=== PATIENT | female | born 1970 | race Caucasian/White ===

== ENCOUNTER → 2019-05-24 11:48 | Outpatient (CLI) | payer OTHER, SELFPAY ==
[2019-05-24 12:30] LABS: Basophils % 0.7 % (0.1-2.0); Eosinophils # 0.1 K/mm3 (0.0-0.4); Eosinophils % 1.6 % (0.1-12.0); Hematocrit 45.6 % (37.0-47.0); Hemoglobin 14.5 g/dL (12.2-16.2); Lymphocytes # 1.6 K/mm3 (0.7-4.5); Lymphocytes % 26.2 % (10-50); Mean Corpuscular HGB Conc 31.8 g/dL (31.8-35.4); Mean Corpuscular Hemoglobin 31.1 pg (27.0-31.2); Mean Corpuscular Volume 97.6 fl (81-99); Mean Platelet Volume 8.3 fl (7.4-10.4); Monocytes # 0.3 K/mm3 (0.1-1.0); Monocytes % 5.5 % (1.7-9.3); Neutrophils # 4.1 K/mm3 (1.8-7.8); Platelet Count 172 K/mm3 (142-424); Red Blood Count 4.67 M/mm3 (4.20-5.40); Red Cell Distribution Width 13.2 % (11.5-17.5); White Blood Count 6.3 K/mm3 (4.8-10.8)
[2019-05-24 14:33] LABS: Alanine Aminotransferase 24 U/L (12-78); Albumin Level 3.7 gm/dL (3.4-5.0); Albumin/Globulin Ratio 1.2 (1.1-1.8); Alkaline Phosphatase 68 U/L (46-116); Aspartate Amino Transferase 19 U/L (15-37); Bilirubin,Total 0.3 mg/dL (0.2-1.0); Blood Urea Nitrogen 8 mg/dL (7-18); CKMB Relative Index 1.1 U/L (0-4.0); Calcium 8.5 mg/dL (8.5-10.1); Carbon Dioxide 28 mmol/L (21.0-32.0); Chloride 103 mmol/L (98-107); Chol/HDL Ratio 3.5 (1-3.5); Cholesterol 229 mg/dL (140-200); Creatine Kinase 132 U/L (26-192); Creatine Kinase MB 1.5 ng/ml (0.0-3.6); Estimated Glomerular Filt Rate 89 ml/min (>60); GFR (African American) 108 ML/MIN (>60); Globulin 3.1 gm/dl (1.3-3.2); Glucose 94 mg/dL (74-106); HDL Cholesterol 66 mg/dL (29-89); LDL Cholesterol 147 mg/dL (0-130); Sodium 143 mmol/L (136-145); T4 (Thyroxine) 10.6 ug/dl (4.7-13.3); Thyroid Stimulating Hormone 1.33 uIU/ml (0.358-3.740); Total Protein,Serum 6.8 gm/dL (6.4-8.2); Triglycerides 79 mg/dL (30-200); Troponin I < 0.02 ng/ml (0.00-0.06); VLDL Cholesterol 16 mg/dL (0-40)
[2019-05-25 23:11] LABS: Vitamin D 25 Hydroxy 37.6 ng/mL (30.0-100.0)
== END ==
PROVIDERS: Visit Provider Nurse Practitioner Family
DX: I10 Essential (primary) hypertension (principal); R00.2 Palpitations
CPT/HCPCS: 36415; 80053; 80061; 82550; 82553; 82652; 84436; 84443; 84484; 85025

== ENCOUNTER → 2019-05-31 08:48 | Outpatient (CLI) | payer OTHER, SELFPAY ==
--- NOTE | 2019-05-31 | CA_ITS ---
APPROVED REPORT Exam: Exercise Treadmill Technologist: Genna Lord Ht: 5 ft 5 in Wt: 116 lbs BSA: 1.57 m2 HR: 80 bpm BP: 123/83 mmHg Indications: Shortness of Air, chest pain Medical History Medications: Premarin,,,,, Stress Test Details Test: Uriel HR Resting HR: 104 bpm Max Heart Rate (APMHR): 171 bpm Max HR Achieved: 182 bpm Target HR (85% APMHR): 145 bpm % of APMHR: 106 Recovery HR: 100 bpm BP Resting BP: 123.0/83.0 mmHg Max BP: 182.0/86.0 mmHg Recovery BP: 129.0/90.0 mmHg ECG Clinical Exercise duration: 12:00 min Highest Stage Achieved: Exercise capacity: 12.8 METs Stress ECG Conclusion Resting ECG: Normal sinus rhythm, PVC, incomplete right bundle branch block Patient exercised 12:00 on Uriel Protocol. Test stopped due to shortness of air, fatigue, 100% of PM heart rate. Symptoms: Mild chest pressure with exercise. Arrhythmias/Ectopy: Occasional isolated PVC. Occasional PAC and one 4 beat run of SVT. ST-T Changes: Normal ST response to exercise. Conclusion: Mild chest pain with normal EKGs during exercise. GXT only (no images). Test Summary RECOVERY 02:00 0.0 0.0 141 . 145/ 85 . . REST 03:01 0.0 0.0 104 . 123/ 83 . . Stage 1 01:00 10.0 1.7 110 . . . . Stage 1 02:00 10.0 1.7 117 . . . . Stage 1 03:00 10.0 1.7 125 . 144/ 80 . . Stage 2 01:00 12.0 2.5 144 . . . . Stage 2 02:00 12.0 2.5 149 . . . . Stage 2 03:00 12.0 2.5 148 . 170/ 80 . . Stage 3 01:00 14.0 3.4 159 . . . . Stage 3 02:00 14.0 3.4 164 . . . . Stage 3 03:00 14.0 3.4 169 . 182/ 86 . . Stage 4 01:00 16.0 4.2 176 . . . . Stage 4 02:00 16.0 4.2 179 . . . . Stage 4 03:00 16.0 4.2 181 . . . Stop exercise at 12:00 RECOVERY 01:00 0.0 0.0 164 . 145/ 85 . . RECOVERY 02:00 0.0 0.0 141 . 145/ 85 . . RECOVERY 03:00 0.0 0.0 118 . 138/ 90 . . RECOVERY 04:00 0.0 0.0 112 . 138/ 88 . . RECOVERY 05:00 0.0 0.0 109 . 138/ 88 . . RECOVERY 06:00 0.0 0.0 101 . 129/ 90 . . RECOVERY 06:33 0.0 0.0 97 . 129/ 90 . . Electronically signed by : Wyatt Rojas, 05/31/2019 21:02:13
--- NOTE | 2019-05-31 08:55 | CA_ITS ---
APPROVED REPORT EXAM: Comprehensive 2D, Doppler, and color-flow Echocardiogram Stitching Machine Operator: Rae Guan RDCS Ht: 5 ft 5 in Wt: 115lbs BSA: 1.56 BP: 117/89 mmHg Indications: SOA CP SMOKER 2D Dimensions LVOT 1.90 cm (M/F) 1.5-2.5 M-Mode Dimensions RVDd 0.70 cm (0.9-2.6) LA Diam 1.70 cm (1.9-4.0) LVDd 4.00 cm (3.5-5.7) Ao Diam 2.60 cm (2.0-3.7) LVDs 3.00 cm (3.5-5.7) AV Cusp 1.90 cm (1.5-2.6) IVSd 0.60 cm (0.6-1.1) PWd 0.70 cm (0.6-1.1) EF (Teich) 50.00% FS 25.00% EDV (Teich) 70.00 mL ESV (Teich) 35.00 mL LV Diastology E/A Ratio 0.9 MED E' 7.41 (< 7 cm/sec) E'/MED E' Ratio 7.70 (>14) LAT E' 12.50 (<10 cm/sec) E/LAT E' Ratio 4.50 (>14) Mitral Valve MV E Max Pradeep. 56.80 (40-130 cm/s) MV A Velocity 66.10 (40-130 cm/s) E/A Ratio 0.90 Left Ventricle Left atrium is normal size, left ventricle is normal size, there is no concentric left ventricular hypertrophy, visually estimated ejection fraction 55% with no regional wall motion abnormality, diastolic parameters are inconclusive. Right Ventricle Right atrium and right ventricular normal size and contractility. Aortic Valve Aortic valve is minimally thickened and fibrosed. There is no aortic stenosis aortic insufficiency. Mitral Valve Mitral valve is grossly normal, there is no mitral stenosis, there is mild mitral regurgitation. Tricuspid Valve Tricuspid valve is grossly normal, there is mild tricuspid regurgitation. Tricuspid regurgitation jet velocity is inadequate for calculation of the right ventricular systolic pressure. Pulmonic Valve Pulmonic valve is poorly visualized. Great Vessels Aortic root is normal size. Pericardium No significant pericardial effusion noted. Conclusion 1. Normal left ventricular size, preserved left ventricular systolic function, visually estimated ejection fraction 55% with no regional wall motion abnormality, diastolic parameters are inconclusive. 2. Mild mitral and tricuspid regurgitation 3. No significant pericardial effusion noted. Electronically signed by : Wyatt Rojas, 06/01/2019 12:23:59
== END ==
PROVIDERS: PCP Emergency Medicine; Visit Provider Urology
DX: R00.2 Palpitations (principal); R06.02 Shortness of breath; R94.31 Abnormal electrocardiogram [ECG] [EKG]
CPT/HCPCS: 93017; 93306

== ENCOUNTER → 2019-06-06 14:06 | Outpatient (CLI) | payer OTHER, SELFPAY | PROVIDERS: PCP Emergency Medicine; Visit Provider Urology | DX: R53.83 Other fatigue (principal); R40.0 Somnolence; G47.30 Sleep apnea, unspecified | CPT/HCPCS: 95806 ==

== ENCOUNTER → 2019-06-20 07:38 | Outpatient (CLI) | payer OTHER, SELFPAY ==
--- NOTE | 2019-06-20 07:47 | MR_ITS ---
PROCEDURE: MR LUMBAR SPINE WO CON CLINICAL INDICATION: Back pain Low back pain worse on the left COMPARISON: None TECHNIQUE: Standard multiplanar multiecho sequences are performed without contrast. 3-D MIP and myelographic images are also rendered and reviewed FINDINGS: There is normal alignment. The spinal cord ends at the T12-L1 level. L1-L2: Unremarkable. L2-L3: A small posterior extradural area of isointense T1 and T2 signal noted in the right posterior paracentral region of the disc space consistent with a small right paracentral disc protrusion causing right lateral recess and foraminal narrowing impinging upon the right L3 nerve root L3-L4: Mild facet and ligamentum hypertrophy with mild bilateral foraminal narrowing slightly greater on the left compared to the right. L4-5: Mild facet and ligamentum hypertrophy L5-S1: Mild facet and ligamentum hypertrophy Gallstones are suspected may be confirmed with ultrasound if clinically warranted. IMPRESSION: 1. L2-L3: A small posterior extradural area of isointense T1 and T2 signal noted in the right posterior paracentral region of the disc space consistent with a small right paracentral disc protrusion causing right lateral recess and foraminal narrowing impinging upon the right L3 nerve root 2. L3-L4: Mild facet and ligamentum hypertrophy with mild bilateral foraminal narrowing slightly greater on the left compared to the right. 3. Gallstone suspected and may be confirmed with ultrasound Dictated by: Stanislaw Adan MD 06/21/2019 06:19 Electronically signed by Stanislaw Adan MD in [place] 06/21/2019 06:19
== END ==
PROVIDERS: PCP Emergency Medicine; Visit Provider Nurse Practitioner Family
DX: M54.5 Low back pain (principal)
CPT/HCPCS: 72148; 76376

== ENCOUNTER 2019-06-21 08:30 | Outpatient (RCR) | payer OTHER, SELFPAY ==
--- NOTE | 2019-06-14 09:13 | HMH.PTOPEV ---
PT Outpatient Evaluation Rehab PT Outpatient Evaluation Start: 06/14/19 08:45 Freq: Status: Active Protocol: Document 06/14/19 08:45 CHELSEY (Rec: 06/14/19 09:05 CHELSEY [id number]) Electronically Signed By Samm Galvan, PT 06/14/19 08:45 Outpatient Therapy Subjective History Subjective History Patient is a 48 year old female presenting to outpatient PT with reports of acute low back pain. No radicular symptoms to report. No mechanism of injury to report. Special tests indicate R ant/L post innomminant. Corrected with manual rx. Medications include flexoril, prednisone and naproxen. Pt reports hx of R shoulder pain. No other comorbidities to report. Chief Complaint Pain Symptom Type Ache,Sharp Symptoms Relieved By Rest/Positioning Symptoms Aggravated By Sitting,Bending/Stooping Prior Functional Limitations None Current Functional Limitations Housework,Sitting,Squatting, Recreation Activity,Bending/ Stooping Symptom Description Intermittent Level of pain today (0-10) 2 Pain scale - at its best (0-10) 0 Pain scale - at its worst (0-10) 8 Lumbopelvic Eval Posture Thoracic Spine Posture Standing Position Neutral Lumbar Spine Posture Standing Position Neutral Assistive device Assistive Devices None / NA Palapation tenderness left Lumbar/Sacral Palpation Findings Tenderness Lumbar/Sacral Palpation Overall Comment 3/4 L PSIS Accessory Movement S1 left Range of Motion Lumbar Spine Active Flexion Range of WNL Motion (degrees) Lumbar Spine Active Extension Range of WNL Motion (degrees) Left Lumbar Spine Lateral Flexion Active 20 Range of Motion (degrees) Right Lumbar Spine Lateral Flexion 12 Active Range of Motion (degrees) Lumbar Spine ROM Limitations Soft Tissue Tightness,Bony Restriction Manual Muscle Test Left Knee Extension Strength Grade 4 Good Knee Flexion Strength Grade 4 Good Hip Flexion Strength Grade 4- Good- Hip Abduction Strength Grade 4 Good Hip Adduction Strength Grade 4 Good Extensor Hallucis Longus Strength Grade 5 Normal Ankle Dorsiflexion Strength Grade 5 Normal Gastronemius/Soleus Strength Grade 5 Normal DTR Rt Patellar 2+ Lt Patellar 2+ Rt Gas
== END 2019-06-21 08:35 | disposition home or self-care (01) ==
LOC: PT 08:30
PROVIDERS: PCP Emergency Medicine; Visit Provider Nurse Practitioner Family
DX: M54.5 Low back pain (principal)
CPT/HCPCS: 97010; 97014; 97035; 97110; 97140; 97163; G0283

== ENCOUNTER → 2019-07-03 07:58 | Outpatient (CLI) | payer OTHER, SELFPAY ==
--- NOTE | 2019-07-03 07:59 | US_ITS ---
PROCEDURE: US GALLBLADDER CLINICAL INDICATION: Abnormal Abd CT COMPARISON: MR LUMBAR SPINE WO CON from 06/20/2019 FINDINGS: Pancreas: Unremarkable/Not well seen Liver: Unremarkable. There is appropriate direction of blood flow within a non dilated portal vein. Right kidney: Unremarkable appearing. No hydronephrosis. Gallbladder: The gallbladder is filled with stones. No gallbladder wall thickening, pericholecystic fluid, or biliary dilatation. Common bile duct is 4 mm. IMPRESSION: Cholelithiasis Dictated by: Stanislaw Adan MD 07/03/2019 13:47 Electronically signed by Stanislaw Adan MD in [place] 07/03/2019 13:47
== END ==
PROVIDERS: PCP Emergency Medicine; Visit Provider Nurse Practitioner Family
DX: R93.5 Abnormal findings on diagnostic imaging of other abdominal regions, including retroperitoneum (principal)
CPT/HCPCS: 76705

== ENCOUNTER → 2019-07-12 10:46 | Outpatient (CLI) | payer OTHER, SELFPAY ==
[2019-07-12 11:37] LABS: Basophils % 0.6 % (0.1-2.0); Eosinophils # 0.1 K/mm3 (0.0-0.4); Eosinophils % 1.4 % (0.1-12.0); Hematocrit 43.2 % (37.0-47.0); Hemoglobin 14.5 g/dL (12.2-16.2); Lymphocytes # 2.2 K/mm3 (0.7-4.5); Lymphocytes % 30.9 % (10-50); Mean Corpuscular HGB Conc 33.6 g/dL (31.8-35.4); Mean Corpuscular Hemoglobin 32.8 pg (27.0-31.2); Mean Corpuscular Volume 97.5 fl (81-99); Mean Platelet Volume 7.9 fl (7.4-10.4); Monocytes # 0.5 K/mm3 (0.1-1.0); Monocytes % 6.2 % (1.7-9.3); Neutrophils # 4.4 K/mm3 (1.8-7.8); Platelet Count 186 K/mm3 (142-424); Red Blood Count 4.43 M/mm3 (4.20-5.40); Red Cell Distribution Width 13.2 % (11.5-17.5); White Blood Count 7.2 K/mm3 (4.8-10.8)
[2019-07-12 12:48] LABS: Alanine Aminotransferase 22 U/L (12-78); Albumin Level 3.6 gm/dL (3.4-5.0); Albumin/Globulin Ratio 1.2 (1.1-1.8); Alkaline Phosphatase 74 U/L (46-116); Anion Gap 10.1 mEq/L (5-15); Aspartate Amino Transferase 19 U/L (15-37); Bilirubin,Total 0.2 mg/dL (0.2-1.0); Blood Urea Nitrogen 9 mg/dL (7-18); Calcium 9.1 mg/dL (8.5-10.1); Carbon Dioxide 29 mmol/L (21.0-32.0); Chloride 105 mmol/L (98-107); Creatinine,Serum 0.58 mg/dL (0.55-1.02); Estimated Glomerular Filt Rate 110 ml/min (>60); GFR (African American) 133 ML/MIN (>60); Glucose 72 mg/dL (74-106); Potassium 4.1 mmoL/L (3.5-5.1); Sodium 140 mmol/L (136-145); Total Protein,Serum 6.6 gm/dL (6.4-8.2)
== END ==
PROVIDERS: Visit Provider Surgery
DX: K80.20 Calculus of gallbladder without cholecystitis without obstruction (principal)
CPT/HCPCS: 36415; 80053; 85025

== ENCOUNTER → 2019-08-10 12:54 | Outpatient (POV) | payer OTHER, SELFPAY | PROVIDERS: Visit Provider Neurological Surgery | DX: Z00.00 Encounter for general adult medical examination without abnormal findings (principal) ==

== ENCOUNTER → 2019-09-05 11:21 | Outpatient (POV) | payer BC, SELFPAY ==
[2019-09-05 11:34] VITALS: BP 125/87; PULSE 85; RESP 18; O2SAT 99; BMI 19.3
--- NOTE | 2019-09-05 11:53 | HMH.PMCON ---
Assessment and Plan (1) Facet arthropathy Current visit: Yes Status: Chronic Category: Medical Code(s): M47.819 - Spondylosis without myelopathy or radiculopathy, site unspecified (2) Degenerative disc disease, lumbar Current visit: Yes Status: Chronic Category: Medical Code(s): M51.36 - Other intervertebral disc degeneration, lumbar region - Assessment and plan all Dx Assessment and Plan for all problems:: We will schedule a lumbar medial branch block at L4-L5 L5-S1 bilaterally. Patient is getting continue her home stretching program we will start her on diclofenac 75 mg 1 p.o. twice daily. We will follow-up with her after her injection reassess her symptoms at that time she may be a neurotomy candidate. She has no active infections. She is not on any anticoagulation therapy. Dr. Mendoza has reviewed this note and agrees with this plan of care. This note was dictated using voice recognition software and may contain errors or omissions HPI - Data of Consult Consult date: 09/05/19 Requesting Physician: Madhuri Herrera APRN Primary Care Provider: Ghulam Bains MD - Consult Narrative Reason for consult: Facet arthropathy History of present illness: Ms. Guzmán is a 49 year old female who presents today for consultation in regards to her low back pain. Patient has low back pain that is nonradiating and very focal in nature. Any kind of twisting motion makes it worse. She was seen by a neurosurgeon and was determined that she would potentially benefit from facet joint injections. He states she had this 20 years ago and has extreme success with that. Patient does have an MRI showing facet arthropathy she is not a surgical candidate. She is failed 6 months of conservative therapy including medications, anti-inflammatories, stretching programs, physical therapy she is continuing a home stretching program. She is not on any anticoagulation therapy. CC: Madhuri Herrera APRN [facility] History I have reviewed the patient's past medical history: Yes Medical History: Reports:: Hypertension Denies:: Cancer, Diabetes Mellitus Type 1, Diabetes Mellitus Type 2, Internal Pacemaker, MRSA, Seizures *Have you ever received a pneumonia vaccine?: Yes *Have you received a flu vaccine this season?: Yes Other Medical History: Reports: Hoarseness, Hormone Therapy, Sinus Problems. Denies: Blood Transfusion Reaction Laterality Cases: Right: Arthroscopy Knee, Arthroscopy Shoulder Other Surgeries: Yes: Cholecystectomy, Colonoscopy, Hysterectomy-Total, Other. No: Pacemaker Amputation: No Fractures: No - *Social History Smoking Status: Current every day smoker Tobacco Type: cigarettes # Packs/Day (cigarettes): 1 #Yrs smoked (if former smoker): 20 Alcohol Intake: never Substance Use Type: denies use *Occupational Status:: other Housing: house Household Members: spouse *Travel in the last 8 weeks: None Family Hx:: Cancer Review of Systems - Review of Systems ROS General: no recent weight change, no fever, no sleep disturbances Respiratory: no cough, no shortness of air, no recurring pulmonary infections Cardiovascular/Peripheral Vascular: No chest pain, No palpitations, no edema, no shortness of breath. Gastrointestinal: no new onset incontinence, normal bowel movements reported Genitourinary: no new onset incontinence Musculoskeletal: Back pain Psychiatric: normal mood/ affect Neurological: [denies new onset weakness in extremities], [denies new onset balance issues] Meds Home Medications Medication Instructions Recorded Confirmed Type conjugated estrogens 0.625 mg 0.625 mg PO DAILY 05/24/19 08/17/19 History tablet Diclofenac Sodium [Diclofenac 75mg 75 mg PO BID #60 tab 09/05/19 Rx Tab] Allergies Allergy/AdvReac Type Severity Reaction Status Date / Time meperidine [From DEMEROL] Allergy Intermediate I-HIVES Verified 08/17/19 09:06 sumatriptan Allergy Unknown Hives, SOB Verified 1
== END ==
PROVIDERS: PCP Emergency Medicine; Visit Provider Clinical Nurse Specialist Family Health
DX: M47.816 Spondylosis without myelopathy or radiculopathy, lumbar region (principal)
CPT/HCPCS: 99202

== ENCOUNTER → 2019-10-02 11:35 | Outpatient (POV) | payer BC, SELFPAY ==
[2019-10-02 12:19] VITALS: BP 143/98; PULSE 94; RESP 18; O2SAT 99; BMI 19.5
--- NOTE | 2019-10-02 12:33 | XR_ITS ---
PROCEDURE: XR SACROILIAC JOINT BI MIN 3V CLINICAL INDICATION: SACROILITIS Back pain COMPARISON: No exams were available for comparison FINDINGS: No bony or joint abnormality. No evidence SI joint effusion or lytic change or significant degenerative change. IMPRESSION: Negative SI joints Dictated by: Stanislaw Adan MD 10/02/2019 14:09 Electronically signed by Stanislaw Adan MD in [place] 10/02/2019 14:09
--- NOTE | 2019-10-02 12:36 | HMH.PAINSOAP ---
[facility] Pain Management SOAP Note Subjective:: Patient is a very pleasant 49-year-old white female who presents today for follow-up after medial branch blocks. Patient did not get any relief from her medial branch blocks. Patient states that the pain is lower. Patient is pointing to her SI joints. Patient has a positive Arlene test SI joint compression test and bilateral Ike's test. Patient has had low back pain for over 6 months. She rates her pain a 2 out of 10 however is worse with activity. She has difficulty from 6 sitting to standing position. Patient does not have any diagnostic imaging of her SI joints we will send her for an x-ray today. We will set her up for SI joint injections. ROS General: no recent weight change, no fever, no sleep disturbances Respiratory: no cough, no shortness of air, no recurring pulmonary infections Cardiovascular/Peripheral Vascular: No chest pain, No palpitations, no edema, no shortness of breath. Gastrointestinal: no new onset incontinence, normal bowel movements reported Genitourinary: no new onset incontinence Musculoskeletal: Bilateral SI joint pain Psychiatric: normal mood/ affect, Neurological: [denies new onset weakness in extremities], [denies new onset balance issues] Objective:: Physical Exam General: Alert and oriented x3, no acute distress, pleasant and cooperative, [on room air] Lungs: Resps E/U, Symmetrical chest expansion, Eyes: PERRL Musculoskeletal: Flexion and extension of lumbar spine somewhat guarded secondary to pain, deep tendon reflexes normal, strength in upper and lower extremities [5/5], [abnormal gait noted] SI joint compression test positive bilaterally Ike's test positive bilaterally Arlene test positive bilaterally Neurological: speech clear, 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 I will follow-up with her after this reassess her symptoms at that time she is been instructed to call the office if she has any issues prior to her next appointment. Dr. Mendoza has reviewed this note and agrees with this plan of care. This note was dictated using voice recognition software and may contain errors or omissions [facility] History I have reviewed the patient's past medical history: Yes Medical History: Reports:: Hypertension Denies:: Cancer, Diabetes Mellitus Type 1, Diabetes Mellitus Type 2, Internal Pacemaker, MRSA, Seizures *Have you ever received a pneumonia vaccine?: Yes *Have you received a flu vaccine this season?: Yes Other Medical History: Reports: Hoarseness, Hormone Therapy, Sinus Problems. Denies: Blood Transfusion Reaction Laterality Cases: Right: Arthroscopy Knee, Arthroscopy Shoulder Other Surgeries: Yes: Cholecystectomy, Colonoscopy, Hysterectomy-Total, Other. No: Pacemaker Amputation: No Fractures: No - *Social History Smoking Status: Current every day smoker Tobacco Type: cigarettes # Packs/Day (cigarettes): 1 #Yrs smoked (if former smoker): 20 Alcohol Intake: never Substance Use Type: denies use *Occupational Status:: other Housing: house Household Members: spouse *Travel in the last 8 weeks: None Family Hx:: Cancer
== END ==
PROVIDERS: PCP Emergency Medicine; Visit Provider Clinical Nurse Specialist Family Health
DX: M46.1 Sacroiliitis, not elsewhere classified (principal); M51.36 Other intervertebral disc degeneration, lumbar region; Z72.0 Tobacco use
CPT/HCPCS: 72202; 99212

== ENCOUNTER → 2019-11-13 14:44 | Outpatient (POV) | payer BC, SELFPAY ==
[2019-11-13 14:56] VITALS: BP 149/91; PULSE 79; RESP 18; O2SAT 98; BMI 19.3
--- NOTE | 2019-11-14 10:52 | P.CONS_ITS ---
[facility] Pain Management SOAP Note Subjective:: Is a pleasant 49-year-old white female who presents today for follow-up after SI joint injections. Patient has had not much relief with this. She rates her pain a 6 out of 10 however now it is lower in her buttock region. Patient does have tenderness over her piriformis. We discussed stretching along with gabapentin. Patient is taking gabapentin in the past and did well with it. We will start her on a gabapentin regimen and some piriformis stretches at home. [facility] #[id number] reviewed. ROS General: no recent weight change, no fever, no sleep disturbances Respiratory: no cough, no shortness of air, no recurring pulmonary infections Cardiovascular/Peripheral Vascular: No chest pain, No palpitations, no edema, no shortness of breath. Gastrointestinal: no new onset incontinence, normal bowel movements reported Genitourinary: no new onset incontinence Musculoskeletal: Piriformis pain Psychiatric: normal mood/ affect Neurological: [denies new onset weakness in extremities], [denies new onset balance issues] Objective:: Physical Exam General: Alert and oriented x3, no acute distress, pleasant and cooperative, [on room air] Lungs: Resps E/U, Symmetrical chest expansion, Eyes: PERRL Musculoskeletal: Flexion and extension of lumbar spine somewhat guarded secondary to pain, deep tendon reflexes normal, strength in upper and lower extremities [5/5], slightly antalgic gait noted Neurological: speech clear, in store representative equal, no gross sensory deficits Assessment:: Myofascial pain syndrome, sacroiliitis, piriformis syndrome Plan:: We will start the patient on gabapentin 100 mg we will prescribe 5 a day however she will titrate up slowly. She will begin with 1 tab at nighttime and increase as tolerated. I will see her in 1 month reassess her symptoms at that time. She is also going to move forward with piriformis stretching. Dr. Mendoza has reviewed this note and agrees with this plan of care. This note was dictated using voice recognition software and may contain errors or omissions [facility] History Medical History: Reports:: Hypertension Denies:: Cancer, Diabetes Mellitus Type 1, Diabetes Mellitus Type 2, Internal Pacemaker, MRSA, Seizures *Have you ever received a pneumonia vaccine?: Yes *Have you received a flu vaccine this season?: Yes Other Medical History: Reports: Hoarseness, Hormone Therapy, Sinus Problems. Denies: Blood Transfusion Reaction Laterality Cases: Right: Arthroscopy Knee, Arthroscopy Shoulder Other Surgeries: Yes: Cholecystectomy, Colonoscopy, Hysterectomy-Total, Other. No: Pacemaker Amputation: No Fractures: No - *Social History Smoking Status: Current every day smoker Tobacco Type: cigarettes # Packs/Day (cigarettes): 1 #Yrs smoked (if former smoker): 20 Alcohol Intake: never Substance Use Type: denies use *Occupational Status:: other Housing: house Household Members: spouse *Travel in the last 8 weeks: None Family Hx:: Cancer
== END ==
PROVIDERS: PCP Emergency Medicine; Visit Provider Clinical Nurse Specialist Family Health
DX: M79.18 Myalgia, other site (principal); M46.1 Sacroiliitis, not elsewhere classified; G57.00 Lesion of sciatic nerve, unspecified lower limb
CPT/HCPCS: 99212

== ENCOUNTER → 2019-12-11 10:01 | Outpatient (POV) | payer BC, SELFPAY ==
[2019-12-11 10:13] VITALS: BP 125/95; PULSE 94; RESP 18; TEMP 36.8; O2SAT 98; BMI 19.3
--- NOTE | 2019-12-11 11:30 | HMH.PAINSOAP ---
[facility] Pain Management SOAP Note Subjective:: Patient is a pleasant 49-year-old white female who presents today for follow-up. Patient is on gabapentin states the radiation of pain has helped however she is having extreme pain over her left SI joint and is extremely sensitive to palpation in this area. She rates her pain a 7 out of 10 and is having a lot of difficulty doing her activities of daily life. We did get an x-ray of her SI joint which was negative however she is not having pain in any other location at this time. Patient's tried medial branch blocks and also SI joint injections with no significant relief. She is tried bracing both back and SI joints. She is tried anti-inflammatories with no relief. We will order an MRI of her left SI joint to help determine pathology. ROS General: no recent weight change, no fever, no sleep disturbances Respiratory: no cough, no shortness of air, no recurring pulmonary infections Cardiovascular/Peripheral Vascular: No chest pain, No palpitations, no edema, no shortness of breath. Gastrointestinal: no new onset incontinence, normal bowel movements reported Genitourinary: no new onset incontinence Musculoskeletal: SI joint pain Psychiatric: normal mood/ affect Neurological: [denies new onset weakness in extremities], [denies new onset balance issues] Objective:: Physical Exam General: Alert and oriented x3, no acute distress, pleasant and cooperative, [on room air] Lungs: Resps E/U, Symmetrical chest expansion, Eyes: PERRL Musculoskeletal: Flexion and extension of lumbar spine somewhat guarded secondary to pain, deep tendon reflexes normal, strength in upper and lower extremities [5/5], antalgic gait noted, positive Arlene test positive SI joint compression test and positive Jackie's test on the left side Neurological: speech clear, boat 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 twice daily as needed. We will also get an MRI of her left SI joint. Patient's been instructed to call the office if she has any issues prior to her next appointment. We specifically discussed risk factors for Covid-19 including age, heart or lung disease, diabetes, immunosuppression and travel. We also discussed that NSAIDs may worsen Covid-19 infection symptoms and that they should not be used to treat Covid-19 symptoms. Patient was also informed that corticosteroids in any form oral or injectable will decrease immune response and may increase risk of Covid-[address] Mendoza has reviewed this patient's chart and this note and agrees with plan of care. Patient has been instructed to call the office if they have any issues prior to the next appointment. Dr. Mendoza has reviewed this note and agrees with this plan of care. This note was dictated using voice recognition software and may contain errors or omissions [facility] History I have reviewed the patient's past medical history: Yes Medical History: Reports:: Hypertension Denies:: Cancer, Diabetes Mellitus Type 1, Diabetes Mellitus Type 2, Internal Pacemaker, MRSA, Seizures *Have you ever received a pneumonia vaccine?: Yes *Have you received a flu vaccine this season?: Yes Other Medical History: Reports: Hoarseness, Hormone Therapy, Sinus Problems. Denies: Blood Transfusion Reaction Laterality Cases: Right: Arthroscopy Knee, Arthroscopy Shoulder Other Surgeries: Yes: Cholecystectomy, Colonoscopy, Hysterectomy-Total, Other. No: Pacemaker Amputation: No Fractures: No - *Social History Smoking Status: Current every day smoker Tobacco Type: cigarettes # Packs/Day (cigarettes): 1 #Yrs smoked (if former smoker): 20 Alcohol Intake: never Substance Use Type: denies use *Occupational Status:: other Housing: house Household Members: spouse *Travel in the last 8 weeks: None Family Hx:: Cancer
== END ==
PROVIDERS: PCP Emergency Medicine; Visit Provider Clinical Nurse Specialist Family Health
DX: M46.1 Sacroiliitis, not elsewhere classified (principal)
CPT/HCPCS: 99212

== ENCOUNTER → 2019-12-19 07:55 | Outpatient (CLI) | payer BC, SELFPAY ==
--- NOTE | 2019-12-19 08:00 | MR_ITS ---
PROCEDURE: MR SACRUM WO CON CLINICAL INDICATION: SI JOINT PAIN Left-sided sacral pain COMPARISON: XR SACROILIAC JOINT BI MIN 3V from 10/02/2019 TECHNIQUE: Routine multiplanar multi echo sequences are performed without gadolinium enhancement. FINDINGS: SI joints have an unremarkable appearance. There is no evidence of effusion, significant osteosclerosis, or lytic process. No bone marrow edema is apparent. There is a small subarticular cystic area in the right ileum laterally and posteriorly seen on series 3, image 8 measuring approximately 4 mm nonspecific IMPRESSION: Negative MRI of the sacrum Dictated by: Stanislaw Adan MD 12/20/2019 14:49 Electronically signed by Stanislaw Adan MD in [place] 12/20/2019 14:49
== END ==
PROVIDERS: PCP Emergency Medicine; Visit Provider Clinical Nurse Specialist Family Health
DX: M53.3 Sacrococcygeal disorders, not elsewhere classified (principal)
CPT/HCPCS: 72195

== ENCOUNTER → 2020-01-01 14:36 | Outpatient (POV) | payer BC, SELFPAY ==
[2020-01-01 15:32] VITALS: BP 126/96; PULSE 106; RESP 18; TEMP 36.6; O2SAT 98; BMI 19.4
--- NOTE | 2020-01-01 15:41 | HMH.PAINSOAP ---
[facility] Pain Management SOAP Note Subjective:: Is a pleasant 49-year-old white female who presents today for follow-up after MRI. MRI of her sacrum is essentially negative. Patient is had epidural injections along with SI joint injections with no real relief. On exam today she is extremely tender over her facet joints in her lumbar spine. She does have lumbar facet arthropathy she has difficulty with twisting motions. Her pain is extremely focal in her low back. She rates it a 9 out of 10. She is having difficulty doing her activities of daily living. Patient is on some Robaxin which does give her some relief. She is not on any anticoagulation therapy. I do believe she potentially could be an RFA/neurotomy candidate. She and I discussed a medial branch block/a facet joint injection for diagnostic. ROS General: no recent weight change, no fever, no sleep disturbances Respiratory: no cough, no shortness of air, no recurring pulmonary infections Cardiovascular/Peripheral Vascular: No chest pain, No palpitations, no edema, no shortness of breath. Gastrointestinal: no new onset incontinence, normal bowel movements reported Genitourinary: no new onset incontinence Musculoskeletal: Back pain Psychiatric: normal mood/ affect Neurological: [denies new onset weakness in extremities], [denies new onset balance issues] Objective:: Physical Exam General: Alert and oriented x3, no acute distress, pleasant and cooperative, [on room air] Lungs: Resps E/U, Symmetrical chest expansion, Eyes: PERRL Musculoskeletal: Flexion and extension of lumbar spine somewhat guarded secondary to pain, deep tendon reflexes normal, strength in upper and lower extremities [5/5], slightly antalgic gait noted, positive facet loading lumbar spine Neurological: speech clear, 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 She may be a neurotomy candidate. Of note she is extremely tender and has had difficulty with her lumbar injections in the past. I do believe that potentially she would benefit from the use of lidocaine prior to her medial branch block. I will follow-up with her after this reassess her symptoms at that time she has been instructed to call the office if she has any issues prior to her next appointment. Dr. Mendoza has reviewed this note and agrees with this plan of care. This note was dictated using voice recognition software and may contain errors or omissions [facility] History I have reviewed the patient's past medical history: Yes Medical History: Reports:: Hypertension Denies:: Cancer, Diabetes Mellitus Type 1, Diabetes Mellitus Type 2, Internal Pacemaker, MRSA, Seizures *Have you ever received a pneumonia vaccine?: Yes *Have you received a flu vaccine this season?: Yes Other Medical History: Reports: Hoarseness, Hormone Therapy, Sinus Problems. Denies: Blood Transfusion Reaction Laterality Cases: Right: Arthroscopy Knee, Arthroscopy Shoulder Other Surgeries: Yes: Cholecystectomy, Colonoscopy, Hysterectomy-Total, Other. No: Pacemaker Amputation: No Fractures: No - *Social History Smoking Status: Current every day smoker Tobacco Type: cigarettes # Packs/Day (cigarettes): 1 #Yrs smoked (if former smoker): 20 Alcohol Intake: never Substance Use Type: denies use *Occupational Status:: other Housing: house Household Members: spouse *Travel in the last 8 weeks: None Family Hx:: Cancer
== END ==
PROVIDERS: PCP Emergency Medicine; Visit Provider Clinical Nurse Specialist Family Health
DX: M51.36 Other intervertebral disc degeneration, lumbar region (principal); M47.816 Spondylosis without myelopathy or radiculopathy, lumbar region; M54.06 Panniculitis affecting regions of neck and back, lumbar region
CPT/HCPCS: 99212

== ENCOUNTER 2020-01-12 12:47 | Day surgery (SDC) | payer BC, SELFPAY ==
[2020-01-12 13:08] VITALS: BP 121/92; PULSE 102; RESP 18; O2SAT 98; BMI 19.3
[2020-01-12 13:22] VITALS: BP 132/85; PULSE 85
[2020-01-12 13:23] VITALS: BP 142/78; PULSE 88; RESP 18; O2SAT 99
--- NOTE | 2020-01-12 13:28 | HMH.PMPROC ---
- Procedure Date: 01/12/20 Time: 13:28 Anesthesiologist:: Kieran Mendoza MD Complications:: None Pre-procedure Diagnosis:: Degenerative disc disease of the lumbar spine with lumbar spondylosis and facet arthropathy of lumbar spine Post-procedure Diagnosis:: Same Indications for Procedure:: This patient is a pleasant 49-year-old white female who we have been treating for low back pain with lumbar spondylosis and facet arthropathy. She does have some increasing pain over the facet joints of L4-5 and L5-S1. The pain is increased with extension and twisting. She has a lot of pain while she is working. We will do bilateral lumbar facet joint injection/medial branch blocks of L4-5 and L5-S1 today to see if this helps with her pain symptoms. Procedure Details:: Lumbar medial branch block Informed consent was obtained and the risks and benefits of the procedure was explained to the patient. The back was prepped using ChloraPrep. The skin and subcutaneous tissues were anesthetized using lidocaine. I placed 22-gauge spinal needles into the facet joint/medial branches of L4-L5 and L5-S1 bilaterally. Needle placement was confirmed with dye. After this we injected 3 mL bupivacaine 0.25% and Depo-Medrol 20 mg into each facet joint/medial branch of L4-L5 and L5-S1 bilaterally. We used a total of 80 mg Depo-Medrol for both levels bilaterally. The patient tolerated the procedure well with no complications. Plan and Disposition:: We will follow-up with her in 2 weeks. Will reevaluate her symptoms at that time. If this is successful we will proceed to radiofrequency ablation of these facet joints of L4-5 and L5-S1 bilaterally.
[2020-01-12 13:34] VITALS: BP 144/95; PULSE 92; RESP 18; O2SAT 98
== END 2020-01-12 13:36 | disposition home or self-care (01) ==
LOC: SC.PAINP 12:47
PROVIDERS: PCP Emergency Medicine; Visit Provider Anesthesiology
DX: M51.36 Other intervertebral disc degeneration, lumbar region (principal); M47.816 Spondylosis without myelopathy or radiculopathy, lumbar region; M54.06 Panniculitis affecting regions of neck and back, lumbar region; I10 Essential (primary) hypertension; Z72.0 Tobacco use; Z87.39 Personal history of other diseases of the musculoskeletal system and connective tissue
CPT/HCPCS: 64493; 64494; J1030; Q9966

== ENCOUNTER → 2020-01-29 11:27 | Outpatient (POV) | payer BC, SELFPAY ==
[2020-01-29 11:35] VITALS: BP 129/89; PULSE 87; RESP 18; TEMP 36.6; O2SAT 98; BMI 26.6
--- NOTE | 2020-01-29 12:18 | HMH.PAINSOAP ---
[facility] Pain Management SOAP Note Subjective:: Patient is a pleasant 49-year-old white female who presents today for follow-up after a facet joint injection at L4-L5 L5-S1 bilaterally. Patient states that she did extremely well getting 90% relief of her symptomology. She still having relief. She is interested in moving forward with a neurotomy/RFA. She rates her pain a 3 out of 10. Activity is much easier for her. Patient at this time is unsure she wants to do bilateral RFA. She would like to start with the left side since all of her pain is on the left side. ROS General: no recent weight change, no fever, no sleep disturbances Respiratory: no cough, no shortness of air, no recurring pulmonary infections Cardiovascular/Peripheral Vascular: No chest pain, No palpitations, no edema, no shortness of breath. Gastrointestinal: no new onset incontinence, normal bowel movements reported Genitourinary: no new onset incontinence Musculoskeletal: Back pain Psychiatric: normal mood/ affect Neurological: [denies new onset weakness in extremities], [denies new onset balance issues] Objective:: Physical Exam General: Alert and oriented x3, no acute distress, pleasant and cooperative, [on room air] Lungs: Resps E/U, Symmetrical chest expansion, Eyes: PERRL Musculoskeletal: Flexion and extension of lumbar spine somewhat guarded secondary to pain, deep tendon reflexes normal, strength in upper and lower extremities [5/5], slightly antalgic gait noted Neurological: speech clear, product grader 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 Given the efficacy of her medial branch blocks I do believe that this would benefit her. She is tried and failed other injections including epidurals, SI joint injections, she is failed medications and anti-inflammatories. Patient is continuing a home stretching program. I will follow-up with her after this at that time we will determine if she wants to move forward with the right side ablation. She is not on any anticoagulation therapy. Dr. Mendoza has reviewed this note and agrees with this plan of care. This note was dictated using voice recognition software and may contain errors or omissions [facility] History I have reviewed the patient's past medical history: Yes Medical History: Reports:: Hypertension Denies:: Cancer, Diabetes Mellitus Type 1, Diabetes Mellitus Type 2, Internal Pacemaker, MRSA, Seizures *Have you ever received a pneumonia vaccine?: Yes *Have you received a flu vaccine this season?: Yes Other Medical History: Reports: Hoarseness, Hormone Therapy, Sinus Problems. Denies: Blood Transfusion Reaction Laterality Cases: Right: Arthroscopy Knee, Arthroscopy Shoulder Other Surgeries: Yes: Cholecystectomy, Colonoscopy, Hysterectomy-Total, Other. No: Pacemaker Amputation: No Fractures: No - *Social History Smoking Status: Current every day smoker Tobacco Type: cigarettes # Packs/Day (cigarettes): 1 #Yrs smoked (if former smoker): 20 Alcohol Intake: never Substance Use Type: denies use *Occupational Status:: other Housing: house Household Members: spouse *Travel in the last 8 weeks: None Family Hx:: Cancer
== END ==
PROVIDERS: PCP Emergency Medicine; Visit Provider Clinical Nurse Specialist Family Health
DX: Z09 Encounter for follow-up examination after completed treatment for conditions other than malignant neoplasm (principal); M51.36 Other intervertebral disc degeneration, lumbar region; M47.816 Spondylosis without myelopathy or radiculopathy, lumbar region; M12.88 Other specific arthropathies, not elsewhere classified, other specified site
CPT/HCPCS: 99212

== ENCOUNTER 2020-03-01 13:26 | Day surgery (SDC) | payer BC, SELFPAY ==
[2020-03-01 13:39] VITALS: BP 126/86; PULSE 63; RESP 18; TEMP 36.7; O2SAT 98; BMI 19.3
--- NOTE | 2020-03-01 14:47 | P.PCN_ITS ---
- Procedure Date: 03/01/20 Time: 14:47 Anesthesiologist:: Kieran Mendoza MD Complications:: None Pre-procedure Diagnosis:: Degenerative disc disease of the lumbar spine with lumbar spondylosis and facet arthropathy of lumbar spine Post-procedure Diagnosis:: Same Indications for Procedure:: This patient is a pleasant 49-year-old white female who we are treating for low back pain with lumbar radicular symptoms. She did very well with her medial branch blocks with 90% relief in her pain symptoms for 2 to 3 weeks. She presents for radiofrequency of the facet joints on the left side of L4-5 and L5- S1 today. Procedure Details:: Lumbar RFA informed consent was obtained and the risk and benefits of the procedure was explained to the patient. Patient was placed prone on the procedure table. The patient was prepped and draped in sterile fashion. C-arm fluoroscopy was used to view the lumbar spine. The skin and subcutaneous tissues were anesthetized using lidocaine. I placed 20-gauge RF needles into the facet joints of L4-5 and L5-S1 levels on the left side. We underwent sensory stimulation. There is good sensory stimulation at 0.8 V. We underwent motor stimulation. There is no motor stimulation at 2 V. We then anesthetized these levels with lidocaine and Depo-Medrol. I used a total of 40 mg Depo-Medrol for both levels. I then burned both levels of L4-5 and L5-S1 facet joint/medial branches on the left side for 4 minutes at 80 ?C Patient tolerated the procedure well with no complication. Plan and Disposition:: We will follow-up with her in 2 weeks. Will reevaluate symptoms at that time.
[2020-03-01 14:48] VITALS: BP 133/78; PULSE 85; RESP 18; O2SAT 98
[2020-03-01 14:49] VITALS: BP 140/78; PULSE 85; RESP 18; O2SAT 98
[2020-03-01 15:03] VITALS: BP 149/84; PULSE 78; RESP 20; O2SAT 100
== END 2020-03-01 15:04 | disposition home or self-care (01) ==
LOC: SC.PAINP 13:27
PROVIDERS: PCP Emergency Medicine; Visit Provider Anesthesiology
DX: M51.36 Other intervertebral disc degeneration, lumbar region (principal); M47.816 Spondylosis without myelopathy or radiculopathy, lumbar region; M12.88 Other specific arthropathies, not elsewhere classified, other specified site; I10 Essential (primary) hypertension; Z72.0 Tobacco use; Z87.39 Personal history of other diseases of the musculoskeletal system and connective tissue; Z90.49 Acquired absence of other specified parts of digestive tract; Z79.899 Other long term (current) drug therapy
CPT/HCPCS: 64635; 64636; J1040

== ENCOUNTER → 2020-04-04 09:05 | Outpatient (POV) | payer BC, SELFPAY ==
[2020-04-04 09:35] VITALS: BP 125/88; PULSE 85; RESP 18; BMI 18.8
--- NOTE | 2020-04-04 09:42 | HMH.PAINSOAP ---
[facility] Pain Management SOAP Note Subjective:: Patient is a pleasant 49-year-old who presents today for follow-up. She has been treated for low back pain with lumbar spondylosis and facet arthropathy lumbar spine. She did have an RFA on the left side at L4-L5 and L5-S1. She was scheduled to undergo an RFA on the right side, however, she is not having any pain at this time. She says that she contributes much of her pain relief to the pain as well. She takes gabapentin 100 mg 1 tablet p.o. 5 times daily. She denies any side effects to the medications. She rates her pain a 0 out of 10 today. Review of Systems General: No recent weight changes, no fever, no sleep disturbances Respiratory: No cough, no shortness of air, no recurring pulmonary infections Cardiovascular/peripheral vascular: No chest pain, no palpitations, no edema, no shortness of breath Gastrointestinal: No new onset incontinence, normal bowel movements reported Genitourinary: No new onset incontinence Musculoskeletal: Low back pain worse with bending Psychiatric: Normal mood/affect Neurological: [Denies weakness in extremities], [denies balance issues] Objective:: Physical exam General: Alert and oriented x3, no acute distress, pleasant and cooperative, [on room air] Lungs: Respirations even and unlabored, symmetrical chest expansion Eyes: PERRL Musculoskeletal: Flexion and extension of lumbar spine somewhat guarded secondary to pain, deep tendon reflexes normal, strength in upper and lower extremities [5/5], [abnormal gait noted] Neurological: 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 We will continue her on her gabapentin 100 mg 1 tablet p.o. 5 times daily. We will give her 3 months worth of medication and she will follow-up with us in 3 months. Patient has been instructed to contact clinic if she has any concerns before her next appointment. The patient and I specifically discussed risk factors for COVID19. These risks include, but are not limited to age greater than 60, heart or lung disease, diabetes, immunosuppression, and travel. We also discussed NSAIDs may worsen COVID19 infection or symptoms. Patient should not use NSAIDs to treat COVID19 signs or symptoms. Patient was also informed that any type of corticosteroid of any form (oral or injection) will decrease the patient's immune system response and may increase the likelihood of COVID19 infection [address] symptoms[address] Mendoza has reviewed this note and agrees with this plan of care. This note was dictated using voice recognition software and make contain errors or missions. [facility] History I have reviewed the patient's past medical history: Yes Medical History: Reports:: Hypertension Denies:: Cancer, Diabetes Mellitus Type 1, Diabetes Mellitus Type 2, Internal Pacemaker, MRSA, Seizures *Have you ever received a pneumonia vaccine?: Yes *Have you received a flu vaccine this season?: Yes Other Medical History: Reports: Fibromyalgia, Hoarseness, Hormone Therapy, Sinus Problems. Denies: Blood Transfusion Reaction Laterality Cases: Right: Arthroscopy Knee, Arthroscopy Shoulder Other Surgeries: Yes: Cholecystectomy, Colonoscopy, Hysterectomy-Total, Other. No: Pacemaker Amputation: No Fractures: No - *Social History Smoking Status: Current every day smoker Tobacco Type: cigarettes # Packs/Day (cigarettes): 1 #Yrs smoked (if former smoker): 20 Alcohol Intake: never Substance Use Type: denies use *Occupational Status:: other Housing: house Household Members: spouse *Travel in the last 8 weeks: None Family Hx:: Cancer
== END ==
PROVIDERS: PCP Emergency Medicine; Visit Provider Clinical Nurse Specialist Family Health
DX: M51.36 Other intervertebral disc degeneration, lumbar region (principal); M47.816 Spondylosis without myelopathy or radiculopathy, lumbar region; M12.88 Other specific arthropathies, not elsewhere classified, other specified site
CPT/HCPCS: 99212

== ENCOUNTER → 2020-06-27 15:05 | Outpatient (POV) | payer BC, SELFPAY ==
[2020-06-27 15:41] VITALS: BP 115/74; PULSE 74; RESP 18; O2SAT 98; BMI 19.1
--- NOTE | 2020-06-27 16:31 | HMH.PAINSOAP ---
[facility] Pain Management SOAP Note Subjective:: Patient is a 50-year-old white female who presents today for follow-up. She has been treated for chronic low back pain with lumbar spondylosis and facet arthropathy of her lumbar spine. Patient had a left RFA at L4-L5 and L5-S1. Patient did get great relief and was scheduled to undergo an RFA on the right side, however, at her last appointment she was not having any pain. She is here today with complaints of pain at an 8 out of 10. She says the pain is worse with leaning forward. 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 She says her pain is excruciating with any type of movement. She does take gabapentin 100 mg 1 tablet p.o. 5 times daily and diclofenac which is not giving her any relief. Patient says that the RFA on the left side was so painful, however, she does not want to do any further injective therapy to that side. Patient also says that she is not interested in any type of implanted device. She is unsure why or she would like to go at this point. She is also not interested in surgical intervention. She has tried physical therapy and a continued home stretching program. She is also tried ice and heat therapies. Review of Systems General: No recent weight changes, no fever, no sleep disturbances Respiratory: No cough, no shortness of air, no recurring pulmonary infections Cardiovascular/peripheral vascular: No chest pain, no palpitations, no edema, no shortness of breath Gastrointestinal: No new onset incontinence, normal bowel movements reported Genitourinary: No new onset incontinence Musculoskeletal: Low back pain worse with bending forward and with turning or twisting at waist Psychiatric: Normal mood/affect Neurological: [Denies weakness in extremities], [denies balance issues] Objective:: Physical exam General: Alert and oriented x3, no acute distress, pleasant and cooperative, Lungs: Respirations even and unlabored, symmetrical chest expansion Eyes: PERRL Musculoskeletal: Flexion and extension of [lumbar] spine somewhat guarded secondary to pain, deep tendon reflexes normal, strength in upper and lower extremities [5/5], [abnormal gait noted], positive Kemps test Neurological: Speech clear, area mechanic equal, no gross sensory deficit Assessment:: Degenerative disc disease lumbar spine with lumbar radiculopathy, facet arthropathy lumbar spine, lumbar spondylosis Plan:: Patient is not interested in any further injective therapy. She says that the RFA to the left side was too painful and she does not want to proceed with a rhizotomy to the right side. She would like to try prednisone. We will order the patient prednisone 20 mg 1 tablet p.o. 2 times daily for 5 days. We will see if this helps with her pain. We will plan to see her back in the clinic in a week to reassess her symptoms. The patient will continue with stretching and ice and heat therapies. We will plan to see her back at that time to discuss a further plan of care. Again, she does express concern with any further injective therapy and does not want to proceed with any type of implanted devices or surgical intervention. Patient has been instructed to contact clinic if she has any concerns before her next appointment. The patient and I specifically discussed risk factors for COVID19. These risks include, but are not limited to age greater than 60, heart or lung disease, diabetes, immunosuppression, and travel. We also discussed NSAIDs may worsen COVID19 infection or symptoms. Patient should not use NSAIDs to treat COVID19 signs or symptoms. Patient was also informed that any type of corticosteroid of any form (oral or injection) will decrease the patient's immune system response and may increase the likelihood of COVID19 [address] symptoms[address] Mendoza has reviewed this note and agrees with this plan of care. This note was dictated using voice recognition
== END ==
PROVIDERS: PCP Emergency Medicine; Visit Provider Clinical Nurse Specialist Family Health
DX: M51.16 Intervertebral disc disorders with radiculopathy, lumbar region (principal); M47.896 Other spondylosis, lumbar region; M12.88 Other specific arthropathies, not elsewhere classified, other specified site
CPT/HCPCS: 99212

== ENCOUNTER → 2020-07-04 15:09 | Outpatient (POV) | payer BC, SELFPAY ==
[2020-07-04 15:34] VITALS: BP 119/88; PULSE 78; RESP 18; TEMP 36.6; O2SAT 98; BMI 19.3
--- NOTE | 2020-07-07 14:16 | HMH.PAINSOAP ---
[facility] Pain Management SOAP Note Subjective:: Patient is a pleasant 50-year-old white female who presents today for follow-up. Patient was started on prednisone due to increased pain. She rates her pain 8 out of 10 over her facet joints. Patient has had constant pain. Her MRI shows mild facet arthropathy she does have a small right paracentral disc protrusion with foraminal narrowing on the right side. Patient does not have any radicular symptoms down her legs. She does have shocklike symptoms at times. Patient is tried stretching and being active. Patient is on gabapentin however it makes her sleepy. Patient and I discussed starting her on ibuprofen regimen and beginning Elavil 25 mg at nighttime. Patient is agreeable. We will start this. She is not interested in injective therapy or surgical intervention at this time. ROS General: no recent weight change, no fever, no sleep disturbances Respiratory: no cough, no shortness of air, no recurring pulmonary infections Cardiovascular/Peripheral Vascular: No chest pain, No palpitations, no edema, no shortness of breath. Gastrointestinal: no new onset incontinence, normal bowel movements reported Genitourinary: no new onset incontinence Musculoskeletal: Back pain Psychiatric: normal mood/ affect Neurological: [denies new onset weakness in extremities], [denies new onset balance issues] Objective:: Physical Exam General: Alert and oriented x3, no acute distress, pleasant and cooperative, [on room air] Lungs: Resps E/U, Symmetrical chest expansion, Eyes: PERRL Musculoskeletal: Flexion and extension of lumbar spine somewhat guarded secondary to pain, deep tendon reflexes normal, strength in upper and lower extremities [5/5], antalgic gait noted Neurological: 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 3 times daily. We will see her back in 1 month reassess her symptoms at that time she has been instructed to call the office if she has any issues prior to next appointment. Dr. Mendoza has reviewed this note and agrees with this plan of care. This note was dictated using voice recognition software and may contain errors or omissions [facility] History I have reviewed the patient's past medical history: Yes Medical History: Reports:: Hypertension Denies:: Cancer, Diabetes Mellitus Type 1, Diabetes Mellitus Type 2, Internal Pacemaker, MRSA, Seizures *Have you ever received a pneumonia vaccine?: Yes *Have you received a flu vaccine this season?: Yes Other Medical History: Reports: Fibromyalgia, Hoarseness, Hormone Therapy, Sinus Problems. Denies: Blood Transfusion Reaction Laterality Cases: Right: Arthroscopy Knee, Arthroscopy Shoulder Other Surgeries: Yes: Cholecystectomy, Colonoscopy, Hysterectomy-Total, Other. No: Pacemaker Amputation: No Fractures: No - *Social History Smoking Status: Current every day smoker Tobacco Type: cigarettes # Packs/Day (cigarettes): 1 #Yrs smoked (if former smoker): 20 Alcohol Intake: never Substance Use Type: denies use *Occupational Status:: other Housing: house Household Members: spouse *Travel in the last 8 weeks: None Family Hx:: Cancer
== END ==
PROVIDERS: PCP Emergency Medicine; Visit Provider Clinical Nurse Specialist Family Health
DX: M51.16 Intervertebral disc disorders with radiculopathy, lumbar region (principal); M47.896 Other spondylosis, lumbar region
CPT/HCPCS: 99212

== ENCOUNTER → 2020-07-25 15:17 | Outpatient (POV) | payer BC, SELFPAY ==
--- NOTE | 2020-07-25 15:51 | HMH.PAINSOAP ---
[facility] Pain Management SOAP Note Subjective:: Patient is a 50-year-old white female who presents today for follow-up. She has been treated for chronic low back pain with lumbar radiculopathy symptoms as well as facet arthropathy lumbar spine with lumbar spondylosis. Patient was started on Elavil at her last visit. She is also taking ibuprofen 800 mg at bedtime. Patient says while the medication has given her some relief to help her sleep, she is still having significant pain She rates her pain a 4 out of 10 with standing and a 10 out of 10 with sitting. Patient says she is not getting any relief from injective therapy or conservative therapies of oral medications. She has undergone physical therapy for greater than 6 weeks with no relief. She has also tried a home stretching program as well as ice and heat therapies. At this point the patient has exhausted all conservative measures. She has had greater than 6 months of pain that has not been treated successfully with conservative measures. Patient would like to proceed with a possible psychological evaluation for possible spinal cord stimulation. She says that her brother does have a spinal cord stimulator and it has worked well for his pain. Review of Systems General: No recent weight changes, no fever, no sleep disturbances Respiratory: No cough, no shortness of air, no recurring pulmonary infections Cardiovascular/peripheral vascular: No chest pain, no palpitations, no edema, no shortness of breath Gastrointestinal: No new onset incontinence, normal bowel movements reported Genitourinary: No new onset incontinence Musculoskeletal: Low back pain worse with standing improves with standing Psychiatric: Normal mood/affect Neurological: [Denies weakness in extremities], [denies balance issues] Objective:: Physical exam General: Alert and oriented x3, no acute distress, pleasant and cooperative, [on room air] Lungs: Respirations even and unlabored, symmetrical chest expansion Eyes: PERRL Musculoskeletal: Flexion and extension of lumbar spine somewhat guarded secondary to pain, deep tendon reflexes normal, strength in upper and lower extremities [5/5], [abnormal gait noted] Neurological: Speech clear, aquatic facility manager equal, no gross sensory deficit Assessment:: Degenerative disc disease lumbar spine with lumbar radiculopathy symptoms, facet arthropathy lumbar spine, lumbar spondylosis Plan:: We will schedule the patient for psychological evaluation. She has tried and failed all other conservative therapies. She has tried physical therapy, injections, ice and heat and anti-inflammatories. At this point she is not getting any relief from continuing to have worsening pain. We will see her back in the clinic after her psychological evaluation to discuss a further plan of care. She and I did discuss a possible [employer] spinal cord stimulator. If she does not get relief during the trial and intrathecal pain pump may be her next option. Patient has been instructed to contact clinic if she has any concerns before her next appointment. The patient and I specifically discussed risk factors for COVID19. These risks include, but are not limited to age greater than 60, heart or lung disease, diabetes, immunosuppression, and travel. We also discussed NSAIDs may worsen COVID19 infection or symptoms. Patient should not use NSAIDs to treat COVID19 signs or symptoms. Patient was also informed that any type of corticosteroid of any form (oral or injection) will decrease the patient's immune system response and may increase the likelihood of COVID19 infection [address] symptoms[address]. Mendoza has reviewed this note and agrees with this plan of care. This note was dictated using voice recognition software and make contain errors or omissions. [facility] History I have reviewed the patient's past medical history: Yes Medical History: Reports:: Hypertension Denies:: Cancer, Diabetes Mellitus Type 1, Diabetes M
[2020-07-25 15:53] VITALS: BP 112/77; PULSE 75; RESP 18; TEMP 36.3; O2SAT 98; BMI 19.1
== END ==
PROVIDERS: Visit Provider Clinical Nurse Specialist Family Health
DX: M51.16 Intervertebral disc disorders with radiculopathy, lumbar region (principal); M54.06 Panniculitis affecting regions of neck and back, lumbar region; M47.896 Other spondylosis, lumbar region
CPT/HCPCS: 99212

== ENCOUNTER 2020-08-13 22:40 | Emergency (ER) | payer BC, SELFPAY ==
[2020-08-13 22:41] VITALS: BP 168/101; PULSE 96; RESP 16; O2SAT 94; BMI 19.1
--- NOTE | 2020-08-13 22:57 | CT_ITS ---
PROCEDURE: CT ABDOMEN PELVIS W CON CLINICAL INDICATION: RLQ pain Right lower quadrant pain COMPARISON: CT CT LUMBAR SPINE W CON from 08/14/2020 TECHNIQUE: IV Contrast: 75ML Isovue 370 Oral Contrast None Axial images obtained with sagittal and coronal reformats. All CT scans at the facility use one or more dose reduction, viz: automated exposure control, ma/kV adjustment per patient size (including targeted exams where dose is matched to indication, i.e. head), or iterative reconstruction technique. FINDINGS: LOWER THORAX: No acute finding ABDOMEN & PELVIS: There is a 10 mm hypodensity in the medial segment of left hepatic lobe nonspecific. There has been a prior cholecystectomy with mild intra and extrahepatic biliary dilatation. The spleen, adrenal glands, pancreas, and kidneys have an unremarkable appearance other than a small right renal cyst at approximately 9 mm. No intestinal obstruction or free air. There is a mild amount of retained colonic feces. No evidence of appendicitis. Bowel gas pattern is nonspecific. There are few fluid-filled loops of small bowel noted which is nonspecific. There is mild distention of the urinary bladder. There has been a prior hysterectomy. There is thickening of the vaginal cuff. This is nonspecific. Correlation with physical exam suggested. Pelvic ultrasound may be of further value. No acute bony findings. Mild degenerative changes of the hips. IMPRESSION: 1. Mild amount of retained colonic feces. There are few fluid-filled loops of small bowel in the pelvic region which could be seen with enteritis. 2. Status post hysterectomy. There is thickening of the vaginal cuff. Please correlate with clinical findings. 3. No evidence of appendicitis or obstructing ureteral calculus. 4. Nonspecific 10 mm hepatic hypodensity. Ultrasound may provide further evaluation to determine cystic or solid nature. Dictated by: Stanislaw Adan MD 08/14/2020 07:06 Stanislaw Adan MD in [place] 08/14/2020 07:06
[2020-08-13 23:10] LABS: Microscopic, Urine URINE MICROSCOPIC (MICROSCOPIC)
[2020-08-13 23:11] VITALS: BP 137/89; PULSE 88; RESP 16; O2SAT 97
[2020-08-13 23:13] LABS: Basophils # 0.1 K/mm3 (0-0.2); Basophils % 0.7 % (0.1-2.0); Eosinophils # 0.1 K/mm3 (0.0-0.4); Eosinophils % 1.8 % (0.1-12.0); Hematocrit 47.7 % (37.0-47.0); Hemoglobin 15.9 g/dL (12.2-16.2); Lymphocytes # 2.9 K/mm3 (0.7-4.5); Lymphocytes % 37.8 % (10-50); Mean Corpuscular HGB Conc 33.2 g/dL (31.8-35.4); Mean Corpuscular Hemoglobin 32.5 pg (27.0-31.2); Mean Corpuscular Volume 97.6 fl (81-99); Mean Platelet Volume 8.2 fl (7.4-10.4); Monocytes # 0.3 K/mm3 (0.1-1.0); Monocytes % 4.3 % (1.7-9.3); Neutrophils # 4.2 K/mm3 (1.8-7.8); Neutrophils % 55.3 % (37.0-80.0); Platelet Count 184 K/mm3 (142-424); Red Blood Count 4.89 M/mm3 (4.20-5.40); White Blood Count 7.6 K/mm3 (4.8-10.8)
[2020-08-13 23:17] LABS: Appearance,Urine CLEAR (Clear); Bilirubin,Urine Negative (Negative); Blood, Urine TRACE-I (Negative); Chloride 101 mmol/L (98-107); Color,Urine YELLOW (Yellow); Glucose,Urine (UA) Negative (Negative); Ketones,Urine Negative (Negative); Leukocyte Esterase,Urine Negative (Negative); Nitrate,Urine Negative (Negative); Potassium 3.7 mmoL/L (3.5-5.1); Protein,Urine Negative (Negative); Sodium 137 mmol/L (136-145); Specific Gravity, Urine 1.015 (1.005-1.030); Urobilinogen,Urine 0.2 EU/dl (0.2)
[2020-08-13 23:20] LABS: Amylase 83 U/L (30-110); Anion Gap 8.7 mEq/L (5-15); Blood Urea Nitrogen 13 mg/dl (7-17); Calcium 9.9 mg/dl (8.4-10.2); Carbon Dioxide 31 mmol/L (22.0-30.0); Creatinine Clearance Estimated 78 mL/min (50-200); Estimated Glomerular Filt Rate 88 ml/min (>60); GFR (African American) 107 ML/MIN (>60); Glucose 100 mg/dl (74-100); Lipase 74 U/L (23-300)
[2020-08-13 23:24] LABS: Bacteria,Urine 1+ /lpf; WBC,Urine Occasional #/hpf (0-3)
[2020-08-13 23:26] LABS: C-Reactive Protein 0.6 mg/L (0-4)
--- NOTE | 2020-08-13 23:36 | PC.NURSE ---
pt to RAD
[2020-08-13 23:45] LABS: Erythrocyte Sedimentation Rate 16 mm/hr (0-30)
--- NOTE | 2020-08-13 23:47 | HMH.EDNVD ---
ED Disposition Clinical Impression: Abdominal pain Qualifiers: Abdominal location: right lower quadrant Qualified Code(s): R10.31 - Right lower quadrant pain Disposition: Home, Self-Care Condition on Discharge: Good Instructions: DI for Acute Abdominal Pain Additional Instructions: recheck if needed Referrals: Ghulam Bains MD [Primary Care Provider] - - Critical Care Critical Care Time: No Attestation: On 08/13/20, the high probability of a clinically significant, sudden or life threatening deterioration of the following system(s) required my full and direct attention, intervention and personal management. The time I documented below is in addition to time spent performing reported procedures but includes the following listed in this critical care notation. Medical Decision Making - Medical Records Medical records reviewed: Yes: I reviewed the patient's medical records. - David Inquiry Pt receiving controlled substance: No Vital Signs: 08/13/20 22:41 08/13/20 23:11 08/14/20 00:00 Pulse Rate [Left Radial] 96 H 88 81 Respiratory Rate 16 16 17 Blood Pressure [Right Arm] 168/101 H 137/89 163/95 H Blood Pressure Mean [Right Arm] 123 105 117 Blood Pressure Source [Right Arm] Automatic Cuff Automatic Cuff Automatic Cuff Blood Pressure Position [Right Arm] Sitting Sitting Sitting 02 Sat by Pulse Oximetry 94 L 97 99 Oxygen Delivery Method Room Air Room Air Room Air 08/14/20 00:30 08/14/20 01:00 08/14/20 01:30 Pulse Rate [Left Radial] 84 71 63 Respiratory Rate 16 15 16 Blood Pressure [Right Arm] 134/88 150/93 H 143/91 H Blood Pressure Mean [Right Arm] 103 112 108 Blood Pressure Source [Right Arm] Automatic Cuff Automatic Cuff Blood Pressure Position [Right Arm] Sitting Sitting Sitting 02 Sat by Pulse Oximetry 93 L 96 98 Oxygen Delivery Method Room Air Room Air Room Air 08/14/20 02:00 08/14/20 03:00 08/14/20 03:26 Pulse Rate [Left Radial] 76 61 64 Respiratory Rate 16 15 15 Blood Pressure [Right Arm] 135/88 140/87 146/101 H Blood Pressure Mean [Right Arm] 103 104 116 Blood Pressure Source [Right Arm] Automatic Cuff Automatic Cuff Blood Pressure Position [Right Arm] Sitting Sitting Sitting 02 Sat by Pulse Oximetry 96 98 97 Oxygen Delivery Method Room Air Room Air Room Air - Lab Data Lab results reviewed: Yes: I reviewed the patient's lab results. Lab Results 08/13/20 00:00: Procalcitonin 0.038 08/13/20 23:05: Sodium 137, Potassium 3.7, Chloride 101, Carbon Dioxide 31 H, Anion Gap 8.7, BUN 13, Creatinine 0.70, Estimated Creat Clear 78, Estimated GFR 88, Est GFR ( Amer) 107, Glucose 100, Calcium 9.9, C-Reactive Protein 0.6, Amylase 83 08/13/20 23:05: Urine Color Yellow, Urine Appearance Clear, Urine pH 7.0, Ur Specific [place] 1.015, Urine Protein Negative, Urine Glucose (UA) Negative, Urine Ketones Negative, Urine Blood Trace-i, Urine Nitrate Negative, Urine Bilirubin Negative, Urine Urobilinogen 0.2, Ur Leukocyte Esterase Negative, Urine RBC 3-5, Urine WBC Occasional, Ur Squamous Epith Cells 5-10, Urine Bacteria 1+ 08/13/20 23:05: WBC 7.6, RBC 4.89, Hgb 15.9, Hct 47.7 H, MCV 97.6, MCH 32.5 H, MCHC 33.2, RDW 13.0, Plt Count 184, MPV 8.2, Neut % (Auto) 55.3, Lymph % (Auto) 37.8, [place] % (Auto) 4.3, Eos % (Auto) 1.8, Baso % (Auto) 0.7, Neut # (Auto) 4.2, Lymph # (Auto) 2.9, [place] # (Auto) 0.3, Eos # (Auto) 0.1, Baso # (Auto) 0.1, ESR 16 08/13/20 23:05: Lipase 74 08/14/20 00:25: Lactate < 0.5 L Result diagrams: 08/13/20 23:05 08/13/20 23:05 Orders (Tests/Meds): ED MEDICATIONS Generic Name Dose Route Start Last Admin Trade Name Freq PRN Reason Stop Dose Admin Sodium Chloride 1,000 mls @ 999 mls/hr 08/13/20 23:15 08/13/20 23:23 Sod Chlor 0.9% 1000ml Bag IV 08/14/20 00:15 999 mls/hr .Q1H1M ZAKIA Administration Sodium Chloride 1,000 mls @ 999 mls/hr 08/14/20 00:30 08/14/20 00:31 Sod Chlor 0.9% 1000ml Bag IV 08/14/20 01:30 999 mls/hr .Q1H1M ZAKIA Administration Sodium Ch
[2020-08-14] VITALS (8 sets, daily range): BP systolic 134–163; BP diastolic 87–101; PULSE 61–84; RESP 15–17; TEMP 36.7; O2SAT 93–99
[2020-08-14 00:45] LABS: Lactic Acid < 0.5 mmol/L (0.7-2.1)
[2020-08-14 00:49] LABS: Procalcitonin 0.038 ng/mL (0.0-2.0)
--- NOTE | 2020-08-14 01:25 | PC.NURSE ---
pt up ambulating to the bathroom independently. pt stated her pain is a 4 at this time and is tolerable.
--- NOTE | 2020-08-14 02:02 | CT_ITS ---
PROCEDURE: CT LUMBAR SPINE W CON CLINICAL HISTORY: lower back pain radiating to RLQ Low back pain COMPARISON: No exams were available for comparison TECHNIQUE: Axial images obtained with sagittal and coronal reformats. All CT scans at the facility use one or more dose reduction, viz: automated exposure control, ma/kV adjustment per patient size (including targeted exams where dose is matched to indication, i.e. head), or iterative reconstruction technique. FINDINGS: There is normal alignment. No fracture or dislocation. No lytic or blastic change. There is mild degenerative disc disease at L2-L3 with minimal bulging disc. Mild bulging disc L3-L4 with mild degenerative disc disease. Mild bulging disc L4-5. There is a small right lateral foraminal disc protrusion. Mild bulging disc L5-S1. Contrast is present in the renal collecting system. There are mild atelectatic changes in the posterior costophrenic sulci. IMPRESSION: 1. No acute fracture. 2. Mild degenerative changes Dictated by: Stanislaw Adan MD 08/14/2020 06:24 Stanislaw Adan MD in [facility] 08/14/2020 06:24
--- NOTE | 2020-08-14 02:02 | CT_ITS ---
PROCEDURE: CT THORACIC SPINE W CON CLINICAL HISTORY: lower back pain radiating to RLQ COMPARISON: No exams were available for comparison TECHNIQUE: Axial images obtained with sagittal and coronal reformats. All CT scans at the facility use one or more dose reduction, viz: automated exposure control, ma/kV adjustment per patient size (including targeted exams where dose is matched to indication, i.e. head), or iterative reconstruction technique. FINDINGS: Status post anterior cervical disc fusion in the lower cervical spine. Normal alignment. No acute fracture or dislocation. No lytic or blastic change. There is multilevel degenerative disc disease with anterior osteophytes. There is mild facet and ligamentum hypertrophy at T11-T12 causing mild bilateral lateral recess narrowing. IMPRESSION: Thoracic spondylosis, no acute finding Dictated by: Stanislaw Adan MD 08/14/2020 06:30 Stanislaw dAan MD in [facility] 08/14/2020 06:30
--- NOTE | 2020-08-14 02:10 | PC.NURSE ---
pt to ct via w[facility]
--- NOTE | 2020-08-14 02:44 | PC.NURSE ---
return from ct
== END 2020-08-14 03:48 | disposition home or self-care (01) ==
PROVIDERS: Emergency Provider Emergency Medicine; PCP Emergency Medicine
DX: R10.31 Right lower quadrant pain (principal); I10 Essential (primary) hypertension; M79.7 Fibromyalgia; Z88.5 Allergy status to narcotic agent; F17.210 Nicotine dependence, cigarettes, uncomplicated; Z79.899 Other long term (current) drug therapy; Z90.49 Acquired absence of other specified parts of digestive tract; Z90.710 Acquired absence of both cervix and uterus
CPT/HCPCS: 72129; 72132; 74177; 80048; 81001; 82150; 83605; 83690; 84145; 85025; 85651; 86140; 96365; 96366; 99284; J2405; Q9967

== ENCOUNTER → 2020-08-29 07:46 | Outpatient (CLI) | payer BC, SELFPAY ==
--- NOTE | 2020-08-29 07:52 | US_ITS ---
PROCEDURE: US LIVER CLINICAL INDICATION: lesion Evaluate liver lesion COMPARISON: CT CT ABDOMEN PELVIS W CON from 08/13/2020 FINDINGS: PANCREAS: Unremarkable. No obvious mass or abnormal fluid collection. No ductal dilatation LIVER: There is a 10 mm cyst in the left hepatic lobe, segment 5 RIGHT KIDNEY: Unremarkable. Normal size and echogenicity. No hydronephrosis GALLBLADDER: Prior cholecystectomy. Common bile duct is normal at 3 mm. IMPRESSION: Hypodense lesion noted on recent CT scan represents a hepatic cyst Dictated by: Stanislaw Adan MD 08/30/2020 09:17 Stanislaw Adan MD in [facility] 08/30/2020 09:17
== END ==
PROVIDERS: PCP Emergency Medicine; Visit Provider Nurse Practitioner Family
DX: K76.9 Liver disease, unspecified (principal); R93.2 Abnormal findings on diagnostic imaging of liver and biliary tract
CPT/HCPCS: 76705

== ENCOUNTER → 2020-09-30 12:46 | Outpatient (CLI) | payer BC, SELFPAY ==
--- NOTE | 2020-09-30 | CA_ITS ---
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: Kim Metcalf RT(R) Laterality: Bilateral Indications: Dizziness, vertigo Risk Factors Smoking Doppler Spectral Velocity Analysis ECA (R) 91.20/34.00 cm/s ECA (L) 71.10/29.40 cm/s dICA (R) 107.90/53.90 cm/s dICA (L) 75.40/36.80 cm/s Fabrizio (R) 74.50/40.50 cm/s Fabrizio (L) 65.50/34.90 cm/s pICA (R) 68.10/28.90 cm/s pICA (L) 64.20/30.50 cm/s dCCA (R) 84.00/33.40 cm/s dCCA (L) 101.10/34.70 cm/s pCCA (R) 107.10/42.80 cm/s pCCA (L) 125.20/46.20 cm/s Vert (R) 52.00/17.30 cm/s Vert (L) 44.30/20.60 cm/s ICA/CCA 1.28 ICA/CCA 0.75 Findings Duplex evaluation demonstrates stenosis of the right proximal internal carotid artery <20% with PSV <140 cm/sec, EDV <100 cm/sec, and IC/CC Ratio <4.0. Duplex evaluation demonstrates stenosis of the left proximal internal carotid artery <20% with PSV <140 cm/sec, EDV <100 cm/sec, and IC/CC Ratio <4.0. Conclusion Duplex evaluation demonstrates stenosis of the right proximal internal carotid artery <20% with PSV <140 cm/sec, EDV <100 cm/sec, and IC/CC Ratio <4.0. Duplex evaluation demonstrates stenosis of the left proximal internal carotid artery <20% with PSV <140 cm/sec, EDV <100 cm/sec, and IC/CC Ratio <4.0. Electronically signed by : Stanislaw Adan MD 09/30/2020 16:09:29
[2020-09-30 14:25] LABS: Basophils % 0.5 % (0.1-2.0); Eosinophils # 0.1 K/mm3 (0.0-0.4); Eosinophils % 1.6 % (0.1-12.0); Hematocrit 43.9 % (37.0-47.0); Hemoglobin 14.7 g/dL (12.2-16.2); Lymphocytes # 2.4 K/mm3 (0.7-4.5); Lymphocytes % 35.7 % (10-50); Mean Corpuscular HGB Conc 33.4 g/dL (31.8-35.4); Mean Corpuscular Volume 95.7 fl (81-99); Mean Platelet Volume 7.5 fl (7.4-10.4); Monocytes # 0.3 K/mm3 (0.1-1.0); Monocytes % 4.7 % (1.7-9.3); Neutrophils # 3.9 K/mm3 (1.8-7.8); Neutrophils % 57.4 % (37.0-80.0); Platelet Count 197 K/mm3 (142-424); Red Blood Count 4.58 M/mm3 (4.20-5.40); Red Cell Distribution Width 12.7 % (11.5-17.5); White Blood Count 6.8 K/mm3 (4.8-10.8)
[2020-09-30 14:43] LABS: Chloride 104 mmol/L (98-107); Sodium 138 mmol/L (136-145)
[2020-09-30 14:44] LABS: Potassium 4.9 mmoL/L (3.5-5.1)
[2020-09-30 14:46] LABS: Blood Urea Nitrogen 8 mg/dl (7-17); Estimated Glomerular Filt Rate 88 ml/min (>60); GFR (African American) 107 ML/MIN (>60)
[2020-09-30 14:47] LABS: Anion Gap 7.9 mEq/L (5-15); Calcium 9.9 mg/dl (8.4-10.2); Carbon Dioxide 31 mmol/L (22.0-30.0); Glucose 79 mg/dl (74-100)
[2020-09-30 15:11] LABS: Coronavirus 19 IgG Antibody Negative (Negative); Coronavirus 19 IgM Antibody Negative (Negative)
== END ==
PROVIDERS: Anesthesiology; PCP Nurse Practitioner Family; Visit Provider Nurse Practitioner Family
DX: Z01.818 Encounter for other preprocedural examination (principal); Z20.828 Contact with and (suspected) exposure to other viral communicable diseases; R42 Dizziness and giddiness
CPT/HCPCS: 36415; 80048; 85025; 86328; 93880

== ENCOUNTER 2020-10-02 06:56 | Day surgery (SDC) | payer BC, SELFPAY ==
[2020-09-30 11:20] VITALS: BMI 20.7
[2020-10-02] VITALS (8 sets, daily range): BP systolic 94–130; BP diastolic 58–98; PULSE 64–110; RESP 18; TEMP 36.4–36.6; O2SAT 92–97
--- NOTE | 2020-10-02 08:04 | HMH.ANESCL ---
[facility] Anesthesia Checklist - Patient Identification Patient Identification: Arm Band - Structural Data Admitted From: Home Planned Operative Procedure/s: Spinal Cord Trial Stimulator Placement under Fluoroscopy Consent for Planned Operative Procedure(s) Verified: Yes Verified Documents: Surgical Consent, History and Physical - NPO Status Verified Time NPO: 00:00 - Additional verifications Anesthesia Reactions: No Hx Blood Transfusions: No Blood Transfusion Reaction: No - Airway Assessment C-Spine Mobility Assessed: Yes (mp2) TMJ Mobility Assessed: Yes Dentition: Dentures-good fit - Neurological Assessment Level of Consciousness: Awake, Alert - Anesthesia Plan Anesthesia Risk discussed: Yes Anesthesia Plan: Verified ASA Class: II Anesthesia Type: MAC [facility] History I have reviewed the patient's past medical history: Yes Medical History: Reports:: Hypertension Denies:: Cancer, Diabetes Mellitus Type 1, Diabetes Mellitus Type 2, Internal Pacemaker, MRSA, Seizures *Have you ever received a pneumonia vaccine?: No *Have you received a flu vaccine this season?: No Other Medical History: Reports: Fibromyalgia, Hoarseness, Hormone Therapy, Sinus Problems. Denies: Blood Transfusion Reaction Anesthesia experience/problems:: nac Laterality Cases: Right: Arthroscopy Knee, Arthroscopy Shoulder Other Surgeries: Yes: Appendectomy, Cholecystectomy, Colonoscopy, Hysterectomy-Total, Other. No: Pacemaker Amputation: No Fractures: No - *Social History Last grade of school completed: Some college Smoking Status: Current every day smoker Tobacco Type: cigarettes # Packs/Day (cigarettes): 1 #Yrs smoked (if former smoker): 20 Alcohol Intake: never Substance Use Type: denies use *Occupational Status:: employed Housing: house Household Members: spouse *Travel in the last 8 weeks: None Family Hx:: Cancer
--- NOTE | 2020-10-02 09:47 | HMH.OPNOTE ---
Date of procedure: 10/02/20 Pre-op Diagnosis:: Degenerative disc disease of lumbar spine with lumbar radiculopathy symptoms Post-op Diagnosis:: Same Procedure performed:: Spinal cord stimulator trial with epidural lead placement x2 Surgeon:: Kieran Mendoza MD SWITCHBOARD WIRE WORKER HELPER:: Xavi Villanueva Anesthesia: MAC Estimated blood loss (mL): 1 Clinical Note:: This patient is a pleasant 50-year-old white female who we are treating for low back pain with lumbar radiculopathy symptoms she has failed all previous conservative therapy including injections, oral medications and physical therapy. She has increasing pain in her low back and down her right leg. She has had a successful psychological evaluation. She presents for spinal cord stimulator trial today. Operative findings:: None Operative note:: Informed consent was obtained and the risk and benefits of the procedure were explained to the patient. The patient was taken to the procedure room. The back was prepped using ChloraPrep. She was prepped and draped in sterile fashion. C-arm fluoroscopy was used to view the lumbar spine. The skin and subcutaneous tissues were anesthetized using lidocaine. A 17-gauge epidural needle was inserted and advanced into the L2-L3 interspace. After confirmation of needle placement in the epidural space stimulating lead was inserted and advanced very easily to the T7-T8-T9 vertebral body. Lead placement was checked in AP and lateral views. A second needle was then inserted and advanced again into the L2-L3 interspace. Again after confirmation needle placement in the epidural space a stimulating lead was inserted and advanced very easily to the T7-T8-T9 vertebral body. Again lead placement was checked in AP and lateral views. 1-lead was midline 1-lead was right of midline. Patient tolerated the procedure well with no complications. Patient was taken recovery in stable condition. Patient was programmed by the [employer] equal opportunity representative patient had stimulation in all areas of pain. Patient was placed on a paresthesia free FAST program. Patient was discharged home neurologically intact with good relief of pain symptoms. Plan and disposition: we will follow-up with this patient in 3 days for reprogramming. We will follow-up in 1 week for lead pull. If she has any problems or questions she is to call us back in the pain clinic. Condition: stable Disposition: PACU Complications:: None
== END 2020-10-02 11:05 | disposition home or self-care (01) ==
LOC: OR 06:57
PROVIDERS: PCP Nurse Practitioner Family; Visit Provider Anesthesiology
PROC: (CPT 63650; principal; 2020-10-02 08:30)
DX: M51.16 Intervertebral disc disorders with radiculopathy, lumbar region (principal); I10 Essential (primary) hypertension; M79.7 Fibromyalgia; Z87.39 Personal history of other diseases of the musculoskeletal system and connective tissue; Z90.49 Acquired absence of other specified parts of digestive tract; Z79.890 Hormone replacement therapy; Z72.0 Tobacco use; Z88.8 Allergy status to other drugs, medicaments and biological substances; Z79.899 Other long term (current) drug therapy
CPT/HCPCS: 63650 ×2; 96374; C1778; J3370

== ENCOUNTER → 2020-10-10 14:59 | Outpatient (POV) | payer BC, SELFPAY ==
[2020-10-10 15:09] VITALS: BP 112/77; PULSE 74; RESP 18; O2SAT 99; BMI 20.7
--- NOTE | 2020-10-10 15:23 | HMH.PMPROC ---
- Procedure Date: 10/10/20 Time: 15:23 Anesthesiologist:: Madhuri Herrera APRN Complications:: None Pre-procedure Diagnosis:: Generative disc disease lumbar spine lumbar radiculopathy symptoms, lumbar spondylosis, facet arthropathy Post-procedure Diagnosis:: Same Indications for Procedure:: Patient is a very pleasant 50-year-old white female who we are treating for low back pain with lumbar radiculopathy symptoms. She is failed all previous conservative therapy including injections, oral medications and physical therapy. She has increasing pain in her low back and down her right leg she has had a psych successful psychological evaluation. She follows up today for an stimulator trial lead removal. Patient states that she got 100% relief of her symptomology rating her pain a 0 out of 10 today. Patient states she is much more active and would like to move forward with the permanent placement. Procedure Details:: After informed consent was obtained the risk and benefits of the procedure were explained to the patient. Patient's vital signs were monitored with noninvasive blood pressure cuff and pulse oximeter. Patient's tape was removed on her back. The area in which her epidural leads entered was examined to ensure no redness or draining. Patient leads were then removed in sterile fashion. Patient then had Band-Aids placed over the puncture sites. Patient tolerated the procedure well. Plan and Disposition:: Move forward with the permanent placement of the neurostimulator we will utilize a [employer] system. I will follow-up with her after her implant reassess her symptoms at that time she has been instructed to call the office if she has any issues prior to her next appointment. Dr. Mendoza has reviewed this note and agrees with this plan of care. This note was dictated using voice recognition software and may contain errors or omissions
== END ==
PROVIDERS: PCP Emergency Medicine; Visit Provider Clinical Nurse Specialist Family Health
DX: M51.16 Intervertebral disc disorders with radiculopathy, lumbar region (principal); M54.06 Panniculitis affecting regions of neck and back, lumbar region; M47.816 Spondylosis without myelopathy or radiculopathy, lumbar region
CPT/HCPCS: 99212; G0463

== ENCOUNTER → 2020-11-05 12:03 | Outpatient (CLI) | payer BC, SELFPAY ==
[2020-11-05 12:42] LABS: Basophils % 0.6 % (0.1-2.0); Eosinophils # 0.1 K/mm3 (0.0-0.4); Eosinophils % 1.3 % (0.1-12.0); Hematocrit 42.9 % (37.0-47.0); Hemoglobin 14.4 g/dL (12.2-16.2); Lymphocytes # 2.3 K/mm3 (0.7-4.5); Lymphocytes % 34.1 % (10-50); Mean Corpuscular HGB Conc 33.7 g/dL (31.8-35.4); Mean Corpuscular Hemoglobin 32.1 pg (27.0-31.2); Mean Corpuscular Volume 95.4 fl (81-99); Mean Platelet Volume 8.2 fl (7.4-10.4); Monocytes # 0.4 K/mm3 (0.1-1.0); Monocytes % 5.5 % (1.7-9.3); Neutrophils # 3.9 K/mm3 (1.8-7.8); Neutrophils % 58.6 % (37.0-80.0); Platelet Count 178 K/mm3 (142-424); Red Cell Distribution Width 12.7 % (11.5-17.5); White Blood Count 6.6 K/mm3 (4.8-10.8)
[2020-11-05 13:03] LABS: Chloride 104 mmol/L (98-107); Sodium 139 mmol/L (136-145)
[2020-11-05 13:04] LABS: Potassium 4.6 mmoL/L (3.5-5.1)
[2020-11-05 13:06] LABS: Blood Urea Nitrogen 9 mg/dl (7-17); Estimated Glomerular Filt Rate 88 ml/min (>60); GFR (African American) 107 ML/MIN (>60)
[2020-11-05 13:07] LABS: Anion Gap 10.6 mEq/L (5-15); Calcium 9.8 mg/dl (8.4-10.2); Carbon Dioxide 29 mmol/L (22.0-30.0); Glucose 107 mg/dl (74-100)
[2020-11-05 13:26] LABS: Coronavirus 19 IgG Antibody Negative (Negative); Coronavirus 19 IgM Antibody Negative (Negative)
== END ==
PROVIDERS: Visit Provider Anesthesiology
DX: Z01.818 Encounter for other preprocedural examination (principal); Z20.822 Contact with and (suspected) exposure to COVID-19
CPT/HCPCS: 36415; 80048; 85025; 86328

== ENCOUNTER 2020-11-06 10:18 | Day surgery (SDC) | payer BC, SELFPAY ==
[2020-11-04 15:45] VITALS: BMI 20.7
[2020-11-06 10:26] VITALS: BP 130/84; PULSE 91; RESP 18; TEMP 36.3; O2SAT 96
--- NOTE | 2020-11-06 13:23 | HMH.PMCON ---
Assessment and Plan - Assessment and plan all Dx Assessment and Plan for all problems:: Impression-degenerative disc disease of the lumbar spine with radiculopathy Plan-placement of pain stimulator system today HPI - Data of Consult Patient: new to practice Consult date: 11/06/20 Requesting Physician: Kieran Mendoza MD Primary Care Provider: Ghulam Bains MD - Consult Narrative History of present illness: Ms. Guzmán is a 50 year old female with chronic back pain CC: Kieran Mendoza MD Degenerative disc disease of the lumbar spine with radiculopathy [facility] History I have reviewed the patient's past medical history: Yes Medical History: Reports:: Hypertension Denies:: Cancer, Diabetes Mellitus Type 1, Diabetes Mellitus Type 2, Internal Pacemaker, MRSA, Seizures *Have you ever received a pneumonia vaccine?: No *Have you received a flu vaccine this season?: No Other Medical History: Reports: Fibromyalgia, Hoarseness, Hormone Therapy, Sinus Problems. Denies: Blood Transfusion Reaction Comment:: Illnesses-arthritis, cigarette usage, chronic back pain Laterality Cases: Right: Arthroscopy Knee, Arthroscopy Shoulder, Bilateral: Tonsillectomy Other Surgeries: Yes: Appendectomy, Cholecystectomy, Colonoscopy, Hysterectomy-Total, Other. No: Pacemaker Amputation: No Fractures: No Comment: Operations-right knee arthroscopy, right shoulder arthroscopy, cholecystectomy, hysterectomy, ankle surgery, neck surgery x2 - *Social History Last grade of school completed: Advanced degree Smoking Status: Current every day smoker Tobacco Type: cigarettes # Packs/Day (cigarettes): 20 #Yrs smoked (if former smoker): 20 Alcohol Intake: never Substance Use Type: denies use *Occupational Status:: employed Housing: house Household Members: spouse *Travel in the last 8 weeks: None Family Hx:: Cancer Review of Systems - Review of Systems Review of systems:: pertinent systems reviewed and negative unless documented below Meds Home Medications Medication Instructions Recorded Confirmed Type conjugated estrogens 0.625 mg 0.625 mg PO DAILY 05/24/19 11/06/20 History tablet Gabapentin [Neurontin 100mg 100 mg PO TID 01/12/20 11/06/20 History cap] Ibuprofen [Ibuprofen 800mg 800 mg PO TIDP PRN #90 tab 07/04/20 11/06/20 Rx Tablet] meclizine 25 mg tablet 25 mg PO BID PRN #30 tab 09/19/20 11/06/20 Rx Amitriptyline HCl [Elavil 25mg 25 mg PO HS 09/30/20 11/06/20 History tablet] Sulfamethoxazole/Trimethoprim 1 each PO BID #14 tab 11/06/20 Rx [Bactrim DS tablet] Allergies Allergy/AdvReac Type Severity Reaction Status Date / Time meperidine [From DEMEROL] Allergy Intermediate I-HIVES Verified 11/06/20 10:25 sumatriptan Allergy Unknown Hives, SOB Verified 11/06/20 10:25 Objective Vital signs: Temp Pulse Resp BP Pulse Ox 97.4 F L 91 H 18 130/84 96 11/06/20 10:26 11/06/20 10:26 11/06/20 10:26 11/06/20 10:26 11/06/20 10:26 no acute distress - *Routine Respiratory Exam Present: CTA bilaterally - *Routine Cardiovascular Exam Present: RRR - *Routine Abdominal Exam Present: soft
--- NOTE | 2020-11-06 13:38 | P.PN_ITS ---
[facility] Anesthesia Checklist - Patient Identification Patient Identification: Arm Band - Structural Data Admitted From: Home Planned Operative Procedure/s: Pain pump implant Consent for Planned Operative Procedure(s) Verified: Yes - Additional verifications Anesthesia Reactions: No Hx Blood Transfusions: No Blood Transfusion Reaction: No - Airway Assessment C-Spine Mobility Assessed: Yes TMJ Mobility Assessed: Yes Dentition: Partials - Neurological Assessment Level of Consciousness: Awake Hx Seizures: No Numbness or tingling in extremities: Yes - Anesthesia Plan Anesthesia Risk discussed: Yes Anesthesia Plan: Verified ASA Class: II Anesthesia Type: Local & MAC [facility] History I have reviewed the patient's past medical history: Yes Medical History: Reports:: Hypertension Denies:: Cancer, Diabetes Mellitus Type 1, Diabetes Mellitus Type 2, Internal Pacemaker, MRSA, Seizures *Have you ever received a pneumonia vaccine?: No *Have you received a flu vaccine this season?: No Other Medical History: Reports: Fibromyalgia, Hoarseness, Hormone Therapy, Sinus Problems. Denies: Blood Transfusion Reaction Anesthesia experience/problems:: None Laterality Cases: Right: Arthroscopy Knee, Arthroscopy Shoulder, Bilateral: Tonsillectomy Other Surgeries: Yes: Appendectomy, Cholecystectomy, Colonoscopy, Hysterectomy- Total, Other. No: Pacemaker Amputation: No Fractures: No - *Social History Last grade of school completed: Advanced degree Smoking Status: Current every day smoker Tobacco Type: cigarettes # Packs/Day (cigarettes): 20 #Yrs smoked (if former smoker): 20 Alcohol Intake: never Substance Use Type: denies use *Occupational Status:: employed Housing: house Household Members: spouse *Travel in the last 8 weeks: None Family Hx:: Cancer
--- NOTE | 2020-11-06 13:40 | P.OP_ITS ---
Date of procedure: 11/06/20 Pre-op Diagnosis:: Degenerative disc disease of lumbar spine with lumbar radiculopathy symptoms Post-op Diagnosis:: Same Procedure performed:: Spinal cord stimulator lead placement epidural x2 for permanent spinal cord stimulator Surgeon:: Kieran Mendoza MD NET SOFTWARE ARCHITECT:: Other Anesthesia: MAC Estimated blood loss (mL): 5 Clinical Note:: Patient is a pleasant 50-year-old white female who we are treating for low back pain with lumbar radiculopathy symptoms. She has failed all previous conservative therapy including injections, oral medications and physical therapy. She has increasing pain in her low back and down her right leg. She has had a successful psychological evaluation and a successful spinal cord stimulator trial. She presents for permanent placement of her spinal cord stimulator today. Operative findings:: None Operative note:: Informed consent was obtained and the risk and benefits of the procedure were explained to the patient. The patient was taken to the operating room placed prone on the procedure table. Is prepped and draped in sterile fashion. C-arm fluoroscopy was used to view the L2-L3 and L3-L4 interspace. I anesthetized the skin and subcutaneous tissues adjacent to these levels and made an incision and dissected down to the lumbar paraspinous fascia. A 17-gauge epidural needle was inserted and advanced into the L2-L3 interspace. After confirmation of needle placement in the epidural space a stimulating lead was inserted and advanced very easily to the T7-T8 vertebral body. Lead placement was checked in AP and lateral views. A second needle was then inserted and advanced again into the L2-L3 interspace. Again after confirmation of needle placement in the epidural space a second stimulating lead was inserted and advanced again very easily to the T7-T8 vertebral body. Again lead placement checked in AP and lateral views. The stylets and needles were removed. The leads were secured to the fascia with anchoring devices and 2-[address] Aburto created the generator pocket. I tunneled the leads from the back to the generator pocket and attached the leads to the generator. Both incisions were irrigated with bacitracin solution. We then closed both incisions with 2-0 Vicryl followed by 4-0 nylon. A wound VAC was placed over both incisions. An abdominal binder was placed and the patient was taken recovery in stable condition. Patient was programmed by the [employer] merchandising representative with good stimulation in all areas of pain. The patient was placed on a paresthesia free fast program. Patient was discharged home neurologically intact with good relief of pain symptoms. Plan and disposition: Follow-up with this patient in 1 week for reprogramming. We will remove the wound VAC at that time. We will follow-up in 2 weeks for suture removal and reprogram again if needed. If the patient has any problems or questions she is to call us back in the pain clinic. Condition: stable Disposition: PACU Complications:: None
--- NOTE | 2020-11-06 14:37 | HMH.OPNOTE ---
Date of procedure: 11/06/20 Pre-op Diagnosis:: Degenerative disc disease of the lumbar spine with radiculopathy Post-op Diagnosis:: Same Procedure performed:: Placement of pain stimulator generator Surgeon:: Rony Aburto MD SHREDDED FILLER CIGAR MAKER MACHINE:: Rigo Rivera, Jermaine Mata, Xavi Villanueva, Siva Benedict, Other Anesthesia: MAC Estimated blood loss (mL): 5 Operative findings:: Not applicable Operative note:: Once adequate IV sedation was obtained by anesthesia and local anesthesia was 1% Xylocaine with epinephrine, the patient was placed prone on the operating table and her back and flank regions were prepped and draped in sterile fashion. Paraspinal incision was made by Dr. Mattson there which 2 epidural leads were placed in the epidural space to the area desired by Dr. Mattson. These were then fixed to the paraspinal fascia with fixation devices and 2-0 Prolene sutures. A right flank incision was then made in which made for pocket for placement of the generator. Both pockets irrigated with antibiotic solution. The leads were passed from the paraspinal incision to the pocket incision utilizing a tunneling device. Leads connected to the generator which was placed in the pocket noted to be functioning properly. Subcutaneous tissues then closed with interrupted stitches of 2-0 Vicryl. Skin was then closed with 4-0 nylon sutures. Wound VAC dressings and a binder applied to the wound. The patient tolerated procedure well and was taken to the recovery room in stable condition. Upon recovery the patient will be discharged home will follow-up in 2 weeks for suture removal in 1 week for removal of the wound VAC system. Antibiotics x1 week p.o. per protocol Condition: stable Disposition: PACU Complications:: None
[2020-11-06 15:00] VITALS: BP 140/90; PULSE 85; RESP 17; O2SAT 96
[2020-11-06 15:03] VITALS: BP 109/73; PULSE 77; RESP 18; TEMP 36.9; O2SAT 98
[2020-11-06 15:10] VITALS: BP 125/79; PULSE 69; RESP 16; O2SAT 95
[2020-11-06 15:20] VITALS: BP 120/82; PULSE 73; RESP 16; O2SAT 96
== END 2020-11-06 15:30 | disposition home or self-care (01) ==
LOC: OR 10:18
PROVIDERS: PCP Emergency Medicine; Visit Provider Anesthesiology
PROC: (CPT 63685; principal; 2020-11-06 12:00)
DX: M51.16 Intervertebral disc disorders with radiculopathy, lumbar region (principal); I10 Essential (primary) hypertension; M79.7 Fibromyalgia; Z79.890 Hormone replacement therapy; Z79.899 Other long term (current) drug therapy; Z88.8 Allergy status to other drugs, medicaments and biological substances
CPT/HCPCS: 63685; 63650 ×2; 96374; C1778; C1820; J3370

== ENCOUNTER → 2020-11-11 12:52 | Outpatient (POV) | payer BC, SELFPAY ==
[2020-11-11 13:01] VITALS: BP 139/92; PULSE 74; RESP 20; O2SAT 94; BMI 20.7
--- NOTE | 2020-11-11 13:08 | P.CONS_ITS ---
[facility] Pain Management SOAP Note Subjective:: Patient is a pleasant 50-year-old white female who presents today for follow-up. Patient had a neurostimulator placed on the 17th of this month. Patient states she is having some increased pain especially going from sitting to standing. Patient does have a Prevena wound VAC in place she feels that this is the culprit. It was removed there is no sign symptoms of infection. Skin glue was applied patient states that the pain was relieved once the apparatus was removed. ROS General: no recent weight change, no fever, no sleep disturbances Respiratory: no cough, no shortness of air, no recurring pulmonary infections Cardiovascular/Peripheral Vascular: No chest pain, No palpitations, no edema, no shortness of breath. Gastrointestinal: no new onset incontinence, normal bowel movements reported Genitourinary: no new onset incontinence Musculoskeletal: Back pain, leg pain at times Psychiatric: normal mood/ affect Neurological: [denies new onset weakness in extremities], [denies new onset balance issues] Objective:: Physical Exam General: Alert and oriented x3, no acute distress, pleasant and cooperative, [on room air] Lungs: Resps E/U, Symmetrical chest expansion, Eyes: PERRL Musculoskeletal: Flexion and extension of lumbar spine somewhat guarded secondary to pain, deep tendon reflexes normal, strength in upper and lower extremities [5/5], antalgic gait noted Neurological: speech clear, senior 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 I will eventually take stitches out depending on how they look at that time she has been instructed to call the office if she has any issues prior to her next appointment. Dr. Mendoza has reviewed this note and agrees with this plan of care. This note was dictated using voice recognition software and may contain errors or omissions [facility] History I have reviewed the patient's past medical history: Yes Medical History: Reports:: Hypertension Denies:: Cancer, Diabetes Mellitus Type 1, Diabetes Mellitus Type 2, Internal Pacemaker, MRSA, Seizures *Have you ever received a pneumonia vaccine?: No *Have you received a flu vaccine this season?: No Other Medical History: Reports: Fibromyalgia, Hoarseness, Hormone Therapy, Sinus Problems. Denies: Blood Transfusion Reaction Laterality Cases: Right: Arthroscopy Knee, Arthroscopy Shoulder, Bilateral: Tonsillectomy Other Surgeries: Yes: Appendectomy, Cholecystectomy, Colonoscopy, Hysterectomy- Total, Other. No: Pacemaker Amputation: No Fractures: No - *Social History Smoking Status: Current every day smoker Tobacco Type: cigarettes # Packs/Day (cigarettes): 20 #Yrs smoked (if former smoker): 20 Alcohol Intake: never Substance Use Type: denies use *Occupational Status:: employed Housing: house Household Members: spouse *Travel in the last 8 weeks: None Family Hx:: Cancer
== END ==
PROVIDERS: PCP Emergency Medicine; Visit Provider Clinical Nurse Specialist Family Health
DX: M51.16 Intervertebral disc disorders with radiculopathy, lumbar region (principal); Z96.82 Presence of neurostimulator
CPT/HCPCS: 99212; G0463

== ENCOUNTER → 2020-11-18 11:39 | Outpatient (POV) | payer BC, SELFPAY ==
[2020-11-18 11:48] VITALS: BP 135/87; PULSE 117; RESP 18; O2SAT 98; BMI 20.7
--- NOTE | 2020-11-18 12:06 | P.CONS_ITS ---
[facility] Pain Management SOAP Note Subjective:: Is a pleasant 50-year-old white female who presents today for follow-up. Patient had a neurostimulator placed. Patient's wound VAC was taken off last week. Patient's incisions are clean dry and intact we will take the stitches out today. We will apply skin glue and Steri-Strips. Patient states that her chronic pain is no longer. She is having some soreness around the incision sites overall doing well. ROS General: no recent weight change, no fever, no sleep disturbances Respiratory: no cough, no shortness of air, no recurring pulmonary infections Cardiovascular/Peripheral Vascular: No chest pain, No palpitations, no edema, no shortness of breath. Gastrointestinal: no new onset incontinence, normal bowel movements reported Genitourinary: no new onset incontinence Musculoskeletal: Back pain, leg pain Psychiatric: normal mood/ affect Neurological: [denies new onset weakness in extremities], [denies new onset balance issues] Objective:: Physical Exam General: Alert and oriented x3, no acute distress, pleasant and cooperative, [on room air] Lungs: Resps E/U, Symmetrical chest expansion, Eyes: PERRL Musculoskeletal: Flexion and extension of lumbar spine somewhat guarded secondary to pain, deep tendon reflexes normal, strength in upper and lower extremities [5/5], normal gait noted Neurological: speech clear, steward/stewardess second class equal, no gross sensory deficits Assessment:: Degenerative disc disease lumbar spine some lumbar radiculopathy, back pain Plan:: We will see the patient back in 2 weeks reassess her symptoms at that time she has been instructed to call the office if she has any issues prior to her next appointment. Dr. Mendoza has reviewed this note and agrees with this plan of care. This note was dictated using voice recognition software and may contain errors or omissions [facility] History I have reviewed the patient's past medical history: Yes Medical History: Reports:: Hypertension Denies:: Cancer, Diabetes Mellitus Type 1, Diabetes Mellitus Type 2, Internal Pacemaker, MRSA, Seizures *Have you ever received a pneumonia vaccine?: Yes *Have you received a flu vaccine this season?: Yes Other Medical History: Reports: Fibromyalgia, Hoarseness, Hormone Therapy, Sinus Problems. Denies: Blood Transfusion Reaction Laterality Cases: Right: Arthroscopy Knee, Arthroscopy Shoulder, Bilateral: Tonsillectomy Other Surgeries: Yes: Appendectomy, Cholecystectomy, Colonoscopy, Hysterectomy-Total, Other. No: Pacemaker Amputation: No Fractures: No - *Social History Smoking Status: Current every day smoker Tobacco Type: cigarettes # Packs/Day (cigarettes): 20 #Yrs smoked (if former smoker): 20 Alcohol Intake: never Substance Use Type: denies use *Occupational Status:: employed Housing: house Household Members: spouse *Travel in the last 8 weeks: None Family Hx:: Cancer
== END ==
PROVIDERS: Visit Provider Clinical Nurse Specialist Family Health
DX: M51.16 Intervertebral disc disorders with radiculopathy, lumbar region (principal)
CPT/HCPCS: 99212; G0463

== ENCOUNTER → 2020-12-05 15:10 | Outpatient (POV) | payer BC, SELFPAY ==
--- NOTE | 2020-12-05 16:00 | P.CONS_ITS ---
[facility] Pain Management SOAP Note Subjective:: Patient is a pleasant 50-year-old white female who presents today for follow-up. Patient is healed completely from her neurostimulator implant. She is doing extremely well rating her pain a 0 out of 10. She does not need any adjustments at this time. She does need a refill on her amitriptyline. That is amitriptyline 25 mg 1 p.o. nightly. Patient has no sign symptoms of infection overall doing well. [facility] #[id number] reviewed and appropriate. She is on gabapentin 100 mg up to 5 times a day. ROS General: no recent weight change, no fever, no sleep disturbances Respiratory: no cough, no shortness of air, no recurring pulmonary infections Cardiovascular/Peripheral Vascular: No chest pain, No palpitations, no edema, no shortness of breath. Gastrointestinal: no new onset incontinence, normal bowel movements reported Genitourinary: no new onset incontinence Musculoskeletal: Back pain at times Psychiatric: normal mood/ affect Neurological: [denies new onset weakness in extremities], [denies new onset balance issues] Objective:: Physical Exam General: Alert and oriented x3, no acute distress, pleasant and cooperative, [on room air] Lungs: Resps E/U, Symmetrical chest expansion, Eyes: PERRL Musculoskeletal: Flexion and extension of lumbar spine somewhat guarded secondary to pain, deep tendon reflexes normal, strength in upper and lower extremities [5/5], normal gait noted Neurological: speech clear, coal 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 We will continue her amitriptyline and gabapentin. Dr. Mendoza has reviewed this note and agrees with this plan of care. This note was dictated using voice recognition software and may contain errors or omissions [facility] History I have reviewed the patient's past medical history: Yes Medical History: Reports:: Hypertension Denies:: Cancer, Diabetes Mellitus Type 1, Diabetes Mellitus Type 2, Internal Pacemaker, MRSA, Seizures *Have you ever received a pneumonia vaccine?: Yes *Have you received a flu vaccine this season?: Yes Other Medical History: Reports: Fibromyalgia, Hoarseness, Hormone Therapy, Sinus Problems. Denies: Blood Transfusion Reaction Laterality Cases: Right: Arthroscopy Knee, Arthroscopy Shoulder, Bilateral: Tonsillectomy Other Surgeries: Yes: Appendectomy, Cholecystectomy, Colonoscopy, Hysterectomy- Total, Other. No: Pacemaker Amputation: No Fractures: No - *Social History Smoking Status: Current every day smoker Tobacco Type: cigarettes # Packs/Day (cigarettes): 20 #Yrs smoked (if former smoker): 20 Alcohol Intake: never Substance Use Type: denies use *Occupational Status:: employed Housing: house Household Members: spouse *Travel in the last 8 weeks: None Family Hx:: Cancer
[2020-12-05 16:23] VITALS: BP 128/78; PULSE 68; RESP 18; O2SAT 98; BMI 20.7
== END ==
PROVIDERS: Visit Provider Clinical Nurse Specialist Family Health
DX: M51.16 Intervertebral disc disorders with radiculopathy, lumbar region (principal)
CPT/HCPCS: 99212; G0463

== ENCOUNTER → 2021-04-16 15:54 | Outpatient (CLI) | payer BC, SELFPAY | PROVIDERS: PCP Nurse Practitioner Family; Visit Provider Nurse Practitioner Family | DX: Z20.822 Contact with and (suspected) exposure to COVID-19 (principal) | CPT/HCPCS: U0003 ==

== ENCOUNTER → 2021-04-29 14:44 | Outpatient (CLI) | payer BC, SELFPAY ==
[2021-04-29 15:30] VITALS: PULSE 88; PULSE 90
== END ==
PROVIDERS: PCP Nurse Practitioner Family; Visit Provider Internal Medicine Pulmonary Disease
DX: R06.02 Shortness of breath (principal)
CPT/HCPCS: 94060; 94640; 94727; 94729

== ENCOUNTER → 2021-05-14 15:43 | Outpatient (CLI) | payer BC, SELFPAY ==
--- NOTE | 2021-05-14 15:47 | XR_ITS ---
PROCEDURE: XR CHEST 2V CLINICAL HISTORY: soa COMPARISON: CR CXR CHEST(2 VIEWS-NOT PORTABLE) from 09/17/2012 CR CXR CHEST(2 VIEWS-NOT PORTABLE) from 07/29/2016 FINDINGS: The cardiomediastinal silhouette and pulmonary vascularity are within normal limits. COPD changes. Old granulomatous disease. No lobar consolidation or collapse. There are 2 epidural stimulator device is present one terminating superiorly at T8 and 1 at T6. There are mild degenerative changes in the thoracic spine. A bone plate is present along lower cervical spine. IMPRESSION: No acute findings. Dictated by: Stanislaw Adan MD 05/14/2021 16:22 Stanislaw Adan MD in [place] 05/14/2021 16:22
== END ==
PROVIDERS: PCP Nurse Practitioner Family; Visit Provider Internal Medicine Pulmonary Disease
DX: R06.02 Shortness of breath (principal)
CPT/HCPCS: 71046

== ENCOUNTER → 2021-05-26 08:41 | Outpatient (POV) | payer BC, SELFPAY ==
[2021-05-26 08:52] VITALS: BP 130/98; PULSE 100; RESP 18; O2SAT 99
--- NOTE | 2021-05-26 08:56 | HMH.PAINSOAP ---
[facility] Pain Management SOAP Note Subjective:: Patient is a 50-year-old white female who presents today for follow-up. She is following up with [employer] spinal cord stimulator small business representative today as well. Patient is having severe tenderness to her device site. She says that she is unable to wear pants near the area or close. She says that she is unable to touch the area. Patient says she has had respiratory issues for more than 4 months that they are unable to determine the cause. She denies redness or swelling to the area. She has had low-grade fevers. She rates her pain a 4 out of 10 today. Review of Systems General: No recent weight changes, no fever, no sleep disturbances Respiratory: No cough, no shortness of air, no recurring pulmonary infections Cardiovascular/peripheral vascular: No chest pain, no palpitations, no edema, no shortness of breath Gastrointestinal: No new onset incontinence, normal bowel movements reported Genitourinary: No new onset incontinence Musculoskeletal: Low back pain at SCS site Psychiatric: [Normal mood/affect] Neurological: [Denies weakness in extremities], [denies balance issues] Objective:: Physical exam General: Alert and oriented x3, no acute distress, pleasant and cooperative, [on room air] Lungs: Respirations even and unlabored, symmetrical chest expansion Eyes: PERRL Musculoskeletal: Flexion and extension of lumbar [spine] somewhat guarded secondary to pain, strength in upper and lower extremities [5/5], [antalgic gait noted] Neurological: Speech clear, [corporate tax preparer equal], no gross sensory deficit Integumentary: SCS site without redness, drainage, or edema Assessment:: Degenerative disc disease lumbar spine with lumbar radiculopathy symptoms Plan:: Patient is having significant tenderness to her SCS site. She is requesting repositioning of the device. She and I did discuss that she does have a history of having a respiratory infection that has not subsided and no cause has been determined. She is not on antibiotic therapy or steroids at this time. She denies any recent fevers, however, over the last 4 months reports that she has had low-grade fevers intermittently. She is managed with gabapentin 100 mg 1 tablet p.o. 5 times daily in our clinic as well as amitriptyline 25 mg 1 tablet p.o. daily. She does not need refills on these medications at this time. We will discuss with Dr. Mendoza possible repositioning of the device. I will contact the patient following discussion with Dr. Mendoza. Patient will be contacted at [phone]. Patient has been instructed to contact the clinic with any concerns before the next appointment. Dr. Mendoza has reviewed this note and agrees with this plan of care. This note was dictated using voice recognition software and make contain errors or omissions. [facility] History I have reviewed the patient's past medical history: Yes Medical History: Reports:: Hypertension Denies:: Cancer, Diabetes Mellitus Type 1, Diabetes Mellitus Type 2, Internal Pacemaker, MRSA, Seizures *Have you ever received a pneumonia vaccine?: No *Have you received a flu vaccine this season?: Yes Other Medical History: Reports: Fibromyalgia, Hoarseness, Hormone Therapy, Sinus Problems. Denies: Blood Transfusion Reaction Laterality Cases: Right: Arthroscopy Knee, Arthroscopy Shoulder, Bilateral: Tonsillectomy Other Surgeries: Yes: Appendectomy, Cholecystectomy, Colonoscopy, Hysterectomy-Total, Other. No: Pacemaker Amputation: No Fractures: No - *Social History Smoking Status: Current every day smoker Tobacco Type: cigarettes # Packs/Day (cigarettes): 1 #Yrs smoked (if former smoker): 20 Alcohol Intake: never Substance Use Type: denies use *Occupational Status:: employed Housing: house Household Members: spouse *Travel in the last 8 weeks: None Family Hx:: Cancer
== END ==
PROVIDERS: Visit Provider Clinical Nurse Specialist Family Health
DX: M51.16 Intervertebral disc disorders with radiculopathy, lumbar region (principal)
CPT/HCPCS: 99212; G0463

== ENCOUNTER → 2021-07-28 08:04 | Outpatient (CLI) | payer BC, SELFPAY ==
[2021-07-28 08:30] LABS: Basophils # 0.1 K/mm3 (0-0.2); Basophils % 0.8 % (0.1-2.0); Eosinophils # 0.1 K/mm3 (0.0-0.4); Eosinophils % 2.3 % (0.1-12.0); Hematocrit 43.2 % (37.0-47.0); Hemoglobin 14.7 g/dL (12.2-16.2); Lymphocytes # 1.8 K/mm3 (0.7-4.5); Lymphocytes % 28.8 % (10-50); Mean Corpuscular HGB Conc 34.2 g/dL (31.8-35.4); Mean Corpuscular Hemoglobin 32.5 pg (27.0-31.2); Mean Corpuscular Volume 95.2 fl (81-99); Mean Platelet Volume 8.1 fl (7.4-10.4); Monocytes # 0.4 K/mm3 (0.1-1.0); Monocytes % 5.6 % (1.7-9.3); Neutrophils # 3.9 K/mm3 (1.8-7.8); Neutrophils % 62.5 % (37.0-80.0); Platelet Count 195 K/mm3 (142-424); Red Blood Count 4.53 M/mm3 (4.20-5.40); Red Cell Distribution Width 12.7 % (11.5-17.5); White Blood Count 6.2 K/mm3 (4.8-10.8)
[2021-07-29 05:58] LABS: Alpha-1-Antitrypsin 143 mg/dL (101-187)
[2021-07-31 03:44] LABS: D001-IgE D pteronyssinus <0.10 kU/L (Class 0); D002-IgE D farinae <0.10 kU/L (Class 0); E001-IgE Cat Dander <0.10 kU/L (Class 0); E005-IgE Dog Dander <0.10 kU/L (Class 0); E072-IgE Mouse Urine <0.10 kU/L (Class 0); G002-IgE Bermuda Grass <0.10 kU/L (Class 0); G006-IgE Timothy Grass <0.10 kU/L (Class 0); I006-IgE Cockroach, German <0.10 kU/L (Class 0); Immunoglobulin E, Total 21 IU/mL (6-495); M001-IgE Penicillium chrysogen <0.10 kU/L (Class 0); M002-IgE Cladosporium herbarum <0.10 kU/L (Class 0); M003-IgE Aspergillus fumigatus <0.10 kU/L (Class 0); M006-IgE Alternaria alternata <0.10 kU/L (Class 0); T001-IgE Maple/Box Elder <0.10 kU/L (Class 0); T003-IgE Common Silver Birch <0.10 kU/L (Class 0); T006-IgE Cedar, Mountain <0.10 kU/L (Class 0); T007-IgE Oak, White <0.10 kU/L (Class 0); T008-IgE Elm, American <0.10 kU/L (Class 0); T010-IgE Walnut <0.10 kU/L (Class 0); T011-IgE Maple Leaf Sycamore <0.10 kU/L (Class 0); T014-IgE Cottonwood <0.10 kU/L (Class 0); T015-IgE Ash, White <0.10 kU/L (Class 0); T022-IgE Pecan, Hickory <0.10 kU/L (Class 0); T070-IgE White Mulberry <0.10 kU/L (Class 0); W001-IgE Ragweed, Short <0.10 kU/L (Class 0); W011-IgE Thistle, Russian <0.10 kU/L (Class 0); W014-IgE Pigweed, Common <0.10 kU/L (Class 0); W018-IgE Sheep Sorrel <0.10 kU/L (Class 0)
== END ==
PROVIDERS: Visit Provider Internal Medicine Pulmonary Disease
DX: J44.9 Chronic obstructive pulmonary disease, unspecified (principal); R06.09 Other forms of dyspnea; Z72.0 Tobacco use
CPT/HCPCS: 82103; 82785; 85025; 86003

== ENCOUNTER → 2021-10-09 15:26 | Outpatient (POV) | payer BC, SELFPAY ==
[2021-10-09 15:35] VITALS: BP 136/78; PULSE 73; RESP 16; O2SAT 98; BMI 20.7
--- NOTE | 2021-10-09 15:45 | HMH.PAINSOAP ---
[facility] Pain Management SOAP Note Subjective:: She is a very pleasant 51-year-old white female who presents today for follow-up and refills. She is currently being treated for degenerative disease of lumbar spine with lumbar radiculopathy. She has a spinal cord stimulator in place with the [employer] system and she states that it is covering her left low back and leg pain very well but she has started experiencing right-sided pain. She is wondering whether she can obtain coverage to treat this right-sided pain as well. States that she has not contacted the [employer] representatives this new pain. She also issues with the battery location as she states that she is unable to wear pants near her close to the site due to sensitivity to touch. She states she spoke with Dr Aburto whoo recommended against repositioning. She rates her pain today as a 6 out of 10. She is requesting refills on her gabapentin today. She is currently prescribed gabapentin 100 mg 5 times a day. ROS General: No recent weight changes, no fever, no sleep disturbances Respiratory: No cough, no shortness of air, no recurring pulmonary infections Cardiovascular/peripheral vascular: No chest pain, no palpitations, no edema, no shortness of breath Gastrointestinal: No new onset incontinence, normal bowel movements reported Genitourinary: No new onset incontinence Musculoskeletal: Chronic low back and right-sided leg pain Psychiatric: [Normal mood/affect] Neurological:Denies weakness in extremities Objective:: General: Alert and oriented x3, no acute distress, pleasant and cooperative Lungs: Resps E/U, symmetric chest expansion Eyes: PERRL Musculoskeletal: limited flexion and extension of the lumbar spine secondary to pain. Deep tendon reflexes were normal in bilateral lower extremities. Motor exam was grossly intact in the bilateral lower extremities, antalgic gait noted. There is to palpation over the spinal cord stimulator battery site Neurological: Speech is clear, banquet set up person equal, no gross sensory deficits Assessment:: Degenerative disc disease of the lumbar spine with lumbar radiculopathy Plan:: I discussed with the patient that we will continue gabapentin 100 mg 5 times daily provide refills today and to continue amitriptyline 25 mg 1 tablet p.o. daily. She is continuing to request repositioning of the battery. Of note she also has history of a respiratory infection that has not subsided and no etiology has been determined. She is not on any antibiotic or steroids at this time. I will also reach out to the [employer] rep to facilitate a follow-up appointment for reprogramming for better right-sided coverage. We will follow-up with this patient in 1 month for reassessment of her chronic pain symptoms and medication refills. [facility] History Medical History: Reports:: Hypertension Denies:: Cancer, Diabetes Mellitus Type 1, Diabetes Mellitus Type 2, Internal Pacemaker, MRSA, Seizures *Have you ever received a pneumonia vaccine?: No *Have you received a flu vaccine this season?: No Other Medical History: Reports: Fibromyalgia, Hoarseness, Hormone Therapy, Sinus Problems. Denies: Blood Transfusion Reaction Laterality Cases: Right: Arthroscopy Knee, Arthroscopy Shoulder, Bilateral: Tonsillectomy Other Surgeries: Yes: Appendectomy, Cholecystectomy, Colonoscopy, Hysterectomy-Total, Other. No: Pacemaker Amputation: No Fractures: No - *Social History Smoking Status: Current every day smoker Tobacco Type: cigarettes # Packs/Day (cigarettes): 1 #Yrs smoked (if former smoker): 20 Alcohol Intake: never Substance Use Type: denies use *Occupational Status:: employed Housing: house Household Members: spouse *Travel in the last 8 weeks: None Family Hx:: Cancer
== END ==
PROVIDERS: Visit Provider Anesthesiology Pain Medicine
DX: M51.16 Intervertebral disc disorders with radiculopathy, lumbar region (principal)
CPT/HCPCS: 99212; G0463

== ENCOUNTER → 2021-10-31 11:24 | Outpatient (POV) | payer BC, SELFPAY ==
[2021-10-31 11:34] VITALS: BP 146/95; PULSE 79; RESP 20; TEMP 35.5; O2SAT 97; BMI 20.7
--- NOTE | 2021-10-31 12:25 | P.CONS_ITS ---
[facility] Pain Management SOAP Note Subjective:: Patient is a pleasant 51-year-old white female who we have been treating for low back pain with lumbar radicular symptoms she does have a [employer] system which is helping her. She is getting good left-sided coverage however she is not getting right-sided coverage also the generator is painful in the current place where it was implanted. The patient has been reprogrammed several times without adequate coverage on the right side. We will need to revise her leads and reposition them to get better right-sided coverage and we will move her generator over to the left side in the flank area to get it out of her beltline. Objective:: Alert and oriented x3 no acute distress. Patient does have an antalgic gait. Motor strength of the lower extremities is 5/5. There is no gross sensory deficit. Assessment:: Degenerative disc disease of lumbar spine with lumbar radiculopathy symptoms without adequate stimulator coverage Plan:: We will plan on revision of her stimulator try to get more right-sided coverage we will also move her generator from the right side over to the left side of the flank area above her beltline. [facility] History Medical History: Reports:: Hypertension Denies:: Cancer, Diabetes Mellitus Type 1, Diabetes Mellitus Type 2, Internal Pacemaker, MRSA, Seizures *Have you ever received a pneumonia vaccine?: No *Have you received a flu vaccine this season?: No Other Medical History: Reports: Fibromyalgia, Hoarseness, Hormone Therapy, Sinus Problems. Denies: Blood Transfusion Reaction Laterality Cases: Right: Arthroscopy Knee, Arthroscopy Shoulder, Bilateral: Tonsillectomy Other Surgeries: Yes: Appendectomy, Cholecystectomy, Colonoscopy, Hysterectomy- Total, Other. No: Pacemaker Amputation: No Fractures: No - *Social History Smoking Status: Current every day smoker Tobacco Type: cigarettes # Packs/Day (cigarettes): 1 #Yrs smoked (if former smoker): 20 Alcohol Intake: never Substance Use Type: denies use *Occupational Status:: other Housing: house Household Members: spouse *Travel in the last 8 weeks: None Family Hx:: Cancer
== END ==
PROVIDERS: PCP Emergency Medicine; Visit Provider Anesthesiology
DX: M51.16 Intervertebral disc disorders with radiculopathy, lumbar region (principal)
CPT/HCPCS: 99212; G0463

== ENCOUNTER → 2021-11-16 11:45 | Outpatient (CLI) | payer BC, SELFPAY ==
[2021-11-16 12:35] LABS: Basophils # 0.1 K/mm3 (0-0.2); Basophils % 1.2 % (0.1-2.0); Eosinophils # 0.1 K/mm3 (0.0-0.4); Eosinophils % 1.3 % (0.1-12.0); Hemoglobin 15.4 g/dL (12.2-16.2); Lymphocytes % 22.7 % (10-50); Mean Corpuscular HGB Conc 33.4 g/dL (31.8-35.4); Mean Corpuscular Hemoglobin 32.5 pg (27.0-31.2); Mean Corpuscular Volume 97.2 fl (81-99); Mean Platelet Volume 8.7 fl (7.4-10.4); Monocytes # 0.4 K/mm3 (0.1-1.0); Monocytes % 8.3 % (1.7-9.3); Neutrophils # 3.1 K/mm3 (1.8-7.8); Neutrophils % 66.5 % (37.0-80.0); Platelet Count 193 K/mm3 (142-424); Red Blood Count 4.73 M/mm3 (4.20-5.40); White Blood Count 4.6 K/mm3 (4.8-10.8)
[2021-11-16 13:04] LABS: Blood Urea Nitrogen 9 mg/dl (7-17); Calcium 9.1 mg/dl (8.4-10.2); Carbon Dioxide 25 mmol/L (22.0-30.0); Chloride 105 mmol/L (98-107); Estimated Glomerular Filt Rate 105 ml/min (>60); GFR (African American) 127 ML/MIN (>60); Glucose 101 mg/dl (74-100); Sodium 137 mmol/L (136-145)
== END ==
PROVIDERS: PCP Emergency Medicine; Visit Provider Anesthesiology
DX: Z01.812 Encounter for preprocedural laboratory examination (principal); Z11.52 Encounter for screening for COVID-19
CPT/HCPCS: 36415; 80048; 85025; C9803; U0003; U0005

== ENCOUNTER 2021-11-18 09:05 | Day surgery (SDC) | payer BC, SELFPAY ==
[2021-11-17 08:22] VITALS: BMI 20.7
[2021-11-18 10:23] VITALS: BP 129/88; PULSE 72; RESP 18; TEMP 36.6; O2SAT 98
--- NOTE | 2021-11-18 12:24 | P.PN_ITS ---
[facility] Anesthesia Checklist - Patient Identification Patient Identification: Arm Band - Structural Data Admitted From: Home Planned Operative Procedure/s: Neurostimulator Lead Revision, Generator Explant and Implant Consent for Planned Operative Procedure(s) Verified: Yes Verified Documents: Surgical Consent, History and Physical - NPO Status Verified Time NPO: 00:00 - Additional verifications Anesthesia Reactions: No Hx Blood Transfusions: No Blood Transfusion Reaction: No - Airway Assessment C-Spine Mobility Assessed: Yes (mp2) TMJ Mobility Assessed: Yes Dentition: Good Dentition - Neurological Assessment Level of Consciousness: Awake, Alert - Anesthesia Plan Anesthesia Risk discussed: Yes Anesthesia Plan: Verified ASA Class: II Anesthesia Type: MAC [facility] History I have reviewed the patient's past medical history: Yes Medical History: Reports:: Hypertension Denies:: Cancer, Diabetes Mellitus Type 1, Diabetes Mellitus Type 2, Internal Pacemaker, MRSA, Seizures *Have you ever received a pneumonia vaccine?: No *Have you received a flu vaccine this season?: No Other Medical History: Reports: Fibromyalgia, Hoarseness, Hormone Therapy, Sinus Problems. Denies: Blood Transfusion Reaction Anesthesia experience/problems:: nac Laterality Cases: Right: Arthroscopy Knee, Arthroscopy Shoulder, Bilateral: Tonsillectomy Other Surgeries: Yes: Appendectomy, Cholecystectomy, Colonoscopy, Hysterectomy- Total, Other. No: Pacemaker Amputation: No Fractures: No - *Social History Last grade of school completed: Advanced degree Smoking Status: Current every day smoker Tobacco Type: cigarettes # Packs/Day (cigarettes): 1 #Yrs smoked (if former smoker): 20 Alcohol Intake: never Substance Use Type: denies use *Occupational Status:: employed Housing: house Household Members: spouse *Travel in the last 8 weeks: None Family Hx:: Cancer
[2021-11-18 14:03] VITALS: BP 109/78; PULSE 74; RESP 18; TEMP 36.1; O2SAT 94
[2021-11-18 14:18] VITALS: BP 104/71; PULSE 73; RESP 18; O2SAT 95
[2021-11-18 14:32] VITALS: BP 105/83; PULSE 77; RESP 18; O2SAT 95
[2021-11-18 14:55] VITALS: BP 111/76; PULSE 76; RESP 18; O2SAT 98
[2021-11-18 15:03] VITALS: BP 118/76; PULSE 66; RESP 18; O2SAT 95
--- NOTE | 2021-11-18 15:36 | P.OP_ITS ---
Date of procedure: 11/18/21 Pre-op Diagnosis:: Nonfunctioning spinal cord stimulator for degenerative disc disease of lumbar spine with lumbar radiculopathy symptoms and pain underneath the generator. Post-op Diagnosis:: Same Procedure performed:: Revision spinal cord stimulator leads and relocation of spinal cord stimulator generator Surgeon:: Kieran Mendoza MD COIL MACHINE OPERATOR:: Xavi Villanueva Anesthesia: MAC Estimated blood loss (mL): 5 Clinical Note:: This patient is a pleasant 51-year-old white female who we have been treating for low back pain with lumbar radiculopathy symptoms. She is having some increasing pain over her generator site. Also she is not getting any stimulation down her right side. We will revise her stimulator leads and waited for generator over to the left. Operative findings:: None Operative note:: Informed consent was obtained the risk and benefits of the procedure were expl ained to the patient. Patient was taken the operating room placed prone on the procedure table. She was prepped and draped in sterile fashion. The skin and subcutaneous tissues overlying the spinal cord stimulator generator were anesthetized using lidocaine. I made an incision and dissected down to the spinal cord stimulator generator and explanted the generator. I removed the leads from the generator. I then made an incision over the anchors for the leads. I dissected out the leads and remove the anchors. We put stylette's in the leads and we were able to manipulate the leads however the lead on the left did have trouble with impedances through a percutaneous lead introducer we reinserted a new lead. The leads were removed to the T7-T8 and top of T9 vertebral bodies. The lead on the right was at T8-T9 and the lead on the left was at T7-T8. We tested on the table and the patient got good stimulation in all areas of pain. The leads were anchored to the fascia with 2 anchoring devices and 2-0 Prolene. I tunneled the leads to the new generator pocket created on the left flank underneath the ribs. We did attached the leads to the generator. Impedances were checked and found to be okay. All 3 incisions were irrigated with antibiotic solution. All 3 incisions were then closed with 2-0 Vicryl followed by 4-0 nylon and destinee. Wound VAC was placed over all 3 incisions. The patient was placed in an abdominal binder taken recovery stable condition. Patient tolerated the procedure well with no complications. Patient was programmed by the [employer] patient registration representative with good stimulation in all areas of pain. Patient was discharged home neurologically intact with good relief of pain symptoms. Plan and disposition: Follow-up with this patient in 1 week for reprogramming. We will follow-up in 2 weeks for suture and staple removal and reprogramming again if needed. If she has any problems or questions she is to call us back in the pain clinic. Condition: stable Disposition: PACU Complications:: None
== END 2021-11-18 15:15 | disposition home or self-care (01) ==
LOC: OR 09:06
PROVIDERS: PCP Emergency Medicine; Visit Provider Anesthesiology
PROC: (CPT 63663; principal; 2021-11-18 11:30)
DX: T85.113A Breakdown (mechanical) of implanted electronic neurostimulator, generator, initial encounter (principal); M51.36 Other intervertebral disc degeneration, lumbar region; M79.7 Fibromyalgia; I10 Essential (primary) hypertension; Z79.890 Hormone replacement therapy; Z72.0 Tobacco use; Z80.9 Family history of malignant neoplasm, unspecified
CPT/HCPCS: 63663; 63688; 96374; C1778; J3370

== ENCOUNTER → 2021-11-24 14:04 | Outpatient (POV) | payer BC, SELFPAY ==
[2021-11-24 14:27] VITALS: BP 146/92; PULSE 101; RESP 20; TEMP 36.1; O2SAT 96; BMI 20.7
--- NOTE | 2021-11-24 14:28 | PC.NURSE ---
removed wound vac at this time; minimal serosanguineous drainage to area; bandaid applied. Rep present.
--- NOTE | 2021-11-24 14:52 | P.CONS_ITS ---
[facility] Pain Management SOAP Note Subjective:: Patient is a pleasant 51-year-old female presents today for a 1 week follow-up after a revision of spinal cord stimulator leads and relocation of spinal cord stimulator generator on November 18, 2021. Patient is currently being treated for degenerative disc disease of lumbar spine with lumbar radiculopathy symptoms. Patient states that she has been having significant relief since her revisions. [employer] textiles sales representative is here today to help with some reprogramming. She denies any issues with her new stimulator. Denies any recent falls or traumas. Rates her pain at 0 out of 10. [facility] #[id number] with an active morphine equivalent of 0. Review of Systems: General: No recent weight changes, no fever, no sleep disturbances Respiratory: No cough, no shortness of air, no recurring pulmonary infections Cardiovascular/peripheral vascular: No chest pain, no palpitations, no edema, no shortness of breath Gastrointestinal: No new onset incontinence, normal bowel movements reported Genitourinary: No new onset incontinence Musculoskeletal: Improving low back pain Psychiatric: [Normal mood/affect] Neurological: [Denies weakness in extremities], [denies balance issues] Objective:: Physical Exam: General: Alert and oriented x3, no acute distress, pleasant and cooperative, [on room air] Lungs: Respirations even and unlabored, symmetrical chest expansion Eyes: PERRL Musculoskeletal: Flexion and extension of lumbar [spine] somewhat guarded secondary to pain, [antalgic gait noted] Skin: Her surgical incisions are healing well and well approximated. There is no drainage, erythema, and swelling. Neurological: Speech clear, no gross sensory deficit Assessment:: Degenerative disc disease lumbar spine with lumbar radiculopathy symptoms. Plan:: Patient continues to have significant relief after her revision of her [employer] spinal cord stimulator. She denies any issues with her stimulator. Her surgical incisions are healing well approximated. There is no drainage, erythema, and swelling. Patient is to continue wearing her abdominal binder. Patient is now allowed to do any squatting, lifting, twisting. Follow-up in 2 weeks for suture removal. Patient has been instructed to contact the clinic with any concerns before the next appointment. Dr. Mendoza has reviewed this note and agrees with this plan of care. This note was dictated using voice recognition software and make contain errors or omissions. [facility] History Medical History: Reports:: Hypertension Denies:: Cancer, Diabetes Mellitus Type 1, Diabetes Mellitus Type 2, Internal Pacemaker, MRSA, Seizures *Have you ever received a pneumonia vaccine?: No *Have you received a flu vaccine this season?: No Other Medical History: Reports: Fibromyalgia, Hoarseness, Hormone Therapy, Sinus Problems. Denies: Blood Transfusion Reaction Laterality Cases: Right: Arthroscopy Knee, Arthroscopy Shoulder, Bilateral: Tonsillectomy Other Surgeries: Yes: Appendectomy, Cholecystectomy, Colonoscopy, Hysterectomy- Total, Other. No: Pacemaker Amputation: No Fractures: No - *Social History Smoking Status: Current every day smoker Tobacco Type: cigarettes # Packs/Day (cigarettes): 1 #Yrs smoked (if former smoker): 20 Alcohol Intake: never Substance Use Type: denies use *Occupational Status:: other Housing: house Household Members: spouse *Travel in the last 8 weeks: None Family Hx:: Cancer
== END ==
PROVIDERS: Visit Provider Student in an Organized Health Care Education/Training Program
DX: M51.16 Intervertebral disc disorders with radiculopathy, lumbar region (principal)
CPT/HCPCS: 99212; G0463

== ENCOUNTER → 2021-12-11 15:02 | Outpatient (POV) | payer BC, SELFPAY ==
[2021-12-11 15:39] VITALS: BP 128/86; PULSE 90; RESP 18; TEMP 36.4; O2SAT 95; BMI 21.2
--- NOTE | 2021-12-11 16:44 | HMH.PAINSOAP ---
[facility] Pain Management SOAP Note Subjective:: Patient is a pleasant 51-year-old female who presents today for a 3-week follow-up after revision of a spinal cord stimulator leads and relocation of spinal cord stimulator generator on November 18, 2021. Patient is currently being treated for degenerative disc disease of lumbar spine with low radiculopathy symptoms. Patient states that she has been having significant relief since her revisions. Today, patient states that she has been having tenderness around the midline incision in the right lateral incisions. At times, the incisions are very tender to touch and they feel like they are burning. Other than that, she continues to have relief in her chronic low back pain. Rates her pain today as 1 out of 10. [facility] #[id number] with an active morphine equivalent of 0. Review of Systems: General: No recent weight changes, no fever, no sleep disturbances Respiratory: No cough, no shortness of air, no recurring pulmonary infections Cardiovascular/peripheral vascular: No chest pain, no palpitations, no edema, no shortness of breath Gastrointestinal: No new onset incontinence, normal bowel movements reported Genitourinary: No new onset incontinence Musculoskeletal: Low back pain Psychiatric: [Normal mood/affect] Neurological: [Denies weakness in extremities], [denies balance issues] Objective:: Physical Exam: General: Alert and oriented x3, no acute distress, pleasant and cooperative, [on room air] Lungs: Respirations even and unlabored, symmetrical chest expansion Eyes: PERRL Musculoskeletal: Flexion and extension of lumbar [spine] somewhat guarded secondary to pain, [antalgic gait noted] Skin: Surgical incisions are healing well and well approximated. There is no drainage, erythema, and swelling. Neurological: Speech clear, no gross sensory deficit Assessment:: Degenerative disc disease of lumbar spine with lumbosacral apathy symptoms Plan:: Patient is doing well with the revision of her spinal cord stimulator. We remove her sutures and destinee today. Surgical incisions are healing well and well approximated. There is no drainage, erythema, and swelling. We applied a skin glue and Steri-Strips on all 3 of her incisions. Patient is complaining of tenderness around her midline and right lateral incisions. I discussed with the patient that these could be surgical pain. We will continue to monitor these. Patient has compounding cream and I do recommend that she use this cream around her incisions to help with some of her pain. We will follow-up with the patient in 4 weeks. If the tenderness around her incision sites does not improve, patient is welcome to call the clinic for us to see her. Patient has been instructed to contact the clinic with any concerns before the next appointment. Dr. Mendoza has reviewed this note and agrees with this plan of care. This note was dictated using voice recognition software and make contain errors or omissions. [facility] History Medical History: Reports:: Hypertension Denies:: Cancer, Diabetes Mellitus Type 1, Diabetes Mellitus Type 2, Internal Pacemaker, MRSA, Seizures *Have you ever received a pneumonia vaccine?: No *Have you received a flu vaccine this season?: No Other Medical History: Reports: Fibromyalgia, Hoarseness, Hormone Therapy, Sinus Problems. Denies: Blood Transfusion Reaction Laterality Cases: Right: Arthroscopy Knee, Arthroscopy Shoulder, Bilateral: Tonsillectomy Other Surgeries: Yes: Appendectomy, Cholecystectomy, Colonoscopy, Hysterectomy-Total, Other. No: Pacemaker Amputation: No Fractures: No - *Social History Smoking Status: Current every day smoker Tobacco Type: cigarettes # Packs/Day (cigarettes): 1 #Yrs smoked (if former smoker): 20 Alcohol Intake: never Substance Use Type: denies use *Occupational Status:: employed Housing: house Household Members: spouse *Travel in the last 8 weeks: None Family Hx:: Cancer
== END ==
PROVIDERS: Visit Provider Student in an Organized Health Care Education/Training Program
DX: M51.16 Intervertebral disc disorders with radiculopathy, lumbar region (principal)
CPT/HCPCS: 99213; G0463

== ENCOUNTER → 2022-01-15 13:24 | Outpatient (POV) | payer BC, SELFPAY ==
[2022-01-15 14:14] VITALS: BP 137/77; PULSE 88; RESP 18; TEMP 36.9; O2SAT 95; BMI 21.2
--- NOTE | 2022-01-15 15:18 | P.CONS_ITS ---
[facility] Pain Management SOAP Note Subjective:: Patient is a pleasant 52-year-old female who presents today for a 7-week follow- up after revision of a spinal cord stimulator leads and relocation of the spinal cord stimulator generator on November 18, 2021. Patient is currently being treated for degenerative disc disease of the lumbar spine with lumbar radiculopathy symptoms. Since the revision, patient has had significant relief. She does not have any complaints today. Rates her pain a 0 out of 10. [facility] [id number] with an active morphine equivalent of 0. Review of Systems: General: No recent weight changes, no fever, no sleep disturbances Respiratory: No cough, no shortness of air, no recurring pulmonary infections Cardiovascular/peripheral vascular: No chest pain, no palpitations, no edema, no shortness of breath Gastrointestinal: No new onset incontinence, normal bowel movements reported Genitourinary: No new onset incontinence Musculoskeletal: Improving low back pain Psychiatric: [Normal mood/affect] Neurological: [Denies weakness in extremities], [denies balance issues] Objective:: Physical Exam: General: Alert and oriented x3, no acute distress, pleasant and cooperative Lungs: Respirations even and unlabored, symmetrical chest expansion Eyes: PERRL Musculoskeletal: Flexion and extension of lumbar [spine] somewhat guarded secondary to pain, [antalgic gait noted] Skin: Surgical incisions are healing well and well approximated. There is no drainage, erythema, and swelling. Neurological: Speech clear, no gross sensory deficit Assessment:: Degenerative disc disease of lumbar spine with lumbar radiculopathy symptoms Plan:: Patient continues to have significant relief after the revision of her spinal cord stimulator. We will follow-up with this patient in 6 months. Patient has been instructed to contact the clinic with any concerns before the next appointment. Dr. Mendoza has reviewed this note and agrees with this plan of care. This note was dictated using voice recognition software and make contain errors or omissions. [facility] History Medical History: Reports:: Hypertension Denies:: Cancer, Diabetes Mellitus Type 1, Diabetes Mellitus Type 2, Internal Pacemaker, MRSA, Seizures *Have you ever received a pneumonia vaccine?: No *Have you received a flu vaccine this season?: No Other Medical History: Reports: Fibromyalgia, Hoarseness, Hormone Therapy, Sinus Problems. Denies: Blood Transfusion Reaction Laterality Cases: Right: Arthroscopy Knee, Arthroscopy Shoulder, Bilateral: Tonsillectomy Other Surgeries: Yes: Appendectomy, Cholecystectomy, Colonoscopy, Hysterectomy- Total, Other. No: Pacemaker Amputation: No Fractures: No - *Social History Smoking Status: Current every day smoker Tobacco Type: cigarettes # Packs/Day (cigarettes): 1 #Yrs smoked (if former smoker): 20 Alcohol Intake: never Substance Use Type: denies use *Occupational Status:: employed Housing: house Household Members: spouse *Travel in the last 8 weeks: None Family Hx:: Cancer
== END ==
PROVIDERS: Visit Provider Student in an Organized Health Care Education/Training Program
DX: M51.16 Intervertebral disc disorders with radiculopathy, lumbar region (principal)
CPT/HCPCS: 99212; G0463

== ENCOUNTER 2022-02-12 22:38 | Emergency (ER) | payer OTHER, BC, SELFPAY ==
[2022-02-12 22:54] VITALS: BP 147/99; PULSE 89; RESP 16; TEMP 36.6; O2SAT 98; BMI 21.2
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
[2022-02-12 23:42] VITALS: BP 134/90; PULSE 89; O2SAT 97
[2022-02-13 00:11] VITALS: BP 134/98; PULSE 74; O2SAT 98
[2022-02-13 00:27] VITALS: BP 134/98; PULSE 71; RESP 16; TEMP 36.7; O2SAT 98
== END 2022-02-13 00:33 | disposition home or self-care (01) ==
PROVIDERS: Emergency Provider Emergency Medicine; PCP Emergency Medicine
DX: M54.12 Radiculopathy, cervical region (principal); V48.6XXA Car passenger injured in noncollision transport accident in traffic accident, initial encounter
CPT/HCPCS: 70450; 71046; 72125; 72128; 73030; 99284

== ENCOUNTER → 2022-03-03 14:06 | Outpatient (POV) | payer OTHER, BC, SELFPAY ==
[2022-03-03 14:18] VITALS: BP 139/92; PULSE 100; RESP 20; O2SAT 98; BMI 20.7
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
== END ==
PROVIDERS: PCP Nurse Practitioner Family; Visit Provider Nurse Anesthetist, Certified Registered
DX: M51.16 Intervertebral disc disorders with radiculopathy, lumbar region (principal); T85.625A Displacement of other nervous system device, implant or graft, initial encounter; V89.2XXA Person injured in unspecified motor-vehicle accident, traffic, initial encounter
CPT/HCPCS: 76000; 99212; G0463

== ENCOUNTER → 2022-04-07 12:53 | Outpatient (POV) | payer BC, SELFPAY ==
[2022-04-07 12:57] VITALS: BP 157/97; PULSE 110; RESP 20
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
== END ==
PROVIDERS: PCP Emergency Medicine; Visit Provider Nurse Practitioner Family
DX: M51.16 Intervertebral disc disorders with radiculopathy, lumbar region (principal)
CPT/HCPCS: 99212; G0463

== ENCOUNTER → 2022-04-13 10:23 | Outpatient (CLI) | payer BC, SELFPAY ==
[2022-04-13 11:04] LABS: Basophils # 0.1 K/mm3 (0-0.2); Basophils % 1.3 % (0.1-2.0); Eosinophils # 0.2 K/mm3 (0.0-0.4); Eosinophils % 3.3 % (0.1-12.0); Hematocrit 47.2 % (37.0-47.0); Hemoglobin 14.8 g/dL (12.2-16.2); Lymphocytes # 2.1 K/mm3 (0.7-4.5); Lymphocytes % 31.6 % (10-50); Mean Corpuscular HGB Conc 31.4 g/dL (31.8-35.4); Mean Corpuscular Hemoglobin 32.5 pg (27.0-31.2); Mean Corpuscular Volume 103.3 fl (81-99); Mean Platelet Volume 8.5 fl (7.4-10.4); Monocytes # 0.3 K/mm3 (0.1-1.0); Monocytes % 4.5 % (1.7-9.3); Neutrophils # 3.8 K/mm3 (1.8-7.8); Neutrophils % 59.2 % (37.0-80.0); Platelet Count 183 K/mm3 (142-424); Red Blood Count 4.57 M/mm3 (4.20-5.40); Red Cell Distribution Width 12.9 % (11.5-17.5); White Blood Count 6.5 K/mm3 (4.8-10.8)
[2022-04-13 11:29] LABS: Anion Gap 7.8 mEq/L (5-15); Blood Urea Nitrogen 8 mg/dl (7-17); Calcium 8.6 mg/dl (8.4-10.2); Carbon Dioxide 26 mmol/L (22.0-30.0); Chloride 109 mmol/L (98-107); Estimated Glomerular Filt Rate 105 ml/min (>60); GFR (African American) 127 ML/MIN (>60); Glucose 72 mg/dl (74-100); Potassium 3.8 mmoL/L (3.5-5.1); Sodium 139 mmol/L (136-145)
== END ==
PROVIDERS: PCP Nurse Practitioner Family; Visit Provider Anesthesiology
DX: Z01.812 Encounter for preprocedural laboratory examination (principal); Z20.822 Contact with and (suspected) exposure to COVID-19
CPT/HCPCS: 36415; 80048; 85025; C9803; U0003; U0005

== ENCOUNTER 2022-04-14 12:29 | Day surgery (SDC) | payer BC, SELFPAY ==
--- NOTE | 2022-04-14 12:28 | HMH.ANESCL ---
[facility] Anesthesia Checklist - Patient Identification Patient Identification: Arm Band - Structural Data Admitted From: Home Planned Operative Procedure/s: Lead revision Consent for Planned Operative Procedure(s) Verified: Yes - NPO Status Verified Time NPO: 00:00 - Additional verifications Anesthesia Reactions: No Hx Blood Transfusions: No Blood Transfusion Reaction: No - Airway Assessment C-Spine Mobility Assessed: Yes TMJ Mobility Assessed: Yes Dentition: Dentures-good fit - Neurological Assessment Level of Consciousness: Awake Hx Seizures: No Numbness or tingling in extremities: No - Anesthesia Plan Anesthesia Risk discussed: Yes Anesthesia Plan: Verified ASA Class: II Anesthesia Type: MAC [facility] History I have reviewed the patient's past medical history: Yes Medical History: Reports:: Hypertension Denies:: Cancer, Diabetes Mellitus Type 1, Diabetes Mellitus Type 2, Internal Pacemaker, MRSA, Seizures *Have you ever received a pneumonia vaccine?: No *Have you received a flu vaccine this season?: No Other Medical History: Reports: Fibromyalgia, Hoarseness, Hormone Therapy, Sinus Problems. Denies: Blood Transfusion Reaction Anesthesia experience/problems:: None Laterality Cases: Right: Arthroscopy Knee, Arthroscopy Shoulder, Bilateral: Tonsillectomy Other Surgeries: Yes: Appendectomy, Cholecystectomy, Colonoscopy, Hysterectomy-Total, Other. No: Pacemaker Amputation: No Fractures: No - *Social History Smoking Status: Current every day smoker Tobacco Type: cigarettes # Packs/Day (cigarettes): 1 #Yrs smoked (if former smoker): 20 Alcohol Intake: never Substance Use Type: denies use *Occupational Status:: employed Housing: house Household Members: spouse *Travel in the last 8 weeks: None Family Hx:: Cancer
[2022-04-14 12:43] VITALS: BP 156/92; PULSE 93; RESP 17; TEMP 36.5; O2SAT 99; BMI 20.7
[2022-04-14 14:40] VITALS: BP 130/76; PULSE 71; RESP 18; TEMP 36.4; O2SAT 99
[2022-04-14 14:50] VITALS: BP 123/93; PULSE 83; RESP 18; O2SAT 97
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
[2022-04-14 15:00] VITALS: BP 133/86; PULSE 78; RESP 18; O2SAT 95
[2022-04-14 15:11] VITALS: BP 138/87; PULSE 76; RESP 18; O2SAT 97
[2022-04-14 16:17] VITALS: BP 152/72; PULSE 89; RESP 17; TEMP 36.1; O2SAT 94
--- NOTE | 2022-04-14 16:17 | P.PN_ITS ---
[facility] Anesthesia Record Part I Intake, IV Amount: 200 Estimated blood loss (mL): 5 Urine output (mL): 0 Blood Pressure: 152/72 SaO2: 94 Pulse Rate: 89 Respiratory Rate: 17 Temperature: 97 F Patient is:: Awake Stable to PACU at:: 16:14
== END 2022-04-14 15:25 | disposition home or self-care (01) ==
LOC: OR 12:29
PROVIDERS: PCP Emergency Medicine; Visit Provider Anesthesiology
PROC: (CPT 62350; principal; 2022-04-14 14:00)
DX: T85.625A Displacement of other nervous system device, implant or graft, initial encounter (principal); M51.36 Other intervertebral disc degeneration, lumbar region; I10 Essential (primary) hypertension; Z72.0 Tobacco use
CPT/HCPCS: 62350; 96374; J3370

== ENCOUNTER 2022-04-21 07:44 | Outpatient (POV) | payer BC, SELFPAY ==
[2022-04-21 08:01] VITALS: BP 118/88; PULSE 94; TEMP 36.4; O2SAT 95; BMI 20.7
--- NOTE | 2022-04-21 09:10 | A.OFFVIS_ITS ---
[facility] Pain Management SOAP Note Subjective:: This patient is a pleasant 51-year-old female that comes our clinic today for follow-up visit and wound inspection after having spinal cord stimulator lead revision 1 week ago. She is doing very well. She complains of no pain. Her incision sites are clean and dry. Intact. Sutures without redness or swelling. Patient requesting to return to work for light duty. I think this is appropriate. She rates her pain today 0/10. Objective:: Patient is awake alert [place] x3. In no acute distress. Flexion-extension lumbar spine somewhat guarded secondary to incisional pain. Deep tendon reflexes upper and lower extremities normal. Motor strength upper and lower extremities normal. There is no gross sensory deficit. Gait is normal. Assessment:: Degenerative disc disease lumbar spine multilevels. Lumbar radiculopathy. Plan:: Patient will return to see us in 2 weeks for suture removal. 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
== END 2022-04-21 08:42 | disposition home or self-care (01) ==
LOC: SC.PAIN 07:44
PROVIDERS: PCP Nurse Practitioner Family; Visit Provider Nurse Anesthetist, Certified Registered
DX: M51.16 Intervertebral disc disorders with radiculopathy, lumbar region (principal)
CPT/HCPCS: 99212; G0463

== ENCOUNTER → 2022-05-07 08:51 | Outpatient (POV) | payer BC, SELFPAY ==
--- NOTE | 2022-05-07 09:20 | EXP.PAIN.SOA ---
[facility] Pain Management SOAP Note Subjective:: Patient is a pleasant 51-year-old female who presents today for follow-up and suture removal. We are currently treating the patient for degenerative disc disease of lumbar spine multilevels with lumbar radiculopathy symptoms. Today the patient rates her pain a 0 out of 10. Recently we did a spinal cord stimulator lead revision and we are removing her sutures at today's visit. Patient states that she has done well following this procedure. She states she has been able to increase her activity and be able to do more activities of daily living including playing with her 3 grandchildren. Patient states the only pain she has is it is tender around her incision sites. Patient states she is feeling like she is back at 100% and has no complaints at today's visit. Patient is currently managed with gabapentin 100 mg 3 times a day. Patient denies any side effects from this medication. Patient states this medication does adequately manage her pain. She is requesting a refill at today's visit. Her David is [phone]. It has been reviewed and appropriate. Review of Systems: General: No recent weight changes, no fever, no sleep disturbances Respiratory: No cough, no shortness of air, no recurring pulmonary infections Cardiovascular/peripheral vascular: No chest pain, no palpitations, no edema, no shortness of breath Gastrointestinal: No new onset incontinence, normal bowel movements reported Genitourinary: No new onset incontinence Musculoskeletal: Low back pain Psychiatric: [Normal mood/affect] Neurological: [Denies weakness in extremities], [denies balance issues]. Objective:: Physical Exam: General: Alert and oriented x3, no acute distress, pleasant and cooperative Lungs: Respirations even and unlabored, symmetrical chest expansion Eyes: PERRL Musculoskeletal: Flexion and extension of lumbar [spine] somewhat guarded secondary to pain, [antalgic gait noted] Neurological: Speech clear, no gross sensory deficit Skin: Incision sites clean, dry, well approximated, minimal erythema Assessment:: Degenerative disc disease of lumbar spine multilevel with lumbar radiculopathy Plan:: Patient has had significant improvement following the spinal cord stimulator lead revision. We did remove the patient's sutures at today's visit. The incision site is clean, dry, well approximated with minimal erythema noted. I have counseled the patient to continue restrictions such as minimal bending, twisting, lifting and no submerging in tub, swimming pool, hot tub over the next few weeks until her incision is completely healed. Patient did have Dermabond and Steri-Strips applied to her 2 incision sites during today's exam. We will follow-up with the patient in 1 month. I will send in a refill on the patient's gabapentin 100 mg 3 times a day and provide a 1 month supply of this medication. Patient will return to clinic for follow-up and reevaluation of symptoms. Patient has been instructed to contact the clinic with any concerns before the next appointment. Dr. Mendoza has reviewed this note and agrees with this plan of care. This note was dictated using voice recognition software and make contain errors or omissions. 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
[2022-05-07 09:45] VITALS: BP 132/86; PULSE 78; RESP 18; TEMP 36.6; O2SAT 97; BMI 21.1
== END | disposition home or self-care (01) ==
PROVIDERS: PCP Emergency Medicine; Visit Provider Nurse Practitioner Family
DX: M51.16 Intervertebral disc disorders with radiculopathy, lumbar region (principal); Z72.0 Tobacco use
CPT/HCPCS: 99212; 99213; G0463

== ENCOUNTER → 2022-09-09 10:53 | Outpatient (POV) | payer BC, SELFPAY ==
[2022-09-09 12:25] VITALS: BP 124/81; PULSE 70; RESP 18; O2SAT 98; BMI 21.6
--- NOTE | 2022-09-09 12:27 | EXP.PAIN.SOA ---
[facility] Pain Management SOAP Note Subjective:: Patient is a pleasant 52-year-old female who presents today for follow-up. We are currently treating the patient for degenerative disc disease of lumbar spine multilevels with lumbar radiculopathy symptoms. Today the patient rates her pain a 10 out of 10. Patient states that she has had a couple of falls since her last visit. Patient states that she was out of state and slipped in water for 1 occurrence. Patient states she did have a hard hit onto her right hip and did code to the ER to be evaluated. Patient states she had to wait a significant period of weight time and was still having other patients go in front of her that showed up later and she had her mom who has cancer with her so she ended up leaving without being seen. Patient states she has not had any imaging for her right hip. Patient does describe this as a sharp throbbing sensation that is worse with increased activity. Patient does have a spinal cord stimulator in place that she is doing well with. Patient states she did contact them once she started having her right hip pain and they did try to alter the settings to give her additional improvement however they were unable to decrease her pain. Patient is currently prescribed gabapentin 100 mg 3 times a day. Patient denies any side effects from this medication. She states she has 1 additional refill of this medication and does not need any additional refills at this time. Her David is [phone]. Its been reviewed and appropriate Review of Systems: General: No recent weight changes, no fever, no sleep disturbances Respiratory: No cough, no shortness of air, no recurring pulmonary infections Cardiovascular/peripheral vascular: No chest pain, no palpitations, no edema, no shortness of breath Gastrointestinal: No new onset incontinence, normal bowel movements reported Genitourinary: No new onset incontinence Musculoskeletal: Right hip pain Psychiatric: [Normal mood/affect] Neurological: [Denies weakness in extremities], [denies balance issues] Objective:: Physical Exam: General: Alert and oriented x3, no acute distress, pleasant and cooperative Lungs: Respirations even and unlabored, symmetrical chest expansion Eyes: PERRL Musculoskeletal: Flexion and extension of right hip somewhat guarded secondary to pain, [antalgic gait noted] Neurological: Speech clear, no gross sensory deficit ORT score updated low risk Assessment:: Degenerative disc disease of lumbar spine multilevels with lumbar radiculopathy symptoms, right hip pain Plan:: Patient is experiencing significant pain in her right hip due to a recent fall. Patient did have limited range of motion of this joint during today's exam. I will order the patient a CT of her right hip/pelvis without contrast. I will also send in a prescription of prednisone 20 mg twice daily for 5 days. I will also send in a prescription of tramadol 50 mg twice daily with a 1 week supply of this medication. Patient will return to clinic following imaging for reevaluation of symptoms and follow-up. Patient has been instructed to contact the clinic with any concerns before the next appointment. Dr. Mendoza has reviewed this note and agrees with this plan of care. This note was dictated using voice recognition software and make contain errors or omissions. [facility] Disclaimer: The information contained in this section may have been updated after the patient was seen, as this information can be updated by other users. 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
== END | disposition home or self-care (01) ==
PROVIDERS: PCP Nurse Practitioner Family; Visit Provider Nurse Practitioner Family
DX: M51.16 Intervertebral disc disorders with radiculopathy, lumbar region (principal); M25.551 Pain in right hip; F17.210 Nicotine dependence, cigarettes, uncomplicated
CPT/HCPCS: 99212; G0463

== ENCOUNTER 2022-09-22 10:16 | Day surgery (SDC) | payer BC, SELFPAY ==
[2022-09-22 10:40] VITALS: BP 136/103; PULSE 98; RESP 18; TEMP 36.4; O2SAT 99; BMI 19.6
[2022-09-22 11:22] VITALS: BP 148/93; PULSE 75; RESP 18; O2SAT 99
--- NOTE | 2022-09-22 11:30 | XR_ITS ---
FINAL REPORT CLINICAL HISTORY: FALL, RIGHT HIP PAIN FINDINGS: RIGHT HIP Two views of the right hip including an AP pelvis demonstrate no acute fracture or dislocation. There are mild degenerative changes. The visualized bony structures are well aligned. No soft tissue abnormality is seen. IMPRESSION: Mild degenerative changes without acute bony abnormality. Reviewed, Interpreted and Dictated by Oracio Davila III, MD Transcribed by Amy Moser Authenticated and [facility]
--- NOTE | 2022-09-22 11:37 | P.PCN_ITS ---
Procedure Date: 09/22/22 Time: 11:00 Anesthesiologist:: Ike Mcconnell CRNA Complications:: None Pre-procedure Diagnosis:: Right trochanteric bursitis Post-procedure Diagnosis:: Same. Indications for Procedure:: This patient is a pleasant 52-year-old female comes our clinic today for follow- up visit and procedure. Her current complaint is a result of a fall 4 months ago. She complains of pain in the right hip continuous to the right knee on the lateral border of her right leg she describes the pain as constant, dull, sharp, stabbing. She rates the pain 10/10. Patient has difficulty sitting and/or standing. Patient states it is impossible to lie down on her right side. She is having difficulty sleeping. She is having difficulty doing anything in the house regarding chores. This is all due to the pain. Patient suffered a fall 4 months ago on the right side. Upon examination she has extreme point tenderness of the right trochanteric bursa. I discussed in detail with the patient and her regarding right trochanteric bursa injection for diagnostic and therapeutic purposes. I answered her questions. They wish to proceed. Procedure Details:: Procedure: Right trochanteric bursa injection under fluoroscopy We then moved to the right trochanteric bursa.~ C-arm fluoroscopy was used to view the left greater trochanter.~ The skin and subcutaneous tissues overlying the right greater trochanter were anesthetized using lidocaine, 1.5% and a 25- gauge needle.~ After this, a 22-gauge spinal needle was inserted and advanced until it contacted the right greater trochanter.~ Dye was injected and good spread was seen throughout the right trochanteric bursa. After this, approximately 5 mL of bupivacaine, 0.25% and Depo-Medrol, 40 mg was incrementally injected into the right right trochanteric bursa.~ The patient to lerated the procedure well with no complications. Plan and Disposition:: Patient was discharged essentially with no pain. She reports 90% improvement terms of her right hip and right leg pain. I ambulated through the clinic with the patient. She reports minimal pain if any.
== END 2022-09-22 11:22 | disposition home or self-care (01) ==
PROVIDERS: PCP Nurse Practitioner Family; Visit Provider Nurse Anesthetist, Certified Registered
DX: M70.61 Trochanteric bursitis, right hip (principal); W19.XXXD Unspecified fall, subsequent encounter
CPT/HCPCS: 20610; 73502; 77002; J1040

== ENCOUNTER → 2022-10-01 10:05 | Outpatient (POV) | payer BC, SELFPAY ==
--- NOTE | 2022-10-01 10:39 | EXP.PAIN.SOA ---
[facility] Pain Management SOAP Note Subjective:: Patient is a pleasant 52-year-old female who presents today for right bursa injection on 09/22/2022. We are currently treating the patient for degenerative disc disease of lumbar spine multilevels with lumbar radiculopathy symptoms, right hip pain. Today she states that she had only moderate improvement following this injection and it only lasted approximately 3 to 4 hours. Patient does rate her pain a 7 out of 10 today. Patient states her pain is a sharp throbbing sensation that is worse with increased activity. Patient does state her pain is all at her right hip with shooting sensations down to her right calf. Patient in the past had 2 different falls in April that both resulted in her hitting onto her right hip. Patient does state the pain does affect her ability to perform activities of daily living. Patient states that she cannot tolerate prolonged sitting, standing, walking due to the pain. Patient states that she will have the random shooting pains that just stops her in her tracks and she is unable to do anything. Patient denies any new trauma or injury. Patient denies any change to location or type of pain she experiences. Patient does have a spinal cord stimulator in place and then is doing fine with this. At her last visit we did prescribe her prednisone 20 mg twice a day for 5 days and tramadol 50 mg twice a day however she states she did not get significant relief with the tramadol. She is currently managed with gabapentin 100 mg 3 times a day. Patient denies any side effects from this medication. Her David is [phone]. Its been reviewed and appropriate. Review of Systems: General: No recent weight changes, no fever, no sleep disturbances Respiratory: No cough, no shortness of air, no recurring pulmonary infections Cardiovascular/peripheral vascular: No chest pain, no palpitations, no edema, no shortness of breath Gastrointestinal: No new onset incontinence, normal bowel movements reported Genitourinary: No new onset incontinence Musculoskeletal: Right hip pain, right leg pain Psychiatric: [Normal mood/affect] Neurological: [Denies weakness in extremities], [denies balance issues] Objective:: Physical Exam: General: Alert and oriented x3, no acute distress, pleasant and cooperative Lungs: Respirations even and unlabored, symmetrical chest expansion Eyes: PERRL Musculoskeletal: Flexion and extension of lumbar [spine] somewhat guarded secondary to pain, [antalgic gait noted] Neurological: Speech clear, no gross sensory deficit [facility] 09/22/2022 X-ray right hip 2?3 views with pelvis Findings: Right hip 2 views of the right hip including an AP pelvis demonstrate no acute fracture or dislocation. There is mild degenerative changes. The visual bony structures are well aligned. No soft tissue abnormality seen Assessment:: Degenerative disc disease of lumbar spine multilevels with lumbar radiculopathy symptoms, right hip pain Plan:: Patient is experiencing significant pain in her right hip with limited range of motion. Patient did have limited range of motion of her lumbar spine during today's visit. Patient's x-ray did show no acute fractures or dislocations however mild degenerative changes. I have discussed with the patient that with her continued pain and recent falls that I will order additional imaging to rule out any additional injury or tears. We will submit to insurance for a CT without contrast of her right hip. I will order the patient methocarbamol 500 mg 3 times daily and provide a 14-day supply of this medication. I have counseled the patient to take no other muscle relaxers such as the tizanidine or cyclobenzaprine while taking this medication. Patient will return to clinic following her CT imaging for reevaluation of symptoms and plan of care. Patient has been instructed to contact the clinic with any concerns before the next appointment. Dr. Bashir
[2022-10-01 10:51] VITALS: BP 128/87; PULSE 99; RESP 18; O2SAT 99; BMI 19.6
== END | disposition home or self-care (01) ==
PROVIDERS: PCP Nurse Practitioner Family; Visit Provider Nurse Practitioner Family
DX: M51.16 Intervertebral disc disorders with radiculopathy, lumbar region (principal); M25.551 Pain in right hip
CPT/HCPCS: 99212; G0463

== ENCOUNTER → 2022-10-14 12:06 | Outpatient (CLI) | payer BC, SELFPAY ==
--- NOTE | 2022-10-14 12:17 | XR_ITS ---
FINAL REPORT CLINICAL HISTORY: r knee, hx of fall FINDINGS: RIGHT KNEE Three views of the right knee reveal no evidence of fracture or dislocation. The bony alignment is normal. The joint spaces are preserved. There is no evidence of joint effusion. No localized soft tissue abnormality is identified. IMPRESSION: No acute abnormality identified. Reviewed, Interpreted and Dictated by Oracio Davila III, MD Transcribed by Amy Moser Authenticated and [facility]
== END ==
PROVIDERS: PCP Emergency Medicine; Visit Provider Nurse Practitioner Family
DX: M25.561 Pain in right knee (principal)
CPT/HCPCS: 73562

== ENCOUNTER 2022-11-04 15:00 | Outpatient (RCR) | payer BC, SELFPAY ==
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
== END 2022-11-04 15:05 | disposition home or self-care (01) ==
LOC: PT 15:00
PROVIDERS: PCP Emergency Medicine; Visit Provider Nurse Practitioner Family
DX: M25.551 Pain in right hip (principal)
CPT/HCPCS: 97012; 97033; 97035; 97110; 97140; 97163

== ENCOUNTER → 2022-11-06 10:54 | Outpatient (POV) | payer BC, SELFPAY ==
[2022-11-06 11:57] VITALS: BP 115/81; PULSE 110; RESP 20; BMI 19.6
--- NOTE | 2022-11-06 12:28 | EXP.PAIN.SOA ---
[facility] Pain Management SOAP Note Subjective:: Patient is a pleasant 52-year-old female who presents today for follow-up. We are currently treating the patient for degenerative disc disease of lumbar spine multilevels with lumbar radiculopathy symptoms, right hip pain. Today she rates her pain a 10 out of 10. Patient denies any new trauma or injury. Patient denies any change location or type of pain she experiences. She states she continues to have sharp shooting stabbing pains in her right hip that is worse with increased activity. She did have 2 different falls in April that both resulted in her hitting her right hip and worsening this pain. She does state that this is a constant sensation and that she cannot tolerate prolonged standing or walking or even laying on that extremity due to the worsening pain symptoms. Patient states she cannot do any activities of daily living such as cooking or cleaning or even taking a drive due to her worsening pain symptoms. Patient was previously denied a CT of her right hip due to not having physical therapy. Patient is currently seen physical therapy however she has not gotten any additional relief. She states the only thing she notices better immediately is with traction however all the other exercises made her pain worse. We did have x-rays of this joint that did show no acute fractures or dislocations however mild degenerative changes. Patient has not been seen by an orthopedic doctor due to not having any updated advanced imaging. She does have a spinal cord stimulator in place. patient was prescribed methocarbamol 500 mg 3 times a day however she states she did not notice significant relief with this. She is currently managed Gabapentin 100 mg 3 times a day. Patient denies any side effects from this medication. Patient was prescribed tramadol in the past however she did not get significant relief with this medication. Her David is [phone]. Its been reviewed and appropriate. Review of Systems: General: No recent weight changes, no fever, no sleep disturbances Respiratory: No cough, no shortness of air, no recurring pulmonary infections Cardiovascular/peripheral vascular: No chest pain, no palpitations, no edema, no shortness of breath Gastrointestinal: No new onset incontinence, normal bowel movements reported Genitourinary: No new onset incontinence Musculoskeletal: Right hip pain Psychiatric: [Normal mood/affect] Neurological: [Denies weakness in extremities], [denies balance issues] Objective:: LumbarPhysical Exam: General: Alert and oriented x3, no acute distress, pleasant and cooperative Lungs: Respirations even and unlabored, symmetrical chest expansion Eyes: PERRL Musculoskeletal: Flexion and extension of lumbar [spine] somewhat guarded secondary to pain, [antalgic gait noted] extreme point tenderness along right hip Neurological: Speech clear, no gross sensory deficit Assessment:: Degenerative disc disease of lumbar spine multilevels with lumbar radiculopathy symptoms, right hip pain Plan:: Patient is experiencing significant pain from her right hip with limited range of motion. She has tried and failed conservative therapy such as oral medications, heat and ice, topicals, physical therapy, at home stretching and exercise longer than 6 weeks. Patient has been dealing with this pain since April and it is only progressively worsened over time. Patients pain was related to falls, I have counseled the patient that I will order x-ray imaging of her thoracic spine to verify her spinal cord stimulator leads have not moved. I will also resubmit to insurance for a CT without contrast of her right hip. I will change the patient's methocarbamol 500 mg 3 times daily to methocarbamol 750 mg 3 times daily and provide a 1 month supply of this medication. Patient will follow up following her CT and x-ray imaging for reevaluation of symptoms and plan of care. Patient has been instructed to contact the clinic w
== END ==
PROVIDERS: PCP Nurse Practitioner Family; Visit Provider Nurse Practitioner Family
DX: M51.16 Intervertebral disc disorders with radiculopathy, lumbar region (principal); M25.551 Pain in right hip
CPT/HCPCS: 99212; G0463

== ENCOUNTER → 2022-11-06 11:39 | Outpatient (CLI) | payer BC, SELFPAY ==
--- NOTE | 2022-11-06 11:49 | XR_ITS ---
FINAL REPORT CLINICAL HISTORY: BACK PAIN, verify lead placement FINDINGS: THORACIC SPINE Two views demonstrate no acute fracture. There are mild and moderate degenerative changes with osteophytes. There is no malalignment. Spinal stimulator is noted with the superior end at the inferior aspect of T7. IMPRESSION: Spinal stimulator placement as above. Reviewed, Interpreted and Dictated by Oracio Davila III, MD Transcribed by Vi Leslie Authenticated and [facility]
== END ==
LOC: RAD 11:40
PROVIDERS: PCP Nurse Practitioner Family; Visit Provider Nurse Practitioner Family
DX: M54.6 Pain in thoracic spine (principal); M25.551 Pain in right hip
CPT/HCPCS: 72072

== ENCOUNTER → 2022-11-11 23:00 | Outpatient (CLI) | payer BC, SELFPAY ==
[2022-11-11 18:27] LABS: Adenovirus,PCR Not Detected (NotDetected); Bordetella Pertussis Not Detected (NotDetected); Chlamydophila Pneumoniae, PCR Not Detected (NotDetected); Coronavirus 19, PCR Not Detected (NotDetected); Coronavirus 229E Not Detected (NotDetected); Coronavirus NL63 Not Detected (NotDetected); Coronavirus OC43 Not Detected (NotDetected); Coronovirus HKU1,PCR Not Detected (NotDetected); Human Metapneumovirus Not Detected (NotDetected); Influenza A, PCR Not Detected (NotDetected); Influenza AH1, 2009 Not Detected (NotDetected); Influenza AH1, PCR Not Detected (NotDetected); Influenza AH3,PCR Not Detected (NotDetected); Influenza B, PCR Not Detected (NotDetected); Mycoplasma Pneumoniae, PCR Not Detected (NotDetected); Parainfluenza 1, PCR Not Detected (NotDetected); Parainfluenza 2, PCR Not Detected (NotDetected); Parainfluenza 3, PCR Not Detected (NotDetected); Parainfluenza 4, PCR Not Detected (NotDetected); Respiratory Syncytial Virus Not Detected (NotDetected); Rhinovirus/Enterovirus Not Detected (NotDetected)
== END ==
PROVIDERS: PCP Nurse Practitioner Family; Visit Provider Nurse Practitioner Family
DX: J01.10 Acute frontal sinusitis, unspecified (principal); R11.2 Nausea with vomiting, unspecified; R19.7 Diarrhea, unspecified; R68.89 Other general symptoms and signs
CPT/HCPCS: 87581; 87632; 87798; C9803; U0003; U0005

== ENCOUNTER → 2022-12-10 13:52 | Outpatient (CLI) | payer BC, SELFPAY ==
--- NOTE | 2022-12-10 14:01 | CT_ITS ---
FINAL REPORT TECHNIQUE: Thin section axial CT images with coronal and sagittal reformats were performed the right hip. This study was performed with techniques to keep radiation doses as low as reasonably achievable (ALARA). Individualized dose reduction techniques using automated exposure control or adjustment of mA and/or kV according to the patient''s size were employed. CLINICAL HISTORY: rt hip pain COMPARISON: None FINDINGS: CT RIGHT HIP WITHOUT CONTRAST There is no fracture dislocation. There is mild degenerative change. There are subchondral cysts in the superior lateral acetabulum. Musculature is intact. There is no soft tissue mass. IMPRESSION: Mild degenerative change with no acute process. Reviewed, Interpreted and Dictated by Oracio Davila III, MD Transcribed by Navya William Authenticated and [facility]
--- NOTE | 2022-12-10 14:05 | XR_ITS ---
FINAL REPORT CLINICAL HISTORY: VERIFY LEAD PLACEMENT COMPARISON: 11/06/2022 FINDINGS: Three views of the thoracic spine were obtained. Spinal stimulator is noted with the tip at the T7 level. There is mild and moderate degenerative change in the thoracic spine. There are postoperative changes in lower cervical spine. There is no fracture present. There is no malalignment. IMPRESSION: No acute process. Reviewed, Interpreted and Dictated by Oracio Davila III, MD Transcribed by Navya William Authenticated and [facility]
== END ==
PROVIDERS: PCP Nurse Practitioner Family; Visit Provider Nurse Practitioner Family
DX: M25.551 Pain in right hip (principal); M54.6 Pain in thoracic spine
CPT/HCPCS: 72072; 73700

== ENCOUNTER → 2022-12-17 15:02 | Outpatient (POV) | payer BC, SELFPAY ==
[2022-12-17 15:09] VITALS: BP 129/96; PULSE 96; RESP 18; O2SAT 100; BMI 19.6
--- NOTE | 2022-12-17 15:09 | EXP.PAIN.SOA ---
[facility] Pain Management SOAP Note Subjective:: Patient is a pleasant 52-year-old female who presents today for follow-up of right hip CT. We are currently treating the patient for degenerative disc disease of lumbar spine with lumbar radiculopathy symptoms multilevel, right hip pain. Today she rates her pain a 7 out of 10. Patient denies any new trauma or injury. Patient denies any change location or type of pain that she experiences. Patient does have continuous aching, sharp shooting pains in her right hip that is worse with increased activity. She does state that she can be randomly walking when all of a sudden she will have the sharp shooting pain and she goes down to her knees. This is related to 2 different occasions of falls landing both times on that hip. Patient does have a spinal cord stimulator in place and it was found that the leads had moved some. She does state that this did occur once before and she did have very similar pains. Patient has tried physical therapy however not gotten any additional relief. Patient is currently prescribed methocarbamol 750 mg 3 times a day and gabapentin 100 mg 3 times a day. Patient states that she has not noticed any additional improvement with the increase of the muscle relaxer. Her David is [phone]. Its been reviewed and appropriate. Review of Systems: General: No recent weight changes, no fever, no sleep disturbances Respiratory: No cough, no shortness of air, no recurring pulmonary infections Cardiovascular/peripheral vascular: No chest pain, no palpitations, no edema, no shortness of breath Gastrointestinal: No new onset incontinence, normal bowel movements reported Genitourinary: No new onset incontinence Musculoskeletal: Right hip pain Psychiatric: [Normal mood/affect] Neurological: [Denies weakness in extremities], [denies balance issues] Objective:: Physical Exam: General: Alert and oriented x3, no acute distress, pleasant and cooperative Lungs: Respirations even and unlabored, symmetrical chest expansion Eyes: PERRL Musculoskeletal: Flexion and extension of right hip somewhat guarded secondary to pain, [antalgic gait noted] Neurological: Speech clear, no gross sensory deficit FINAL REPORT TECHNIQUE: Thin section axial CT images with coronal and sagittal reformats were performed the right hip. This study was performed with techniques to keep radiation doses as low as reasonably achievable (ALARA). Individualized dose reduction techniques using automated exposure control or adjustment of mA and/or kV according to the patient''s size were employed. CLINICAL HISTORY: rt hip pain COMPARISON: None FINDINGS: CT RIGHT HIP WITHOUT CONTRAST ? There is no fracture dislocation.? There is mild degenerative change.? There are subchondral cysts in the superior lateral acetabulum. Musculature is intact.? There is no soft tissue mass. IMPRESSION: Mild degenerative change with no acute process. Reviewed, Interpreted and Dictated by Oracio Davila III, MD Transcribed by Navya William Authenticated and . [facility] Assessment:: Degenerative disc disease of lumbar spine with lumbar radiculopathy symptoms, right hip pain Plan:: Patient continues to experience significant pain in her right hip with limited range of motion her CT imaging did show mild degenerative change along with subchondral cyst. I will send a referral to Dr. Kolby John for her right hip pain. I have counseled the patient that she may benefit from a right hip intra-articular injection or we may need to do a intrathecal lead revision due to it shifting. 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 Patient will follow-up back in clinic in 2 weeks for reevaluation of symptoms and plan of care following her orthopedic appointment. Patient has been instructed to contact the clinic with any concerns befor
== END ==
PROVIDERS: PCP Emergency Medicine; Visit Provider Nurse Practitioner Family
DX: M51.16 Intervertebral disc disorders with radiculopathy, lumbar region (principal); M25.551 Pain in right hip
CPT/HCPCS: 99212; G0463

== ENCOUNTER → 2023-01-04 15:13 | Outpatient (POV) | payer BC, SELFPAY ==
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
[2023-01-04 16:03] VITALS: BP 139/90; PULSE 90; RESP 20; O2SAT 99; BMI 20.6
== END | disposition home or self-care (01) ==
PROVIDERS: PCP Nurse Practitioner Family; Visit Provider Nurse Practitioner Family
DX: M51.16 Intervertebral disc disorders with radiculopathy, lumbar region (principal); M25.551 Pain in right hip
CPT/HCPCS: 99212; G0463

== ENCOUNTER → 2023-01-26 15:41 | Outpatient (CLI) | payer BC, SELFPAY ==
[2023-01-26 16:22] LABS: Basophils % 0.6 % (0.1-2.0); Eosinophils # 0.2 K/mm3 (0.0-0.4); Eosinophils % 3.4 % (0.1-12.0); Hematocrit 40.4 % (37.0-47.0); Hemoglobin 13.3 g/dL (12.2-16.2); Lymphocytes # 2.4 K/mm3 (0.7-4.5); Lymphocytes % 38.3 % (10-50); Mean Corpuscular Hemoglobin 31.8 pg (27.0-31.2); Mean Corpuscular Volume 96.2 fl (81-99); Mean Platelet Volume 7.4 fl (7.4-10.4); Monocytes # 0.3 K/mm3 (0.1-1.0); Monocytes % 5.1 % (1.7-9.3); Neutrophils # 3.3 K/mm3 (1.8-7.8); Neutrophils % 52.7 % (37.0-80.0); Platelet Count 163 K/mm3 (142-424); Red Cell Distribution Width 12.5 % (11.5-17.5); White Blood Count 6.3 K/mm3 (4.8-10.8)
[2023-01-26 16:47] LABS: Anion Gap 10.4 mEq/L (5-15); Blood Urea Nitrogen 8 mg/dl (7-17); Calcium 9.3 mg/dl (8.4-10.2); Carbon Dioxide 31 mmol/L (22.0-30.0); Chloride 103 mmol/L (98-107); Estimated Glomerular Filt Rate 105 ml/min (>60); GFR (African American) 127 ML/MIN (>60); Glucose 82 mg/dl (74-100); Potassium 4.4 mmoL/L (3.5-5.1); Sodium 140 mmol/L (136-145)
== END ==
PROVIDERS: PCP Nurse Practitioner Family; Visit Provider Anesthesiology
DX: Z01.812 Encounter for preprocedural laboratory examination (principal); M51.36 Other intervertebral disc degeneration, lumbar region
CPT/HCPCS: 36415; 80048; 85025

== ENCOUNTER 2023-01-29 07:57 | Day surgery (SDC) | payer BC, SELFPAY ==
[2023-01-27 09:20] VITALS: BMI 19.6
[2023-01-29 08:18] VITALS: BP 123/84; PULSE 74; RESP 18; TEMP 36.1; O2SAT 98
--- NOTE | 2023-01-29 09:44 | P.PN_ITS ---
[facility] Disclaimer: The information contained in this section may have been updated after the patient was seen, as this information can be updated by other users. Medical History Abdominal pain Eczema Endometriosis Fibromyalgia Surgical History (Updated 01/29/23 @ 08:15 by Margy Roberto RN) History of cholecystectomy History of hysterectomy History of knee replacement History of tonsillectomy Hx of neck surgery Hx of shoulder surgery Family History Other Family history of cancer Social History (Updated 01/29/23 @ 08:17 by Margy Roberto RN) Smoking Status: Current every day smoker tobacco type: cigarettes packs per day: 1 pack-years: 25 second hand exposure: Yes alcohol intake: never substance use type: denies use current occupational status: employed Travel in the last 8 weeks: None household members: spouse housing: house marital status: education level: college service: Yes 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 [facility] Anesthesia Checklist Patient Identification Patient Identification: Arm Band and Verbal (Name & ) Structural Data Planned Operative Procedure/s: revision nerve stimulator Consent for Planned Operative Procedure(s) Verified: Yes Verified Documents: Surgical Consent NPO Status Verified Time NPO: 00:00 Additional verifications Anesthesia Reactions: No Hx Blood Transfusions: No Blood Transfusion Reaction: No Airway Assessment C-Spine Mobility Assessed: Yes TMJ Mobility Assessed: Yes Dentition: Dentures-good fit Neurological Assessment Level of Consciousness: Awake and Alert Hx Seizures: No Anesthesia Plan Anesthesia Risk discussed: Yes ASA Class: II Anesthesia Type: MAC
[2023-01-29 11:01] VITALS: TEMP 43
[2023-01-29 11:52] VITALS: BP 121/71; PULSE 81; RESP 16; TEMP 36.6; O2SAT 98
[2023-01-29 12:02] VITALS: BP 114/42; PULSE 71; RESP 17; O2SAT 96
[2023-01-29 12:12] VITALS: BP 107/70; PULSE 73; RESP 16; O2SAT 94
[2023-01-29 12:22] VITALS: BP 110/74; PULSE 73; RESP 17; O2SAT 93
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
== END 2023-01-29 11:35 | disposition home or self-care (01) ==
PROVIDERS: PCP Nurse Practitioner Family; Visit Provider Anesthesiology
PROC: (CPT 63663; principal; 2023-01-29 09:30)
DX: T85.122A Displacement of implanted electronic neurostimulator of spinal cord electrode (lead), initial encounter (principal); M25.551 Pain in right hip; M54.16 Radiculopathy, lumbar region
CPT/HCPCS: 63663; 20610; 96374; C1778; J1040; J3370

== ENCOUNTER → 2023-02-04 08:19 | Outpatient (POV) | payer BC, SELFPAY ==
[2023-02-04 08:35] VITALS: BP 120/86; PULSE 93; RESP 18; TEMP 36.6; O2SAT 97; BMI 20.7
--- NOTE | 2023-02-04 08:40 | EXP.PAIN.SOA ---
[facility] Pain Management SOAP Note Subjective:: Patient is a pleasant 52-year-old female who presents today for 1 week postop of lead revision on 01/29/2023. We are currently treating the patient for degenerative disc disease of lumbar spine with lumbar radiculopathy symptoms, right hip pain. Today she rates her pain a 4 out of 10. She denies any new trauma or injury or any issues following this procedure. She does state that she has had significant improvement of her right leg symptoms and she no longer has the constant sharp shooting pain. She states that she does feel better overall and able to do more things around the house. She does state that she continues to have some pain at her right hip however it is much more tolerable. Patient did also have a right hip intra-articular injection at the time of her revision however she states she did not notice significant improvement. Patient states her [employer] spinal cord stimulator is doing well with his current programming that they did. She is currently managed with methocarbamol 750 mg 3 times a day and gabapentin 100 mg 3 times a day. Patient denies any side effects from these medications. She states she does not need refills at this time. Her David is [phone] with a morphine equivalent of 0. It has been reviewed and appropriate. Review of Systems: General: No recent weight changes, no fever, no sleep disturbances Respiratory: No cough, no shortness of air, no recurring pulmonary infections Cardiovascular/peripheral vascular: No chest pain, no palpitations, no edema, no shortness of breath Gastrointestinal: No new onset incontinence, normal bowel movements reported Genitourinary: No new onset incontinence Musculoskeletal: Right hip pain Psychiatric: [Normal mood/affect] Neurological: [Denies weakness in extremities], [denies balance issues] Objective:: Physical Exam: General: Alert and oriented x3, no acute distress, pleasant and cooperative Lungs: Respirations even and unlabored, symmetrical chest expansion Eyes: PERRL Musculoskeletal: Flexion and extension of right hip somewhat guarded secondary to pain, [antalgic gait noted] Neurological: Speech clear, no gross sensory deficit Skin: Incision sites clean, dry, well approximated with minimal erythema, destinee and sutures intact Assessment:: Degenerative disc disease of lumbar spine multilevels with lumbar radiculopathy symptoms, right hip pain Plan:: Patient has had significant improvement following her lead revision. I have discussed with her that it may be beneficial to repeat her right hip intra-articular injection in the future. I have also counseled her to continue her postop restrictions of minimal bending lifting twisting, no submerging in water until her incision sites are fully healed and to use her abdominal binder to prevent seroma formation. Patient will return to clinic in 2 weeks for reevaluation of symptoms and suture and staple removal. We will review if she needs medication refills at this visit as well as if she would like to proceed forward with the intra-articular injection. Patient has been instructed to contact the clinic with any concerns before the next appointment. Dr. Mendoza has reviewed this note and agrees with this plan of care. This note was dictated using voice recognition software and make contain errors or omissions. [facility] Disclaimer: The information contained in this section may have been updated after the patient was seen, as this information can be updated by other users. Medical History Abdominal pain Eczema Endometriosis Fibromyalgia Surgical History (Updated 01/29/23 @ 08:15 by Margy Roberto RN) History of cholecystectomy History of hysterectomy History of knee replacement History of tonsillectomy Hx of neck surgery Hx of shoulder surgery Family History Other Family history
== END ==
PROVIDERS: PCP Nurse Practitioner Family; Visit Provider Nurse Practitioner Family
DX: Z48.89 Encounter for other specified surgical aftercare (principal); M51.16 Intervertebral disc disorders with radiculopathy, lumbar region; M25.551 Pain in right hip; Z96.82 Presence of neurostimulator
CPT/HCPCS: 99212; G0463

== ENCOUNTER → 2023-02-17 14:58 | Outpatient (POV) | payer BC, SELFPAY ==
--- NOTE | 2023-02-17 15:39 | EXP.PAIN.SOA ---
[facility] Pain Management SOAP Note Subjective:: Patient is a pleasant 52-year-old female who presents today for 3-week follow-up of lead revision on 01/29/2023. We are currently treating the patient for degenerative disc disease of lumbar spine with lumbar radiculopathy symptoms, right hip pain. She rates her pain today as 7 out of 10. Patient denies any new trauma or injury. Patient states she has been having some extreme tenderness along the lateral aspect of her spinal cord stimulator generator. Patient states that she has not even been able to lay on that side due to the increased pain. She does state that her [employer] spinal cord stimulator is doing well with the current programming and is really helping her radiating symptoms. Patient does state that she also has continued pain at her right hip and that she is scheduled to see the orthopedic doctor tomorrow. Patient is currently managed with gabapentin 100 mg 3 times a day. Patient denies any side effects from this medication. She is requesting a refill at today's visit. Her David is [phone]. Its been reviewed and appropriate. Review of Systems: General: No recent weight changes, no fever, no sleep disturbances Respiratory: No cough, no shortness of air, no recurring pulmonary infections Cardiovascular/peripheral vascular: No chest pain, no palpitations, no edema, no shortness of breath Gastrointestinal: No new onset incontinence, normal bowel movements reported Genitourinary: No new onset incontinence Musculoskeletal: Left incision pain, right hip pain Psychiatric: [Normal mood/affect] Neurological: [Denies weakness in extremities], [denies balance issues] Objective:: Physical Exam: General: Alert and oriented x3, no acute distress, pleasant and cooperative Lungs: Respirations even and unlabored, symmetrical chest expansion Eyes: PERRL Musculoskeletal: Flexion and extension of lumbar [spine] somewhat guarded secondary to pain, [antalgic gait noted] extreme point tenderness noted on the left lateral incision sites Neurological: Speech clear, no gross sensory deficit Skin: Incision sites are clean, dry, well approximated with mild erythema noted to the lateral left incision Assessment:: Degenerative disc disease of lumbar spine with lumbar radiculopathy symptoms, right hip pain, myofascial pain of left lateral incision site Plan:: I have discussed with the patient that due to her extreme point tenderness along the left lateral aspect of her spinal cord stimulator generator that she may benefit from trigger point injections at this site. Patient is also prescribed compounding cream and I have recommended that she apply it to this area and see if it does provide additional relief. Patient would like to wait at this time for the trigger point injections. I have counseled the patient that she can call and schedule this over the phone if she needs to at a later date. I will refill the patient's gabapentin 100 mg 3 times a day and provide a 1 month supply of this medication. Patient did have all of her sutures and destinee removed during today's visit. I have also counseled the patient to continue her postop restrictions and that she will return to clinic in 1 month for reevaluation of symptoms, medication refill and follow-up. Patient has been instructed to contact the clinic with any concerns before the next appointment. Dr. Mendoza has reviewed this note and agrees with this plan of care. This note was dictated using voice recognition software and make contain errors or omissions. [facility] Disclaimer: The information contained in this section may have been updated after the patient was seen, as this information can be updated by other users. Medical History Abdominal pain Eczema Endometriosis Fibromyalgia Surgical History (Updated 01/29/23 @ 08:15 by Margy Roberto RN) History of cholecystectomy History of hysterectomy History of
[2023-02-17 16:11] VITALS: BP 121/82; PULSE 56; RESP 18; O2SAT 97; BMI 20.5
== END | disposition home or self-care (01) ==
PROVIDERS: Visit Provider Nurse Practitioner Family
DX: M51.16 Intervertebral disc disorders with radiculopathy, lumbar region (principal); M25.551 Pain in right hip; M79.10 Myalgia, unspecified site
CPT/HCPCS: 99212; G0463

== ENCOUNTER → 2023-03-25 09:41 | Outpatient (POV) | payer BC, SELFPAY ==
--- NOTE | 2023-03-25 10:13 | EXP.PAIN.SOA ---
[facility] Pain Management SOAP Note Subjective:: Patient is a pleasant 52-year-old female who presents today for follow-up and medication refill. We are currently treating the patient for degenerative disc disease of lumbar spine with lumbar radiculopathy symptoms, right hip pain. Today she rates her pain a 10 out of 10. Patient states she has had excellent improvement of her back pain however she continues to have right hip pain. Patient has been to see Dr. Lovell here at [facility] who did order an MRI however the MRI machine is not compatible with her [employer] spinal cord stimulator. She states it has been a couple weeks and she has not heard if they are sending her to [place] for the MRI. She states she is planning on calling Dr. Lovell's office to follow-up. She also states that she feels like she may be able to get better relief of her stimulator could be reprogrammed. She states that she had contacted one of the [employer] leasing sales representative's however she was on vacation and has not heard back from them at this point. Patient is currently on gabapentin 100 mg 3 times a day. Patient denies any side effects from this medication. Her David is [phone]. Its been reviewed and appropriate. Review of Systems: General: No recent weight changes, no fever, no sleep disturbances Respiratory: No cough, no shortness of air, no recurring pulmonary infections Cardiovascular/peripheral vascular: No chest pain, no palpitations, no edema, no shortness of breath Gastrointestinal: No new onset incontinence, normal bowel movements reported Genitourinary: No new onset incontinence Musculoskeletal: Right hip pain Psychiatric: [Normal mood/affect] Neurological: [Denies weakness in extremities], [denies balance issues] Objective:: Physical Exam: General: Alert and oriented x3, no acute distress, pleasant and cooperative Lungs: Respirations even and unlabored, symmetrical chest expansion Eyes: PERRL Musculoskeletal: Flexion and extension of right hip somewhat guarded secondary to pain, [antalgic gait noted] Neurological: Speech clear, no gross sensory deficit Assessment:: Degenerative disc disease of lumbar spine with lumbar radiculopathy symptoms, right hip pain Plan:: I will refill the patient's gabapentin 100 mg 3 times a day and provide a 1 month supply of this medication. I will also contact [employer] le[employer] sales representative to get in touch with the patient for reprogramming. Patient will return to clinic in 1 month for reevaluation of symptoms and plan of care. Patient has been instructed to contact the clinic with any concerns before the next appointment. Dr. Mendoza has reviewed this note and agrees with this plan of care. This note was dictated using voice recognition software and make contain errors or omissions. [facility] Disclaimer: The information contained in this section may have been updated after the patient was seen, as this information can be updated by other users. Medical History Abdominal pain Eczema Endometriosis Fibromyalgia Surgical History History of cholecystectomy History of hysterectomy History of knee replacement History of tonsillectomy Hx of neck surgery Hx of shoulder surgery right Family History Other Family history of cancer Social History Smoking Status: Current every day smoker tobacco type: cigarettes packs per day: 1 pack-years: 25 second hand exposure: Yes alcohol intake: never substance use type: denies use current occupational status: employed Travel in the last 8 weeks: None household members: spouse housing: house marital status: education level: college service: Yes 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
[2023-03-25 13:34] VITALS: RESP 18; O2SAT 97; BMI 20.5
== END | disposition home or self-care (01) ==
PROVIDERS: Visit Provider Nurse Practitioner Family
DX: M51.16 Intervertebral disc disorders with radiculopathy, lumbar region (principal); M25.551 Pain in right hip
CPT/HCPCS: 99212; G0463

== ENCOUNTER 2023-04-18 15:42 | Emergency (ER) | payer BC, SELFPAY ==
[2023-04-18 15:42] VITALS: BP 123/93; PULSE 110; RESP 18; TEMP 36.9; O2SAT 98; BMI 19.1
--- NOTE | 2023-04-18 15:54 | EXP.UTC ---
Discharge Plan Disposition Patient Disposition: Home, Self-Care Condition: Good Prescriptions Prescriptions: New amoxicillin [amoxicillin] 875 mg tablet 875 mg PO Q12H Qty: 20 0RF benzonatate [benzonatate] 100 mg capsule 100 mg PO TIDP PRN (Reason: Cough) Qty: 30 0RF methylprednisolone 4 mg Tablets,Dose Pack 4 mg PO DIRECTED Qty: 21 0RF guaifenesin [Mucinex] 600 mg tablet extended release 12hr 600 - 1,200 mg PO BIDP PRN (Reason: Congestion) Qty: 30 0RF ondansetron 4 mg Tablet,Disintegrating 4 mg PO Q8H PRN (Reason: Nausea) Qty: 12 0RF No Action gabapentin 100 MG capsule 100 mg PO TID Qty: 90 0RF Referrals Follow up/Referrals: Carlos Kelley APRN [Primary Care Provider] - See instructions Activity Restrictions/Add. Instructions Additional Instructions/Restrictions: Drink plenty of fluids. Take tylenol or ibuprofen for pain or fever. Take the medications as directed. Follow up with your regular doctor. GO TO THE ER FOR ANY WORSENING SYMPTOMS Clinical Impressions Clinical Impression: Acute bronchitis, Sinusitis Instructions Patient Instructions: Sinusitis, DI for Sinusitis Discharge ED Provider: Rodrick Rockwell [facility] HPI General Stated complaint: fever,vomiting Time Seen by Provider: 04/18/23 15:54 History of Present Illness Provider Complaint: She states that for the past 5 days she has had sinus congestion and chest congestion. She has a productive cough with yellowish sputum. Related Data Previous Rx's Medication Instructions Recorded gabapentin 100 mg capsule 100 mg PO TID Pain #90 caps 03/25/23 amoxicillin 875 mg tablet 875 mg PO Q12H #20 tabs 04/18/23 benzonatate 100 mg capsule 100 mg PO TIDP PRN Cough #30 caps 04/18/23 guaifenesin 600 mg tablet, 600 - 1,200 mg PO BIDP PRN 04/18/23 extended release 12 hr (Mucinex) Congestion #30 tabs methylprednisolone 4 mg tablets in 4 mg PO DIRECTED #21 tabs 04/18/23 a dose pack ondansetron 4 mg disintegrating 4 mg PO Q8H PRN Nausea #12 tabs 04/18/23 tablet Allergies Allergy/AdvReac Type Severity Reaction Status Date / Time meperidine [From CELENAEROL] Allergy Intermediate I-HIVES Verified 02/18/23 16:03 sumatriptan Allergy Unknown Hives, SOB Verified 02/18/23 16:03 [facility] Disclaimer: The information contained in this section may have been updated after the patient was seen, as this information can be updated by other users. Medical History Abdominal pain Eczema Endometriosis Fibromyalgia Surgical History History of cholecystectomy History of hysterectomy History of knee replacement History of tonsillectomy Hx of neck surgery Hx of shoulder surgery right Family History Other Family history of cancer Social History Smoking Status: Current every day smoker tobacco type: cigarettes packs per day: 1 pack-years: 25 second hand exposure: Yes alcohol intake: never substance use type: denies use current occupational status: employed Travel in the last 8 weeks: None household members: spouse housing: house marital status: education level: college service: Yes 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
--- NOTE | 2023-04-18 16:04 | XR_ITS ---
PROCEDURE INFORMATION: Exam: XR Chest Exam date and time: 04/18/2023 4:00 PM Age: 52 years old Clinical indication: Cough; Additional info: Cough, congestion TECHNIQUE: Imaging protocol: Radiologic exam of the chest. Views: 2 views. COMPARISON: CR XR CHEST 2V 02/12/2022 11:11 PM FINDINGS: Tubes, catheters and devices: Neurotransmitter catheter overlies the thoracic canal Lungs: Hyperexpanded lung guallpa consistent with COPD. No consolidation. Pleural spaces: Unremarkable. No pleural effusion. No pneumothorax. Heart/Mediastinum: Unremarkable. No cardiomegaly. Bones/joints: Anterior cervical fusion IMPRESSION: No focal consolidation
[2023-04-18 16:43] VITALS: BP 123/93; PULSE 110; RESP 18; TEMP 36.9; O2SAT 98
== END 2023-04-18 16:43 | disposition home or self-care (01) ==
PROVIDERS: Emergency Provider Nurse Practitioner Family; PCP Nurse Practitioner Family
DX: U07.1 COVID-19 (principal); J20.9 Acute bronchitis, unspecified; J01.90 Acute sinusitis, unspecified; F17.210 Nicotine dependence, cigarettes, uncomplicated
CPT/HCPCS: 71046; 99204; 99212; G0463

== ENCOUNTER → 2023-05-10 15:05 | Outpatient (POV) | payer BC, SELFPAY ==
[2023-05-10 15:25] VITALS: BP 137/93; PULSE 82; RESP 18; O2SAT 97; BMI 20.5
--- NOTE | 2023-05-10 15:44 | EXP.PAIN.SOA ---
[facility] Pain Management SOAP Note Subjective:: Patient is a pleasant 52-year-old female who presents today for follow-up. We are currently treating the patient for degenerative disc disease of lumbar spine with lumbar radiculopathy symptoms, right hip pain. Today she rates her pain an 8 out of 10. Patient denies any new trauma or injury. She states she has started having a burning sensation that goes down her right leg all the way to her calf. Patient does state this is a constant pain and that she is unsure if it is related to her chronic right hip pain or her low back. Patient does have tenderness at her low back and describes it as an aching, throbbing sensation that is worse with increased activity. Patient does state the pain interferes with her ability perform activities of daily living. Patient is scheduled to see Dr. Lovell here at [facility] for follow-up for her right hip pain on the of this month. Patient does have a spinal cord stimulator in place of [employer] that does help with some of her pain. Patient denies any recent reprogramming. Patient did previously have to have a revision due to the leads moving. Patient does also state that the last visit with the orthopedic doctor he did think that her pain was radiating from her low back. Patient is currently managed on gabapentin 100 mg 3 times a day. Patient does not need any refills at this time. Patient did try and get an updated MRI however our local hospital does not have a MRI machine compatible with her stimulator. Her David is [id number]. Its been reviewed and appropriate. Review of Systems: General: No recent weight changes, no fever, no sleep disturbances Respiratory: No cough, no shortness of air, no recurring pulmonary infections Cardiovascular/peripheral vascular: No chest pain, no palpitations, no edema, no shortness of breath Gastrointestinal: No new onset incontinence, normal bowel movements reported Genitourinary: No new onset incontinence Musculoskeletal: Low back pain, right leg pain, right hip pain Psychiatric: [Normal mood/affect] Neurological: [Denies weakness in extremities], [denies balance issues] Objective:: Physical Exam: General: Alert and oriented x3, no acute distress, pleasant and cooperative Lungs: Respirations even and unlabored, symmetrical chest expansion Eyes: PERRL Musculoskeletal: Flexion and extension of lumbar [spine] somewhat guarded secondary to pain, [antalgic gait noted] positive right leg raise with decreased sensation to light touch and decreased reflexes along the right leg Neurological: Speech clear, no gross sensory deficit PROCEDURE: MR LUMBAR SPINE WO CON CLINICAL INDICATION: Back pain Low back pain worse on the left COMPARISON: None TECHNIQUE: Standard multiplanar multiecho sequences are performed without contrast. 3-D MIP and myelographic images are also rendered and reviewed FINDINGS: There is normal alignment. The spinal cord ends at the T12-L1 level. L1-L2: Unremarkable. L2-L3: A small posterior extradural area of isointense T1 and T2 signal noted in the right posterior paracentral region of the disc space consistent with a small right paracentral disc protrusion causing right lateral recess and foraminal narrowing impinging upon the right L3 nerve root L3-L4: Mild facet and ligamentum hypertrophy with mild bilateral foraminal narrowing slightly greater on the left compared to the right. L4-5: Mild facet and ligamentum hypertrophy L5-S1: Mild facet and ligamentum hypertrophy Gallstones are suspected may be confirmed with ultrasound if clinically warranted. IMPRESSION: 1. L2-L3: A small posterior extradural area of isointense T1 and T2 signal noted in the right posterior paracentral region of the disc space consistent with a small right paracentral disc protrusion causing right lateral recess and foraminal narrowing impinging upon the right L3 nerve root 2. L3-L4: Mild
== END ==
PROVIDERS: PCP Nurse Practitioner Family; Visit Provider Nurse Practitioner Family
DX: M51.16 Intervertebral disc disorders with radiculopathy, lumbar region (principal); M25.551 Pain in right hip; M79.604 Pain in right leg
CPT/HCPCS: 99212; G0463

== ENCOUNTER 2023-05-25 08:35 | Day surgery (SDC) | payer BC, SELFPAY ==
[2023-05-25 09:01] VITALS: BP 115/90; PULSE 89; RESP 16; TEMP 36.2; O2SAT 90; BMI 19.6
[2023-05-25 09:21] VITALS: BP 139/90; PULSE 76; RESP 18; O2SAT 97
[2023-05-25 09:22] VITALS: BP 139/90; PULSE 76; RESP 18; O2SAT 97
[2023-05-25 09:29] VITALS: BP 142/88; PULSE 72; RESP 18; O2SAT 90
--- NOTE | 2023-05-25 10:01 | EXP.PAIN.PRO ---
Procedure Date: 05/25/23 Time: 09:30 Anesthesiologist:: Ike Mcconnell CRNA Complications:: None Pre-procedure Diagnosis:: Degenerative disc lumbar spine multilevels. Lumbar radiculopathy. Post-procedure Diagnosis:: Same. Indications for Procedure:: Patient is a very pleasant 58-year-old female who comes our clinic today for right L2-3 and L3-4 transforaminal epidural steroid injection. Patient currently having low back pain she describes as constant, dull, aching. Also, patient complains of right hip and leg radicular symptoms to the foot. Patient has [employer] spinal cord stimulator. Patient is concerned there has been a movement in 1 or both leads since repositioned 3 months ago. Examining the leads under live fluoroscopy left spinal cord stimulator lead has indeed slipped caudad to vertebral levels. I had a conversation with Dr. Mendoza regarding this development. He will see her on June 11 to discuss options of treatment. Procedure Details:: Details of the procedure were explained to the patient. The patient was taken the procedure room placed in the prone position. The area of the lumbar spine was cleansed using chlorhexidine as a cleansing solution. At this time using fluoroscopy guidance markers were placed on the right lateral border of the L2 and L3 vertebral body. The skin and subcutaneous tissue was anesthetized using 1% lidocaine and 25-gauge needle. At this time using a 22-gauge 3-1/2 inch spinal needle the right upper one third of the L2-3 foramen was accessed. The same was done at the right L3-4 foramen. Needle positions were confirmed and a lateral view using fluoroscopy and contrast dye. At this time 1 cc of 1% lidocaine +20 mg of Depo-Medrol was injected at each level after negative aspiration. [place] were removed. Band-Aid applied. Patient tolerated the procedure without difficulty. There are no complications. Plan and Disposition:: Patient was discharged without incident.
== END 2023-05-25 09:29 | disposition home or self-care (01) ==
PROVIDERS: PCP Nurse Practitioner Family; Visit Provider Nurse Anesthetist, Certified Registered
DX: M51.16 Intervertebral disc disorders with radiculopathy, lumbar region (principal)
CPT/HCPCS: 64483; 64484; J1030

== ENCOUNTER → 2023-06-11 13:09 | Outpatient (CLI) | payer BC, SELFPAY ==
[2023-06-11 13:26] VITALS: BP 124/66; PULSE 86; RESP 20; O2SAT 97
== END ==
LOC: SC.PAINP 13:10 → SC.PAIN 13:17
PROVIDERS: PCP Nurse Practitioner Family; Visit Provider Anesthesiology
DX: M51.16 Intervertebral disc disorders with radiculopathy, lumbar region (principal); Z96.82 Presence of neurostimulator; T85.122A Displacement of implanted electronic neurostimulator of spinal cord electrode (lead), initial encounter
CPT/HCPCS: 99212; G0463

== ENCOUNTER → 2023-08-12 11:04 | Outpatient (CLI) | payer BC, SELFPAY ==
--- NOTE | 2023-08-12 11:09 | XR_ITS ---
FINAL REPORT CLINICAL HISTORY: THORACIC BACK PAIN, stimulator keeps moving per patient COMPARISON: 11/06/2022 FINDINGS: Two views of the thoracic spine were obtained. There is no fracture present. There is no malalignment. Vertebrae are normal in height. There is mild anterior osteophyte formation in the mid and lower thoracic spine. Stimulator leads are noted in the mid thoracic spine. IMPRESSION: No acute process. Reviewed, Interpreted and Dictated by Shar Castillo MD Transcribed by Navya William Authenticated and [facility]
== END ==
PROVIDERS: PCP Nurse Practitioner Family; Visit Provider Nurse Practitioner
DX: M54.6 Pain in thoracic spine (principal)
CPT/HCPCS: 72070

== ENCOUNTER 2023-08-13 13:28 | Emergency (ER) | payer BC, SELFPAY ==
[2023-08-13 14:20] VITALS: BP 122/81; PULSE 119; RESP 21; TEMP 39.6; O2SAT 91; BMI 19.1
--- NOTE | 2023-08-13 14:43 | XR_ITS ---
FINAL REPORT CLINICAL HISTORY: SOB COMPARISON: 04/18/2023 FINDINGS: TWO-VIEW CHEST The heart size is normal. The mediastinum is normal. The lungs are hyperinflated. There is no pneumothorax. Stimulator leads are seen in the midthoracic spine. Cervical fusion hardware is seen in the lower cervical spine. IMPRESSION: No acute cardiopulmonary process. Reviewed, Interpreted and Dictated by Shar Castillo MD Transcribed by Vi Leslie Authenticated and [facility]
--- NOTE | 2023-08-13 14:53 | EXP.UTC ---
Discharge Plan Disposition Patient Disposition: Home, Self-Care Condition: Good Prescriptions Prescriptions: New benzonatate 100 mg capsule 100 mg PO TID PRN (Reason: cough) Qty: 30 0RF guaifenesin [Mucinex] 600 mg tablet extended release 12hr 1,200 mg PO BID PRN (Reason: cough) Qty: 20 0RF azithromycin [Zithromax Z-Scottie] 250 mg tablet See Rx Instructions .ROUTE .COMPLEX 5 Days Qty: 6 0RF Rx Instructions: For 250 mg dose pack: take 500 mg today (day 1), then 250 mg for 4 days (days 2-5) prednisone [prednisone] 20 mg tablet 20 mg PO BID 5 Days Qty: 10 0RF No Action gabapentin 100 MG capsule 100 mg PO TID Qty: 90 0RF Referrals Follow up/Referrals: Carlos Kelley APRN [Primary Care Provider] - See instructions Activity Restrictions/Add. Instructions Additional Instructions/Restrictions: Start antibiotic today. Be sure to complete entire prescription even if feeling better Monitor temp. Tylenol every 4 hours as needed and / or ibuprofen every 6 hours as needed ( As long as your primary care physician has told you that it ok to take both. For fever/aches/pains ER if no less than 101 despite Tylenol or Motrin Humidifier/vaporizer or hot steamy shower Inhaler /nebulizer every 4-6 hours as needed like we discussed. If unsure how to use it, ask pharmacist to demonstrate how. Should help open airways and improve cough, wheezing, and shortness of breath Mucinex during the day for your cough and cough suppressant only at night. Be sure to drink lots of water. I *Tessalon Perles will not cause drowsiness but use at bedtime to help stop cough so that you may get some rest. *Start steroid tomorrow. Helps with inflammation therefore, cough and wheezing. Follow directions on the package. Reviewed side effects. Patient reports taking them before. Follow up IMMEDIATELY for new or worsening of symptoms OR no noticeable improvement over the next 48-72 hours. 911 immediately for any life threatening symptoms such as chest pain or difficulty breathing Clinical Impressions Clinical Impression: Bronchitis Instructions Patient Instructions: Acute Bronchitis, DI for Fever (Symptom) -- Adult Discharge ED Provider: Adriana Kemp [facility] [place] HPI General Stated complaint: right leg pain, no accident Mode of Arrival: Ambulatory Source of Information: Patient and Spouse Limitations: No Limitations Time Seen by Provider: 08/13/23 14:53 Description of Symptoms (Recalled from Triage Doc. 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 and has been around several other sick people unsure of what they may have had States that for the last 3 days she has been having body aches, chills, fever, cough and sinus congestion States that today she was feeling worse so she came in States feels like she did when she had bronchitis bad Related Data Previous Rx's Medication Instructions Recorded gabapentin 100 mg capsule 100 mg PO TID Pain #90 caps 03/25/23 azithromycin 250 mg tablet See Rx Instructions PO .COMPLEX 5 08/13/23 (Zithromax Z-Scottie) days #6 tabs benzonatate 100 mg capsule 100 mg PO TID PRN cough #30 caps 08/13/23 guaifenesin 600 mg tablet, 1,200 mg PO BID PRN cough #20 tabs 08/13/23 extended release 12 hr (Mucinex) prednisone 20 mg tablet 20 mg PO BID 5 days #10 tabs 08/13/23 Allergies Allergy/AdvReac Type Severity Reaction Status Date / Time meperidine [From DEMEROL] Allergy Intermediate I-HIVES Verified 05/25/23 09:01 sumatriptan A
[2023-08-13 15:26] LABS: UTC Influenza A Antigen Negative (Negative); UTC Influenza B Antigen Negative (Negative)
[2023-08-13 16:19] VITALS: BP 122/81; PULSE 119; RESP 24; TEMP 38.8; O2SAT 92
[2023-08-13 18:15] LABS: Adenovirus,PCR Not Detected (NotDetected); Coronavirus 19, PCR Not Detected (NotDetected); Coronavirus 229E Not Detected (NotDetected); Coronavirus NL63 Not Detected (NotDetected); Coronavirus OC43 Not Detected (NotDetected); Coronovirus HKU1,PCR Not Detected (NotDetected); Human Metapneumovirus Not Detected (NotDetected); Influenza A, PCR Not Detected (NotDetected); Influenza AH1, 2009 Not Detected (NotDetected); Influenza AH1, PCR Not Detected (NotDetected); Influenza AH3,PCR Not Detected (NotDetected); Influenza B, PCR Not Detected (NotDetected); Parainfluenza 1, PCR Not Detected (NotDetected); Parainfluenza 2, PCR Not Detected (NotDetected); Parainfluenza 3, PCR Not Detected (NotDetected); Parainfluenza 4, PCR Not Detected (NotDetected); Respiratory Syncytial Virus Not Detected (NotDetected); Rhinovirus/Enterovirus Not Detected (NotDetected)
== END 2023-08-13 16:45 | disposition home or self-care (01) ==
PROVIDERS: Emergency Provider Nurse Practitioner; PCP Nurse Practitioner Family
DX: J20.9 Acute bronchitis, unspecified (principal); R50.9 Fever, unspecified; R05.9 Cough, unspecified; R09.81 Nasal congestion; M79.18 Myalgia, other site; J45.909 Unspecified asthma, uncomplicated; F17.210 Nicotine dependence, cigarettes, uncomplicated; Z20.822 Contact with and (suspected) exposure to COVID-19
CPT/HCPCS: 71046; 87632; 87635; 87804; 96372; 99212; 99214; G0463

== ENCOUNTER → 2023-09-16 13:16 | Outpatient (POV) | payer BC, SELFPAY ==
--- NOTE | 2023-09-16 13:42 | A.OFFVIS_ITS ---
[facility] Pain Management SOAP Note Subjective:: Patient is a pleasant 53-year-old female who presents today for postop follow- up. We are currently treating the patient for degenerative disc disease of lumbar spine with lumbar radiculopathy symptoms, right hip pain. Today she rates her pain an 0 out of 10. Patient denies any new trauma or injury. She states that she has got 0 back pain following this procedure other than some incisional pain. Patient did go to Dr. John in [place] for paddle lead placement due to her spinal cord stimulator continuing to have lead displacement. Patient does state her programming is doing excellent. She does state that she continues to have hip pain and that she is scheduled to see Dr. Lovell for follow-up coming up next month. Patient states that at that last visit he thought it was coming from her back and that wanted updated MRI imaging however due to the MRI capabilities here at [facility] had to do the imaging in [place]. Patient is currently managed on gabapentin 100 mg 3 times a day. Patient denies any side effects from this medication. Her David has been reviewed and appropriate. Review of Systems: General: No recent weight changes, no fever, no sleep disturbances Respiratory: No cough, no shortness of air, no recurring pulmonary infections Cardiovascular/peripheral vascular: No chest pain, no palpitations, no edema, no shortness of breath Gastrointestinal: No new onset incontinence, normal bowel movements reported Genitourinary: No new onset incontinence Musculoskeletal: right hip pain Psychiatric: [Normal mood/affect] Neurological: [Denies weakness in extremities], [denies balance issues] Objective:: Physical Exam: General: Alert and oriented x3, no acute distress, pleasant and cooperative Lungs: Respirations even and unlabored, symmetrical chest expansion Eyes: PERRL Musculoskeletal: Flexion and extension of lumbar [spine] somewhat guarded secondary to pain, [antalgic gait noted] Neurological: Speech clear, no gross sensory deficit Assessment:: Degenerative disc disease of lumbar spine with lumbar radiculopathy symptoms, right hip pain Plan:: Patient has had significant improvement following her paddle lead placement for her spinal cord stimulator. Her incisions are clean, dry, well-approximated and did have sutures and destinee intact. We did proceed forward with removing all the destinee and sutures and applying some skin glue and Steri-Strips. Patient has been counseled to continue her postop restrictions of minimal bending, twisting or lifting no submerging in water until her incisions are fully healed and to use her abdominal binder to prevent seroma formation. I have counseled the patient that we will see her back in 1 month following her appointment with Dr. Lovell's office for her hip pain. Patient has been instructed to contact the clinic with any concerns before the next appointment. Dr. Mendoza has reviewed this note and agrees with this plan of care. This note was dictated using voice recognition software and make contain errors or omissions. [facility] Disclaimer: The information contained in this section may have been updated after the patient was seen, as this information can be updated by other users. Medical History (Updated 08/13/23 @ 16:34 by Adriana Kemp APRN) Abdominal pain Asthma Eczema Endometriosis Fibromyalgia Surgical History History of cholecystectomy History of hysterectomy History of knee replacement History of tonsillectomy Hx of neck surgery Hx of shoulder surgery Family History Other Family history of cancer Social History Smoking Status: Current every day smoker tobacco type: cigarettes packs per day: 1 second hand exposure: Yes alcohol intake: never substance use type: denies use current occupational status: employed Travel in the last 8 weeks: None household members: spouse housing: house marital status: education level: college service: Yes 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
[2023-09-16 14:16] VITALS: BP 130/97; PULSE 95; RESP 18; O2SAT 97; BMI 18.6
== END ==
LOC: SC.PAIN 13:16
PROVIDERS: PCP Nurse Practitioner Family; Visit Provider Nurse Practitioner Family
DX: M51.16 Intervertebral disc disorders with radiculopathy, lumbar region (principal); M25.551 Pain in right hip; Z48.02 Encounter for removal of sutures; Z96.82 Presence of neurostimulator
CPT/HCPCS: 99212; 99213; G0463

== ENCOUNTER 2023-10-27 07:07 | Day surgery (SDC) | payer BC, SELFPAY ==
[2023-10-25 12:53] VITALS: BMI 18.6
[2023-10-27] MEDS: LACTATED RINGERS 1000ML 1,000 ML 25 ML IV (06:25)
[2023-10-27 06:51] VITALS: BP 132/82; PULSE 69; RESP 18; TEMP 36.2; O2SAT 97
[2023-10-27] MEDS: LIDOCAINE 1% 10ML MDV 10 ML (07:54)
[2023-10-27] MEDS: TRIAMCINOLONE ACET 40MG/ML VIAL 80 MG (07:54)
--- NOTE | 2023-10-27 07:58 | XR_ITS ---
FINAL REPORT CLINICAL HISTORY: RIGHT HIP INJECTION 5CC CONTRAST fluoro time: 0.03 .42 mGy FINDINGS: FLUOROSCOPY LESS THAN 1 HOUR HISTORY: Fluoroscopy guidance. Fluoroscopic guidance was provided for right hip injection. A single spot film was obtained. A total of 0.03 minutes of fluoroscopy time were used. Total DAP: 0.42 mGy IMPRESSION: As above. Reviewed, Interpreted and Dictated by Oracio Davila III, MD Transcribed by Navya William Authenticated and [facility]
[2023-10-27] MEDS: IOPAMIDOL-200 (41%);10ML VIAL 5 ML IV (07:59)
[2023-10-27 08:00] VITALS: BP 81/49; PULSE 69; RESP 16; TEMP 36.1; O2SAT 95
--- NOTE | 2023-10-27 08:00 | SUR.PREOP ---
0630-UNABLE TO SCAN LR D/T SYSTEM BEING UPDATED AND UNABLE TO ACCESS COMPUTER. LR INITIATED ORDERED.
--- NOTE | 2023-10-27 08:00 | EXP.OP.NOTE ---
Date of procedure: 10/27/23 Pre-op Diagnosis:: Right hip pain Post-op Diagnosis:: Same Procedure performed:: Right hip injection with arthrogram x-ray guidance for needle placement Surgeon:: Marcus Lovell DO POWER CHISEL OPERATOR:: Rigo Rivera Anesthesia: local Estimated blood loss (mL): 0 Operative findings:: See dictation Operative note:: Patient is identified preoperatively. Right hip marked with yes my initials taken to the operating suite placed upon the radiolucent bed. Sedation given. Right hip prepped and draped. Once prepped and draped final operative timeout performed to identify proper patient procedure and extremity. Everyone involved the case agreed. No counter indications to beginning. X-ray was brought into identify the hip capsule 18-gauge spinal needle was directed into the hip capsule under direct visualization. Once within the hip capsule arthrogram was performed to confirm needle placement within the hip joint. Once this was confirmed hip was injected with 2 cc of Kenalog 80 mg as well as 3 cc 1% lidocaine. Needle removed Band-Aid placed patient tolerated procedure well taken to recovery stable condition Condition: stable Disposition: PACU Complications:: None apparent
[2023-10-27 08:10] VITALS: BP 100/65; PULSE 80; RESP 16; O2SAT 94
[2023-10-27 08:20] VITALS: BP 113/65; PULSE 67; RESP 18; O2SAT 96
--- NOTE | 2023-10-27 08:46 | EXP.ANES.CKL ---
[facility] Disclaimer: The information contained in this section may have been updated after the patient was seen, as this information can be updated by other users. Medical History Asthma Endometriosis Fibromyalgia Eczema Abdominal pain Surgical History Hx of knee surgery Hx of neck surgery Hx of shoulder surgery History of tonsillectomy History of cholecystectomy History of hysterectomy Family History Other Family history of cancer Social History Smoking Status: Current every day smoker tobacco type: cigarettes packs per day: 1 second hand exposure: Yes alcohol intake: never substance use type: denies use current occupational status: employed Travel in the last 8 weeks: None household members: spouse housing: house marital status: education level: college service: Yes 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 [facility] Anesthesia Checklist Patient Identification Patient Identification: Verbal (Name & ) Structural Data Admitted From: Home Planned Operative Procedure/s: r hip injection Consent for Planned Operative Procedure(s) Verified: Yes NPO Status Verified Time NPO: 00:00 Additional verifications Anesthesia Reactions: No Hx Blood Transfusions: No Blood Transfusion Reaction: No Airway Assessment Mallampati Score:: Class II C-Spine Mobility Assessed: Yes TMJ Mobility Assessed: Yes Dentition: Dentures-good fit Neurological Assessment Level of Consciousness: Awake, Alert and Appropriate Anesthesia Plan Anesthesia Risk discussed: Yes Anesthesia Plan: Verified ASA Class: II Anesthesia Type: MAC
== END 2023-10-27 08:28 | disposition home or self-care (01) ==
PROVIDERS: Visit Provider Orthopaedic Surgery
PROC: (CPT 27095; principal; 2023-10-27 07:30)
DX: M25.551 Pain in right hip (principal); F17.210 Nicotine dependence, cigarettes, uncomplicated
CPT/HCPCS: 27095; 73502; 76000; J2704; Q9966

== ENCOUNTER 2023-11-03 14:50 | Outpatient (POV) | payer BC, SELFPAY ==
--- NOTE | 2023-11-03 15:08 | EXP.PAIN.SOA ---
[facility] Pain Management SOAP Note Subjective:: Patient is a pleasant 53-year-old female who presents to the 1 month follow-up. Currently treating the patient for degenerative disc disease of lumbar spine with lumbar radiculopathy symptoms, right hip pain. Today she rates her pain a 0 out of 10. Patient states that her back is doing wonderful with no pain but she does still continue to have issues with her right hip. She does state that she has recently been to Dr. Gabriele Lovell who did do a procedure for her hip where they did not injection however it required her to go under anesthesia for. Patient states that she is not sure exactly what this was but he did state that it may take up to 2 weeks to notice improvements. Patient states that Dr. Lovell was her second opinion regarding her hip. Patient states that 1 provider did recommend a total hip replacement however that Dr. Lovell said this would be the determination whether or not it is her hip causing the pain or her low back. Patient is prescribed gabapentin from our office 100 mg 3 times a day. She denies any side effects. She states that she does still have a refill and does not need anything at this point. Her Davdi has been reviewed and is appropriate. Review of Systems: General: No recent weight changes, no fever, no sleep disturbances Respiratory: No cough, no shortness of air, no recurring pulmonary infections Cardiovascular/peripheral vascular: No chest pain, no palpitations, no edema, no shortness of breath Gastrointestinal: No new onset incontinence, normal bowel movements reported Genitourinary: No new onset incontinence Musculoskeletal: Right hip pain Psychiatric: [Normal mood/affect] Neurological: [Denies weakness in extremities], [denies balance issues] Objective:: Physical Exam: General: Alert and oriented x3, no acute distress, pleasant and cooperative Lungs: Respirations even and unlabored, symmetrical chest expansion Eyes: PERRL Musculoskeletal: Flexion and extension of right hip somewhat guarded secondary to pain, [antalgic gait noted] Neurological: Speech clear, no gross sensory deficit Assessment:: Degenerative disc disease of lumbar spine with lumbar radiculopathy symptoms, right hip pain Plan:: Patient is doing well currently with her overall back pain and her stimulator is working well without needing any additional reprogramming. We will follow-up with the patient in 2 months for reevaluation of symptoms and plan of care. Patient has been instructed to contact the clinic with any concerns before the next appointment. Dr. Mendoza has reviewed this note and agrees with this plan of care. This note was dictated using voice recognition software and make contain errors or omissions. [facility] Disclaimer: The information contained in this section may have been updated after the patient was seen, as this information can be updated by other users. Medical History Asthma Endometriosis Fibromyalgia Eczema Abdominal pain Surgical History Hx of knee surgery Hx of neck surgery Hx of shoulder surgery History of tonsillectomy History of cholecystectomy History of hysterectomy Family History Other Family history of cancer Social History Smoking Status: Current every day smoker tobacco type: cigarettes packs per day: 1 second hand exposure: Yes alcohol intake: never substance use type: denies use current occupational status: employed Travel in the last 8 weeks: None household members: spouse housing: house marital status: education level: college service: Yes 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
[2023-11-03 15:21] VITALS: BP 144/97; PULSE 91; RESP 18; O2SAT 99; BMI 18.6
== END 2023-11-03 23:59 ==
LOC: SC.PAIN 14:51
PROVIDERS: PCP Nurse Practitioner Family; Visit Provider Nurse Practitioner Family
DX: M51.16 Intervertebral disc disorders with radiculopathy, lumbar region (principal); M25.551 Pain in right hip
CPT/HCPCS: 99212; G0463

== ENCOUNTER 2024-04-05 09:26 | Outpatient (POV) | payer BC, SELFPAY ==
[2024-04-05 10:10] VITALS: BP 148/118; PULSE 78; RESP 18; O2SAT 98; BMI 18.6
--- NOTE | 2024-04-05 12:21 | EXP.PAIN.SOA ---
[facility] Disclaimer: The information contained in this section may have been updated after the patient was seen, as this information can be updated by other users. Medical History Asthma Endometriosis Fibromyalgia Eczema Abdominal pain Surgical History Hx of knee surgery Hx of neck surgery Hx of shoulder surgery right History of tonsillectomy History of cholecystectomy History of hysterectomy Family History Other Family history of cancer Social History Smoking Status: Current every day smoker tobacco type: cigarettes packs per day: 1 second hand exposure: Yes alcohol intake: never substance use type: denies use current occupational status: employed Travel in the last 8 weeks: None household members: spouse housing: house marital status: education level: college service: Yes 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 Today she rates her pain a 7 out of 10. Patient denies any new trauma or injury. She does state that she continues to have the chronic pain throughout her right outer hip. Patient has been help had hip replacement with the anterior approach from her orthopedic doctor. She does state that overall everything went great with this procedure however she continues to have the same pain and has been told by multiple people that they believe it is nerve related. Patient does state that it radiates down her right leg. She states it is constant and it is affecting her eating and sleeping. She states that physical therapy is making it worse and that she feels like it is starting to get to her more emotionally. Patient did spend an hour working with one of the [employer] representatives recently to see if they could get better coverage along this area however if still not been able to target the 1 spot. Patient states that even they believed it was more related to nerve damage. Patient is prescribed gabapentin from our office to 100 mg 3 times a day. She denies any side effects from this medication. She does state that at 1 point she even increased her dosage just to see if it would make any difference and nothing seemed to help. Patient states that she has been tried on multiple pain medications including tramadol, Tylenol 3, [place] and Percocet with no additional change to this pain. Patient is interested in any options we may be able to provide. She has recently had updated imaging of her low back. Her David has been reviewed and is appropriate. Review of Systems: General: No recent weight changes, no fever, no sleep disturbances Respiratory: No cough, no shortness of air, no recurring pulmonary infections Cardiovascular/peripheral vascular: No chest pain, no palpitations, no edema, no shortness of breath Gastrointestinal: No new onset incontinence, normal bowel movements reported Genitourinary: No new onset incontinence Musculoskeletal: Right hip pain Psychiatric: [Normal mood/affect] Neurological: [Denies weakness in extremities], [denies balance issues] Pain at rest (0-10 scale): 7 Objective Objective:: Physical Exam: General: Alert and oriented x3, no acute distress, pleasant and cooperative Lungs: Respirations even and unlabored, symmetrical chest expansion Eyes: PERRL Musculoskeletal: Flexion and extension of right hip somewhat guarded secondary to pain, [antalgic gait noted] extreme point tenderness along outer aspect of right greater trochanteric bursa Neurological: Speech clear, no gross sensory deficit Thoracic MRI 08/04/2023 Findings: Alignment is normal. No focal subluxation. No evidence of fracture. Mild to moderate anterior marginal osteophytic spurring. No pathological lesion is identified in the thoracic spine. Visualized spinal cord appears normal. There are minimal to mild disc bulges in the thoracic spine. No canal stenosis or neuroforaminal narrowing.. No parapinous Soft tissue abnormality. Muscular is symmetric Lumbar MRI 08/04/2023 Findings: Lumbar spine is normal in alignment. No subluxation. No evidence of fracture. Mild anterior marginal osteophytic spurring. No pathological lesion is identified. Conus medullaris is normal in appearance at the L1-L2 level. T12-L1: Negative L1-L2: Minimal disc bulge. No canal stenosis or neuroforaminal narrowing L2-L3: Mild broad-based disc protrusion. Producing mild stenosis of the right neuroforamen. No canal stenosis L3-L4: Diffuse annular disc bulge. Mild bilateral neuroforaminal stenosis no spinal stenosis L4-L5: Broad-based protrusion paracentral to the right. This extends to the base of the neuroforaminal produces mild right neuroforaminal stenosis no spinal canal stenosis L5-S1: Mild disc bulge and mild endplate spurring no central canal stenosis and minimal neuroforaminal stenosis Has patient had previous pain injection?: No Conservative treatment options previously tried: Prescription medications Length of treatment: Longer than 6 weeks Meds Home Medications and Allergies Home Medications ?Medication ?Instructions ?Recorded ?Confirmed ?Type gabapentin 100 mg capsule 100 mg PO TID Pain #90 caps 12/22/23 04/05/24 Rx New Prescriptions to Start Prescriptions: Allergies Allergy/AdvReac Type Severity Reaction Status Date / Time meperidine [From DEMEROL] Allergy Intermediate I-HIVES Verified 11/09/23 13:27 sumatriptan Allergy Unknown Hives, SOB Verified 11/09/23 13:27 Assessment and Plan *Assessment and plan (1) Right hip pain: Status: Acute Category: Medical Code(s): M25.551 - Pain in right hip Plan Patient has continued to deal with chronic right hip pain and has now had a total right hip replacement with no additional changes. Patient has tried multiple injections and multiple pain medications and nerve medications with no additional relief. I will send in a 2-week supply of baclofen 5 mg 3 times daily and have the patient return to clinic in 2 weeks for reevaluation of symptoms and plan of care. Patient has been instructed to contact the clinic with any concerns before the next appointment. Dr. Mendoza has reviewed this note and agrees with this plan of care. This note was dictated using voice recognition software and make contain errors or omissions. All injections are used with Lidocaine or Bupivacaine and Depo Medrol.
== END 2024-04-05 23:59 | disposition home or self-care (01) ==
PROVIDERS: PCP Nurse Practitioner Family; Visit Provider Nurse Practitioner Family
DX: M25.551 Pain in right hip (principal); F17.210 Nicotine dependence, cigarettes, uncomplicated; Z96.82 Presence of neurostimulator
CPT/HCPCS: 99212; G0463

== ENCOUNTER 2024-04-07 16:00 | Outpatient (RCR) | payer BC, SELFPAY | END 2024-04-07 16:05 | disposition home or self-care (01) | LOC: PT 16:00 | PROVIDERS: Visit Provider Nurse Practitioner Family | DX: M16.11 Unilateral primary osteoarthritis, right hip (principal); Z96.641 Presence of right artificial hip joint | CPT/HCPCS: 97110; 97163; 97164; 97530 ==

== ENCOUNTER 2024-05-17 14:23 | Outpatient (CLI) | payer BC, SELFPAY ==
--- NOTE | 2024-05-17 14:27 | XR_ITS ---
FINAL REPORT CLINICAL HISTORY: SOA, cough COMPARISON: 08/13/2023 FINDINGS: There is a presumed thoracic stimulator in the mid thoracic region. No acute pulmonary density is evident. There is no evidence of effusion or other pleural disease. The mediastinum has a normal appearance. The cardiac silhouette is unremarkable. IMPRESSION: No active disease. Reviewed, Interpreted and Dictated by Boby Juarez MD Transcribed by Florence Hassan Authenticated and [facility]
== END 2024-05-17 23:59 | disposition home or self-care (01) ==
LOC: RAD 14:24
PROVIDERS: PCP Nurse Practitioner Family; Visit Provider Nurse Practitioner Family
DX: R05.9 Cough, unspecified (principal); R06.02 Shortness of breath
CPT/HCPCS: 71046

== ENCOUNTER 2024-05-19 10:27 | Outpatient (POV) | payer BC, SELFPAY ==
[2024-05-19 10:45] VITALS: BP 129/96; PULSE 96; RESP 18; O2SAT 96; BMI 18.6
--- NOTE | 2024-05-19 13:35 | A.OFFVIS_ITS ---
[facility] Disclaimer: The information contained in this section may have been updated after the patient was seen, as this information can be updated by other users. Medical History (Updated 05/19/24 @ 14:11 by Gisell Lovell APRN) Asthma Endometriosis Fibromyalgia Eczema Abdominal pain Surgical History History of right hip replacement Hx of knee surgery Hx of neck surgery Hx of shoulder surgery History of tonsillectomy History of cholecystectomy History of hysterectomy Family History Other Family history of cancer Social History (Updated 05/19/24 @ 11:08 by Tracy Clark RN) Smoking Status: Current every day smoker tobacco type: cigarettes packs per day: 1 second hand exposure: Yes alcohol intake: never substance use type: denies use current occupational status: employed Travel in the last 8 weeks: None household members: spouse housing: house marital status: education level: college service: Yes 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 Patient does state the pain is constant and interferes with all of her activities from sleeping to ambulation. Patient states that she does still have some numbness all along her right hip where her incision was for her hip replacement however past that point she has severe pain. Patient does state that overall she has the most severe pain down around her lower right knee on the lateral side and does radiate down to her foot. Patient states this is a constant aching sensation. Patient states her [employer] stimulator is working well for her other aches and pains and that we have tried reprogramming it multiple times with it still not being able to reach this area. Patient states the last time when we messed with it that it did affect her other programming and that she would rather leave it where it currently is. Patient has also had transforaminal epidurals, intra-articular hip injections and bursa injections with minimal relief. Patient does state that she just does not know what is going on. She has been back to Dr. John who stated that there did not appear to be anything that we needed to do for her lumbar spine. Patient is open to any and all suggestions. Patient has been tried on tramadol, Tylenol 3, [place] and Percocet with no improvement. Patient has also been tried on multiple muscle relaxers with no changes. Patient is prescribed gabapentin 100 mg 3 times a day from our office. She denies any side effects from this medication. Patient has even tried increased to the gabapentin with no additional change. Her David has been reviewed and is appropriate. Review of Systems: General: No recent weight changes, no fever, no sleep disturbances Respiratory: No cough, no shortness of air, no recurring pulmonary infections Cardiovascular/peripheral vascular: No chest pain, no palpitations, no edema, no shortness of breath Gastrointestinal: No new onset incontinence, normal bowel movements reported Genitourinary: No new onset incontinence Musculoskeletal: Right hip pain, right leg pain, right knee/calf pain Psychiatric: [Normal mood/affect] Neurological: [Denies weakness in extremities], [denies balance issues] Pain at rest (0-10 scale): 10 Objective Objective:: Physical Exam: General: Alert and oriented x3, no acute distress, pleasant and cooperative Lungs: Respirations even and unlabored, symmetrical chest expansion Eyes: PERRL Musculoskeletal: Flexion and extension of lumbar [spine] somewhat guarded secondary to pain, [antalgic gait noted] Neurological: Speech clear, no gross sensory deficit Has patient had previous pain injection?: No Conservative treatment options previously tried: Home exercise plan Length of treatment: Longer than 12 weeks Meds Home Medications and Allergies Home Medications ?Medication ?Instructions ?Recorded ?Confirmed ?Type gabapentin 100 mg capsule 100 mg PO TID Pain #90 caps 04/05/24 05/19/24 Rx azelastine 137 mcg-fluticasone 50 1 spray intranasal BID #23 grams 05/17/24 05/19/24 Rx mcg/spray nasal spray azithromycin 250 mg tablet See Rx Instructions PO .COMPLEX #6 05/17/24 05/19/24 Rx tabs znxuwgmbfancfop-roykelheemokwru-XD 2.5 ml PO Q6H PRN cold symptoms 05/17/24 05/19/24 Rx 2 mg-30 mg-10 mg/5 mL oral syrup #118 mL cetirizine 10 mg tablet (Zyrtec) 10 mg PO DAILY #30 tabs 05/17/24 05/19/24 Rx prednisone 20 mg tablet 20 mg PO BID 5 days #10 tabs 05/17/24 05/19/24 Rx budesonide-formoterol HFA 160 1 inh inhalation BID soa #10.2 05/18/24 05/19/24 Rx mcg-4.5 mcg/actuation aerosol grams inhaler (Symbicort) New Prescriptions to Start Prescriptions: Allergies Allergy/AdvReac Type Severity Reaction Status Date / Time meperidine [From DEMEROL] Allergy Intermediate I-HIVES Verified 05/17/24 13:29 sumatriptan Allergy Unknown Hives, SOB Verified 05/17/24 13:29 Assessment and Plan *Assessment and plan (1) Right leg pain: Status: Acute Category: Medical Code(s): M79.604 - Pain in right leg (2) Right hip pain: Status: Acute Category: Medical Code(s): M25.551 - Pain in right hip (3) Right knee pain: Status: Acute Category: Medical Code(s): M25.561 - Pain in right knee Plan Patient continues to have extreme pain throughout her right hip radiating down the lateral aspect down to her foot. Patient was counseled that I would like to see if a possible nerve block would provide any improvement of the pain in and around her right knee to her foot. Patient does state that she is open to this option. Patient was counseled that we will send her to Dr. Frazier for evaluation with EMG testing. Patient will return to clinic for evaluation with Dr. Mendoza in 2 weeks. Patient has been instructed to contact the clinic with any concerns before the next appointment. Dr. Mendoza has reviewed this note and agrees with this plan of care. This note was dictated using voice recognition software and make contain errors or omissions. All injections are used with Lidocaine or Bupivacaine and Depo Medrol.
== END 2024-05-19 23:59 | disposition home or self-care (01) ==
LOC: SC.PAIN 10:27
PROVIDERS: PCP Nurse Practitioner Family; Visit Provider Nurse Practitioner Family
DX: M79.604 Pain in right leg (principal); M25.551 Pain in right hip; M25.561 Pain in right knee; Z96.82 Presence of neurostimulator; F17.210 Nicotine dependence, cigarettes, uncomplicated; Z73.89 Other problems related to life management difficulty; Z96.641 Presence of right artificial hip joint
CPT/HCPCS: 99212; G0463

== ENCOUNTER 2024-05-24 12:52 | Outpatient (CLI) | payer BC, SELFPAY ==
[2024-05-24 14:40] VITALS: PULSE 87; PULSE 90
[2024-05-24] MEDS: ALBUTEROL 0.083% 2.5 MG/3 ML NEB IH (14:40)
== END 2024-05-24 23:59 | disposition home or self-care (01) ==
LOC: RT 12:52
PROVIDERS: PCP Nurse Practitioner Family; Visit Provider Nurse Practitioner Family
DX: R06.02 Shortness of breath (principal); F17.210 Nicotine dependence, cigarettes, uncomplicated
CPT/HCPCS: 94060; 94618; 94640; 94726; 94729; J7613

== ENCOUNTER 2024-06-02 13:51 | Outpatient (POV) | payer BC, SELFPAY ==
[2024-06-02 14:06] VITALS: BP 141/90; PULSE 82; RESP 18; TEMP 36.7; O2SAT 98; BMI 18.6
--- NOTE | 2024-06-02 15:45 | EXP.PAIN.SOA ---
[facility] Disclaimer: The information contained in this section may have been updated after the patient was seen, as this information can be updated by other users. Medical History (Updated 06/02/24 @ 15:47 by Kieran Mendoza MD) Asthma Endometriosis Fibromyalgia Eczema Abdominal pain Surgical History History of right hip replacement Hx of knee surgery Hx of neck surgery Hx of shoulder surgery History of tonsillectomy History of cholecystectomy History of hysterectomy Family History Other Family history of cancer Social History (Updated 06/02/24 @ 14:06 by Lisbeth Gonzalez, FARHEEN) Smoking Status: Current every day smoker tobacco type: cigarettes packs per day: 1 second hand exposure: Yes alcohol intake: never substance use type: denies use current occupational status: employed Travel in the last 8 weeks: None household members: spouse housing: house marital status: education level: college service: Yes 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 We have reviewed her EMG and NCV studies which are negative for any nerve compression in the right lower extremity. They assessed her right superficial fibular and sural sensory responses and fibular and tibial responses. We also did review her MRI she does have significant right neuroforaminal narrowing at L4-L5 and at L3-L4. Pain at rest (0-10 scale): 9 Objective Objective:: Alert and oriented x 3 no acute distress. She does have antalgic gait. Motor strength of lower extremities is 5/5. There is no gross sensory deficit. Has patient had previous pain injection?: Yes Percent improvement in pain since last injection: Minimal Conservative treatment options previously tried: NSAIDS Length of treatment: Unknown, Home exercise plan Length of treatment: Unknown and Physical Therapy Length of treatment: Unknown Meds Home Medications and Allergies Home Medications ?Medication ?Instructions ?Recorded ?Confirmed ?Type gabapentin 100 mg capsule 100 mg PO TID Pain #90 caps 04/05/24 06/02/24 Rx azelastine 137 mcg-fluticasone 50 1 spray intranasal BID #23 grams 05/17/24 06/02/24 Rx mcg/spray nasal spray azithromycin 250 mg tablet See Rx Instructions PO .COMPLEX #6 05/17/24 06/02/24 Rx tabs cetirizine 10 mg tablet (Zyrtec) 10 mg PO DAILY #30 tabs 05/17/24 06/02/24 Rx prednisone 20 mg tablet 20 mg PO BID 5 days #10 tabs 05/17/24 06/02/24 Rx budesonide-formoterol HFA 160 1 inh inhalation BID soa #10.2 05/18/24 06/02/24 Rx mcg-4.5 mcg/actuation aerosol grams inhaler (Symbicort) promethazine-DM 6.25 mg-15 mg/5 mL 5 ml PO Q4-6H PRN cough #473 mL 05/25/24 06/02/24 Rx oral syrup New Prescriptions to Start Prescriptions: Allergies Allergy/AdvReac Type Severity Reaction Status Date / Time meperidine [From DEMEROL] Allergy Intermediate I-HIVES Verified 06/02/24 14:10 sumatriptan Allergy Unknown Hives, SOB Verified 06/02/24 14:10 Assessment and Plan *Assessment and plan (1) Right leg pain: Status: Acute Category: Medical Code(s): M79.604 - Pain in right leg (2) Degenerative disc disease, lumbar: Status: Chronic Category: Medical Code(s): M51.36 - Other intervertebral disc degeneration, lumbar region (3) Facet arthropathy: Status: Chronic Category: Medical Code(s): M47.819 - Spondylosis without myelopathy or radiculopathy, site unspecified (4) Lumbar radiculopathy, acute: Status: Acute Category: Medical Code(s): M54.16 - Radiculopathy, lumbar region Plan We will seek approval for a right transforaminal epidural steroid injection L3-L4 and L4-L5 after reviewing her MRI. She continues to do a home exercise program. She does have significant neuroforaminal narrowing at both of these levels. We will also plan on sending her for evaluation to Dr. John for neurosurgical evaluation. Will also plan on reprogramming of her stimulator.
== END 2024-06-02 15:27 | disposition home or self-care (01) ==
LOC: SC.PAIN 13:52
PROVIDERS: PCP Nurse Practitioner Family; Visit Provider Anesthesiology
DX: M79.604 Pain in right leg (principal); M51.16 Intervertebral disc disorders with radiculopathy, lumbar region; M47.26 Other spondylosis with radiculopathy, lumbar region; Z96.82 Presence of neurostimulator; Z96.641 Presence of right artificial hip joint; F17.210 Nicotine dependence, cigarettes, uncomplicated
CPT/HCPCS: 99212; G0463

== ENCOUNTER 2024-07-24 13:03 | Outpatient (POV) | payer BC, SELFPAY ==
[2024-07-24 13:27] VITALS: BP 130/99; PULSE 111; RESP 16; O2SAT 97; BMI 19.1
--- NOTE | 2024-07-24 14:36 | EXP.PAIN.SOA ---
[facility] Disclaimer: The information contained in this section may have been updated after the patient was seen, as this information can be updated by other users. Medical History (Updated 06/02/24 @ 15:47 by Kieran Mendoza MD) Asthma Endometriosis Fibromyalgia Eczema Abdominal pain Surgical History History of right hip replacement Hx of knee surgery Hx of neck surgery Hx of shoulder surgery History of tonsillectomy History of cholecystectomy History of hysterectomy Family History Other Family history of cancer Social History (Updated 06/02/24 @ 14:06 by Lisbeth Gonzalez, FARHEEN) Smoking Status: Current every day smoker tobacco type: cigarettes packs per day: 1 second hand exposure: Yes alcohol intake: never substance use type: denies use current occupational status: other household members: spouse housing: house marital status: education level: college service: Yes 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 Today she rates her pain a 6 out of 10. Patient states she had no improvement with that injection. She does state that Dr. Mendoza did also discuss with her that he really did think a lot of it was related to her herniated disc that it is pushing in on the nerves causing the worsening pain. Patient has been having this pain going on for longer than a year unrelated to any specific trauma or injury. We have tried multiple injections along with multiple medications with no additional changes. Patient is currently prescribed gabapentin 100 mg 3 times a day from our office. She denies any side effects from this medication and is requesting refills. Patient states that she was sent a referral to Dr. John however she has not heard from this office. Her David has been reviewed and is appropriate. Review of Systems: General: No recent weight changes, no fever, no sleep disturbances Respiratory: No cough, no shortness of air, no recurring pulmonary infections Cardiovascular/peripheral vascular: No chest pain, no palpitations, no edema, no shortness of breath Gastrointestinal: No new onset incontinence, normal bowel movements reported Genitourinary: No new onset incontinence Musculoskeletal: Low back pain, right leg pain Psychiatric: [Normal mood/affect] Neurological: [Denies weakness in extremities], [denies balance issues] Pain at rest (0-10 scale): 6 Objective Objective:: Physical Exam: General: Alert and oriented x3, no acute distress, pleasant and cooperative Lungs: Respirations even and unlabored, symmetrical chest expansion Eyes: PERRL Musculoskeletal: Flexion and extension of lumbar [spine] somewhat guarded secondary to pain, [antalgic gait noted] Neurological: Speech clear, no gross sensory deficit Has patient had previous pain injection?: Yes Percent improvement in pain since last injection: Minimal Conservative treatment options previously tried: Home exercise plan Length of treatment: Longer than 12 weeks Meds Home Medications and Allergies Home Medications ?Medication ?Instructions ?Recorded ?Confirmed ?Type gabapentin 100 mg capsule 100 mg PO TID Pain #90 caps 04/05/24 07/24/24 Rx azelastine 137 mcg-fluticasone 50 1 spray intranasal BID #23 grams 05/17/24 07/24/24 Rx mcg/spray nasal spray azithromycin 250 mg tablet See Rx Instructions PO .COMPLEX #6 05/17/24 07/24/24 Rx tabs cetirizine 10 mg tablet (Zyrtec) 10 mg PO DAILY #30 tabs 05/17/24 07/24/24 Rx prednisone 20 mg tablet 20 mg PO BID 5 days #10 tabs 05/17/24 07/24/24 Rx budesonide-formoterol HFA 160 1 inh inhalation BID soa #10.2 05/18/24 07/24/24 Rx mcg-4.5 mcg/actuation aerosol grams inhaler (Symbicort) promethazine-DM 6.25 mg-15 mg/5 mL 5 ml PO Q4-6H PRN cough #473 mL 05/25/24 07/24/24 Rx oral syrup New Prescriptions to Start Prescriptions: Allergies Allergy/AdvReac Type Severity Reaction Status Date / Time meperidine (From DEMEROL) Allergy Intermediate I-HIVES Verified 06/02/24 14:10 sumatriptan Allergy Unknown Hives, SOB Verified 06/02/24 14:10 Assessment and Plan *Assessment and plan (1) Right leg pain: Status: Acute Category: Medical Code(s): M79.604 - Pain in right leg (2) Low Back Pain: Status: Acute Category: Medical Code(s): M54.50 - Low back pain, unspecified (3) Right hip pain: Status: Acute Category: Medical Code(s): M25.551 - Pain in right hip (4) Right knee pain: Status: Acute Category: Medical Code(s): M25.561 - Pain in right knee Plan I did discuss with the patient that I will send in a 6-month supply of her gabapentin and. Due to the patient's continued issues with her entire right extremity and multiple attempts of medication changes as well as injection therapy and reprogramming of her stimulator with no additional relief that I do believe she is at the point where surgery is her next step. Patient was counseled that we will check in with Dr. Reeves's office and confirm that the referral was sent and if it was sent that we will make sure that a new referral is placed. Patient will return to clinic in 1 month for reevaluation of symptoms and plan of care. She was counseled if she has not yet met with Dr. John office at this appointment that she can call and reschedule it. Patient agrees with this plan of care. Patient has been instructed to contact the clinic with any concerns before the next appointment. Dr. Mendoza has reviewed this note and agrees with this plan of care. This note was dictated using voice recognition software and make contain errors or omissions. All injections are used with Lidocaine or Bupivacaine and Depo Medrol.
== END 2024-07-24 23:59 | disposition home or self-care (01) ==
PROVIDERS: PCP Nurse Practitioner Family; Visit Provider Nurse Practitioner Family
DX: M79.604 Pain in right leg (principal); M54.50 Low back pain, unspecified; M25.551 Pain in right hip; M25.561 Pain in right knee; Z96.641 Presence of right artificial hip joint; F17.210 Nicotine dependence, cigarettes, uncomplicated
CPT/HCPCS: 99212; G0463

== ENCOUNTER 2024-08-03 12:05 | Outpatient (CLI) | payer BC, SELFPAY ==
--- NOTE | 2024-08-03 12:14 | XR_ITS ---
FINAL REPORT CLINICAL HISTORY: RADICULOPATHY COMPARISON: 08/12/2023 FINDINGS: THORACIC SPINE Three views were obtained. There is no acute fracture. There are mild and moderate degenerative changes. Postoperative changes are seen in the lower cervical spine. Spinal stimulator is present. There is no malalignment. IMPRESSION: Degenerative and postsurgical changes as detailed above. Reviewed, Interpreted and Dictated by Oracio Davila III, MD Transcribed by Vi Leslie Authenticated and [facility]
== END 2024-08-03 23:59 | disposition home or self-care (01) ==
LOC: RAD 12:07
PROVIDERS: PCP Nurse Practitioner Family; Visit Provider Nurse Practitioner
DX: M54.15 Radiculopathy, thoracolumbar region (principal)
CPT/HCPCS: 72072

== ENCOUNTER 2024-10-10 13:55 | Emergency (ER) | payer BC, SELFPAY ==
[2024-10-10 14:20] VITALS: BP 123/92; PULSE 134; RESP 18; TEMP 36.8; O2SAT 98; BMI 18.6
--- NOTE | 2024-10-10 14:23 | CT_ITS ---
FINAL REPORT TECHNIQUE: Thin section axial images were obtained through the abdomen after intravenous contrast. Reconstruction images were obtained from the axial data. Exam was performed using dose reduction techniques. CLINICAL HISTORY: severe RLQ pain/N/V FINDINGS: The lung bases are clear. The liver is enlarged but homogeneous. No focal liver lesion is identified. The gallbladder is absent. The spleen, adrenal glands, and pancreas are unremarkable. There is a right renal cyst. There is no hydronephrosis or solid renal mass. Abdominal GI tract is without acute abnormality. There is no abdominal lymphadenopathy or ascites. The pelvic solid organs are unremarkable. The pelvic portions of the GI tract, including the appendix, are without acute abnormality. Uterus is absent. There is no pelvic lymphadenopathy or ascites. No acute osseous abnormalities identified. IMPRESSION: No CT evidence of acute intra-abdominal or intrapelvic abnormality. Hepatomegaly. Reviewed, Interpreted and Dictated by Maxine Funes MD Transcribed by Sugey Foster Authenticated and [facility]
--- NOTE | 2024-10-10 14:24 | PC.NURSE ---
Dr. Rodriguez at bedside
--- NOTE | 2024-10-10 14:28 | ED_ITS ---
Discharge Plan Disposition Patient Disposition: Home, Self-Care Prescriptions Prescriptions: New prednisone 20 mg tablet 60 mg PO DAILY 5 Days Qty: 15 0RF No Action cetirizine [Zyrtec] 10 mg tablet 10 mg PO DAILY Qty: 30 3RF azithromycin 250 mg tablet See Rx Instructions PO .COMPLEX Qty: 6 0RF Rx Instructions: take 500 mg today (day 1), then 250 mg for 4 days (days 2-5) prednisone 20 mg tablet 20 mg PO BID 5 Days Qty: 10 0RF azelastine-fluticasone 137-50 mcg/spray spray,non-aerosol 1 spray intranasal BID Qty: 23 3RF Rx Instructions: administer into each nostril budesonide-formoterol [Symbicort] 160-4.5 mcg/actuation HFA aerosol inhaler 1 inh inhalation BID Qty: 10.2 2RF promethazine-DM 6.25-15 mg/5 mL syrup 5 ml PO Q4-6H PRN (Reason: cough) Qty: 473 0RF gabapentin 100 MG capsule 100 mg PO TID Qty: 90 5RF Referrals Follow up/Referrals: Carlos Kelley APRN [Primary Care Provider] - See instructions Activity Restrictions/Add. Instructions Additional Instructions/Restrictions: Call your family doctor to establish care for this visit to the emergency department and schedule follow-up within 48 hours to ensure improvement. If you have any worsening of your condition or any other concerning signs or symptoms, return to the emergency department or your primary care doctor for further evaluation. Prednisone each morning with plenty of food and water. Call your neurosurgery team to follow-up and see what the recommendations are. Clinical Impressions Clinical Impression: Abdominal pain, RLQ Instructions Patient Instructions: DI for Acute Abdominal Pain Print Language Print Language: Slovak Discharge ED Provider: Gamal Ro General Adult HPI <Gisell Rodriguez DO - Last Filed: 10/10/24 15:16> General Chief complaint: Abdominal Pain Stated complaint: right side pain, swollen Time Seen by Provider: 10/10/24 14:19 Mode of Arrival: Ambulatory Source of Information: Patient Limitations: No Limitations Description of Symptoms (Recalled from ER Triage Doc. by RN): Pt arrives with c/o RLQ abd pain x 3 days. Pt states she still has her appendix. Pain is a 8/10, and sharp in nature. Pt has had vomiting. Pain is worse with movement and sitting History of Present Illness HPI narrative: This patient is a 54-year-old female with a history of tobacco abuse, cholecystectomy, hysterectomy presenting to the emergency department for evaluation with concern for severe right lower quadrant abdominal pain. It has been progressively worsening over the last 3 days. Pain is 8 out of 10 and sharp. Nothing seems to make it better, is just constantly there. She also notes nausea and vomiting, nonbloody nonbilious. She notes the pain is worse with movement and sitting. No fevers, chills, dysuria, hematuria, polyuria, changes bowel movements, or other concerns. Related Data Previous Rx's ?Medication ?Instructions ?Recorded azelastine 137 mcg-fluticasone 50 1 spray intranasal BID #23 grams 05/17/24 mcg/spray nasal spray azithromycin 250 mg tablet See Rx Instructions PO .COMPLEX #6 05/17/24 tabs cetirizine 10 mg tablet (Zyrtec) 10 mg PO DAILY #30 tabs 05/17/24 prednisone 20 mg tablet 20 mg PO BID 5 days #10 tabs 05/17/24 budesonide-formoterol HFA 160 1 inh inhalation BID soa #10.2 05/18/24 mcg-4.5 mcg/actuation aerosol grams inhaler (Symbicort) promethazine-DM 6.25 mg-15 mg/5 mL 5 ml PO Q4-6H PRN cough #473 mL 05/25/24 oral syrup gabapentin 100 mg capsule 100 mg PO TID Pain #90 caps 07/24/24 prednisone 20 mg tablet 60 mg (3 x 20 mg) PO DAILY 5 days 10/10/24 #15 tabs Allergies Allergy/AdvReac Type Severity Reaction Status Date / Time meperidine (From DEMEROL) Allergy Intermediate I-HIVES Verified 06/02/24 14:10 sumatriptan Allergy Unknown Hives, SOB Verified 06/02/24 14:10 [facility] <Gisell Rodriguez DO - Last Filed: 10/10/24 15:16> [facility] Disclaimer: The information contained in this section may have been updated after the patient was seen, as this information can be updated by other users. 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 Have you lived/traveled outside [place] in past 30 days?: No Contact w/someone who lives/traveled outside US past 30 days?: No Exposure to someone with infectious disease in past 14 days?: No Do you have a fever (greater than 100.4 F or 38 C)?: No Have you tested positive for COVID-19: No Exposed to someone with COVID-19 in past 14 days?: No Do you have a sore throat?: No Do you have a cough?: No Do you have any weakness?: No Do you have any diarrhea?: No Are you experiencing any unusual bleeding?: No Do you have any muscle aches/pain?: No Do you have any abdominal pain?: No Are you experiencing loss of taste or smell?: No Other Medical History Have you received the Flu Vaccine for this season: No Have you received the Pneumonia Vaccine: No <Gisell Rodriguez DO - Last Filed: 10/10/24 15:16> ROS Obtained: Yes All systems reviewed & no additional complaints except as documented Physical Exam <Gisell Rodriguez DO - Last Filed: 10/10/24 15:16> General General appearance: alert Comment: Uncomfortable appearing Head Head exam: atraumatic and normocephalic Eye Eye exam: Present normal appearance, PERRL and EOMI ENT ENT exam: Present normal exam, normal oropharynx, mucous membranes moist and normal external ear exam Neck Neck exam: Present normal inspection, full ROM and trachea midline; Absent tenderness Chest Chest inspection: Present normal inspection and symmetric chest wall rise; Absent tenderness Respiratory Respiratory exam: Present normal lung sounds bilaterally; Absent respiratory distress, wheezes, stridor or accessory muscle use Cardiovascular Cardiovascular exam: Present normal rhythm and tachycardia Abdominal Exam Abdominal exam: Present soft, tenderness (Right lower quadrant) and guarding (Right lower quadrant); Absent distention, rebound or rigidity Extremities Exam Extremities exam: Present normal inspection, full ROM and normal capillary refill; Absent tenderness or edema Back Exam Back exam: Present normal inspection and full ROM; Absent tenderness Neurological Exam Neurological exam: Present alert, oriented X3, CN II-XII intact and normal gait; Absent motor sensory deficit Psychiatric Psychiatric exam: Present normal affect and normal mood Skin Skin exam: Present warm and dry Medical Decision Making <Gisell Rodriguez, DO - Last Filed: 10/10/24 15:16> Medical Records Medical records reviewed: Yes I reviewed the patient's medical records. Screening: Per USPSTF and CDC recommendations, given the prevalence of disease in our region, it is our hospital?s policy to screen for HIV and viral Hepatitis for all patients aged 18 and over and those with ongoing risk factors. David Inquiry Pt receiving controlled substance: No Vital Signs: 10/10/24 14:20 10/10/24 16:00 10/10/24 16:38 Temperature 98.2 F Temperature Source Oral Pulse Rate 79 65 Pulse Rate [Right] 134 H Respiratory Rate 18 Blood Pressure 116/93 H 139/93 H Blood Pressure [Right Arm] 123/92 H Blood Pressure Mean [Right Arm] 102 Blood Pressure Source [Right Arm] Automatic Cuff Blood Pressure Position [Right Arm] Sitting 02 Sat by Pulse Oximetry 98 94 L 98 Oxygen Delivery Method Room Air Room Air 10/10/24 17:00 Temperature Temperature Source Pulse Rate 73 Pulse Rate [Right] Respiratory Rate Blood Pressure 125/100 H Blood Pressure [Right Arm] Blood Pressure Mean [Right Arm] Blood Pressure Source [Right Arm] Blood Pressure Position [Right Arm] 02 Sat by Pulse Oximetry 96 Oxygen Delivery Method Room Air Lab Data Lab results reviewed: Yes I reviewed the patient's lab results. Lab Results 10/10/24 14:25: WBC 6.4, RBC 4.99, Hgb 15.9, Hct 45.4, MCV 91.0, MCH 31.9 H, MCHC 35.0, RDW 11.7, Plt Count 210, MPV 9.9, Neut % (Auto) 56.5, Lymph % (Auto) 32.8, Runnels % (Auto) 7.8, Eos % (Auto) 2.0, Baso % (Auto) 0.6, Neut # (Auto) 3.6, Lymph # (Auto) 2.1, Runnels # (Auto) 0.5, Eos # (Auto) 0.1, Baso # (Auto) 0.0, Sodium 139, Potassium 3.4 L, Chloride 101, Carbon Dioxide 31 H, Anion Gap 10.4, BUN 9, Creatinine 0.60, Estimated Creat Clear 87, Estimated GFR 104, Est GFR ( Amer) 126, Glucose 92, Calcium 9.8, Total Bilirubin 0.6, AST 33, ALT 33, Alkaline Phosphatase 79, Total Protein 8.1, Albumin 5.0, Globulin 3.1, Albumin/Globulin Ratio 1.6, Lipase 50 10/10/24 14:36: Lactate 1.4 10/10/24 14:45: Urine Color Yellow, Urine Appearance Clear, Urine pH 6.5, Ur Specific [place] <= 1.005, Urine Protein Negative, Urine Glucose (UA) Negative, Urine Ketones Negative, Urine Blood Negative, Urine Nitrate Negative, Urine Bilirubin Negative, Urine Urobilinogen 0.2, Ur Leukocyte Esterase Negative, Urine RBC None, Urine WBC Occasional, Ur Squamous Epith Cells 3-5, Urine Bacteria Trace 10/10/24 14:25 10/10/24 14:25 Orders (Tests/Meds): ED MEDICATIONS Generic Name Dose Route Start Last Admin Trade Name Freq PRN Reason Stop Dose Admin Dexamethasone 10 mg 10/10/24 18:38 Dexamethasone 4mg Tablet PO 10/10/24 18:39 ONCE ONE Discontinued Medications Generic Name Dose Route Start Last Admin Trade Name Freq PRN Reason Stop Dose Admin Acetaminophen 1,000 mg 10/10/24 14:25 10/10/24 14:35 Acetaminophen 1,000mg/100ml Vial IV 10/10/24 14:26 1,000 mg ONCE ONE Administration Hydromorphone HCl 0.5 mg 10/10/24 17:04 10/10/24 17:28 Hydromorphone 2mg/Ml Syringe IV 10/10/24 17:05 0.5 mg ONCE ONE Administration Lactated Ringer's 1,000 mls @ 999 mls/hr 10/10/24 14:25 10/10/24 14:36 Lactated Ringer's 1000 Ml Bag IV 10/10/24 15:25 999 mls/hr .Q1H1M ONE Administration Iopamidol 75 ml 10/10/24 15:18 10/10/24 15:19 Iopamidol-370 (76%);100ml Bottle IV 10/10/24 15:19 75 ml ONCE ONE Administration Ketorolac Tromethamine 15 mg 10/10/24 14:25 10/10/24 14:35 Ketorolac 30mg/Ml Vial IV 10/10/24 14:26 15 mg ONCE ONE Administration Morphine Sulfate 4 mg 10/10/24 14:25 10/10/24 14:35 Morphine 4mg/Ml Syringe IV 10/10/24 14:26 4 mg ONCE ONE Administration Ondansetron HCl 4 mg 10/10/24 14:25 10/10/24 14:35 Ondansetron 4mg/2ml Vial IV 10/10/24 14:26 4 mg ONCE ONE Administration Ondansetron HCl 4 mg 10/10/24 17:04 10/10/24 17:27 Ondansetron 4mg/2ml Vial IV 10/10/24 17:05 4 mg ONCE ONE Administration Sodium Chloride 10 ml 10/10/24 15:18 10/10/24 15:19 Sodium Chloride 0.9% 10ml Syr (Rad Only) IV 10/10/24 15:19 10 ml ONCE ONE Administration ORDERS Category Date Time Status CT abdomen pelvis w con Stat Cat Scan 10/10/24 14:23 Completed Complete Blood Count Auto Diff Stat Lab 10/10/24 14:25 Completed Comprehensive Metabolic Panel Stat Lab 10/10/24 14:25 Completed Lactic Acid Stat Lab 10/10/24 14:36 Completed Lipase Stat Lab 10/10/24 14:25 Completed UA [Urinalysis and Microscopic] Stat Lab 10/10/24 14:45 Completed Urine Culture Stat Micro 10/10/24 14:45 Received Medical Decision Narrative: In summary, this patient is a 54-year-old female presenting to the Emergency Department for evaluation of right lower quadrant abdominal pain, nausea, and vomiting. Differential diagnoses considered include but are not limited to appendicitis, cystitis, pyelonephritis, ureterolithiasis, colitis, intestinal perforation. Ruling out the most morbid conditions drove assessment. It should be noted patient's history includes tobacco abuse which is not at goal therapy. This complicates all aspects of care by increasing patient's risk for morbidity. I reviewed patient's past medical records and noted prior evaluation with pain management for degenerative disc disease and chronic low back pain. Also noted prior history of cholecystectomy, hysterectomy. On exam, the patient is uncomfortable appearing. She is mildly tachycardic but otherwise vitals are reassuring on cardiac telemetry and she is afebrile. She has right lower quadrant tenderness and localized guarding, but no rebound or rigidity. Workup included CBC, CMP, lipase, lactic acid, urinalysis, CT abdomen pelvis with IV contrast. She is given a bolus of IV fluids as well as IV morphine, Zofran, Toradol, and acetaminophen for symptomatic improvement. Labs demonstrated reassuring CBC without significant leukocytosis. Chemistry, urine, CT scan pending at time of signout to oncoming provider, Dr. Ro. <Gamal Ro MD - Last Filed: 10/10/24 18:42> Vital Signs: 10/10/24 14:20 10/10/24 16:00 10/10/24 16:38 Temperature 98.2 F Temperature Source Oral Pulse Rate 79 65 Pulse Rate [Right] 134 H Respiratory Rate 18 Blood Pressure 116/93 H 139/93 H Blood Pressure [Right Arm] 123/92 H Blood Pressure Mean [Right Arm] 102 Blood Pressure Source [Right Arm] Automatic Cuff Blood Pressure Position [Right Arm] Sitting 02 Sat by Pulse Oximetry 98 94 L 98 Oxygen Delivery Method Room Air Room Air 10/10/24 17:00 Temperature Temperature Source Pulse Rate 73 Pulse Rate [Right] Respiratory Rate Blood Pressure 125/100 H Blood Pressure [Right Arm] Blood Pressure Mean [Right Arm] Blood Pressure Source [Right Arm] Blood Pressure Position [Right Arm] 02 Sat by Pulse Oximetry 96 Oxygen Delivery Method Room Air Lab Data Lab Results 10/10/24 14:25: WBC 6.4, RBC 4.99, Hgb 15.9, Hct 45.4, MCV 91.0, MCH 31.9 H, MCHC 35.0, RDW 11.7, Plt Count 210, MPV 9.9, Neut % (Auto) 56.5, Lymph % (Auto) 32.8, Runnels % (Auto) 7.8, Eos % (Auto) 2.0, Baso % (Auto) 0.6, Neut # (Auto) 3.6, Lymph # (Auto) 2.1, R[place]els # (Auto) 0.5, Eos # (Auto) 0.1, Baso # (Auto) 0.0, Sodium 139, Potassium 3.4 L, Chloride 101, Carbon Dioxide 31 H, Anion Gap 10.4, BUN 9, Creatinine 0.60, Estimated Creat Clear 87, Estimated GFR 104, Est GFR ( Amer) 126, Glucose 92, Calcium 9.8, Total Bilirubin 0.6, AST 33, ALT 33, Alkaline Phosphatase 79, Total Protein 8.1, Albumin 5.0, Globulin 3.1, Albumin/Globulin Ratio 1.6, Lipase 50 10/10/24 14:36: Lactate 1.4 10/10/24 14:45: Urine Color Yellow, Urine Appearance Clear, Urine pH 6.5, Ur Specific [place] <= 1.005, Urine Protein Negative, Urine Glucose (UA) Negative, Urine Ketones Negative, Urine Blood Negative, Urine Nitrate Negative, Urine Bilirubin Negative, Urine Urobilinogen 0.2, Ur Leukocyte Esterase Negative, Urine RBC None, Urine WBC Occasional, Ur Squamous Epith Cells 3-5, Urine Bacteria Trace Orders (Tests/Meds): ED MEDICATIONS Generic Name Dose Route Start Last Admin Trade Name Freq PRN Reason Stop Dose Admin Dexamethasone 10 mg 10/10/24 18:38 Dexamethasone 4mg Tablet PO 10/10/24 18:39 ONCE ONE Discontinued Medications Generic Name Dose Route Start Last Admin Trade Name Freq PRN Reason Stop Dose Admin Acetaminophen 1,000 mg 10/10/24 14:25 10/10/24 14:35 Acetaminophen 1,000mg/100ml Vial IV 10/10/24 14:26 1,000 mg ONCE ONE Administration Hydromorphone HCl 0.5 mg 10/10/24 17:04 10/10/24 17:28 Hydromorphone 2mg/Ml Syringe IV 10/10/24 17:05 0.5 mg ONCE ONE Administration Lactated Ringer's 1,000 mls @ 999 mls/hr 10/10/24 14:25 10/10/24 14:36 Lactated Ringer's 1000 Ml Bag IV 10/10/24 15:25 999 mls/hr .Q1H1M ONE Administration Iopamidol 75 ml 10/10/24 15:18 10/10/24 15:19 Iopamidol-370 (76%);100ml Bottle IV 10/10/24 15:19 75 ml ONCE ONE Administration Ketorolac Tromethamine 15 mg 10/10/24 14:25 10/10/24 14:35 Ketorolac 30mg/Ml Vial IV 10/10/24 14:26 15 mg ONCE ONE Administration Morphine Sulfate 4 mg 10/10/24 14:25 10/10/24 14:35 Morphine 4mg/Ml Syringe IV 10/10/24 14:26 4 mg ONCE ONE Administration Ondansetron HCl 4 mg 10/10/24 14:25 10/10/24 14:35 Ondansetron 4mg/2ml Vial IV 10/10/24 14:26 4 mg ONCE ONE Administration Ondansetron HCl 4 mg 10/10/24 17:04 10/10/24 17:27 Ondansetron 4mg/2ml Vial IV 10/10/24 17:05 4 mg ONCE ONE Administration Sodium Chloride 10 ml 10/10/24 15:18 10/10/24 15:19 Sodium Chloride 0.9% 10ml Syr (Rad Only) IV 10/10/24 15:19 10 ml ONCE ONE Administration ORDERS Category Date Time Status CT abdomen pelvis w con Stat Cat Scan 10/10/24 14:23 Completed Complete Blood Count Auto Diff Stat Lab 10/10/24 14:25 Completed Comprehensive Metabolic Panel Stat Lab 10/10/24 14:25 Completed Lactic Acid Stat Lab 10/10/24 14:36 Completed Lipase Stat Lab 10/10/24 14:25 Completed UA [Urinalysis and Microscopic] Stat Lab 10/10/24 14:45 Completed Urine Culture Stat Micro 10/10/24 14:45 Received Medical Decision Narrative: In summary, this patient is a 54-year-old female presenting to the Emergency Department for evaluation of right lower quadrant abdominal pain, nausea, and vomiting. Differential diagnoses considered include but are not limited to appendicitis, cystitis, pyelonephritis, ureterolithiasis, colitis, intestinal perforation. Ruling out the most morbid conditions drove assessment. It should be noted patient's history includes tobacco abuse which is not at goal therapy. This complicates all aspects of care by increasing patient's risk for morbidity. I reviewed patient's past medical records and noted prior evaluation with pain management for degenerative disc disease and chronic low back pain. Also noted prior history of cholecystectomy, hysterectomy. On exam, the patient is uncomfortable appearing. She is mildly tachycardic but otherwise vitals are reassuring on cardiac telemetry and she is afebrile. She has right lower quadrant tenderness and localized guarding, but no rebound or rigidity. Workup included CBC, CMP, lipase, lactic acid, urinalysis, CT abdomen pelvis with IV contrast. She is given a bolus of IV fluids as well as IV morphine, Zofran, Toradol, and acetaminophen for symptomatic improvement. Labs demonstrated reassuring CBC without significant leukocytosis. Chemistry, urine, CT scan pending at time of signout to oncoming provider, Dr. Ro. Jia: I assumed primary responsibility for this patient after signout from previous physician. Independent interpretation of patient's workup with no leukocytosis with no relative leukocytoses. Chemistry with nonactionable findings, normal kidney function. Lipase negative. Urinalysis without concern for UTI. Independent interpretation of patient's CT with no evidence of appendicitis, no evidence of intra-abdominal pathology acutely. On repeat examination, patient still moderately tender in inguinal canal, I do not appreciate a hernia, what she did when she bears down it does swell a bit. Out of abundance of concern, I consulted and discussed entire case with general surgery, they came to evaluate patient in the emergency department. Dr. Redding states that he does not think this is hernia or intra-abdominal surgical emergency. I agree. Prolonged conversation had with patient and , because she has completely negative workup, I feel comfortable sending her home with close return precautions and she states that she has ability to return. Because she just had a neurosurgery, is also likely this is some kind of visceral neuritis due to lumbosacral spinal surgery recently. 10 mg Decadron administered, patient feels comfortable doing prednisone burst at home for the next couple days to see if it helps. Because patient at baseline without signs or symptoms of clinical decompensation, deemed appropriate for discharge. Results were relayed to patient who voiced understanding and were agreeable to outpatient management and follow up. I discussed my clinical impression with patient and answered all questions. At this time, the evidence for any other entities in the differential is insufficient to warrant any further testing or ED observation. This was explained as well. Advisory was given that persistent or worsening symptoms require further evaluation. I confirmed the understanding of this discussion. Critical Care <Gisell Rodriguez, DO - Last Filed: 10/10/24 15:16> Critical Care Time Critical Care Time: No
[2024-10-10 14:34] LABS: Basophils % 0.6 % (0.1-2.0); Eosinophils # 0.1 K/mm3 (0.0-0.4); Hematocrit 45.4 % (37.0-47.0); Hemoglobin 15.9 g/dL (12.2-16.2); Lymphocytes # 2.1 K/mm3 (0.7-4.5); Lymphocytes % 32.8 % (10-50); Mean Corpuscular Hemoglobin 31.9 pg (27.0-31.2); Mean Platelet Volume 9.9 fl (7.4-10.4); Monocytes # 0.5 K/mm3 (0.1-1.0); Monocytes % 7.8 % (1.7-9.3); Neutrophils # 3.6 K/mm3 (1.8-7.8); Neutrophils % 56.5 % (37.0-80.0); Platelet Count 210 K/mm3 (142-424); Red Blood Count 4.99 M/mm3 (4.20-5.40); Red Cell Distribution Width 11.7 % (11.5-17.5); White Blood Count 6.4 K/mm3 (4.8-10.8)
[2024-10-10] MEDS: ONDANSETRON 4MG/2ML VIAL 4 MG IV ×2 (14:35→17:27)
[2024-10-10] MEDS: ACETAMINOPHEN 1,000MG/100ML VIAL 1000 MG IV (14:35)
[2024-10-10] MEDS: KETOROLAC 30MG/ML VIAL 15 MG IV (14:35)
[2024-10-10] MEDS: MORPHINE 4MG/ML SYRINGE 4 MG IV (14:35)
[2024-10-10] MEDS: LACTATED RINGERS 1000ML 1,000 ML 999 ML IV (14:36)
[2024-10-10 14:43] LABS: Chloride 101 mmol/L (98-107)
[2024-10-10 14:44] LABS: Potassium 3.4 mmoL/L (3.5-5.1); Sodium 139 mmol/L (136-145)
[2024-10-10 14:46] LABS: Alanine Aminotransferase 33 U/L (12-78); Albumin/Globulin Ratio 1.6 (1.1-1.8); Alkaline Phosphatase 79 U/L (38-126); Anion Gap 10.4 mEq/L (5-15); Aspartate Amino Transferase 33 U/L (14-36); Bilirubin,Total 0.6 mg/dl (0.2-1.3); Blood Urea Nitrogen 9 mg/dl (7-17); Carbon Dioxide 31 mmol/L (22.0-30.0); Creatinine Clearance Estimated 87 mL/min (50-200); Estimated Glomerular Filt Rate 104 ml/min (>60); GFR (African American) 126 ML/MIN (>60); Globulin 3.1 g/dL (1.3-3.2); Total Protein,Serum 8.1 g/dl (6.3-8.2)
[2024-10-10 14:47] LABS: Calcium 9.8 mg/dl (8.4-10.2); Glucose 92 mg/dl (74-100); Lipase 50 U/L (23-300)
[2024-10-10 14:50] LABS: Microscopic, Urine URINE MICROSCOPIC (MICROSCOPIC)
[2024-10-10 14:54] LABS: Lactic Acid 1.4 mmol/L (0.7-2.1)
[2024-10-10 15:17] LABS: Appearance,Urine CLEAR (Clear); Bilirubin,Urine Negative (Negative); Blood, Urine Negative (Negative); Color,Urine YELLOW (Yellow); Glucose,Urine (UA) Negative (Negative); Ketones,Urine Negative (Negative); Leukocyte Esterase,Urine Negative (Negative); Nitrate,Urine Negative (Negative); PH,Urine 6.5 (5.0-8.5); Protein,Urine Negative (Negative); Specific Gravity, Urine <= 1.005 (1.005-1.030); Urobilinogen,Urine 0.2 EU/dl (0.2)
[2024-10-10] MEDS: SODIUM CHLORIDE 0.9% 10ML SYR (RAD ONLY) 10 ML IV (15:19)
[2024-10-10] MEDS: IOPAMIDOL-370 (76%);100ML BOTTLE 75 ML IV (15:19)
--- NOTE | 2024-10-10 15:19 | PC.NURSE ---
ROUNDED ON THE PT. THE PT VOICES THAT SHE DOES NOT NEED ANYTHING AT THIS TIME. CALL LIGHT IS WITHIN REACH OF THE PT.
[2024-10-10 16:00] VITALS: BP 116/93; PULSE 79; O2SAT 94
[2024-10-10 16:08] LABS: Bacteria,Urine Trace /lpf; WBC,Urine Occasional #/hpf (0-3)
--- NOTE | 2024-10-10 16:22 | PC.NURSE ---
Patient is in bed, doesnt need anything at this time. Call light is in reach.
[2024-10-10 16:38] VITALS: BP 139/93; PULSE 65; O2SAT 98
--- NOTE | 2024-10-10 16:58 | PC.NURSE ---
DR DIMAS AT BEDSIDE
[2024-10-10 17:00] VITALS: BP 125/100; PULSE 73; O2SAT 96
--- NOTE | 2024-10-10 17:23 | PC.NURSE ---
ROUNDED ON THE PT. THE PT VOICES THAT SHE DOES NOT NEED ANYTHING AT THIS TIME. CALL LIGHT IS WITHIN REACH OF THE PT. FAMILY MEMBERS IS PRESENT AT THE BEDSIDE.
[2024-10-10] MEDS: HYDROMORPHONE 2MG/ML SYRINGE 0.5 MG IV (17:28)
--- NOTE | 2024-10-10 17:43 | PC.NURSE ---
DR VILLEGAS AT BEDSIDE
--- NOTE | 2024-10-10 18:31 | EXP.SURG.CON ---
History of Present Illness *Admission Date: 10/10/24 *Reason for visit:: Abdominal pain *History of present illness: This is a 54-year-old female who presents emergency department for evaluation regarding right lower quadrant abdominal/pelvic pain and nausea/vomiting. Over the past 3-4 days she has had fairly severe focal tenderness in the right lower quadrant/pelvis. Bowel movements are normal. She has experienced nausea and vomiting but states that she has been nauseous because of the pain . No definitive fever. Evaluation in the emergency department included a CT scan which revealed no definitive acute abnormality. Specifically no incarcerated hernia or other anomaly noted. She reports herniated disc surgery last month in [place] . She also reports right hip replacement in [place] last year . Forwarded from emergency department evaluation: History of Present Illness HPI narrative: This patient is a 54-year-old female with a history of tobacco abuse, cholecystectomy, hysterectomy presenting to the emergency department for evaluation with concern for severe right lower quadrant abdominal pain. It has been progressively worsening over the last 3 days. Pain is 8 out of 10 and sharp. Nothing seems to make it better, is just constantly there. She also notes nausea and vomiting, nonbloody nonbilious. She notes the pain is worse with movement and sitting. No fevers, chills, dysuria, hematuria, polyuria, changes bowel movements, or other concerns. Medical Decision Narrative: In summary, this patient is a 54-year-old female presenting to the Emergency Department for evaluation of right lower quadrant abdominal pain, nausea, and vomiting. Differential diagnoses considered include but are not limited to appendicitis, cystitis, pyelonephritis, ureterolithiasis, colitis, intestinal perforation. Ruling out the most morbid conditions drove assessment. It should be noted patient's history includes tobacco abuse which is not at goal therapy. This complicates all aspects of care by increasing patient's risk for morbidity. I reviewed patient's past medical records and noted prior evaluation with pain management for degenerative disc disease and chronic low back pain. Also noted prior history of cholecystectomy, hysterectomy. On exam, the patient is uncomfortable appearing. She is mildly tachycardic but otherwise vitals are reassuring on cardiac telemetry and she is afebrile. She has right lower quadrant tenderness and localized guarding, but no rebound or rigidity. Workup included CBC, CMP, lipase, lactic acid, urinalysis, CT abdomen pelvis with IV contrast. She is given a bolus of IV fluids as well as IV morphine, Zofran, Toradol, and acetaminophen for symptomatic improvement. Labs demonstrated reassuring CBC without significant leukocytosis. Chemistry, urine, CT scan pending at time of signout to oncoming provider, Dr. Ro. CT scan revealed no intra-abdominal or intrapelvic abnormality. White blood cell count normal Lactate normal PFSH PFS Disclaimer: The information contained in this section may have been updated after the patient was seen, as this information can be updated by other users. 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 Have you lived/traveled outside [place] in past 30 days?: No Contact w/someone who lives/traveled outside [place] past 30 days?: No Exposure to someone with infectious disease in past 14 days?: No Do you have a fever (greater than 100.4 F or 38 C)?: No Have you tested positive for COVID-19: No Exposed to someone with COVID-19 in past 14 days?: No Do you have a sore throat?: No Do you have a cough?: No Do you have any weakness?: No Do you have any diarrhea?: No Are you experiencing any unusual bleeding?: No Do you have any muscle aches/pain?: No Do you have any abdominal pain?: No Are you experiencing loss of taste or smell?: No Meds Home Medications and Allergies Home Medications ?Medication ?Instructions ?Recorded ?Confirmed ?Type azelastine 137 mcg-fluticasone 50 1 spray intranasal BID #23 grams 05/17/24 07/24/24 Rx mcg/spray nasal spray azithromycin 250 mg tablet See Rx Instructions PO .COMPLEX #6 05/17/24 07/24/24 Rx tabs cetirizine 10 mg tablet (Zyrtec) 10 mg PO DAILY #30 tabs 05/17/24 07/24/24 Rx prednisone 20 mg tablet 20 mg PO BID 5 days #10 tabs 05/17/24 07/24/24 Rx budesonide-formoterol HFA 160 1 inh inhalation BID soa #10.2 05/18/24 07/24/24 Rx mcg-4.5 mcg/actuation aerosol grams inhaler (Symbicort) promethazine-DM 6.25 mg-15 mg/5 mL 5 ml PO Q4-6H PRN cough #473 mL 05/25/24 07/24/24 Rx oral syrup gabapentin 100 mg capsule 100 mg PO TID Pain #90 caps 07/24/24 Rx prednisone 20 mg tablet 60 mg (3 x 20 mg) PO DAILY 5 days 10/10/24 Rx #15 tabs New Prescriptions to Start Prescriptions: prednisone Gamal Ro Allergies Allergy/AdvReac Type Severity Reaction Status Date / Time meperidine (From DEMEROL) Allergy Intermediate I-HIVES Verified 06/02/24 14:10 sumatriptan Allergy Unknown Hives, SOB Verified 06/02/24 14:10 Exam (Inpt) Vital signs and Labs for Last 24 Hours: Temp Pulse Resp BP Pulse Ox O2 Del Method 98.2 F 73 18 125/100 H 96 Room Air 10/10/24 14:20 10/10/24 17:00 10/10/24 14:20 10/10/24 17:00 10/10/24 17:00 10/10/24 17:00 Laboratory Results - last 24 hr 10/10/24 14:25: WBC 6.4, RBC 4.99, Hgb 15.9, Hct 45.4, MCV 91.0, MCH 31.9 H, MCHC 35.0, RDW 11.7, Plt Count 210, MPV 9.9, Neut % (Auto) 56.5, Lymph % (Auto) 32.8, [place] % (Auto) 7.8, Eos % (Auto) 2.0, Baso % (Auto) 0.6, Neut # (Auto) 3.6, Lymph # (Auto) 2.1, [place] # (Auto) 0.5, Eos # (Auto) 0.1, Baso # (Auto) 0.0, Sodium 139, Potassium 3.4 L, Chloride 101, Carbon Dioxide 31 H, Anion Gap 10.4, BUN 9, Creatinine 0.60, Estimated Creat Clear 87, Estimated GFR 104, Est GFR ( Amer) 126, Glucose 92, Calcium 9.8, Total Bilirubin 0.6, AST 33, ALT 33, Alkaline Phosphatase 79, Total Protein 8.1, Albumin 5.0, Globulin 3.1, Albumin/Globulin Ratio 1.6, Lipase 50 10/10/24 14:36: Lactate 1.4 10/10/24 14:45: Urine Color Yellow, Urine Appearance Clear, Urine pH 6.5, Ur Specific [place] <= 1.005, Urine Protein Negative, Urine Glucose (UA) Negative, Urine Ketones Negative, Urine Blood Negative, Urine Nitrate Negative, Urine Bilirubin Negative, Urine Urobilinogen 0.2, Ur Leukocyte Esterase Negative, Urine RBC None, Urine WBC Occasional, Ur Squamous Epith Cells 3-5, Urine Bacteria Trace I & O for Labs for Last 24 Hours: Intake & Output 10/08/24 10/09/24 10/10/24 10/11/24 11:59 11:59 11:59 11:59 Weight 115 lb Constitutional: mild distress (Fluctuating mild to moderate distress (worse with movement)) Respiratory: Absent respiratory distress Cardiac: Absent Tachycardia Comments:: Focal right groin tenderness with fullness . No evidence of incarcerated bowel and no palpable defect noted. Overall exam limited secondary to pain. Results Labs 10/10/24 14:25 10/10/24 14:25 Labs: Laboratory Results - last 24 hr 10/10/24 14:25: WBC 6.4, RBC 4.99, Hgb 15.9, Hct 45.4, MCV 91.0, MCH 31.9 H, MCHC 35.0, RDW 11.7, Plt Count 210, MPV 9.9, Neut % (Auto) 56.5, Lymph % (Auto) 32.8, [place] % (Auto) 7.8, Eos % (Auto) 2.0, Baso % (Auto) 0.6, Neut # (Auto) 3.6, Lymph # (Auto) 2.1, [place] # (Auto) 0.5, Eos # (Auto) 0.1, Baso # (Auto) 0.0, Sodium 139, Potassium 3.4 L, Chloride 101, Carbon Dioxide 31 H, Anion Gap 10.4, BUN 9, Creatinine 0.60, Estimated Creat Clear 87, Estimated GFR 104, Est GFR ( Amer) 126, Glucose 92, Calcium 9.8, Total Bilirubin 0.6, AST 33, ALT 33, Alkaline Phosphatase 79, Total Protein 8.1, Albumin 5.0, Globulin 3.1, Albumin/Globulin Ratio 1.6, Lipase 50 10/10/24 14:36: Lactate 1.4 10/10/24 14:45: Urine Color Yellow, Urine Appearance Clear, Urine pH 6.5, Ur Specific [place] <= 1.005, Urine Protein Negative, Urine Glucose (UA) Negative, Urine Ketones Negative, Urine Blood Negative, Urine Nitrate Negative, Urine Bilirubin Negative, Urine Urobilinogen 0.2, Ur Leukocyte Esterase Negative, Urine RBC None, Urine WBC Occasional, Ur Squamous Epith Cells 3-5, Urine Bacteria Trace Assessment and Plan *Assessment and plan (1) Abdominal pain, RLQ: Status: Acute Category: Medical Code(s): R10.31 - Right lower quadrant pain (2) Pelvic pain: Status: Acute Category: Medical Code(s): R10.2 - Pelvic and perineal pain Plan Focal right lower quadrant/pelvic pain with groin tenderness . Overall exam limited secondary to pain. No radiographic evidence of herniation. No obvious physical exam findings consistent with hernia. Overall, symptomatology remains equivocal. She has no laboratory anomaly consistent with infectious/inflammatory process or ischemia. She has no obvious physical exam findings or radiographic evidence of incarcerated hernia or other surgical emergency. She is essentially 1 month status post herniated disc surgery in [facility] and she is less than 1 year status post right hip replacement in [facility]. If the patient requires hospital admission I recommend transfer to tertiary facility (specifically where she underwent her recent surgical interventions). Decision on need for admission/transfer deferred to the emergency department attending physician.
[2024-10-10] MEDS: DEXAMETHASONE 4MG TABLET 10 MG PO (18:43)
[2024-10-10 18:48] VITALS: BP 130/99; PULSE 87; RESP 20; TEMP 36.8; O2SAT 98
== END 2024-10-10 18:50 | disposition home or self-care (01) ==
PROVIDERS: Emergency Medicine; Emergency Provider Emergency Medicine; PCP Nurse Practitioner Family
DX: R10.31 Right lower quadrant pain (principal); R11.2 Nausea with vomiting, unspecified
CPT/HCPCS: 74177; 80053; 81001; 83605; 83690; 85025; 87086; 96361; 96374; 96375; 99285; J0131; J1171; J1885; J2270; J2405; J7120; J8540; Q9967

== ENCOUNTER 2024-10-19 15:57 | Observation (INO) | payer BC, SELFPAY ==
[2024-10-19] VITALS (10 sets, daily range): BP systolic 117–149; BP diastolic 73–107; PULSE 68–136; RESP 12–30; TEMP 36.9–37.1; O2SAT 93–100; BMI 19.4
[2024-10-19 16:17] LABS: Microscopic, Urine URINE MICROSCOPIC (MICROSCOPIC)
[2024-10-19 16:33] LABS: Appearance,Urine CLEAR (Clear); Bilirubin,Urine Negative (Negative); Blood, Urine Negative (Negative); Color,Urine YELLOW (Yellow); Glucose,Urine (UA) Negative (Negative); Ketones,Urine Negative (Negative); Leukocyte Esterase,Urine Negative (Negative); Nitrate,Urine Negative (Negative); Protein,Urine Negative (Negative); Specific Gravity, Urine <= 1.005 (1.005-1.030); Urobilinogen,Urine 0.2 EU/dl (0.2)
[2024-10-19 16:35] LABS: Lactate Venous 1.4 mmol/L (0.4-2.0); VBG Base Excess 1.6 mmol/L (-2.4-2.3); VBG HCO3 26.1 mmol/L (23-30); VBG PCO2 41.2 mmol/L (35-51); VBG PH 7.42 mmol/L (7.31-7.41); VBG PO2 45.2 mmol/L (28-40); VBG Total CO2 27.4 mmol/L (23-27)
[2024-10-19 16:37] LABS: Basophils # 0.1 K/mm3 (0-0.2); Basophils % 0.8 % (0.1-2.0); Eosinophils # 0.1 K/mm3 (0.0-0.4); Eosinophils % 1.2 % (0.1-12.0); Hemoglobin 15.8 g/dL (12.2-16.2); Lymphocytes # 3.5 K/mm3 (0.7-4.5); Lymphocytes % 31.4 % (10-50); Mean Corpuscular HGB Conc 35.1 g/dL (31.8-35.4); Mean Corpuscular Hemoglobin 32.2 pg (27.0-31.2); Mean Corpuscular Volume 91.8 fl (81-99); Mean Platelet Volume 9.9 fl (7.4-10.4); Monocytes # 0.9 K/mm3 (0.1-1.0); Monocytes % 8.3 % (1.7-9.3); Neutrophils # 6.3 K/mm3 (1.8-7.8); Platelet Count 210 K/mm3 (142-424)
--- NOTE | 2024-10-19 16:40 | PC.NURSE ---
Dr Ro at bedside
[2024-10-19 16:52] LABS: Lactic Acid 1.3 mmol/L (0.7-2.1)
[2024-10-19] MEDS: HYDROMORPHONE 2MG/ML SYRINGE 1 MG IV ×2 (16:52→19:12)
[2024-10-19 16:53] LABS: Alanine Aminotransferase 48 U/L (12-78); Albumin Level 4.7 g/dl (3.5-5.0); Albumin/Globulin Ratio 1.9 (1.1-1.8); Alkaline Phosphatase 82 U/L (38-126); Aspartate Amino Transferase 36 U/L (14-36); Bilirubin,Total 0.4 mg/dl (0.2-1.3); Blood Urea Nitrogen 12 mg/dl (7-17); Calcium 9.5 mg/dl (8.4-10.2); Carbon Dioxide 28 mmol/L (22.0-30.0); Chloride 102 mmol/L (98-107); Creatinine Clearance Estimated 89 mL/min (50-200); Estimated Glomerular Filt Rate 104 ml/min (>60); GFR (African American) 126 ML/MIN (>60); Globulin 2.5 g/dL (1.3-3.2); Glucose 93 mg/dl (74-100); Lipase 66 U/L (23-300); Magnesium 2.1 mg/dl (1.6-2.3); Sodium 136 mmol/L (136-145); Total Protein,Serum 7.2 g/dl (6.3-8.2)
[2024-10-19 16:54] LABS: Activated Partial Thrombo Time 26.5 seconds (22.8-30.6)
[2024-10-19 16:54] LABS: Bacteria,Urine Trace /lpf; WBC,Urine Occasional #/hpf (0-3)
[2024-10-19] MEDS: ONDANSETRON 4MG/2ML VIAL 4 MG IV (16:54)
[2024-10-19] MEDS: LACTATED RINGERS 1000ML 1,000 ML 999 ML IV (16:55)
[2024-10-19] MEDS: ACETAMINOPHEN 500MG TAB 1000 MG PO (16:55)
[2024-10-19] MEDS: KETOROLAC 30MG/ML VIAL 15 MG IV (16:55)
--- NOTE | 2024-10-19 17:06 | CT_ITS ---
PROCEDURE INFORMATION: Exam: CTA Abdomen and Pelvis With Contrast Exam date and time: 10/19/2024 5:28 PM Age: 54 years old Clinical indication: Abdominal pain; Other: Severe R inguinal pain out of proportion to exam TECHNIQUE: Imaging protocol: Computed tomographic angiography of the abdomen and pelvis with contrast. Exam focused on the arteries. 3D rendering (Not supervised by radiologist): MIP and/or 3D reconstructed images were created by the technologist. Radiation optimization: All CT scans at this facility use at least one of these dose optimization techniques: automated exposure control; mA and/or kV adjustment per patient size (includes targeted exams where dose is matched to clinical indication); or iterative reconstruction. Contrast material: ISOVUE; Contrast volume: 80 ml; Contrast route: INTRAVENOUS (IV); COMPARISON: CT ABDOMEN PELVIS W CON 10/10/2024 3:17 PM FINDINGS: Tubes, catheters and devices: Left lower back nerve stimulator device. Lungs: Basilar scarring/atelectasis. Aorta: No aortic aneurysm. No aortic dissection. Celiac trunk and mesenteric arteries: No occlusion or significant stenosis. Renal arteries: No occlusion or significant stenosis. Right iliac arteries: No occlusion or significant stenosis. Left iliac arteries: No occlusion or significant stenosis. Other arteries: Extensive atherosclerotic disease without aneurysm, stenosis, occlusion. Veins: Contrast is seen refluxing into the hepatic venous structures. Liver: No mass. Gallbladder and biliary ducts: Cholecystectomy. Pancreas: Unremarkable. No mass. No ductal dilation. Spleen: Unremarkable. No splenomegaly. Adrenal glands: Unremarkable. No mass. Kidneys and ureters: Benign right renal cyst. Stomach and bowel: [id number] colonic stool burden. Appendix: Appendix is not well visualized, no secondary evidence of appendicitis. Intraperitoneal space: Unremarkable. No free air. No significant fluid collection. Lymph nodes: Unremarkable. No enlarged lymph nodes. Urinary bladder: Unremarkable. No mass. Reproductive: Unremarkable as visualized. Bones/joints: No acute fracture. Soft tissues: Unremarkable. IMPRESSION: 1. No acute intra-abdominal findings. 2. Contrast refluxing into the hepatic vasculature which could indicate right heart dysfunction. Correlate clinically (pulmonary embolus?)
--- NOTE | 2024-10-19 17:17 | ED_ITS ---
Discharge Plan Disposition Patient Disposition: Admitted Chief Complaint: Abdominal Pain Clinical Impressions Clinical Impression: Abdominal pain, right lower quadrant, Constipation Discharge ED Provider: Gamal Ro General Adult HPI General Chief complaint: Abdominal Pain Stated complaint: abdominal pain Time Seen by Provider: 10/19/24 16:01 Mode of Arrival: Ambulatory Source of Information: Patient Limitations: No Limitations Description of Symptoms (Recalled from ER Triage Doc. by RN): Pt was referred by PCP to come for evaluation and admission for continued RLQ abdominal pain. Pt was seen at [facility] on wednesday, and had a bowel cleansing done. History of Present Illness HPI narrative: Please note that above description of symptoms, in this electronic medical record under categorization of recalled from ER triage doctor by RN are reflective of an initial nursing assessment, however, is not reflective of my full history and physical exam that was personally taken and clarified. Consequentially, this preceding description of symptoms, which may include the patient's categorized chief complaint in the EMR, do not reflect my personal clinical impression, and the ultimate description of history of present illness and patient stated complaints should be deferred to this section of the note. Unless stated otherwise or congruent with this section of the note, additional signs, symptoms, or incongruence should be interpreted as inaccurate with my clinical impression. Related Data Home Medications ?Medication ?Instructions ?Recorded ?Confirmed budesonide-formoterol HFA 160 1 puff inhalation DAILY 10/19/24 10/19/24 mcg-4.5 mcg/actuation aerosol inhaler (Breyna) dicyclomine 20 mg tablet 20 mg PO QIDP PRN abdominal 10/19/24 10/19/24 cramping ondansetron 4 mg disintegrating 4 mg PO TIDP PRN Nausea And 10/19/24 10/19/24 tablet Vomiting Previous Rx's ?Medication ?Instructions ?Recorded gabapentin 100 mg capsule 100 mg PO TID Pain #90 caps 07/24/24 Allergies Allergy/AdvReac Type Severity Reaction Status Date / Time meperidine (From DEMEROL) Allergy Intermediate I-HIVES Verified 10/19/24 15:20 sumatriptan Allergy Unknown Hives, SOB Verified 10/19/24 15:20 [facility] Disclaimer: The information contained in this section may have been updated after the patient was seen, as this information can be updated by other users. Medical History (Updated 10/19/24 @ 18:53 by Gamal Ro MD) Asthma Endometriosis Fibromyalgia Eczema Abdominal pain Surgical History (Updated 10/19/24 @ 15:22 by Key Easley MA) History of back surgery History of right hip replacement Hx of knee surgery Hx of neck surgery Hx of shoulder surgery History of tonsillectomy History of cholecystectomy History of hysterectomy Family History Other Family history of cancer Social History (Updated 10/19/24 @ 15:22 by Key Easley MA) Smoking Status: Current every day smoker tobacco type: cigarettes packs per day: 1 second hand exposure: Yes alcohol intake: never substance use type: denies use current occupational status: other Travel in the last 8 weeks: None household members: spouse housing: house marital status: education level: college service: Yes 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 Have you lived/traveled outside [place] in past 30 days?: No Contact w/someone who lives/traveled outside [place] past 30 days?: No Exposure to someone with infectious disease in past 14 days?: No Do you have a fever (greater than 100.4 F or 38 C)?: No Have you tested positive for COVID-19: No Exposed to someone with COVID-19 in past 14 days?: No Do you have a sore throat?: No Do you have a cough?: No Do you have any weakness?: No Do you have any diarrhea?: No Are you experiencing any unusual bleeding?: No Do you have any muscle aches/pain?: No Do you have any abdominal pain?: Yes Are you experiencing loss of taste or smell?: No Other Medical History Have you received the Flu Vaccine for this season: No Have you received the Pneumonia Vaccine: No ROS Obtained: Yes All systems reviewed & no additional complaints except as documented Physical Exam General General appearance: in distress Head Head exam: atraumatic and normocephalic Eye Eye exam: Present normal appearance, PERRL and EOMI Neck Neck exam: Present normal inspection, full ROM and trachea midline Respiratory Respiratory exam: Absent respiratory distress, wheezes, stridor, accessory muscle use or prolonged expiratory phase Cardiovascular Cardiovascular exam: Present other (Pulses equal symmetric in upper and lower extremities) Abdominal Exam Abdominal exam: Present soft and guarding; Absent distention, tenderness, rebound, rigidity or pulsatile mass Extremities Exam Extremities exam: Absent edema Neurological Exam Neurological exam: Present alert, oriented X3 and CN II-XII intact; Absent motor sensory deficit Skin Skin exam: Present warm and dry; Absent diaphoresis or erythema Medical Decision Making Medical Records Medical records reviewed: Yes I reviewed the patient's medical records. Screening: Per USPSTF and CDC recommendations, given the prevalence of disease in our region, it is our hospital?s policy to screen for HIV and viral Hepatitis for all patients aged 18 and over and those with ongoing risk factors. David Inquiry Pt receiving controlled substance: No David was queried for this patient: No Vital Signs: 10/19/24 16:04 10/19/24 16:30 10/19/24 16:45 Temperature 98.4 F Temperature Source Oral Pulse Rate 107 H 99 H Pulse Rate [Right] 136 H Respiratory Rate 18 30 H 27 H Blood Pressure 128/103 H 124/91 H Blood Pressure [Right Arm] 149/107 H Blood Pressure Mean [Right Arm] 121 Blood Pressure Source [Right Arm] Automatic Cuff Blood Pressure Position [Right Arm] Standing 02 Sat by Pulse Oximetry 100 93 L 95 Oxygen Delivery Method Room Air 10/19/24 17:15 10/19/24 17:45 10/19/24 18:00 Temperature Temperature Source Pulse Rate 79 72 75 Pulse Rate [Right] Respiratory Rate 12 14 18 Blood Pressure 122/78 121/76 117/79 Blood Pressure [Right Arm] Blood Pressure Mean [Right Arm] Blood Pressure Source [Right Arm] Blood Pressure Position [Right Arm] 02 Sat by Pulse Oximetry 95 94 L 95 Oxygen Delivery Method 10/19/24 18:15 10/19/24 18:30 Temperature Temperature Source Pulse Rate 68 74 Pulse Rate [Right] Respiratory Rate 17 15 Blood Pressure 121/73 123/82 Blood Pressure [Right Arm] Blood Pressure Mean [Right Arm] Blood Pressure Source [Right Arm] Blood Pressure Position [Right Arm] 02 Sat by Pulse Oximetry 96 96 Oxygen Delivery Method Lab Data Lab Results 10/19/24 16:15: Urine Color Yellow, Urine Appearance Clear, Urine pH 6.0, Ur Specific Dailey <= 1.005, Urine Protein Negative, Urine Glucose (UA) Negative, Urine Ketones Negative, Urine Blood Negative, Urine Nitrate Negative, Urine Bilirubin Negative, Urine Urobilinogen 0.2, Ur Leukocyte Esterase Negative, Urine RBC None, Urine WBC Occasional, Ur Squamous Epith Cells 3-5, Urine Bacteria Trace 10/19/24 16:22: WBC 11.0 H, RBC 4.90, Hgb 15.8, Hct 45.0, MCV 91.8, MCH 32.2 H, MCHC 35.1, RDW 12.0, Plt Count 210, MPV 9.9, Neut % (Auto) 57.0, Lymph % (Auto) 31.4, [place] % (Auto) 8.3, Eos % (Auto) 1.2, Baso % (Auto) 0.8, Neut # (Auto) 6.3, Lymph # (Auto) 3.5, [place] # (Auto) 0.9, Eos # (Auto) 0.1, Baso # (Auto) 0.1, APTT 26.5, Sodium 136, Potassium 4.0, Chloride 102, Carbon Dioxide 28, Anion Gap 10.0, BUN 12, Creatinine 0.60, Estimated Creat Clear 89, Estimated GFR 104, Est GFR ( Amer) 126, Glucose 93, Lactate 1.3, Calcium 9.5, Magnesium 2.1, Total Bilirubin 0.4, AST 36, ALT 48, Alkaline Phosphatase 82, Troponin I < 0.01, Total Protein 7.2, Albumin 4.7, Globulin 2.5, Albumin/Globulin Ratio 1.9 H, Lipase 66 10/19/24 16:28: VBG pH 7.42 H, VBG pCO2 41.2, VBG pO2 45.2 H, VBG HCO3 26.1, VBG Total CO2 27.4 H, VBG O2 Saturation 84.0 H, VBG Base Excess 1.6, VBG Lactic Acid 1.4 10/19/24 16:22 10/19/24 16:22 Orders (Tests/Meds): ED MEDICATIONS Discontinued Medications Generic Name Dose Route Start Last Admin Trade Name Freq PRN Reason Stop Dose Admin Acetaminophen 1,000 mg 10/19/24 16:37 10/19/24 16:55 Acetaminophen 500mg Tab PO 10/19/24 16:38 1,000 mg ONCE ONE Administration Hydromorphone HCl 1 mg 10/19/24 16:37 10/19/24 16:52 Hydromorphone 2mg/Ml Syringe IV 10/19/24 16:38 1 mg ONCE ONE Administration Hydromorphone HCl 1 mg 10/19/24 18:13 Hydromorphone 2mg/Ml Syringe IV 10/19/24 18:14 ONCE ONE Lactated Ringer's 1,000 mls @ 999 mls/hr 10/19/24 16:37 10/19/24 16:55 Lactated Ringer's 1000 Ml Bag IV 10/19/24 17:37 999 mls/hr .Q1H1M ONE Administration Iopamidol 80 ml 10/19/24 17:34 10/19/24 17:35 Iopamidol-370 (76%);100ml Bottle IV 10/19/24 17:35 80 ml ONCE ONE Administration Ketorolac Tromethamine 15 mg 10/19/24 16:37 10/19/24 16:55 Ketorolac 30mg/Ml Vial IV 10/19/24 16:38 15 mg ONCE ONE Administration Ondansetron HCl 4 mg 10/19/24 16:37 10/19/24 16:54 Ondansetron 4mg/2ml Vial IV 10/19/24 16:38 4 mg ONCE ONE Administration Polyethylene Glycol/Electrolytes 2,000 ml 10/19/24 16:25 Peg-Electrolyte Soln 4000ml Bottle PO 10/19/24 16:26 ONCE ONE Sodium Chloride 10 ml 10/19/24 17:34 10/19/24 17:35 Sodium Chloride 0.9% 10ml Syr (Rad Only) IV 10/19/24 17:35 10 ml ONCE ONE Administration Sodium Chloride 50 ml 10/19/24 17:34 10/19/24 17:35 0.9 % Sodium Chloride 50 Ml Vial IV 10/19/24 17:35 50 ml ONCE ONE Administration ORDERS Category Date Time Status CT angio abdomen pelvis Stat Cat Scan 10/19/24 17:06 Completed Complete Blood Count Auto Diff Stat Lab 10/19/24 16:22 Completed Comprehensive Metabolic Panel Stat Lab 10/19/24 16:22 Completed Lactic Acid Stat Lab 10/19/24 16:22 Completed Lipase Stat Lab 10/19/24 16:22 Completed Magnesium Stat Lab 10/19/24 16:22 Completed PTT [Activated Partial Thrombo Time] Stat Lab 10/19/24 16:22 Completed Troponin I Q3H Lab 10/19/24 19:30 Ordered Troponin I Q3H Lab 10/19/24 22:30 Ordered Troponin I Stat Lab 10/19/24 16:22 Completed Urinalysis and Microscopic Stat Lab 10/19/24 16:15 Completed Venous Blood Gas Stat RT 10/19/24 16:28 Completed Medical Decision Narrative: 54-year-old female presenting with right lower quadrant abdominal pain. This been going on for a couple of weeks. I saw her a couple of weeks ago on the and similar story. Patient states that has not changed, largely just gotten a little worse since that time. Sent home at that time, went to see neurosurgeon as well as family doctor as well as outside ED. Similar workup, similar management. Coming in today after visiting her primary care physician today on 10/19 for significant, intractable abdominal pain. No vomiting, fevers, chills, last bowel movement was today and normal for her. Nothing in particular makes it better. History was obtained via conversation with patient. On arrival, patient hemodynamically stable, alert, oriented x4, appropriate, GCS 15, moving all extremities spontaneously, pupils equal and reactive to light. Full physical exam performed and significant for 54-year-old female in significant distress secondary to pain. Pacing around the room, holding her side, intermittently splinting. Abdomen is soft, nontender, nondistended, but she does have significant tenderness about the inguinal ligament, primarily inferior to this. No evidence of hernia. No flank tenderness. Differential includes neuropathic pain, constipation, obstruction, vascular pathology in the abdomen or pelvis, appendicitis, aortic pathology, mesenteric ischemia, bowel perforation, among others. Patient placed on continuous cardiac monitoring and continuous pulse ox with initial blood pressure 149/107, heart rate 136, saturation 100% on room air. Patient was given 1 mg Dilaudid, Toradol, acetaminophen, fluids, Zofran for symptomatic management and correction of underlying abnormalities. Workup independently interpreted and significant for nonactionable hematologic labs, stable from previous. VBG nonactionable with normal lactate. Patient's urine negative. I spoke to surgery shortly after labs. Spoke with Dr. Bledsoe a couple weeks ago, recommended outpatient follow-up. I called Dr. Uribe today, 10/19. Had prolonged discussion with him. Recommended CTA to rule out acute vascular pathology. This was ordered. On independent interpretation of imaging, patient has no acute intra-abdominal abnormalities, no evidence of hernia, she does have mild to moderate constipation with involvement of the right colon. See radiology read for full review of final results. On reevaluation, patient still having significant pain. She was given another milligram of Dilaudid. GoLytely ordered given constipation. Further conversation with surgery, patient not emergent surgical candidate with nonactionable findings on labs or imaging. Obviously recommending conservative management at this point and trying bowel regimen before consideration of any diagnostic surgical procedures. I feel this is more than reasonable and makes the most sense, puts the patient at the least amount of risk. GoLytely ordered and I contacted the hospitalist to discuss care. Graciously accepted patient for pain control, bowel regimen and further management. Given patient presentation, workup, history, this most likely represents intractable abdominal pain, idiopathic. Because patient high risk for clinical decompensation, deemed appropriate for inpatient admission. Results were relayed to patient who voiced understanding and patient was agreeable to inpatient admission and management. Patient was admitted to the hospital for further definitive management. Air Conditioning Unit Tester disclaimer Much of this encounter note is an electronic tool and production planner spoken language to printed text. Electronic tool and production planner of the spoken language may permit errors. Although I have reviewed the note, some errors may still exist. Critical Care Critical Care Time Critical Care Time: No
[2024-10-19 17:18] LABS: Troponin I < 0.01 ng/ml (0.00-0.034)
[2024-10-19] MEDS: SODIUM CHLORIDE 0.9% 10ML SYR (RAD ONLY) 10 ML IV (17:35)
[2024-10-19] MEDS: IOPAMIDOL-370 (76%);100ML BOTTLE 80 ML IV (17:35)
[2024-10-19] MEDS: 0.9 % SODIUM CHLORIDE 50 ML VIAL IV (17:35)
--- NOTE | 2024-10-19 18:38 | PC.NURSE ---
FARHEEN Medley notified Heart Coordinator of admission.
--- NOTE | 2024-10-19 18:43 | PC.NURSE ---
ROUNDED ON THE PT. THE PT VOICES THAT SHE DOES NOT NEED ANYTHING AT THIS TIME. CALL LIGHT IS WITHIN REACH OF THE PT.
[2024-10-19] MEDS: PEG-ELECTROLYTE SOLN 4000ML BOTTLE 2000 ML PO (19:01)
--- NOTE | 2024-10-19 19:30 | PC.NURSE ---
Rounding complete; waiting on floor to get patient.
--- NOTE | 2024-10-19 19:35 | P.HP_ITS ---
<Statement entered by Alhaji Stephens MD - 10/23/24 22:58> Personally evaluated patient and agree with plan of care as outlined by the [facility]. History of Present Illness *Admission Date: 10/19/24 *Reason for visit:: Right groin pain *History of present illness: This is a 54-year-old female who has a past medical history significant for asthma, endometriosis, fibromyalgia, and eczema who presents with intractable right groin and right lower quadrant abdominal pain. Due to patient's symptoms, she presented to the emergency room for evaluation. While in the emergency room, CT scan of the abdomen pelvis was negative for any acute intra-abdominal intrapelvic finding. Patient's pain was unrelieved by pain medication. General surgery was consulted and recommend admission for possible exploratory laparotomy. Due to these recommendations, patient has been admitted for further management. During my evaluation of the patient, patient states she has been experiencing 9 out of 10 right lower quadrant and right groin abdominal pain. She states that she is experiencing some edema in the right lower quadrant/right groin area. Recently, patient underwent spinal surgery for a herniated disc. Postoperatively, patient did well. However, 2 weeks after the surgery she started to experiencing a forementioned symptomology. She endorses having some numbness to the area but significant pain. She was evaluated by her neurosurgeon concerning the abdominal pain in the groin pain and they did not feel that this was related to her recent surgery. Patient mentions she has had a poor appetite but is having normal bowel movements.She mentions she recently performed a cleanse with magnesium sulfate. Patient states due to her symptoms she is only able to eat, sleep, or get comfortable. Her pain is worsened by flexion at the hips. She is currently denying any chest pain, lightheadedness, dizziness, fever, chills, rigors, loss of bowel or bladder, nausea, vomiting, or diarrhea. Additional pertinent vitals obtained include a white blood cell count of 11. [facility] Disclaimer: The information contained in this section may have been updated after the patient was seen, as this information can be updated by other users. Medical History (Updated 10/19/24 @ 19:50 by Presley Pavon APRN) Asthma Endometriosis Fibromyalgia Eczema Abdominal pain Surgical History (Updated 10/19/24 @ 15:22 by Key Easley MA) History of back surgery History of right hip replacement Hx of knee surgery Hx of neck surgery Hx of shoulder surgery History of tonsillectomy History of cholecystectomy History of hysterectomy Family History Other Family history of cancer Social History (Updated 10/19/24 @ 15:22 by Key Easley MA) Smoking Status: Current every day smoker tobacco type: cigarettes packs per day: 1 second hand exposure: Yes alcohol intake: never substance use type: denies use current occupational status: other Travel in the last 8 weeks: None household members: spouse housing: house marital status: education level: college service: Yes 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 Have you lived/traveled outside [place] in past 30 days?: No Contact w/someone who lives/traveled outside US past 30 days?: No Exposure to someone with infectious disease in past 14 days?: No Do you have a fever (greater than 100.4 F or 38 C)?: No Have you tested positive for COVID-19: No Exposed to someone with COVID-19 in past 14 days?: No Do you have a sore throat?: No Do you have a cough?: No Do you have any weakness?: No Do you have any diarrhea?: No Are you experiencing any unusual bleeding?: No Do you have any muscle aches/pain?: No Do you have any abdominal pain?: Yes Are you experiencing loss of taste or smell?: No Other Medical History Have you received the Flu Vaccine for this season: No Have you received the Pneumonia Vaccine: No Review of Systems Review of Systems Review of systems:: pertinent systems reviewed and negative unless documented below Constitutional Constitutional: Reports anorexia Eyes Eyes: Reports system reviewed and no additional complaints, except as documented ENT Ears, Nose, Mouth, and Throat: Reports system reviewed and no additional complaints, except as documented *Cardiovascular Cardiovascular: Reports system reviewed and no additional complaints, except as documented *Respiratory Respiratory: Reports system reviewed and no additional complaints, except as documented *Gastrointestinal Gastrointestinal: Reports abdominal pain *Genitourinary Genitourinary: Reports system reviewed and no additional complaints, except as documented *Musculoskeletal Musculoskeletal: Reports system reviewed and no additional complaints, except as documented Integumentary/Breasts Skin/Breast: Reports system reviewed and no additional complaints, except as documented *Neurologic Neurologic: Reports system reviewed and no additional complaints, except as documented Psychiatric Psychiatric: Reports system reviewed and no additional complaints, except as documented Endocrine Endocrine: Reports system reviewed and no additional complaints, except as documented Hematologic/Lymphatic Hematologic/Lymphatic: Reports system reviewed and no additional complaints, except as documented Allergic/Immunologic Allergic/Immunologic: Reports system reviewed and no additional complaints, except as documented Meds Home Medications and Allergies Home Medications ?Medication ?Instructions ?Recorded ?Confirmed ?Type gabapentin 100 mg capsule 100 mg PO TID Pain #90 caps 07/24/24 10/19/24 Rx budesonide-formoterol HFA 160 1 puff inhalation DAILY 10/19/24 10/19/24 History mcg-4.5 mcg/actuation aerosol inhaler (Breyna) dicyclomine 20 mg tablet 20 mg PO QIDP PRN abdominal 10/19/24 10/19/24 History cramping ondansetron 4 mg disintegrating 4 mg PO TIDP PRN Nausea And 10/19/24 10/19/24 History tablet Vomiting New Prescriptions to Start Prescriptions: Allergies Allergy/AdvReac Type Severity Reaction Status Date / Time meperidine (From DEMEROL) Allergy Intermediate I-HIVES Verified 10/19/24 15:20 sumatriptan Allergy Unknown Hives, SOB Verified 10/19/24 15:20 Exam Data for Last 24 hours Vital signs and Labs for Last 24 Hours: Temp Pulse Resp BP Pulse Ox O2 Del Method 98.7 F 85 18 143/97 H 97 Room Air 10/19/24 18:56 10/19/24 18:56 10/19/24 18:56 10/19/24 18:56 10/19/24 18:46 10/19/24 18:56 Laboratory Results - last 24 hr 10/19/24 16:15: Urine Color Yellow, Urine Appearance Clear, Urine pH 6.0, Ur Specific [place] <= 1.005, Urine Protein Negative, Urine Glucose (UA) Negative, Urine Ketones Negative, Urine Blood Negative, Urine Nitrate Negative, Urine Bilirubin Negative, Urine Urobilinogen 0.2, Ur Leukocyte Esterase Negative, Urine RBC None, Urine WBC Occasional, Ur Squamous Epith Cells 3-5, Urine Bacteria Trace 10/19/24 16:22: WBC 11.0 H, RBC 4.90, Hgb 15.8, Hct 45.0, MCV 91.8, MCH 32.2 H, MCHC 35.1, RDW 12.0, Plt Count 210, MPV 9.9, Neut % (Auto) 57.0, Lymph % (Auto) 31.4, [place] % (Auto) 8.3, Eos % (Auto) 1.2, Baso % (Auto) 0.8, Neut # (Auto) 6.3, Lymph # (Auto) 3.5, [place] # (Auto) 0.9, Eos # (Auto) 0.1, Baso # (Auto) 0.1, APTT 26.5, Sodium 136, Potassium 4.0, Chloride 102, Carbon Dioxide 28, Anion Gap 10.0, BUN 12, Creatinine 0.60, Estimated Creat Clear 89, Estimated GFR 104, Est GFR ( Amer) 126, Glucose 93, Lactate 1.3, Calcium 9.5, Magnesium 2.1, Total Bilirubin 0.4, AST 36, ALT 48, Alkaline Phosphatase 82, Troponin I < 0.01, Total Protein 7.2, Albumin 4.7, Globulin 2.5, Albumin/Globulin Ratio 1.9 H, Lipase 66 10/19/24 16:28: VBG pH 7.42 H, VBG pCO2 41.2, VBG pO2 45.2 H, VBG HCO3 26.1, VBG Total CO2 27.4 H, VBG O2 Saturation 84.0 H, VBG Base Excess 1.6, VBG Lactic Acid 1.4 I & O for Last 24 hours: Intake & Output 10/16/24 10/17/24 10/18/24 10/19/24 23:59 23:59 23:59 23:59 Intake Total 1000 / 1000 Balance 1000 / 1000 Weight 53.07 kg Constitutional Constitutional: no acute distress and thin *Routine HEENT Exam Head: Present normocephalic and atraumatic Eye: Present EOMI, PERRL and normal accommodation ENT: Present mucous membranes moist *Routine Neck Exam Neck: Present supple and full ROM *Routine Respiratory Exam Respiratory: Present normal respiratory effort, able to speak in complete sentences and symmetric chest movement *Routine Cardiovascular Exam Cardiovascular: Present RRR, Normal S1 and Normal S2 *Routine Abdominal Exam Abdominal: Present soft, normoactive bowel sounds, tenderness and guarding *Routine Rectal Exam Rectal:: deferred *Routine Genitalia Exam Genitalia:: deferred *Routine Extremities Exam Extremities: Present full ROM and normal capillary refill Routine Back/Spine/Pelvis Exam Back/Spine: Present full ROM *Routine Skin Exam Skin: Present intact, dry and warm *Routine Neurological Exam Neurological: Present alert, oriented X3 and CN II-XII intact Routine Psychiatric Exam Psychiatric: Present normal affect, normal thought process, cooperative, good insight and good judgment H&P: Result Impressions 54-year-old female who is status post hernia disrepair who presents with intractable right lower quadrant and right groin abdominal pain coupled with some numbness. Assessment and Plan *Assessment and plan (1) Intractable abdominal pain: Status: Acute Category: Medical Code(s): R10.9 - Unspecified abdominal pain (2) Leukocytosis: Status: Acute Qualifiers: Leukocytosis type: unspecified Qualified Code(s): D72.829 - Elevated white blood cell count, unspecified Category: Medical Code(s): D72.829 - Elevated white blood cell count, unspecified (3) Paresthesia: Status: Acute Category: Medical Code(s): R20.2 - Paresthesia of skin Plan Assessment: Intractable abdominal pain -CT scan of the abdomen pelvis were without any acute findings -Patient symptomology is unexplained -Recent evaluation by neurosurgeon who does not endorse symptomology related to recent surgical intervention -Patient is having normal bowel movements -General Surgery plans to take patient to the OR for possible exploratory laparotomy tomorrow Leukocytosis -There are no clear signs or source of infection -Will obtain procalcitonin -Will consider blood cultures x 2 if patient starts to have fever -Will monitor CBC daily Paresthesia -Not clear what is driving patient's paresthesia Plan: Admit patient to the MedSurg unit Consult general surgery Regular diet now and then n.p.o. after midnight CBC/BMP daily Lactated Ringer's at 75 mL now 40 mg of enoxaparin subcu daily 5 mg [place] p.o. every 4 hours PMR pain 0.5 mg hydromorphone IV push every 4 hours as needed severe pain 21 mg nicotine patch daily 4 mg Zofran IV push. Hours. Nausea vomit Full code I have discussed this case with attending physician Dr. stephens and I look forward to more input
--- NOTE | 2024-10-19 19:53 | PC.NURSE ---
pt arrived to floor from ed via wheelchair at 194.
[2024-10-19] MEDS: LACTATED RINGERS 1000ML 1,000 ML 75 ML IV (20:31)
[2024-10-19] MEDS: HYDROMORPHONE 2MG/ML SYRINGE 0.5 MG IV (21:38)
[2024-10-19] MEDS: HYDROCODONE/APAP 5/325 MG TABLET 1 TAB PO (23:16)
[2024-10-19 23:38] LABS: Troponin I < 0.01 ng/ml (0.00-0.034)
[2024-10-20] VITALS (15 sets, daily range): BP systolic 97–135; BP diastolic 63–85; PULSE 70–98; RESP 15–22; TEMP 36.1–43; O2SAT 89–96
[2024-10-20] MEDS: HYDROCODONE/APAP 5/325 MG TABLET 1 TAB PO (04:34)
[2024-10-20 07:01] LABS: Basophils % 0.5 % (0.1-2.0); Eosinophils # 0.1 K/mm3 (0.0-0.4); Eosinophils % 2.1 % (0.1-12.0); Hematocrit 35.3 % (37.0-47.0); Lymphocytes # 2.4 K/mm3 (0.7-4.5); Lymphocytes % 37.2 % (10-50); Mean Corpuscular HGB Conc 34.3 g/dL (31.8-35.4); Mean Corpuscular Hemoglobin 31.9 pg (27.0-31.2); Mean Corpuscular Volume 93.1 fl (81-99); Mean Platelet Volume 9.9 fl (7.4-10.4); Monocytes # 0.6 K/mm3 (0.1-1.0); Monocytes % 9.8 % (1.7-9.3); Neutrophils # 3.1 K/mm3 (1.8-7.8); Neutrophils % 49.4 % (37.0-80.0); Platelet Count 153 K/mm3 (142-424); Red Blood Count 3.79 M/mm3 (4.20-5.40); Red Cell Distribution Width 12.2 % (11.5-17.5); White Blood Count 6.3 K/mm3 (4.8-10.8)
[2024-10-20 07:18] LABS: Anion Gap 6.3 mEq/L (5-15); Blood Urea Nitrogen 14 mg/dl (7-17); Calcium 8.5 mg/dl (8.4-10.2); Carbon Dioxide 32 mmol/L (22.0-30.0); Chloride 103 mmol/L (98-107); Creatinine Clearance Estimated 76 mL/min (50-200); Estimated Glomerular Filt Rate 87 ml/min (>60); GFR (African American) 105 ML/MIN (>60); Glucose 89 mg/dl (74-100); Potassium 4.3 mmoL/L (3.5-5.1); Sodium 137 mmol/L (136-145)
[2024-10-20 07:30] LABS: Hemoglobin 12.1 g/dL (12.2-16.2)
[2024-10-20 07:49] LABS: Procalcitonin 0.048 ng/mL (0.0-2.0)
--- NOTE | 2024-10-20 08:36 | P.CONS_ITS ---
History of Present Illness *Admission Date: 10/19/24 *Reason for visit:: Right lower quadrant pain *History of present illness: Patient is a 54-year-old female past medical history significant for asthma, endometriosis, fibromyalgia, and eczema. She had undergone back surgery several weeks ago in [place]. She states that for least a couple of weeks she has had abdominal pain mostly in the right lower quadrant and right groin area. This began about 2 weeks after her spinal surgery. She had been seen in the emergency department at this facility on 10/10/2024 at which time her symptoms had began about 3 days prior. At that time she was tender in the right inguinal area. No hernia was detected but she was evaluated by general surgery consumer lending manager who was also unable to detect any hernia but exam was limited due to her discomfort. CT scan at that time revealed no evidence of any acute intra- abdominal pathology. She had been evaluated at [facility] by her neurosurgeon subsequently. She was seen in her primary care provider's office yesterday on 10/19/2024 at which time she continued to complain of severe right lower quadrant and inguinal pain with poor appetite and some associated nausea. Due to the severity of her pain she was sent to the emergency department after notification. She was evaluated in the emergency department at which time patient was found to have significant discomfort. Discussion was held with surgery on-call. Given her pain out of proportion of physical findings she did undergo CT angiogram which revealed no evidence of any acute vascular pathology although there was reflux of contrast into the hepatic vasculature. She was admitted for inpatient management and general surgery consultation for possible hernia. Patient had performed a bowel cleanse as an outpatient prior to presentation. Symptoms are constant and lifestyle interfering. Pain is worsened with extension at the hip. She has no pain in her medial thigh. She actually has some relief of pain when standing. [facility] Disclaimer: The information contained in this section may have been updated after the patient was seen, as this information can be updated by other users. Medical History (Updated 10/19/24 @ 19:50 by Prelsey Pavon APRN) Asthma Endometriosis Fibromyalgia Eczema Abdominal pain Surgical History (Updated 10/19/24 @ 15:22 by Key Easley MA) History of back surgery History of right hip replacement Hx of knee surgery Hx of neck surgery Hx of shoulder surgery History of tonsillectomy History of cholecystectomy History of hysterectomy Family History Other Family history of cancer Social History (Updated 10/19/24 @ 15:22 by Key Easley MA) Smoking Status: Current every day smoker tobacco type: cigarettes packs per day: 1 second hand exposure: Yes alcohol intake: never substance use type: denies use current occupational status: other Travel in the last 8 weeks: None household members: spouse housing: house marital status: education level: college service: Yes 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 Have you lived/traveled outside US in past 30 days?: No Contact w/someone who lives/traveled outside US past 30 days?: No Exposure to someone with infectious disease in past 14 days?: No Do you have a fever (greater than 100.4 F or 38 C)?: No Have you tested positive for COVID-19: No Exposed to someone with COVID-19 in past 14 days?: No Do you have a sore throat?: No Do you have a cough?: No Do you have any weakness?: No Do you have any diarrhea?: No Are you experiencing any unusual bleeding?: No Do you have any muscle aches/pain?: No Do you have any abdominal pain?: Yes Are you experiencing loss of taste or smell?: No Review of Systems *Neurologic Neurologic: Reports system reviewed and no additional complaints, except as documented Meds Home Medications and Allergies Home Medications ?Medication ?Instructions ?Recorded ?Confirmed ?Type budesonide-formoterol HFA 160 1 puff inhalation DAILY 10/19/24 10/19/24 History mcg-4.5 mcg/actuation aerosol inhaler (Breyna) dicyclomine 20 mg tablet 20 mg PO QIDP PRN abdominal 10/19/24 10/19/24 History cramping ondansetron 4 mg disintegrating 4 mg PO TIDP PRN Nausea And 10/19/24 10/19/24 History tablet Vomiting gabapentin 100 mg capsule 100 mg PO TID 10/20/24 10/19/24 History New Prescriptions to Start Prescriptions: Allergies Allergy/AdvReac Type Severity Reaction Status Date / Time meperidine (From DEMEROL) Allergy Intermediate I-HIVES Verified 10/19/24 15:20 sumatriptan Allergy Unknown Hives, SOB Verified 10/19/24 15:20 Exam (Inpt) Vital signs and Labs for Last 24 Hours: Temp Pulse Resp BP Pulse Ox O2 Del Method 98.3 F 83 15 104/67 L 93 L Room Air 10/20/24 07:38 10/20/24 07:38 10/20/24 07:38 10/20/24 07:38 10/20/24 07:38 10/20/24 07:38 Laboratory Results - last 24 hr 10/19/24 16:15: Urine Color Yellow, Urine Appearance Clear, Urine pH 6.0, Ur Specific [place] <= 1.005, Urine Protein Negative, Urine Glucose (UA) Negative, Urine Ketones Negative, Urine Blood Negative, Urine Nitrate Negative, Urine Bilirubin Negative, Urine Urobilinogen 0.2, Ur Leukocyte Esterase Negative, Urine RBC None, Urine WBC Occasional, Ur Squamous Epith Cells 3-5, Urine Bacteria Trace 10/19/24 16:22: WBC 11.0 H, RBC 4.90, Hgb 15.8, Hct 45.0, MCV 91.8, MCH 32.2 H, MCHC 35.1, RDW 12.0, Plt Count 210, MPV 9.9, Neut % (Auto) 57.0, Lymph % (Auto) 31.4, [place] % (Auto) 8.3, Eos % (Auto) 1.2, Baso % (Auto) 0.8, Neut # (Auto) 6.3, Lymph # (Auto) 3.5, [place] # (Auto) 0.9, Eos # (Auto) 0.1, Baso # (Auto) 0.1, APTT 26.5, Sodium 136, Potassium 4.0, Chloride 102, Carbon Dioxide 28, Anion Gap 10.0, BUN 12, Creatinine 0.60, Estimated Creat Clear 89, Estimated GFR 104, Est GFR ( Amer) 126, Glucose 93, Lactate 1.3, Calcium 9.5, Magnesium 2.1, Total Bilirubin 0.4, AST 36, ALT 48, Alkaline Phosphatase 82, Troponin I < 0.01, Total Protein 7.2, Albumin 4.7, Globulin 2.5, Albumin/Globulin Ratio 1.9 H, Lipase 66 10/19/24 16:28: VBG pH 7.42 H, VBG pCO2 41.2, VBG pO2 45.2 H, VBG HCO3 26.1, VBG Total CO2 27.4 H, VBG O2 Saturation 84.0 H, VBG Base Excess 1.6, VBG Lactic Acid 1.4 10/19/24 22:34: Troponin I < 0.01 10/20/24 06:35: WBC 6.3 D, RBC 3.79 L, Hgb 12.1 L D, Hct 35.3 L, MCV 93.1, MCH 31.9 H, MCHC 34.3, RDW 12.2, Plt Count 153 D, MPV 9.9, Neut % (Auto) 49.4, Lymph % (Auto) 37.2, [place] % (Auto) 9.8 H, Eos % (Auto) 2.1, Baso % (Auto) 0.5, Neut # (Auto) 3.1, Lymph # (Auto) 2.4, [place] # (Auto) 0.6, Eos # (Auto) 0.1, Baso # (Auto) 0.0, Sodium 137, Potassium 4.3, Chloride 103, Carbon Dioxide 32 H, Anion Gap 6.3, BUN 14, Creatinine 0.70, Estimated Creat Clear 76, Estimated GFR 87, Est GFR ( Amer) 105, Glucose 89, Calcium 8.5, Procalcitonin 0.048 I & O for Labs for Last 24 Hours: Intake & Output 10/17/24 10/18/24 10/19/24 10/20/24 11:59 11:59 11:59 11:59 Intake Total 1000 / 1000 Balance 1000 / 1000 Weight 116 lb 15.989 oz Constitutional: no acute distress and thin Comment:: Quite uncomfortable. GI: Present soft Comments:: Tender with guarding in the right inguinal area. Rectal (female): Present deferred (female): Present deferred Results Labs 10/20/24 06:35 10/20/24 06:35 Labs: Laboratory Results - last 24 hr 10/19/24 16:15: Urine Color Yellow, Urine Appearance Clear, Urine pH 6.0, Ur Specific [place] <= 1.005, Urine Protein Negative, Urine Glucose (UA) Negative, Urine Ketones Negative, Urine Blood Negative, Urine Nitrate Negative, Urine Bilirubin Negative, Urine Urobilinogen 0.2, Ur Leukocyte Esterase Negative, Urine RBC None, Urine WBC Occasional, Ur Squamous Epith Cells 3-5, Urine Bacteria Trace 10/19/24 16:22: WBC 11.0 H, RBC 4.90, Hgb 15.8, Hct 45.0, MCV 91.8, MCH 32.2 H, MCHC 35.1, RDW 12.0, Plt Count 210, MPV 9.9, Neut % (Auto) 57.0, Lymph % (Auto) 31.4, [place] % (Auto) 8.3, Eos % (Auto) 1.2, Baso % (Auto) 0.8, Neut # (Auto) 6.3, Lymph # (Auto) 3.5, [place] # (Auto) 0.9, Eos # (Auto) 0.1, Baso # (Auto) 0.1, APTT 26.5, Sodium 136, Potassium 4.0, Chloride 102, Carbon Dioxide 28, Anion Gap 10.0, BUN 12, Creatinine 0.60, Estimated Creat Clear 89, Estimated GFR 104, Est GFR ( Amer) 126, Glucose 93, Lactate 1.3, Calcium 9.5, Magnesium 2.1, Total Bilirubin 0.4, AST 36, ALT 48, Alkaline Phosphatase 82, Troponin I < 0.01, Total Protein 7.2, Albumin 4.7, Globulin 2.5, Albumin/Globulin Ratio 1.9 H, Lipase 66 10/19/24 16:28: VBG pH 7.42 H, VBG pCO2 41.2, VBG pO2 45.2 H, VBG HCO3 26.1, VBG Total CO2 27.4 H, VBG O2 Saturation 84.0 H, VBG Base Excess 1.6, VBG Lactic Acid 1.4 10/19/24 22:34: Troponin I < 0.01 10/20/24 06:35: WBC 6.3 D, RBC 3.79 L, Hgb 12.1 L D, Hct 35.3 L, MCV 93.1, MCH 31.9 H, MCHC 34.3, RDW 12.2, Plt Count 153 D, MPV 9.9, Neut % (Auto) 49.4, Lymph % (Auto) 37.2, [place] % (Auto) 9.8 H, Eos % (Auto) 2.1, Baso % (Auto) 0.5, Neut # (Auto) 3.1, Lymph # (Auto) 2.4, [place] # (Auto) 0.6, Eos # (Auto) 0.1, Baso # (Auto) 0.0, Sodium 137, Potassium 4.3, Chloride 103, Carbon Dioxide 32 H, Anion Gap 6.3, BUN 14, Creatinine 0.70, Estimated Creat Clear 76, Estimated GFR 87, Est GFR ( Amer) 105, Glucose 89, Calcium 8.5, Procalcitonin 0.048 Assessment and Plan *Assessment and plan (1) Intractable abdominal pain: Status: Acute Category: Medical Code(s): R10.9 - Unspecified abdominal pain Plan Patient's symptoms and findings are quite confusing. I have reviewed her images in great detail. There is no evidence of any hernia definitively on imaging or evidence of any atypical hernia such as spigelian or obturator hernia. Etiology unclear. This could be musculoskeletal, neuropathic, abdominal pelvic wall, or intra-abdominal/pelvic etiology. Discussed case with hospitalist. Plan is to obtain pelvic ultrasound to rule out pelvic etiology and obtain inflammatory markers to assess possible septic joint . Consideration may be given for possible diagnostic laparoscopy.
--- NOTE | 2024-10-20 08:53 | CA_ITS ---
APPROVED REPORT EXAM: Comprehensive 2D, Doppler, and color-flow Echocardiogram Telephone Mechanic: Saima Stover CRT Ht: 5 ft 5 in Wt: 116lbs BSA: 1.57 BP: 143/97 mmHg Indications: pre-op, Chest Pain, Shortness of Breath, Smoker hepatic reflux on CT scan concern for HF 2D Dimensions LA Volume 23.40 mL LA Volume Index 14.50 mL/m2 (M/F) 16-34 M-Mode Dimensions RVDd 1.62 cm (0.9-2.6) LA Diam 2.98 cm (1.9-4.0) LVDd 4.36 cm (3.5-5.7) LVDs 2.83 cm (3.5-5.7) IVSd 1.06 cm (0.6-1.1) PWd 0.68 cm (0.6-1.1) EF (Teich) 64.70% FS 35.10% EDV (Teich) 85.80 mL TAPSE 1.60 (<1.7) ESV (Teich) 30.30 mL LV Diastology E Decel Time 150 (160-240 msec) E/A Ratio 1.21 MED A' 9.00 cm/s LAT A' 10.80 cm/s Aortic Valve AO Peak GR. 5.20 mmHg Mitral Valve MV E Max Pradeep. 72.0 (40-130 cm/s) MV A Velocity 59.0 (40-130 cm/s) E/A Ratio 1.21 MV PHT 44.0 ms Pulmonary Valve PV Peak Velocity 98.0 (50-150 cm/s) Tricuspid Valve TR P. Velocity 95.00 cm/s RAP Estimate 10.00 mmHg RVSP 13.60 mmHg Left Ventricle The left ventricle is normal size. The left ventricular systolic function is normal. The left ventricular ejection fraction is within the normal range. Proximal septal thickening is noted. There is normal LV segmental wall motion. The left ventricular diastolic function is normal. LVEF is 60%. Right Ventricle The right ventricle is normal size. The right ventricular systolic function is normal. Atria The left atrium size is normal. The right atrium size is normal. There is no Doppler evidence of interatrial shunt. Aortic Valve The aortic valve is normal in structure. There is no aortic valvular stenosis. No aortic regurgitation is present. Mitral Valve The mitral valve is normal in structure. No evidence of mitral valve stenosis. Trace mitral regurgitation. Tricuspid Valve Tricuspid valve is grossly normal in structure and function. Trace tricuspid regurgitation. There is insufficient TR jet to estimate RVSP. Pulmonic Valve The pulmonary valve is normal in structure. Trace pulmonic regurgitation. Great Vessels The aortic root is normal in size. IVC is normal in size and collapses >50% with inspiration. Pericardium There is no pericardial effusion. Other Information Study Quality: Adequate Conclusion Normal biventricular systolic function. No significant valvular stenosis or regurgitation. Electronically signed by : Mary Cardozo MD 10/31/2024 09:37:52
[2024-10-20] MEDS: HYDROMORPHONE 2MG/ML SYRINGE 0.5 MG IV (09:06)
--- NOTE | 2024-10-20 09:23 | HMH.PHAINT1 ---
Pharmacy Intervention Comments: MEDICATION RECONCILIATION COMPLETED ON PATIENT USING EXTERNAL FILL HISTORY FROM PHARMACY. -FREDI DYE, ANITAD
--- NOTE | 2024-10-20 10:12 | US_ITS ---
FINAL REPORT TECHNIQUE: Transabdominal sonographic images of the pelvis were obtained. CLINICAL HISTORY: RLQ pain COMPARISON: None FINDINGS: TRANSABDOMINAL PELVIC ULTRASOUND The uterus is surgically absent. The adnexal regions are not well-visualized and are obscured by bowel gas. The ovaries are presumably surgically absent. The liver extends into the right lower quadrant which could reflect hepatomegaly or Savita's lobe. IMPRESSION: No obvious pelvic mass. Nonvisualized appendix. Prominent right liver. Should symptoms persist, consider CT. Reviewed, Interpreted and Dictated by Boby Juarez MD Transcribed by Evelia Bentley Authenticated and [facility]
--- NOTE | 2024-10-20 10:33 | XR_ITS ---
FINAL REPORT CLINICAL HISTORY: severe right inguingl pain, h/o hip replacement COMPARISON: 09/22/2022 FINDINGS: RIGHT HIP 4 views of the right hip, including an AP view of the pelvis, demonstrate no acute fracture or dislocation. There are surgical changes from total arthroplasty. No hardware abnormality is identified. Minimal degenerative changes are noted of the left hip. No soft tissue abnormality is seen. IMPRESSION: No acute bony or hardware abnormality. Reviewed, Interpreted and Dictated by Boby Juarez MD Transcribed by Navya William Authenticated and . [facility]
[2024-10-20] MEDS: KETOROLAC 30MG/ML VIAL 30 MG IV ×2 (10:35→16:07)
[2024-10-20 10:48] LABS: C-Reactive Protein 2.9 mg/L (0-4)
[2024-10-20 10:58] LABS: Erythrocyte Sedimentation Rate 13 mm/hr (0-30)
[2024-10-20] MEDS: HYDROCODONE 10MG/APAP 325MG TAB 1 TAB PO ×2 (11:39→20:16)
--- NOTE | 2024-10-20 12:07 | CA_ITS ---
FINAL REPORT TECHNIQUE: Compression bay scale and Doppler evaluation CLINICAL HISTORY: right groin pain post op FINDINGS: Femoral and popliteal veins show normal compressibility and flow. Visualized portion of the calf veins are patent by Doppler exam. IMPRESSION: No evidence of right lower extremity deep venous thrombosis Reviewed, Interpreted and Dictated by Boby Juarez MD Transcribed by Vi Leslie Authenticated and [facility]
--- NOTE | 2024-10-20 13:42 | P.PN_ITS ---
Subjective Narrative: Patient has continued to have severe excruciating right inguinal pain. She has had additional evaluation today including pelvic ultrasound which revealed no evidence of any pelvic pathology. She had a lower extremity venous Doppler which reveals no evidence of any DVT. Exam Data for Last 24 hours Vital signs and Labs for Last 24 Hours: Temp Pulse Resp BP Pulse Ox O2 Del Method 98.3 F 83 15 104/67 L 93 L Room Air 10/20/24 07:38 10/20/24 07:38 10/20/24 07:38 10/20/24 07:38 10/20/24 07:38 10/20/24 11:00 Laboratory Results - last 24 hr 10/19/24 16:15: Urine Color Yellow, Urine Appearance Clear, Urine pH 6.0, Ur Specific [place] <= 1.005, Urine Protein Negative, Urine Glucose (UA) Negative, Urine Ketones Negative, Urine Blood Negative, Urine Nitrate Negative, Urine Bilirubin Negative, Urine Urobilinogen 0.2, Ur Leukocyte Esterase Negative, Urine RBC None, Urine WBC Occasional, Ur Squamous Epith Cells 3-5, Urine Bacteria Trace 10/19/24 16:22: WBC 11.0 H, RBC 4.90, Hgb 15.8, Hct 45.0, MCV 91.8, MCH 32.2 H, MCHC 35.1, RDW 12.0, Plt Count 210, MPV 9.9, Neut % (Auto) 57.0, Lymph % (Auto) 31.4, [place] % (Auto) 8.3, Eos % (Auto) 1.2, Baso % (Auto) 0.8, Neut # (Auto) 6.3, Lymph # (Auto) 3.5, [place] # (Auto) 0.9, Eos # (Auto) 0.1, Baso # (Auto) 0.1, APTT 26.5, Sodium 136, Potassium 4.0, Chloride 102, Carbon Dioxide 28, Anion Gap 10.0, BUN 12, Creatinine 0.60, Estimated Creat Clear 89, Estimated GFR 104, Est GFR ( Amer) 126, Glucose 93, Lactate 1.3, Calcium 9.5, Magnesium 2.1, Total Bilirubin 0.4, AST 36, ALT 48, Alkaline Phosphatase 82, Troponin I < 0.01, Total Protein 7.2, Albumin 4.7, Globulin 2.5, Albumin/Globulin Ratio 1.9 H, Lipase 66 10/19/24 16:28: VBG pH 7.42 H, VBG pCO2 41.2, VBG pO2 45.2 H, VBG HCO3 26.1, VBG Total CO2 27.4 H, VBG O2 Saturation 84.0 H, VBG Base Excess 1.6, VBG Lactic Acid 1.4 10/19/24 22:34: Troponin I < 0.01 10/20/24 06:35: WBC 6.3 D, RBC 3.79 L, Hgb 12.1 L D, Hct 35.3 L, MCV 93.1, MCH 31.9 H, MCHC 34.3, RDW 12.2, Plt Count 153 D, MPV 9.9, Neut % (Auto) 49.4, Lymph % (Auto) 37.2, [place] % (Auto) 9.8 H, Eos % (Auto) 2.1, Baso % (Auto) 0.5, Neut # (Auto) 3.1, Lymph # (Auto) 2.4, [place] # (Auto) 0.6, Eos # (Auto) 0.1, Baso # (Auto) 0.0, ESR 13, Sodium 137, Potassium 4.3, Chloride 103, Carbon Dioxide 32 H, Anion Gap 6.3, BUN 14, Creatinine 0.70, Estimated Creat Clear 76, Estimated GFR 87, Est GFR ( Amer) 105, Glucose 89, Calcium 8.5, C-Reactive Protein 2.9, Procalcitonin 0.048 I & O for Last 24 hours: Intake & Output 10/18/24 10/19/24 10/20/24 10/21/24 11:59 11:59 11:59 11:59 Intake Total 1000 / 1000 Balance 1000 / 1000 Weight 116 lb 15.989 oz Constitutional Comments: Patient uncomfortable and writhing in pain at her right inguinal area Progress Note: A&P Assessment and plan (1) Intractable abdominal pain: Status: Acute Assessment and plan: Once again, the diagnosis remains somewhat equivocal. I discussed the options with the patient. She is tender over the inguinal area and had initially presented with tenderness as well as associated swelling. It may be reasonable as neck step to perform laparoscopy to evaluate for abdominal wall hernia defect and repair if present. Patient agrees to proceed with this. Plan will be for diagnostic laparoscopy with possible open hernia repair. I explained to her the nature and details of the procedure along with associated risks and expected outcome. Explained the possibility that no surgically treatable pathology may be identified. Also explained the possibility that pathology may be identified which would be not treatable at this facility. She understands and agrees to proceed.
[2024-10-20] MEDS: CEFAZOLIN 1GM VIAL 2 GM (14:00)
[2024-10-20] MEDS: LIDOCAINE 1% 20ML MDV 20 ML (14:34)
[2024-10-20] MEDS: ROPIVACAINE 0.5% 30ML VIAL 150 MG (14:35)
--- NOTE | 2024-10-20 15:09 | P.OP_ITS ---
Date of procedure: 10/20/24 Pre-op Diagnosis:: Intractable right lower quadrant/right inguinal pain Post-op Diagnosis:: Same Procedure performed:: Diagnostic laparoscopy, biopsy peritoneal lesion, laparoscopic appendectomy Surgeon:: Oracio Uribe MD SEISMOGRAPH CHIEF:: Rigo Rivera Anesthesia: GETA Estimated blood loss (mL): 5 Clinical Note:: Patient is a 54-year-old female past medical history significant for asthma, endometriosis, fibromyalgia, and eczema. She had undergone back surgery several weeks ago in [place]. She states that for least a couple of weeks she has had abdominal pain mostly in the right lower quadrant and right groin area. This began about 2 weeks after her spinal surgery. She had been seen in the emergency department at this facility on 10/10/2024 at which time her symptoms had began about 3 days prior. At that time she was tender in the right inguinal area. No hernia was detected but she was evaluated by general surgery publications editor who was also unable to detect any hernia but exam was limited due to her discomfort. CT scan at that time revealed no evidence of any acute intra- abdominal pathology including the appendix. She had been evaluated at [facility] by her neurosurgeon subsequently. She was seen in her primary care provider's office on 10/19/2024 at which time she continued to complain of severe right lower quadrant and inguinal pain with poor appetite and some associated nausea. Due to the severity of her pain she was sent to the emergency department after notification. She was evaluated in the emergency department at which time patient was found to have significant discomfort. Discussion was held with surgery on-call. Given her pain out of proportion of physical findings she did undergo CT angiogram which revealed no evidence of any acute vascular pathology although there was reflux of contrast into the hepatic vasculature. Appendix was not able to be visualized. She was admitted for inpatient management and general surgery consultation for possible hernia. Patient had performed a bowel cleanse as an outpatient prior to presentation. Symptoms are constant and lifestyle interfering. Pain is worsened with extension at the hip. She has no pain in her medial thigh. She actually has some relief of pain when standing. Patient had continued to have severe excruciating right inguinal pain. She has had additional evaluation today including pelvic ultrasound which revealed no evidence of any pelvic pathology. She had a lower extremity venous Doppler which reveals no evidence of any DVT. I discussed the options with the patient. She is tender over the inguinal area and had initially presented with tenderness as well as associated swelling. It may be reasonable as neck step to perform laparoscopy to evaluate for abdominal wall hernia defect and repair if present. Patient agrees to proceed with this. Plan will be for diagnostic laparoscopy with possible open hernia repair. I explained to her the nature and details of the procedure along with associated risks and expected outcome. Explained the possibility that no surgically treatable pathology may be identified. Also explained the possibility that pathology may be identified which would be not treatable at this facility. She understands and agrees to proceed. . Operative findings:: She had some minimal laxity of the internal ring but no hernia on the right side. There was a tiny purpleish nodule extraperitoneal along the round ligament possibly consistent with endometriosis. Appendix was somewhat edematous, distended, and thickened. . Operative note:: Consent was obtained and patient was taken the operating room. She was given preoperative intravenous antibiotics. In the operating room she was placed in a supine position. General anesthesia was induced. Banegas catheter was placed. Abdomen was prepped and draped in the standard surgical fashion. Subumbilical skin incision was made and while performing abdominal wall lift Veress needle was inserted. CO2 pneumoperitoneum was achieved to 15 mmHg. 5 mm optical trocar was inserted at the umbilicus. Intraperitoneal contents were visualized. There was no obvious anterior abdominal or pelvic wall pathology noted initially. Inspection of the inguinal area revealed some laxity of the internal ring but no hernia. There was a tiny purpleish nodule along the round ligament extraperitoneal. 5 mm trocar was inserted in the suprapubic location. Additional surveillance was carried out in the pelvis and right lower quadrant. The appendix was noted to be somewhat firm and indurated with mild distention. Consideration was being given for possible appendectomy. CLINICAL MOLECULAR GENETICIST was contacted to assess the possible endometrial nodule. Consensus was this was possibly an endometrial nodule. The 5 mm umbilical trocar was then removed and exchanged for a 12 mm umbilical trocar. 5 mm trocar was inserted in the right upper abdomen. Laparoscope was exchanged for an angled 5 mm laparoscope. Under the advice of gynecology the small nodule was grasped and excised with the surrounding peritoneum using KRISTIN ultrasonic harmonic ronn. It was removed from the round ligament and sent off as specimen labeled peritoneal biopsy. Attention was then turned to the appendix. Appendix was grasped with an endoscopic Kopperl. The mesoappendix was carefully divided with KRISTIN ultrasonic harmonic ronn we dissection carried down to the base of the appendix. The appendix was divided at its base with an endoscopic CECILIA linear cutting stapling device. Appendix was placed within an Endo Catch retrieval device and removed from the peritoneal cavity via the umbilical trocar site. Limited irrigation and suctioning was performed. There was good hemostasis. Additional surveillance was carried out of the cecum and terminal ileum which, under limited laparoscopic evaluation, appeared unremarkable. No other noted right lower quadrant or right pelvic intra-abdominal or abdominal pelvic wall pathology noted. Under laparoscopic visualization local anesthetic was infiltrated for inguinal nerve block and in the region of the internal inguinal ring. Trocars removed the CO2 pneumoperitoneum was evacuated. Fascia at the umbilicus was closed with a couple of interrupted 0 Vicryl sutures. Local anesthetic was infiltrated into the trocar sites. Skin incision was closed with 4-0 Monocryl in a subcuticular fashion. Dermabond and dressings were applied. . Condition: stable Disposition: PACU Complications:: None immediately apparent
[2024-10-20 15:14] LABS: Microscopic,Cath URINE MICROSCOPIC (MICROSCOPIC)
--- NOTE | 2024-10-20 15:20 | P.PNANES_ITS ---
[facility] Disclaimer: The information contained in this section may have been updated after the patient was seen, as this information can be updated by other users. Medical History (Updated 10/19/24 @ 19:50 by Presley Pavon APRN) Asthma Endometriosis Fibromyalgia Eczema Abdominal pain Surgical History (Updated 10/19/24 @ 15:22 by Key Easley MA) History of back surgery History of right hip replacement Hx of knee surgery Hx of neck surgery Hx of shoulder surgery History of tonsillectomy History of cholecystectomy History of hysterectomy Family History Other Family history of cancer Social History (Updated 10/19/24 @ 15:22 by Key Easley MA) Smoking Status: Current every day smoker tobacco type: cigarettes packs per day: 1 second hand exposure: Yes alcohol intake: never substance use type: denies use current occupational status: other Travel in the last 8 weeks: None household members: spouse housing: house marital status: education level: college service: Yes 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 Have you lived/traveled outside [place] in past 30 days?: No Contact w/someone who lives/traveled outside US past 30 days?: No Exposure to someone with infectious disease in past 14 days?: No Do you have a fever (greater than 100.4 F or 38 C)?: No Have you tested positive for COVID-19: No Exposed to someone with COVID-19 in past 14 days?: No Do you have a sore throat?: No Do you have a cough?: No Do you have any weakness?: No Do you have any diarrhea?: No Are you experiencing any unusual bleeding?: No Do you have any muscle aches/pain?: No Do you have any abdominal pain?: Yes Are you experiencing loss of taste or smell?: No [facility] Anesthesia Checklist Patient Identification Patient Identification: Arm Band Structural Data Admitted From: Home Planned Operative Procedure/s: Diagnostic Laparoscopy Consent for Planned Operative Procedure(s) Verified: Yes Verified Documents: Surgical Consent and History and Physical NPO Status Verified Time NPO: 00:00 Additional verifications Anesthesia Reactions: No Hx Blood Transfusions: No Blood Transfusion Reaction: No Airway Assessment Mallampati Score:: Class II C-Spine Mobility Assessed: Yes TMJ Mobility Assessed: Yes Neurological Assessment Level of Consciousness: Awake, Alert and Appropriate Anesthesia Plan Anesthesia Risk discussed: Yes Anesthesia Plan: Verified ASA Class: III Anesthesia Type: General
--- NOTE | 2024-10-20 15:21 | EXP.ANES.I ---
[facility] Anesthesia Record Part I Anesthesia Record I Intake, IV Amount: 900 Hydration: Adequate Estimated blood loss (mL): 10 Urine output (mL): 200 Blood Products used (#): none Blood Pressure: 126/74 SaO2: 96 Pulse Rate: 71 Airway Patency: Patent Respiratory Rate: 16 Temperature: 97 F Patient is:: Drowsy and Stable Stable to PACU at:: 15:20
[2024-10-20 17:10] LABS: Appearance,Urine/Cath CLEAR (Clear); Bilirubin,Cath Negative (Negative); Blood, Urine/Cath Negative (Negative); Glucose,Urine/Cath (UA) Negative (Negative); Ketones,Urine/Cath Negative (Negative); Leukocyte Esterase,Cath Negative (Negative); Nitrate,Cath Negative (Negative); Protein,Urine/Cath Negative (Negative); Specific Gravity, Urine/Cath <= 1.005 (1.005-1.030); Urobilinogen,Cath 0.2 EU/dl (0.2)
[2024-10-20 17:35] LABS: Color,Urine/Cath Straw (Yellow)
--- NOTE | 2024-10-20 17:56 | PC.NURSE ---
Pt alert and oriented x4. Pt had multiple tests done today to try and find source of pts RLQ pain. Pt was medicated per MAR multiple times throughout shift with little to no relief of pain. MD was made aware and made adjustments to medications. MD garcia decided to take pt for a diagnostic lap and ended up removing appendix. Pt came back with 3 lap sites, as she got up and moved around more pts umbilical site dressing was saturated with blood. this nurse contacted MD garcia and was told to fold a 4x4 and put tegaderm on site and monitor. Pt has still been complaining of pain but states that it is not as bad as before. VSS. Pt tolerating full liquid diet. Pt is now sitting up in bed with no complaints at this time. call light in reach.
[2024-10-20 18:12] LABS: Bacteria,Urine/Cath TRACE /lpf
[2024-10-20] MEDS: GABAPENTIN 100MG CAPSULE 100 MG PO (20:17)
--- NOTE | 2024-10-20 22:50 | EXP.PN ---
Subjective *Date: 10/20/24 *Time: 20:38 Interval history: Fortunately, patient continues to have significant right lower quadrant abdominal pain. She is unable to sit still due to pain. General surgery following, will pursue diagnostic laparoscopy. Exam Data for Last 24 hours Vital signs and Labs for Last 24 Hours: Temp Pulse Resp BP Pulse Ox O2 Del Method O2 Flow Rate 98.3 F 91 H 22 117/79 92 L Room Air 2 10/20/24 16:35 10/20/24 18:35 10/20/24 18:35 10/20/24 18:35 10/20/24 18:35 10/20/24 21:00 10/20/24 16:05 Laboratory Results - last 24 hr 10/19/24 22:34: Troponin I < 0.01 10/20/24 06:35: WBC 6.3 D, RBC 3.79 L, Hgb 12.1 L D, Hct 35.3 L, MCV 93.1, MCH 31.9 H, MCHC 34.3, RDW 12.2, Plt Count 153 D, MPV 9.9, Neut % (Auto) 49.4, Lymph % (Auto) 37.2, [place] % (Auto) 9.8 H, Eos % (Auto) 2.1, Baso % (Auto) 0.5, Neut # (Auto) 3.1, Lymph # (Auto) 2.4, [place] # (Auto) 0.6, Eos # (Auto) 0.1, Baso # (Auto) 0.0, ESR 13, Sodium 137, Potassium 4.3, Chloride 103, Carbon Dioxide 32 H, Anion Gap 6.3, BUN 14, Creatinine 0.70, Estimated Creat Clear 76, Estimated GFR 87, Est GFR ( Amer) 105, Glucose 89, Calcium 8.5, C-Reactive Protein 2.9, Procalcitonin 0.048 10/20/24 14:10: Urine Color Straw, Urine Appearance Clear, Urine pH 7.0, Ur Specific [place] <= 1.005, Urine Protein Negative, Urine Glucose (UA) Negative, Urine Ketones Negative, Urine Blood Negative, Urine Nitrate Negative, Urine Bilirubin Negative, Urine Urobilinogen 0.2, Ur Leukocyte Esterase Negative, Urine RBC None, Urine WBC None, Ur Squamous Epith Cells None, Urine Bacteria Trace I & O for Last 24 hours: Intake & Output 02/25/25 02/26/25 02/27/25 02/28/25 23:59 23:59 23:59 23:59 Intake Total 1000 / 1000 1120 / 1120 Output Total 0 / 0 Balance 1000 / 1000 1120 / 1120 Weight 53.07 kg 53.07 kg Constitutional Constitutional: no acute distress Comments: Patient uncomfortable and writhing in pain at her right inguinal area *Routine HEENT Exam Head: Present normocephalic Eye: Present EOMI and PERRL ENT: Present mucous membranes moist *Routine Neck Exam Neck: Present supple; Absent lymphadenopathy *Routine Respiratory Exam Respiratory: Present CTA bilaterally *Routine Cardiovascular Exam Cardiovascular: Present RRR *Routine Abdominal Exam Abdominal: Present soft, normoactive bowel sounds and tenderness *Routine Extremities Exam Extremities: Absent cyanosis, clubbing or edema *Routine Skin Exam Skin: Present warm; Absent rash *Routine Neurological Exam Neurological: Present alert and oriented X3 Assessment and Plan *Assessment and plan (1) Intractable abdominal pain: Status: Acute Category: Medical Code(s): R10.9 - Unspecified abdominal pain Plan Anika Guzmán is a 54-year-old female who presented with intractable right lower quadrant abdominal pain and was admitted for the same. Incidentally, she had spinal surgery about 2 weeks ago for herniated disks. #Right lower quadrant abdominal pain ? Workup so far, including CTA abdomen/pelvis, lactic acid, procalcitonin, ESR, CRP, WBC, pelvic ultrasound, venous Doppler ruling out DVT, hip x-ray did not show gross abnormalities with right hip arthroplasty. ? So far, have ruled out obvious infection, septic joint, DVT, or other intra-abdominal findings per CT scan. ? General Surgery consulted, and patient agreed for diagnostic laparoscopy. ? Tylenol, morphine, Dilaudid as needed for pain. Full code DVT prophylaxis: Lovenox 40 mg
[2024-10-21] VITALS: BP 112/67; PULSE 69; RESP 16; TEMP 37.4; O2SAT 94
[2024-10-21 04:00] VITALS: BP 105/69; PULSE 70; RESP 16; TEMP 36.7; O2SAT 96; BMI 19.1
--- NOTE | 2024-10-21 05:03 | PC.NURSE ---
Pt A&OX4 and has tolerated room air. Lung sounds clear and bowel sounds active. 3 lap incisions noted to abdomen. umbilical incision dressing changed once due to drainage. Pt report pain is better this shift, only requiring pain meds once. Tolerating diet well with no complaints of n/v. She has ambulated room independently. No complaints at this time, call light within reach.
[2024-10-21 07:40] LABS: Basophils % 0.2 % (0.1-2.0); Eosinophils % 0.2 % (0.1-12.0); Hematocrit 37.4 % (37.0-47.0); Hemoglobin 12.9 g/dL (12.2-16.2); Lymphocytes # 1.3 K/mm3 (0.7-4.5); Mean Corpuscular HGB Conc 34.5 g/dL (31.8-35.4); Mean Corpuscular Hemoglobin 32.2 pg (27.0-31.2); Mean Corpuscular Volume 93.3 fl (81-99); Mean Platelet Volume 9.9 fl (7.4-10.4); Monocytes # 0.5 K/mm3 (0.1-1.0); Monocytes % 5.4 % (1.7-9.3); Neutrophils # 7.1 K/mm3 (1.8-7.8); Neutrophils % 79.6 % (37.0-80.0); Platelet Count 174 K/mm3 (142-424); Red Blood Count 4.01 M/mm3 (4.20-5.40); Red Cell Distribution Width 12.1 % (11.5-17.5)
[2024-10-21 07:52] LABS: Anion Gap 7.4 mEq/L (5-15); Blood Urea Nitrogen 7 mg/dl (7-17); Calcium 9.2 mg/dl (8.4-10.2); Carbon Dioxide 26 mmol/L (22.0-30.0); Chloride 106 mmol/L (98-107); Creatinine Clearance Estimated 105 mL/min (50-200); Estimated Glomerular Filt Rate 128 ml/min (>60); GFR (African American) 155 ML/MIN (>60); Glucose 113 mg/dl (74-100); Potassium 4.4 mmoL/L (3.5-5.1); Sodium 135 mmol/L (136-145)
[2024-10-21 08:00] VITALS: BP 128/82; PULSE 71; RESP 16; TEMP 36.7; O2SAT 93
[2024-10-21] MEDS: HYDROCODONE/APAP 5/325 MG TABLET 1 TAB PO (08:15)
[2024-10-21] MEDS: GABAPENTIN 100MG CAPSULE 100 MG PO (08:15)
--- NOTE | 2024-10-21 09:27 | EXP.SURG.PN ---
Subjective Narrative: Patient feels very well at this time. Pain has resolved. Only some minor soreness at the umbilical site. Did have some minor bleeding at the umbilical site requiring dressing change but dry at this time. Has been tolerating full liquid diet without difficulty and wants regular food. Exam Data for Last 24 hours Vital signs and Labs for Last 24 Hours: Temp Pulse Resp BP Pulse Ox O2 Del Method O2 Flow Rate 98.0 F 71 16 128/82 93 L Room Air 2 10/21/24 08:00 10/21/24 08:00 10/21/24 08:00 10/21/24 08:00 10/21/24 08:00 10/21/24 08:00 10/20/24 16:05 Laboratory Results - last 24 hr 10/20/24 06:35: ESR 13, C-Reactive Protein 2.9 10/20/24 14:10: Urine Color Straw, Urine Appearance Clear, Urine pH 7.0, Ur Specific [place] <= 1.005, Urine Protein Negative, Urine Glucose (UA) Negative, Urine Ketones Negative, Urine Blood Negative, Urine Nitrate Negative, Urine Bilirubin Negative, Urine Urobilinogen 0.2, Ur Leukocyte Esterase Negative, Urine RBC None, Urine WBC None, Ur Squamous Epith Cells None, Urine Bacteria Trace 10/21/24 06:47: WBC 9.0 D, RBC 4.01 L, Hgb 12.9, Hct 37.4, MCV 93.3, MCH 32.2 H, MCHC 34.5, RDW 12.1, Plt Count 174, MPV 9.9, Neut % (Auto) 79.6, Lymph % (Auto) 14.0, [place] % (Auto) 5.4, Eos % (Auto) 0.2, Baso % (Auto) 0.2, Neut # (Auto) 7.1, Lymph # (Auto) 1.3, [place] # (Auto) 0.5, Eos # (Auto) 0.0, Baso # (Auto) 0.0, Sodium 135 L, Potassium 4.4, Chloride 106, Carbon Dioxide 26, Anion Gap 7.4, BUN 7 D, Creatinine 0.50 L D, Estimated Creat Clear 105, Estimated GFR 128, Est GFR ( Amer) 155 D, Glucose 113 H, Calcium 9.2 I & O for Last 24 hours: Intake & Output 10/18/24 10/19/24 10/20/24 10/21/24 11:59 11:59 11:59 11:59 Intake Total 1000 / 1000 1570 / 1570 Output Total 0 / 0 Balance 1000 / 1000 1570 / 1570 Weight 116 lb 15.989 oz 115 lb *Routine Abdominal Exam Abdominal: Present soft; Absent tenderness Progress Note: A&P Assessment and plan (1) Intractable abdominal pain: Status: Acute Assessment and plan: Advance diet. Okay for discharge.
--- NOTE | 2024-10-21 11:29 | P.PNANES_ITS ---
[facility] Anesthesia Record Part II Anesthesia Record Part II Discharge Time: 15:50 Destination: Medical Surgical Department PACU nurse assessment reviewed?: Yes Patient Condition:: Good Anesthesia Complications:: None Swallowing reflex intact?: Yes Airway Patency: Patent Cyanosis?: No Blood Pressure: 125/79 SaO2: 96 Respiratory Rate: 16 Pulse Rate: 80 Temperature: 97 F Mental Status: Alert & Oriented Pain level:: 0 Nausea and/or vomitting:: None Intake, IV Amount: 0 Hydration: Adequate
[2024-10-21 11:30] VITALS: BP 125/79; PULSE 80; RESP 16; TEMP 36.1; O2SAT 96
[2024-10-21 11:50] VITALS: BP 120/74; PULSE 69; RESP 16; TEMP 36.8; O2SAT 91
--- NOTE | 2024-10-21 13:11 | EXP.DC.SUM ---
General Admission date:: 10/19/24 HPI HPI HPI: Patient is a 54-year-old female past medical history significant for asthma, endometriosis, fibromyalgia, and eczema. She had undergone back surgery several weeks ago in [place]. She states that for least a couple of weeks she has had abdominal pain mostly in the right lower quadrant and right groin area. This began about 2 weeks after her spinal surgery. She had been seen in the emergency department at this facility on 10/10/2024 at which time her symptoms had began about 3 days prior. At that time she was tender in the right inguinal area. No hernia was detected but she was evaluated by general surgery information support project manager who was also unable to detect any hernia but exam was limited due to her discomfort. CT scan at that time revealed no evidence of any acute intra-abdominal pathology. She had been evaluated at [facility] by her neurosurgeon subsequently. She was seen in her primary care provider's office yesterday on 10/19/2024 at which time she continued to complain of severe right lower quadrant and inguinal pain with poor appetite and some associated nausea. Due to the severity of her pain she was sent to the emergency department after notification. She was evaluated in the emergency department at which time patient was found to have significant discomfort. Discussion was held with surgery on-call. Given her pain out of proportion of physical findings she did undergo CT angiogram which revealed no evidence of any acute vascular pathology although there was reflux of contrast into the hepatic vasculature. She was admitted for inpatient management and general surgery consultation for possible hernia. Patient had performed a bowel cleanse as an outpatient prior to presentation. Symptoms are constant and lifestyle interfering. Pain is worsened with extension at the hip. She has no pain in her medial thigh. She actually has some relief of pain when standing. Hospital Course Hospital Course Hospital Course: Anika Guzmán is a 54-year-old female who presented with intractable right lower quadrant abdominal pain and was admitted for the same. Incidentally, she had spinal surgery about 2 weeks ago for herniated discs. #Intractable RLQ abdominal pain #Appendicitis #Endometriosis ? Following workup normal: Including CTA abdomen/pelvis, lactic acid, procalcitonin, ESR, CRP, WBC, pelvic ultrasound, venous Doppler ruling out DVT, hip x-ray did not show gross abnormalities with right hip arthroplasty. ? So far, have ruled out obvious infection, septic joint, DVT, or other intra-abdominal findings per CT scan. ? General Surgery consulted, s/p diagnostic laparoscopy 10/20/2024 with appendicitis s/p appendectomy, and endometriosis with removal of nodule after consulting KOSHER DIETARY SERVICE MANAGER in the OR. ? Patient feels significantly better today, patient virtually resolved other than incision sites. Tolerating p.o. intake without nausea/vomiting, ambulating independently. ? Will follow-up with general surgery and [employer] SERVICE MANAGER within 2 weeks. Exam Data for Last 24 hours Vital signs and Labs for Last 24 Hours: Temp Pulse Resp BP Pulse Ox O2 Del Method O2 Flow Rate 98.3 F 69 16 120/74 91 L Room Air 2 10/21/24 11:50 10/21/24 11:50 10/21/24 11:50 10/21/24 11:50 10/21/24 11:50 10/21/24 11:50 10/20/24 16:05 Laboratory Results - last 24 hr 10/20/24 14:10: Urine Color Straw, Urine Appearance Clear, Urine pH 7.0, Ur Specific [place] <= 1.005, Urine Protein Negative, Urine Glucose (UA) Negative, Urine Ketones Negative, Urine Blood Negative, Urine Nitrate Negative, Urine Bilirubin Negative, Urine Urobilinogen 0.2, Ur Leukocyte Esterase Negative, Urine RBC None, Urine WBC None, Ur Squamous Epith Cells None, Urine Bacteria Trace 10/21/24 06:47: WBC 9.0 D, RBC 4.01 L, Hgb 12.9, Hct 37.4, MCV 93.3, MCH 32.2 H, MCHC 34.5, RDW 12.1, Plt Count 174, MPV 9.9, Neut % (Auto) 79.6, Lymph % (Auto) 14.0, [place] % (Auto) 5.4, Eos % (Auto) 0.2, Baso % (Auto) 0.2, Neut # (Auto) 7.1, Lymph # (Auto) 1.3, [place] # (Auto) 0.5, Eos # (Auto) 0.0, Baso # (Auto) 0.0, Sodium 135 L, Potassium 4.4, Chloride 106, Carbon Dioxide 26, Anion Gap 7.4, BUN 7 D, Creatinine 0.50 L D, Estimated Creat Clear 105, Estimated GFR 128, Est GFR ( Amer) 155 D, Glucose 113 H, Calcium 9.2 I & O for Last 24 hours: Intake & Output 10/18/24 10/19/24 10/20/24 10/21/24 23:59 23:59 23:59 23:59 Intake Total 1000 / 1000 1120 / 1370 450 / 450 Output Total 0 / 0 0 / 0 Balance 1000 / 1000 1120 / 1370 450 / 450 Weight 53.07 kg 53.07 kg 52.163 kg Constitutional Constitutional: no acute distress *Routine HEENT Exam Head: Present normocephalic Eye: Present EOMI and PERRL ENT: Present mucous membranes moist *Routine Neck Exam Neck: Present supple; Absent lymphadenopathy *Routine Respiratory Exam Respiratory: Present CTA bilaterally *Routine Cardiovascular Exam Cardiovascular: Present RRR *Routine Abdominal Exam Abdominal: Present soft; Absent tenderness *Routine Extremities Exam Extremities: Absent cyanosis, clubbing or edema *Routine Skin Exam Skin: Present warm; Absent rash *Routine Neurological Exam Neurological: Present alert and oriented X3 Results Data Completed and Pending Labs on day of discharge: Labs from last 24 hours 10/21/24 10/20/24 06:47 14:10 WBC 9.0 D RBC 4.01 L Hgb 12.9 Hct 37.4 MCV 93.3 MCH 32.2 H MCHC 34.5 RDW 12.1 Plt Count 174 MPV 9.9 Neut % (Auto) 79.6 Lymph % (Auto) 14.0 [place] % (Auto) 5.4 Eos % (Auto) 0.2 Baso % (Auto) 0.2 Neut # (Auto) 7.1 Lymph # (Auto) 1.3 [place] # (Auto) 0.5 Eos # (Auto) 0.0 Baso # (Auto) 0.0 Sodium 135 L Potassium 4.4 Chloride 106 Carbon Dioxide 26 Anion Gap 7.4 BUN 7 D Creatinine 0.50 L D Estimated Creat Clear 105 Estimated GFR 128 Est GFR ( Amer) 155 D Glucose 113 H Calcium 9.2 Urine Color Straw Urine Appearance Clear Urine pH 7.0 Ur Specific [place] <= 1.005 Urine Protein Negative Urine Glucose (UA) Negative Urine Ketones Negative Urine Blood Negative Urine Nitrate Negative Urine Bilirubin Negative Urine Urobilinogen 0.2 Ur Leukocyte Esterase Negative Urine RBC None Urine WBC None Ur Squamous Epith Cells None Urine Bacteria Trace DS: Diagnosis Discharge Diagnosis (1) Intractable abdominal pain: Status: Acute Code(s): R10.9 - Unspecified abdominal pain Meds Home Medications and Allergies Home Medications ?Medication ?Instructions ?Recorded ?Confirmed ?Type dicyclomine 20 mg tablet 20 mg PO QIDP PRN abdominal 10/19/24 10/19/24 History cramping ondansetron 4 mg disintegrating 4 mg PO TIDP PRN Nausea And 10/19/24 10/19/24 History tablet Vomiting gabapentin 100 mg capsule 100 mg PO TID 10/20/24 10/19/24 History hydrocodone 5 mg-acetaminophen 325 1 tab PO Q6H PRN Mild To Moderate 10/21/24 Rx mg tablet Pain (1-6) 3 days #12 tabs New Prescriptions to Start Prescriptions: hydrocodone-acetaminophen Alhaji Escalera Allergies Allergy/AdvReac Type Severity Reaction Status Date / Time meperidine (From DEMEROL) Allergy Intermediate I-HIVES Verified 10/19/24 15:20 sumatriptan Allergy Unknown Hives, SOB Verified 10/19/24 15:20 Discharge Plan Disposition Patient Disposition: Home, Self-Care Condition: Fair Follow up Plan Follow up with: Oracio Uribe MD [Staff Physician] - 2 weeks (please call for appointment) Prescriptions/Medication Reconciliation: New hydrocodone-acetaminophen 5-325 mg Tablet 1 tab PO Q6H PRN (Reason: Mild To Moderate Pain (1-6)) 3 Days Qty: 12 0RF Continued dicyclomine 20 mg tablet 20 mg PO QIDP PRN (Reason: abdominal cramping) ondansetron 4 mg tablet,disintegrating 4 mg PO TIDP PRN (Reason: Nausea And Vomiting) gabapentin 100 MG capsule 100 mg PO TID Problem Reconciliation Problems Reviewed?: Yes Patient Discharge Instructions ACTIVITY: No heavy lifting DIET: advance to your usual diet Patient Instructions: DI for Abdominal Pain-Adult, DI for Acute Abdominal Pain Print Language: Swazi Providers Primary Care Provider: Carlos Kelley Admit Provider: Alhaji Escalera Attending Provider: Alhaij Escalera
--- NOTE | 2024-10-23 11:23 | SW/DCPLANNER ---
Spoke with patient on the phone. Patient stated that she is doing well. Patient stated that she is fixing to call and make her follow up appointment with Dr. Uribe. Patient stated that she was able to shredder picker her new medicine at [facility]. Patient stated that she has no concerns or questions at this time. Janes Torres
== END 2024-10-21 13:30 | disposition home or self-care (01) ==
LOC: ER 16:25 → 2ND 18:53
PROVIDERS: Nurse Practitioner Family; Surgery; Admitting Provider Student in an Organized Health Care Education/Training Program; Emergency Provider Emergency Medicine; PCP Nurse Practitioner Family; Visit Provider Student in an Organized Health Care Education/Training Program
PROC: (CPT 49320; principal; 2024-10-20 14:30)
DX: K35.80 Unspecified acute appendicitis (principal); J45.909 Unspecified asthma, uncomplicated; F17.210 Nicotine dependence, cigarettes, uncomplicated; N80.3C1 Endometriosis of the right uterosacral ligament, unspecified depth; M79.7 Fibromyalgia; Z90.49 Acquired absence of other specified parts of digestive tract; Z80.9 Family history of malignant neoplasm, unspecified; Z96.641 Presence of right artificial hip joint; Z98.890 Other specified postprocedural states; Z88.8 Allergy status to other drugs, medicaments and biological substances; Z88.5 Allergy status to narcotic agent; Z79.899 Other long term (current) drug therapy
CPT/HCPCS: 44970; 49321; 36415; 73502; 74174; 76856; 80048; 80053; 81001; 82803; 83605; 83690; 83735; 84145; 84484; 85025; 85651; 85730; 86140; 93306; 93971; 96374; 99285; G0378; J1100; J1171; J1885; J2250; J2405; J3010; J7120; Q9967

== ENCOUNTER 2024-12-12 15:18 | Outpatient (CLI) | payer BC, SELFPAY ==
--- NOTE | 2024-12-12 | XR_ITS ---
FINAL REPORT CLINICAL HISTORY: CHRONIC PAIN COMPARISON: None FINDINGS: CERVICAL SPINE 6 views were obtained. There is anterior and interbody fusion bridging C4-5, C5-6, and C6-7. Vertebrae are normal in height. There is no malalignment. Facet joints are properly aligned. There is no significant change with flexion or extension. IMPRESSION: No acute findings. Reviewed, Interpreted and Dictated by Shar Castillo MD Transcribed by Navya William Authenticated and [facility]
--- OUTSIDE RECORDS SUMMARY | 2024-12-12 15:22 | XMS_ITS | Data Portability ---
Author Organization [facility] [place] Address [address] [place] [address] Care Team Providers Care Milk Treater Name Role Phone KANDISWAYNE BURNS Tuck Pointer Assessment Encounter Date Assessment Date Assessment LastModified by Organization Details LastModified Time 07/06/2024 07/06/2024 This patient had a right transforaminal epidural steroid injection L3-L4 and L4-L5. We will follow-up with this patient in 2 weeks in [place] we will assess efficacy of his injection. If she does not get significant relief we will follow-up on referral to Dr. John for neurosurgical evaluation. She also did get reprogrammed by the [employer] termite control representative. We will assess efficacy of this reprogramming. [facility]ux Not available 07/06/2024 17:29:25 Plan of Treatment Reminders Order Date Submit Date Provider Last Modified By Organization Details Last Modified Time Details Appointments None record ed. Lab None record ed. Referral None record ed. Procedures None record ed. Surgeries None record ed. Imaging None record ed. Medication Orders None record ed. Patient TargetsNo targets recorded. Patient InstructionsNo instructions recorded. Reason for Referral None Reported. Problems Name Problem SNOMED Code Status Onset Date Resolution Date Notes Provider Name and Address Organization Details Recorded Time Degeneration of lumbar intervertebral disc 87625398 Active 2023 Kieran Mendoza MD [address], [address], [place] [facility] 4 17:29:43 Lumbar radiculopathy 679988821 Active 2023 Kieran Mendoza MD [address] [facility],[address], [address], [place] [facility] 17:29:44 Hip pain 28790869 Active 2023 Kieran Mendoza MD [address] [address], [place], [address], [place] [facility] 17:29:45 Problem Notes None recorded. Procedures Surgical History Date Name Laterality Status Provider Name and Address Organization Details Recorded Time 07/06/20 24 Lumbar Transforaminal Epidural Steroid Injection: 2 Level Unilateral completed Kieran Mendoza MD [address] [address], [place], [address], [place] [facility] 07/06/2024 17:25:34 Hysterectomy completed Cara Pfeiffer [place] - [facility] 07/06/2024 12:02:06 Cholecystectomy completed Cara Pfeiffer [place] - [facility] 07/06/2024 12:02:23 Shoulder Surgery completed Cara Pfeiffer [place] - [facility] 07/06/2024 12:02:30 Neck Surgery completed Cara Pfeiffer [place] - [facility] 07/06/2024 12:02:36 Knee Surgery completed Cara Pfeiffer [place] - [facility] 07/06/2024 12:02:43 total replacement of hip completed Cara Pfeiffer [place] - [facility] 07/06/2024 12:02:51 Imaging Results None recorded. Procedure Notes None recorded. Medical Equipment None Reported. Allergies Allergen ID Allergen Name Allergen Category Reaction Reaction Severity Criticality Documentation Date Start Date Code Code System Note Provider Name and Address Organization Details Recorded Time 6011 meperidin e medicatio n Not available Not available Not available 07/06/2024 6754 RxNorm Cara Pfeiffer null, [place] - [facility] 11:47:57 6012 sumatript an medicatio n Not available Not available Not available 07/06/2024 65476 RxNorm Cara Pfeiffer null, [place] - [facility] 11:48:30 Medications Name Sig Start Date Stop Date Status Note LastModified by Organization Details LastModified Time amantadine HCl 100 mg tablet active Not Available Not Availabl e Not Available methocarbamol 500 mg tablet active Not Available Not Availabl e Not Available promethazine-DM 6.25 mg-15 mg/5 mL oral syrup active Not Available Not Availabl e Not Available cetirizine 10 mg tablet active Not Available Not Available Not Available azithromycin 250 mg tablet active Not Available Not Available No t Available ibuprofen 800 mg tablet active Not Available Not Available Not Available meloxicam 15 mg tablet active Not Available Not Available Not Available prednisone 20 mg tablet active Not Available Not Available Not Available aspirin 81 mg tablet,delayed release active Not Available Not Available Not Available tramadol 50 mg tablet active Not Available Not Available Not Available amitriptyline 25 mg tablet active Not Available Not Available No t Available benzonatate 100 mg capsule active Not Available Not Available N ot Available cephalexin 500 mg capsule active Not Available Not Available N ot Available omeprazole 20 mg capsule,delayed release active Not Available Not Available Not Available diclofenac sodium 75 mg tablet,delayed release active Not Available Not Available Not Available gabapentin 100 mg capsule active Not Available Not Available N ot Available albuterol sulfate HFA 90 mcg/actuation aerosol inhaler active Not Available Not Availa ble Not Available brompheniramine- pseudoephedrine- DM 2 mg-30 mg-10 mg/5 mL oral syrup active Not Available Not Available Not Available ondansetron 4 mg disintegrating tablet active Not Available Not Available Not Available diazepam 5 mg tablet active Not Available Not Available Not Available oxycodone 5 mg tablet active Not Available Not Available Not Available Symbicort 160 mcg-4.5 mcg/actuation HFA aerosol inhaler active Not Available Not Available Not Available azelastine 137 mcg-fluticasone 50 mcg/spray nasal spray active Not Available Not Available Not Available guaifenesin ER 600 mg tablet, extended release 12 hr active Not Available Not Available Not Available baclofen 5 mg tablet active Not Available Not Available Not Available Vitals None Recorded Social History None recorded. Functional Status None recorded. Mental Status None recorded. Family History Nothing Reported. Medical History Condition Response Coronary Artery Disease N Gout N Hernia N Head Trauma/Injury N Thyroid Problems N Depression N COPD N Anemia N Heart Attack (MT) N Ulcers N Diabetes N Anxiety Disorder N Bleeding Disorder N Arthritis N Tuberculosis N AIDS/HIV N Acid Reflux (GERD) N Cancer N Stroke N Asthma Y Substance Abuse N Back Injury N High Cholesterol N Hepatitis N Liver Disease N Heart Disease N Headaches N Fibromyalgia Y Hypertension N Osteoporosis N Kidney Disease N Gynecological HistoryNo gynecological history recorded. Obstetrics History GPAL:G 0 P 0 0 0 0 Past Encounters Encounter ID Performer Location Encounter Start Date Encounter Closed Date Diagnosis/Indication Diagnosis SNOMED-CT Code Diagnosis ICD10 Code Diagnosis Note [id number] Kieran Mendoza MD [address] [place] [address] 07/06/2024 11:40:18 07/06/2024 12:42:28 Hip pain 94849681 M25.551 Degenerati on of lumbar intervertebral disc 18629225 M51.369 Lumbar radiculopathy 128 943677 M54.16 Health Concerns Section Related Observation LastModified by Organization Detai ls LastModified Time None Recorded Concern Status LastModified by Organization Details LastModified Time None Recorded Advance Directives Directive None Recorded Payers Encounter Date Sequence Insurance Name Policy Number Policy Cho Covered Member ID Cho Member ID Guarantor Name 07/06/2024 1 [place]ST[place] [id number] Justice Guzmán [id number] Anika Guzmán Notes Date Note Type Note Provider Name and Address Organization Details Recorded Time 07/06/2024 text/html Hip(s)Reported bypatient.Locat ion:right Quality:aching; stabbing; sharp Severity:worsen ing; pain level 9/10 Timing:constant Duration:contin uous since onset Aggravating Factors:sitting ; walking Associated Symptoms:numbne ss;tingling Previous Surgery:surgica l procedure: (hip replacement); date: (january 2024) Prior Imaging:x ray Previous Injections:did not help Kieran Mendoza MD [address] [facility] [address], [place], [address], [place] [facility] 07/06/2024 17:30:10 OBGyn Episode No OBEpisode recorded.
--- OUTSIDE RECORDS SUMMARY | 2024-12-12 15:22 | XMS_ITS | Data Portability ---
Author Organization [facility] Address [address] [place] [address] Care Team Providers Care Antenna Design Engineer Name Role Phone RIKKI MENDOZA Pain Management Assessment Encounter Date Assessment Date Assessment LastModified by Organization Details LastModified Time 08/03/2024 08/03/2024 ASSESSMENT: Ms. Guzmán is a 54-year-old female who returns to the office after last being seen 08/17/2023 following a revision of her Add2paper spinal cord stimulator completed by Dr. Sloan on 08/30/2023. Her spinal cord stimulator is for her left lower extremity pain and has been very helpful. She returns today unfortunately reporting significant right lower extremity pain that radiates down to her foot that has been present even before her revision of her spinal cord stimulator but has now gotten worse. She is accompanied by her . She reports that she has been dealing with the right lower extremity pain for quite some time, but they thought it was related to her hip and she has even had her right hip replaced by Dr. Riddle in January 2024. They have found no issues with the hip replacement. Unfortunately, the right leg pain has now gotten worse. She was reporting right lower extremity pain before the revision of her spinal cord stimulator at the beginning of this year, but this has now worsened. She reports right sided low back pain that radiates into her posterior hip/buttock and then radiates down the lateral right lower extremity all the way down to her foot. She reports at times it is in her foot. This is very painful when she is trying to take the stairs or she goes from sitting to standing and she in fact stands throughout most of this interview. She reports Dr. Mendoza was concerned that she has a herniated disc causing this right lower extremity pain that did not improve with epidural injections that he completed recently. They have been unable to get the spinal cord stimulator to cover her right lower extremity at all, but it does great for her left lower extremity. She reports having a nerve study that did not show nerve damage that was completed in [place]. I do not currently have access to that report. She would prefer to avoid surgery but knows something has to be done to address this significant pain that she has in her right leg. She denies any bowel or bladder control issues. IMAGING: No new imaging available for review Nurse practitioner visit PLAN: Thoracic AP and lateral x-rays Lumbar AP, lateral, flexion, extension x-rays Lumbar MRI without contrast Follow-up with Dr. Sloan Ms. Guzmán is going to move forward with updated imaging of her lumbar spine. She reports this pain is significantly worse than it was prior to her spinal cord stimulator revision in August of this year, so we will get an updated lumbar MRI without contrast to evaluate for any neural impingement that could be causing her pain and weakness into her right leg. We will also get x-rays of her thoracic spine to evaluate her spinal cord stimulator placement and lumbar flexion-extension x-rays to evaluate for any instability. She will follow-up with Dr. Sloan to review these results to determine if she would be a candidate for further injections or further surgical interventions. They both verbalized understanding of these instructions and are agreeable to this plan. They have no further questions or concerns at this time. They are satisfied with this plan of care. [email or web address] Not available 08/03/2024 09:56:49 08/29/2024 08/29/2024 IMAGING: MRI lumbar through [facility] on 08/09/2024 and thoracic x-rays completed through [facility]. X-rays were brought on a disk. I personally reviewed the images with Dr. Sloan and read the radiologist's report. X-rays look good with leads in correct positioning MRI shows right L4-5 disc protrusions, unchanged from prior imaging in 2022 X-ray disc retained and given to [facility] to be uploaded into our PACS system. ASSESSMENT: Ariana Guzmán is a 54-year-old status post C4-C7 ACDF (2008, performed in [place]), Irene spinal cord stimulator placement (Dr. Mendoza, October 2020), and revision of Irene spinal cord stimulator percutaneous electrodes and placement of paddle electrodes via thoracic laminectomy (Dr. Sloan, 08/30/2023) who presents to the clinic for lumbar follow-up. Based on imaging and symptoms, Dr. Sloan offers a right L4-[address] Sloan explains numerous times to the patient there is no guarantee this surgery would help alleviate her pain. She does not have clear neural impingement on imaging. He is hopeful surgery will alleviate her pain but patient expresses understanding that there is a possibility it will not. She wants to proceed with surgical intervention. We will introduce her to our surgery coordinator, Mine, to get her placed on the schedule. We will request for her EMG results to be shared with our office. Patient agreeable to plan and all questions were answered. PLAN: Right L4-5 microlumbar foraminotomy Obtain EMG results from Dr. Mendoza Addendum on August 29, 2024 at 2:19 PM. I saw Ms. Guzmán with LUCIO Friedman.She describes a right L5 radiculopathy. I reviewed her MRI scan which was performed recently and compared it to 1 performed in 2022. She has a broad-based right paracentral disc protrusion that causes moderate lateral recess stenosis. I do not appreciate anything that looks like severe nerve impingement but there could be some compression of the L5 nerve. I cannot tell for certain. I asked her how long she been have the right lower extremity pain. She stated that she was having it even a couple years ago but is progressively worsened.She states that the pain is unbearable. I told her that there is the option to perform a right L4-5 microlumbar foraminotomies with discectomy if indicated. I told her that usually people would have a much more impressive MRI scanReports such severe pain. I told her that also a normal EMG study goes against significant nerve impingement but unfortunately it does not exclude The possibility.I think there is a chance that surgery could help but in her case especially there is a real possibility she could have surgery and Would not be any better. We went over the risk of surgery in detail which include failure to improve, worsening, spinal fluid leakage, infection, need for additional surgery. I told her that if we proceed with surgery and she does not feel any better There would be no further interventions that I have to offer. [email or web address] Not available 08/29/2024 14:23:50 10/03/2024 10/03/2024 Pt is S/P Right L4-L5 Microlumbar Foraminotomy 09/18 . Here for staple removal. Incision is well healed. No signs of infection. Crystal were removed. Pt is doing well. Tolerated procedure well. [email or web address] Not available 10/03/2024 10:48:40 11/02/2024 11/02/2024 Doing well after undergoing right L4-5 microlumbar foraminotomies. Severe right lower extremity pain is resolved. She has tenderness at the incision.Her incision looks fine.She reports severe right sided neck pain. She is status post what I suspect are significant posterior and anterior cervical surgeries. She needs undergo flexion-extension cervical x-rays and an MRI scan cervical spine without contrast. Would need to just rule out anything very serious like adjacent level instability or severe spinal cord compression. She will do these at [facility]. We will have her call the office after the imaging studies are done. If I see anything serious on them I will have her come back. 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 [email or web address] Not available 11/02/2024 15:54:42 Plan of Treatment Reminders Order Date Submit Date Provider Last Modified By Organization Details Last Modified Time Details Appointments MRI 025 11:00AM MRI Not available Not available Not available Lab None record ed. Referral None record ed. Procedures None record ed. Surgeries None record ed. Imaging None record ed. Medication Orders None record ed. Patient TargetsNo targets recorded. Patient InstructionsNo instructions recorded. Reason for Referral None Reported. Results Created Date Observation Date Name Description Value Unit Range Abnormal Flag Note LastModifiedBy Organization Detail LastModifiedTime 08/04/20 23 08/04/2023 [facility] c[facility] [address] [facility] [address] [place], [place] [address] Harshad santana Name: JAVIER HERRONFrank santana : 1969 Patianeta t 67 Orderi ng Provid er: PEACE Santana EXAM DATE: 2022 EXAM: MR THORAC IC W/O CONTRA ST HISTOR Y: Back pain COMPAR CLARK: None. The patien t did not requir e sedati on for this exam. FINDIN GS: The alignm ent is normal . There is no focal sublux ation. There is no eviden ce of fractu re. There is mild to modera te anteri or margin al osteop hytic spurri ng. No pathol ogic lesion is identi fied in the thorac ic spine. The visual ized spinal cord appear s normal . There are minima l to mild disc bulges in the thorac ic spine. There is no centra l canal stenos is or neural forami nal stenos is. There is no parasp inous soft tissue abnorm ality. The parasp inous muscul ature is symmet luan. IMPRES VICKY: 1. Mild diffus e degene rative disc diseas e change s of the T-spin e Interp reted By: Alhaji Rivera MD Electr onical ly Signed By: Alhaji Rivera MD on 2022 11:16 AM [email or web address] [facility] [address], [address], 08/04/2023 13:20:51 08/04/20 23 08/04/2023 MRI, lumba r spine , w/o contr ast [address] [place] [address] Patianeta t Name: JAVIER Patricia t : 1969 Patien t 67 Orderi ng Provid er: PEACE Santana EXAM DATE: 2022 EXAM: MR LUMBAR W/O CONTRA ST HISTOR Y: COMPAR CLARK: None. The patien t did not requir e sedati on for this exam. FINDIN GS: The lumbar spine is normal in alignm ent. There is no sublux ation. There is no eviden ce of fractu re. There is mild anteri or margin al osteop hytic spurri ng. No pathol ogic lesion is identi fied in the lumbar spine. The conus medull beata is normal in appear ance at the L1-L2 level. T12-L1 : Negati ve L1-L2: There is a minima l disc bulge. . There is [no centra l canal stenos is. There is no neural forami nal stenos is. L2-L3: Mild broad protru vicky of the disc. This is produc ing mild stenos is of the right neural forame n. No spinal canal stenos is L3-L4: Diffus e annula r disc bulge. Mild bilate ral neural forami nal stenos is. No spinal stenos is L4-L5: Broad protru vicky parace ntral to the right. This extend s to the base of the neural forami na produc es mild right neural forami nal stenos is. No spinal canal stenos is L5-S1: There is a mild disc bulge and mild endpla te spurri ng. There is no centra l canal stenos is. There is minima l neural forami nal stenos is. IMPRES VICKY: 1. Fairly mild diffus e degene rative disc diseas e is presen t. Protru sions noted at L2-3 and L3-4 Interp reted By: Alhaji Rivera MD Electr onical ly Signed By: Alhaji Rivera MD on 2022 11:18 AM [email or web address] [facility] [address] [place], [address], 08/04/2023 13:20:50 08/12/20 23 08/12/2023 XR, thora cic spine , 2 view No observ ation record ed. [email or web address] Not Available 08/23 13:34:18 08/02/20 24 11/30/2023 XR, lumbo sacra l spine , 2 or 3 view No observ ation record ed. BAR[facility] Not Available 2023 11:59:30 08/02/20 24 01/31/2024 XR, hip, unila teral , 2 or 3 view No observ ation record ed. BARCODE Not Available 2023 11:59:30 08/02/20 24 11/30/2023 XR, hip + pelvi s, unila teral , 2 or 3 view No observ ation record ed. BARCODE Not Available 2023 11:59:30 08/03/20 24 08/03/2024 XR, thora cic spine , 2 view No observ ation record ed. [facility] [address], [place], [address], 08/04/2024 10:14:03 08/10/20 24 08/09/2024 MRI, lumba r spine , w/o contr ast [facility] [address] [facility] [place] [address] Patianeta t Name: JAVIER Murrieta Patianeta t : 1969 Patien t 67 Orderi ng Provid er: PEACE JOSELINNIKKI T EXAM DATE: 2023 EXAM: MR LUMBAR W/O CONTRA ST HISTOR Y: 54-yea r-old female with chroni c back pain. COMPAR CLARK: MRI dated 2022 FINDIN GS: The lumbar spine is normal in alignm ent. There is no sublux ation. There is no fractu re. There is mild to modera te anteri or margin al osteop hytic spurri ng. No pathol ogic lesion is identi fied in the lumbar spine. There are type II Modic change s at L5-S1. The conus medull beata is normal in appear ance at the L1-L2 level. T11-T1 2 and T12-L1 : These interv ertebr al discs are essent ially normal in appear ance. L1-L2: There is a minima l disc bulge. There is no centra l canal stenos is. There is no neural forami nal stenos is. L2-L3: There is a broad- based disc protru vicky extend ing into the neural forami na, minima l endpla te spurri ng and minima l facet arthro franck. There is no centra l canal stenos is. There is modera te right and mild left neural forami nal stenos is. L3-L4: There is a broad- based disc protru vicky, mild endpla te spurri ng and mild facet arthro franck. There is no centra l canal stenos is. There is modera te left and mild right neural forami nal stenos is. L4-L5: There is a focal disc extrus ion in the right latera l recess and right neural forame n, a mild disc bulge and mild facet arthro franck. There is no centra l canal stenos is. There is mild to modera te narrow ing of the right latera l recess and right neural forami nal stenos is. L5-S1: There is mild facet arthro franck and a minima l disc bulge. There is no centra l canal stenos is. There is no neural forami nal stenos is. The parasp inous muscul ature is symmet luan and normal in signal . IMPRES VICKY: 1. There are disc protru sions and mild degene rative change s with mild to modera te bilate ral neural forami nal narrow ing from L2-L3 throug h L4-L5. Interp reted By: Ingris sanabria MD Electr onical ly Signed By: Ingris sanabria MD on 2023 7:29 AM [email or web address] [facility] [address], [address], 08/29/2024 14:50:02 11/21/19 25 10/02/2019 XR, sacro iliac joint (s), 3 or more view No observ ation record ed. [address], [place], [address], 11/28/2024 08:36:08 11/21/19 25 05/14/2021 XR, chest , 2 view No observ ation record ed. [place] [address], [place], [address], 11/28/2024 08:36:37 Result Notes None recorded. Procedures Surgical History Date Name Laterality Status Provider Name and Address Organization Details Recorded Time 05/26/20 17 Interpretation completed KORTNEY GRULLON PA-C [address] [place] [address], [phone], [facility] 05/26/2017 10:14:58 Other completed DANETTE SCHMIDT MD [address] [place], [place] [address], [address], [facility] 03/04/2017 09:24:54 Orthopedic Surgery completed DANETTE SCHMIDT MD [address] [place], [address], [facility] 03/04/2017 09:25:48 Hysterectomy/que e vagina completed DANETTE SCHMIDT MD [address] [place], [address], [facility] 03/04/2017 09:25:36 Remove tonsils and adenoids completed DANETTE SCHMIDT MD [address] [place], [address], [facility] 03/04/2017 09:25:41 Imaging Results Imaging Date Name Status LastModified by Organiz ation Details LastModified Time 08/04/2023 MRI, thoracic spine, w/o contrast completed [facility] [address], [address], 08/04/2023 13:20:51 08/04/2023 MRI, lumbar spine, w/o contrast completed [email or web address] [facility] [address], [address], 08/04/2023 13:20:50 08/12/2023 XR, thoracic spine, 2 view completed [email or web address] Information not available 09/01/2023 13:34:18 11/30/2023 XR, lumbosacral spine, 2 or 3 view completed [facility] Information not available 08/02/2024 11:59:30 01/31/2024 XR, hip, unilateral, 2 or 3 view completed [facility] Information not available 08/02/2024 11:59:30 11/30/2023 XR, hip + pelvis, unilateral, 2 or 3 view completed [facility] Information not available 08/02/2024 11:59:30 08/03/2024 XR, thoracic spine, 2 view completed [place] [address], [place], [address], 08/04/2024 10:14:03 08/09/2024 MRI, lumbar spine, w/o contrast completed [email or web address] [facility] [address] [place], [address], 08/29/2024 14:50:02 10/02/2019 XR, sacroiliac joint(s), 3 or more view completed [address], [place], [address], 11/28/2024 08:36:08 05/14/2021 XR, chest, 2 view completed [address] [facility] [address], [place], [address], 11/28/2024 08:36:37 Procedure Notes None recorded. Medical Equipment None Reported. Allergies Allergen ID Allergen Name Allergen Category Reaction Reaction Severity Criticality Documentation Date Start Date Code Code System Note Provider Name and Address Organization Details Recorded Time 452264 Demerol medicatio n Not available Not available Not available 03/04/2017 68076 1 RxNorm DANETTE SCHMIDT MD [address] [place], [address] , [facility] 7 09:21:54 Medications Name Sig Start Date Stop Date Status Note LastModified by Organization Details LastModified Time Compound Topical Cream Neurocream Reformulated (Ketamine 10% Gabapentin 6% Lidocaine 5% Amitriptyline 2% Bupivacaine 2%) active Not Available Not Available Not Available methocarbamol 500 mg tablet active Not Available Not Availabl e Not Available promethazine-D M 6.25 mg-15 mg/5 mL oral syrup active Not Available Not Available Not Available cetirizine 10 mg tablet active Not Available Not Available No t Available azithromycin 250 mg tablet active Not Available Not Availabl e Not Available hydrocodone 5 mg-acetaminoph en 325 mg tablet active Not Available Not Available Not Available meloxicam 15 mg tablet active Not Available Not Available No t Available prednisone 20 mg tablet active Not Available Not Available No t Available Advair Diskus 100 mcg-50 mcg/dose powder for inhalation active Not Available Not Available N ot Available sulfamethoxazo le 800 mg-trimethopri m 160 mg tablet active Not Available Not Available Not Available aspirin 81 mg tablet,delayed release active Not Available Not Available Not Available tramadol 50 mg tablet active Not Available Not Available Not Available amoxicillin 875 mg tablet active Not Available Not Availabl e Not Available methocarbamol 750 mg tablet active Not Available Not Availabl e Not Available dicyclomine 20 mg tablet active Not Available Not Available No t Available benzonatate 100 mg capsule active Not Available Not Availab le Not Available cephalexin 500 mg capsule active Not Available Not Available N ot Available omeprazole 20 mg capsule,delaye d release active Not Available Not Available No t Available magnesium citrate oral solution active Not Available Not Available Not Available gabapentin 100 mg capsule active Not Available Not Available N ot Available methylpredniso lone 4 mg tablets in a dose pack active Not Available Not Available No t Available albuterol sulfate HFA 90 mcg/actuation aerosol inhaler active Not Available Not Available Not Available Percocet 5 mg-325 mg tablet Take 1 tablet every 6 hours by oral route as needed. 2024 active Not Available Not Available Not Avai lable brompheniramin e-pseudoephedr ine-DM 2 mg-30 mg-10 mg/5 mL oral syrup active Not Available Not Available N ot Available ondansetron 4 mg disintegrating tablet active Not Available Not Available Not Available diazepam 5 mg tablet Take 1 tablet 1 hour before MRI. If anxiety persists take second tablet. active Not Available Not Available No t Available amoxicillin 875 mg-potassium clavulanate 125 mg tablet active Not Available Not Availabl e Not Available oxycodone 5 mg tablet active Not Available Not Available Not Available estradiol active Not Available Not Ashley ilable Not Available cyclobenzaprin e active Not Available Not Available Not Available azelastine 137 mcg-fluticason e 50 mcg/spray nasal spray active Not Available Not Available Not Available guaifenesin ER 600 mg tablet, extended release 12 hr active Not Available Not Availabl e Not Available baclofen 5 mg tablet active Not Available Not Available Not Available Breyna 160 mcg-4.5 mcg/actuation HFA aerosol inhaler active Not Available Not Available Not Available Vitals Date Recorded Body height Body mass index (BMI) Body weight Systolic blood pressure Diastolic blood pressure Provider Name and Address Organization Details Last Updated DateTime 08/03/2024 165.1 cm 19.6 kg/m2 34302.9 g 122 mm[Hg] 82 mm[Hg] Shanna Millard [facility] 4 09:28:22 Date Recorded Body height Body mass index (BMI) Body weight Systolic blood pressure Diastolic blood pressure Provider Name and Address Organization Details Last Updated DateTime 08/29/2024 165.1 cm 19.6 kg/m2 33229.9 g 124 mm[Hg] 74 mm[Hg] [facility] 5 11:07:14 Date Recorded Body height Body mass index (BMI) Body weight Systolic blood pressure Diastolic blood pressure Provider Name and Address Organization Details Last Updated DateTime 11/02/2024 165.1 cm 19.6 kg/m2 86993.9 g 128 mm[Hg] 4 mm[Hg] [facility] 5 15:32:17 Social History Question Answer Notes LastModified by Organizat ion Details LastModified Time Tobacco Smoking Status Current Every Day Smoker DANETTE SCHMIDT MD [address] [place] [address], [phone] 03/04/2017 09:24:33 What Was The Date Of Your Most Recent Tobacco Screening? 05/26/2017 Information n ot available 10/10/2019 Sex: Female Functional Status None recorded. Mental Status None recorded. Family History Relationship Description Onset Age of this Age Resolved Age Notes LastModified by Organization Details LastModified Time Unspecified Relation Family history of malignant neoplasm [email or web address] Not available 2016 09:24:07 Mother Family history of malignant neoplasm 74 74 [email or web address] Not available 10:55:25 Notes:Unknown father's side Medical History Condition Response TENS Unit for current problem N Massage Therapy for current problem N Traction for current problem N Gout N Other N Anxiety/Depression N Thyroid Disease N Kidney Stones N Hyperthyroidism N Emphysema N Narcotic Pain Medication for current pro blem N Hernia N COPD N Glaucoma N Hypothyroidism N Pneumonia N Injections for current problem Y Anesthesia Complications N Deep Vein Thrombosis N Arthritis N Blood Clot N Cancer N Stroke N Blood Thinners N Alcohol Overuse/Alcohol Abuse N High Cholesterol N Liver Disease N Dialysis N Fibromyalgia Y Kidney Disease N Allergies/Hayfever N Neuro-modulating Drugs for current probl em N Heart Conditions N Black Lung N Migraines N Steroid Pack for current problem N NSAID Use N Skin Problems N Osteoporosis/Osteopenia N Immune System Disorder N Heart Attack ([place]) N Mental Illness N Neurological Problems N Diabetes N Rheumatic Fever N Bleeding Disorder N Seizures/Epilepsy N Tuberculosis N Genetic Disorder N AIDS/HIV N Chiropractor treatment for current probl em N Kidney Failure N Asthma N Ultrasound Treatment for current problem N Epilepsy/Seizures N Sleep Apnea N Thyroid Disorder N Included as Review of Systems N Pulmonary Embolism N Hypertension N Osteoporosis N Gynecological HistoryNo gynecological history recorded. Obstetrics History GPAL:G 0 P 0 0 0 0 Past Encounters Encounter ID Performer Location Encounter Start Date Encounter Closed Date Diagnosis/Indication Diagnosis SNOMED-CT Code Diagnosis ICD10 Code Diagnosis Note [id number] DANETTE SCHMIDT MD [facility] [address] [place] [place] [address] 03/04/2017 08:52:31 03/04/2017 09:57:41 Adhesive capsulitis of right shoulder [id number] M75.01 Anika manifests with some clinical signs of adhesive capsulitis with regard to female gender, post trauma, greater than 20?? capsular stiffness. However, in addition she shows some very clear clinical evidence of a regional pain syndrome; skin changes, hypersensi tivity, reactive pain behavior. I do not believe that she will require any additional surgeries. I do believe that she would benefit from a pain management evaluation . Literature suggests that early and aggressive interventi on can decrease the severity and duration of these regional pain syndromes. In addition, we'll need to continue to work on her joint mobility and functional strength and endurance as her pain can tolerate. [id number] DANETTE SCHMIDT MD [facility] [address] [place] [address] 04/15/2017 08:59:57 04/15/2017 10:08:43 Adhesive capsulitis of right shoulder [id number] 99190 M75.01 SCope in Jul 2016 and GREG in October 2016 Plateau. Diagnostic injection - assess pain source and possible down reagualt inflammato ry Cervical spondylosis 387 007010 M47.812 With new MRI rec neurosurge ry and injection [id number] DANETTE SCHMIDT MD ORTHOPEDI [facility] [address] [place] [address] 05/04/2017 09:08:46 05/04/2017 10:36:35 Shoulder pain [id number] M25.511 Unclear etiology, low probabilit y success with Dx scope/DAWN, COnsider; Spine referral (foraminal injection) , Second opinion Pain management Cont HEP [id number] KORTNEY GRULLON PA-C [facility] [address] [place] [address] 05/26/2017 08:42:33 05/26/2017 14:14:10 Shoulder pain 68607543 M25.511 46yo WF with history of C4-7 in 2005 and 2008 by in [place] and right shoulder injury in 2015 and subsequent surgery and manipulati on now with pain and decreased mobility in her right shoulder. MRI images reviewed with Dr. Hussein and do not indicate any obvious reason for her continued symptoms of her right shoulder. Her right shoulder hypersensi tivity could be related to CRPS, I will Rx a topical gabapentin compound for her to try. Hopefully this will provide some relief to the hypersensi tivity. As a last resort, she could be referred to pain managment for evaluation of a cervical SCS to help relieve the hypersensi tivty and burning sensation, this would likely not improve her AROM/funct ion of the RUE. I met with the case aide and discussed our findings and plan moving forward. I do believe that she will be unable to tolerate pushing/pu lling/lift ing, so I am requesting that she remain off work for the next 6 weeks. She may need to undergo a FCE in the future. She can follow up with us as needed. 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 [id number] RUBY MANE PA-C [facility] [address] [place] [address] 08/17/2023 09:46:46 08/18/2023 04:24:06 Lumbar radiculopathy [id number] M54.16 Migration of spinal cord stimulator [id number] T85.122A [id number] Shanna Ortegaholz SURGERY SCHEDULE [address] [place] [address] 09/24/2023 12:54:13 10/04/2023 08:30:33 [id number] PEACE RÍOS APRN [facility] [address] [place] [address] 08/03/2024 09:19:26 08/04/2024 06:20:59 Lumbar radiculopathy [id number] M54.16 [id number] MED DICKSON PA-C [facility] [address] [place] [address] 08/29/2024 10:53:50 08/30/2024 04:23:37 Lumbar spondylosis 547076571 M47.896 Chronic pain syndrome 37 6838827 G89.4 [id number] [facility] [address] [place] [address] 10/03/2024 10:39:19 10/03/2024 10:49:16 [id number] ROSE SLOAN MD [facility] [address] [place] [address] 11/02/2024 14:48:56 11/03/2024 04:32:05 Chronic pain syndrome [id number] G89.4 Health Concerns Section Related Observation LastModified by Organization Detai ls LastModified Time None Recorded Concern Status LastModified by Organization Details LastModified Time None Recorded Advance Directives Directive None Recorded Payers Encounter Date Sequence Insurance Name Policy Number Policy Cho Covered Member ID Cho Member ID Guarantor Name 08/30/2023 1 [place] [id number] 2 Justice Guzmán [id number] Anika Guzmán 08/03/2024 1 [place] [id number] 2 Justice Guzmán [id number] Anika Guzmán 08/29/2024 1 [place] [id number] 2 Justice Guzmán [id number] Anika Guzmán 10/03/2024 1 [place] [id number] 2 Justice Guzmán [id number] Anika Qiana Guzmán 11/02/2024 1 [place] [id number] 2 Justice Guzmán [id number] Anika Kiran Ramirez Notes Date Note Type Note Provider Name and Address Organization Details Recorded Time 08/03/2024 text/html Ms. Guzmán is a 54-year-old female who returns to the office after last being seen 08/17/2023 following a revision of her [employer] spinal cord stimulator completed by Dr. Sloan on 08/30/2023. Her spinal cord stimulator is for her left lower extremity pain and has been very helpful. She returns today unfortunately reporting significant right lower extremity pain that radiates down to her foot that has been present even before her revision of her spinal cord stimulator but has now gotten worse. PEACE RÍOS, COMMUNICATIONS EQUIPMENT INSTALLER [address] [place], [address], [facility] 08/03/2024 09:57:51 08/29/2024 text/html Ariana Guzmán is a 54-year-old status post C4-C7 ACDF (2008, performed in [place]), Irene spinal cord stimulator placement (Dr. Mendoza, October 2020), and revision of Irene spinal cord stimulator percutaneous electrodes and placement of paddle electrodes via thoracic laminectomy (Dr. Sloan, 08/30/2023) who presents to the clinic for lumbar follow-up, with MRI lumbar through [facility] on 08/09/2024 and thoracic x-rays completed through [facility]. To recap, her stimulator was recently placed for lower back pain and left lower extremity pain. She was seen by nurse practitioner Peace last month and reported pain in her right lower extremity. She states this pain has been present over the last 2 years but has significantly worsened over the last few months. She reports right-sided lower back pain with radiation into her right lateral hip and right lower extremity, terminating in the dorsal aspect of her foot. Sitting, laying down, and transitioning from a seated to standing position significantly worsens her pain. She states her stimulator has been reprogrammed numerous times without significant relief. She has received steroid injections with Dr. Mendoza also without relief. She states he ordered an EMG of her lower extremity, which did not show radiculopathy. Patient takes 100 mg gabapentin 3 times a day. Patient states her pain was so significant a few nights ago that she lost consciousness. Patient states she understands why people commit suicide due to pain. PA and physician visit. MED DICKSON PA-C [facility] [place], [address], [facility] 08/30/2024 11:42:33 11/02/2024 text/html Status post righ t L4-5 microlumbar foraminotomy which I performed on September 18, 2024. Her right leg pain is resolved..She has left-sided pain that is treated with a spinal cord stimulator. She has tenderness at her incision. She has severe right sided neck pain. She states that in 2005 she underwent a posterior cervical fusion for something degenerative. In 2008 she had a fracture and went through an anterior surgery. These were performed in [place]. ROSE SLOAN MD [facility] [place], [address], [facility] 11/02/2024 15:55:18 OBGyn Episode No OBEpisode recorded.
== END 2024-12-12 23:59 | disposition home or self-care (01) ==
LOC: RAD 15:20
PROVIDERS: PCP Nurse Practitioner Family; Visit Provider Neurological Surgery
DX: G89.4 Chronic pain syndrome (principal)
CPT/HCPCS: 72052

== ENCOUNTER 2025-03-14 10:34 | Outpatient (POV) | payer BC, SELFPAY ==
--- OUTSIDE RECORDS SUMMARY | 2025-03-14 10:37 | XMS_ITS | Referral Summary ---
Author Organization [employer] ([place], [place], [place], [place] Address [address] [place] [address] Care Team Providers Care Green Marketing Analyst Name Role Phone Carlos Kelley APRN Primary Care Provider [phone] Allergies Active Allergy Reactions Criticality Noted Date Comments Meperidine Anaphylaxis High 08/27/2023 Sumatriptan Anaphylaxis High 08/27/2023 Difficulty breathing Medications gabapentin (NEURONTIN) 100 MG capsule Take 1 capsule (100 mg total) by mouth 3 (three) times daily. 08/18/2023 Active Symbicort 160-4.5 mcg/actuation inhaler Inhale 2 puffs by mouth via inhaler daily as needed. 07/06/2024 Active acetaminophen (TYLENOL) 500 MG tablet Take 2 tablets (1,000 mg total) by mouth as needed. 01/31/2024 Active predniSONE (DELTASONE) 20 MG tablet Take 1 tablet (20 mg total) by mouth 3 (three) times daily Look-alike /Sound-alike medication . Active Social History Tobacco Use Types Packs/Day Years Used Date Smoking Tobacco: Every Day Cigarettes 1 21.6 Started: 2003 Smokeless Tobacco: Never Tobacco Cessation:Ready to Q uit: Not Asked; Counseling Given: Not Answered Alcohol Use Standard Drinks/Week Comments Not Currently 0 (1 standard drink = 0.6 oz pur e alcohol) none in 8-10 years [facility] - Mental Health Answer Date Recorde d Little interest or pleasure in doing things Not at all 09/06/2024 Feeling down, depressed, or hopeless Not at all 09/06/2024 Feeling of Stress Not on file 09/06/2024 Family and Community Support Answer Braden e Recorded Help with Day to Day Activities Not on file 08/31/2023 Feeling Lonely or Isolated Not on file 08/31 Educational Attainment Answer Date Fredy rded Speak language other than Citizen [place] at home Not on file 08/31/2023 Want help with school or training Not on file 08/31/2023 Substance Use Answer Date Recorded Used prescription meds for non-medical reasons N ot on file 08/31/2023 Used illegal drugs past 12 months Not on file 08/31/2023 Comments No Sex and Gender Information Value Date Recorded Sex Assigned at Not on file Legal Sex Female 11:59 AM CREDIT CONSULTANT Gender Identity Not on file Sexual Orientation Not on file Last Filed Vital Signs Vital Sign Reading Time Taken Comments Blood Pressure 114/64 09/18/2024 10:45 AM EST Pulse 100 10/16/2024 2:39 PM EST Temperature 36.8 C (98.2 F) 10/16/2024 2:39 PM EST Respiratory Rate 18 10/16/2024 2:39 PM EST Oxygen Saturation 98% 10/16/2024 2:39 PM EST Inhaled Oxygen Concentration - - Weight 53.1 kg (117 lb) 10/16/2024 2:39 PM EST Height 165.1 cm (5' 5 ) 10/16/2024 2:39 PM EST Body Mass Index 19.47 10/16/2024 2:39 PM EST Plan of Treatment Not on file Medical Devices Implanted Type Area Electricians Top Helper Device Identifier Shelf Expiration Date Model / Serial / Lot Kt Pulse Gen 32 Wavewriter Alp [id number] - [id number] Implanted:Qty: 1 on 08/30/2023 by Braden Reeves Jr., MD at [facility] IMPLANTS N/A: Spine [employer]: NEUROMODULATION 07/19/2025 [id number] / / [id number] Lead Kt Coveredge [id number] - [id number] Implanted:Qty: 1 on 08/30/2023 by Braden Reeves Jr., MD at [facility] IMPLANTS N/A: Spine [employer]:NEUROVASC 05/31/2025 [id number] / [id number] / [employer] [place] [id number] - [id number] Implanted:Qty: 1 on 08/30/2023 by Braden Reeves Jr., MD at [facility] IMPLANTS N/A: Spine [employer]: NEUROMODULATION 06/13/2025 [id number] / / [id number] Insurance BLUE CROSS/[employer]UE [employer] Care Teams Green Marketing Analyst Relationship Specialty Start Date End Date Carlos Kelley APRN [address] [place] [address] PCP - General Nurse Practitioner 10/16/24
--- OUTSIDE RECORDS SUMMARY | 2025-03-14 10:37 | XMS_ITS | Clinical Summary ---
Author Organization [facility] Address [address] [place] [address] Care Team Providers Care Creative Strategist Name Role Phone AllieCarlos Jarad MOORE Primary Care Provider [phone] Allergies Active Allergy Reactions Criticality Noted Date Comments Meperidine Anaphylaxis High 08/07/2019 Sumatriptan Anaphylaxis High 08/07/2019 Difficulty breathing Medications gabapentin (Neurontin) 100 MG capsule Take 1 capsule (100 mg) by mouth 3 times a day. 3 Active oxyCODONE (Roxicodone) 5 MG immediate release tablet Take 1 tablet (5 mg) by mouth every 6 (six) hours if needed for severe pain. 30 tablet 4 Active Additional Information Patient not taking.Reported on 03/16/2024 acetaminophen (Tylenol Extra Strength) 500 MG tablet Take 2 tablets (1,000 mg) by mouth every 8 (eight) hours. 100 tablet 4 Active Additional Information Patient not taking.Reported on 03/16/2024 traMADol (Ultram) 50 MG tablet Take 1 tablet (50 mg) by mouth every 4 (four) hours if needed for moderate pain. Take 1 or 2 tablets every 4-6 hours as needed for pain 60 tablet 4 Active Additional Information Patient not taking.Reported on 03/16/2024 Active Problems Problem Noted Date Diagnosed Date Arthritis of right hip 01/31/2024 Osteoarthritis of right hip 11/30/2023 Family History Medical History Relation Name Comments Other cancer Other Anesthesia problems Neg Hx Malig Hyperthermia Neg Hx Relation Name Status Comments Other Social History Tobacco Use Types Packs/Day Years Used Date Smoking Tobacco: Every Day Cigarettes 0.5 26.6 Started: 1998 Smokeless Tobacco: Never Tobacco Cessation:Ready to Q uit: Not Asked; Counseling Given: Not Answered Alcohol Use Standard Drinks/Week Comments No 0 (1 standard drink = 0.6 oz pur e alcohol) Comments No Sex and Gender Information Value Date Recorded Sex Assigned at Not on file Legal Sex Female 7:35 PM EDT Gender Identity Not on file Sexual Orientation Not on file Last Filed Vital Signs Vital Sign Reading Time Taken Comments Blood Pressure 124/90 03/16/2024 2:36 PM EDT Pulse 104 03/16/2024 2:36 PM EDT Temperature 36.9 C (98.4 F) 01/31/2024 3:15 PM EDT Respiratory Rate 18 01/31/2024 11:3 5 AM EDT Oxygen Saturation 96% 03/16/2024 2:36 PM EDT Inhaled Oxygen Concentration - - Weight 50.2 kg (110 lb 10.7 oz) 03/16/2024 2:36 PM EDT Height 165.1 cm (5' 5 ) 03/16/2024 2:36 PM EDT Body Mass Index 18.42 03/16/2024 2:36 PM EDT Plan of Treatment Health Maintenance Due Date Last Done Comments [facility]-Depression Screening 1969 [facility]-HIV Screening 1969 [facility]-Hepatitis C Screening 1969 [facility]-/Child/Adol SDOH Screenings 1969 [facility]- SDOH Screenings 1987 [facility]-Adult SDOH Screenings 1987 [facility]-DTaP,Tdap,and Td Vaccine s (1 - Tdap) 1988 [facility]-Hepatitis B Vaccines (1 of 3 - 19+ 3-dose series) 1988 [facility]-Pneumococcal Vaccine: 50 + Years (1 of 2 - PCV) 1988 CT Colonography 2014 Colonoscopy 2014 FIT-DNA 2014 FIT 2014 FOBT 2014 Sigmoidoscopy 2014 [facility]-Colorectal Cancer Screening 2014 [facility]-Breast Cancer Screening 2019 [facility]-Zoster Vaccines (1 of 2) 2019 REG-NCCME-70 Vaccine (2 - 20 24-25 season) 2024 01/09/2021 [facility]-Influenza Vaccine (#1) 2025 HPV Vaccines Aged Out No longer eligi ble based on patient's age to complete this topic [facility]-HIB Vaccines Aged Out No longer e ligible based on patient's age to complete this topic [facility]-Hepatitis A Vaccines Aged Out No longer eligible based on patient's age to complete this topic [facility]-IPV Vaccines Aged Out No longer e ligible based on patient's age to complete this topic [facility]-Rotavirus Vaccines Aged Out No lo nger eligible based on patient's age to complete this topic Goals Goal Patient Goal Type Associated Problems Recent Progress Patient-Stated? Author Autogenerat ed Goal Care Plan Autogenerated Problem No Evelia Cervantes Medical Devices Implanted Type Area Almond Blancher Device Identifier Shelf Expiration Date Model / Serial / Lot Chg Shell R3 3 Hole Acet 50mm - [id number] Implanted:Qty : 1 on 01/31/2024 by Jermaine Riddle MD at [facility] Hip Right: Hip [id number] 09/15/2033 [id number] / / [id number] Chg Head Oxinium Fem 08/05 28m - [id number] Implanted:Qty : 1 on 01/31/2024 by Jermaine Riddle MD at [facility] Hip Right: Hip [id number] 10/24/2033 [id number] / / [id number] Liner Or3o Dual Mbility 38 50 - [id number] Implanted:Qty : 1 on 01/31/2024 by Jermaine Riddle MD at [facility] Liner Right: Hip [employer]-[id number] 09/25/2033 [id number] / / [id number] Liner Or3o Dual Mbility Xlpe 28/38 - [id number] Implanted:Qty : 1 on 01/31/2024 by Jermaine Riddle MD at [facility] Liner Right: Hip [employer]-[id number] 10/18/2033 [id number] / / [id number] Chg Screw Ref Spher Head 25mm - [id number] Implanted:Qty : 1 on 01/31/2024 by Jermaine Riddle MD at [facility] Screw Right: Hip [employer]-[id number] 09/10/2033 [id number] / / [id number] Chg Screw Ref Spher Head 35mm - [id number] Implanted:Qty : 1 on 01/31/2024 by Jermaine Riddle MD at [facility] Screw Right: Hip [employer]-[id number] 10/04/2033 [id number] / / [id number] Spinal Cord Stimulator Spinal Cord Stimulator Left: Spine Lumbar Polarstem Cementless Tiha 2 - [id number] Implanted:Qty : 1 on 01/31/2024 by Jermaine Riddle MD at [facility] Stem Right: Hip [employer]-[id number] 03/26/2030 [id number] / / [id number] Additional Health Concerns Active Problems Noted Date Diagnosed Date Autogenerated Problem 12/20/2024 Insurance Anastacia BERRIOS [place] [id number] MARI Advance Directives * Full Code (Latest Code Status on File) Date Activated Date Inactivated Comments 01/31/2024 8:38 AM 01/31/2024 5:28 PM Question Answer Comments Patient has decision-making capacity? Yes Care Teams Creative Strategist Relationship Specialty Start Date End Date Carlos Kelley APRN [address] [place] [address] [place] [address] [facility] - General 01/03/21
--- OUTSIDE RECORDS SUMMARY | 2025-03-14 10:37 | XMS_ITS | Data Portability ---
Author Organization [place] [facility] Address [address] [place] [address] Care Team Providers Care Web Applications Architect Name Role Phone KANDISWAYNE BURNS Bit Tripoler [phone] Assessment Encounter Date Assessment Date Assessment LastModified by Organization Details LastModified Time 07/06/2024 07/06/2024 This patient had a right transforaminal epidural steroid injection L3-L4 and L4-L5. We will follow-up with this patient in 2 weeks in [place] we will assess efficacy of his injection. If she does not get significant relief we will follow-up on referral to Dr. John for neurosurgical evaluation. She also did get reprogrammed by the [employer] wire rope sales representative. We will assess efficacy of this [...] Recorded Time Degeneration of lumbar intervertebral disc 26423020 Active 2023 Kieran Mendoza MD [address], [address], [place] [facility] 4 17:29:43 Lumbar radiculopathy 833528528 Active 2023 Kieran Mendoza MD [address], [address], [place] [facility] 17:29:44 Pain of hip region 37326629 Active 2023 Kieran Mendoza MD [address] [facility],[address], [address], [place] [facility] 4 17:29:45 Problem Notes None recorded. Procedures Surgical History Date Name Laterality Status Provider Name and Address Organization Details Recorded Time 07/06/20 24 Lumbar Transforaminal Epidural Steroid Injection: 2 Level Unilateral completed Kieran Mendoza MD [address] [facility],[place] [address], [place], [address], [place] [facility] 07/06/2024 [...] Not available Not available Not available 07/06/2024 26[address] RxNorm Cara Pfeiffer null, [place] [facility] [...] N COPD N Anemia N Heart Attack (CT) N Ulcers N Diabetes N Anxiety Disorder [...] SNOMED-CT Code Diagnosis ICD10 Code Diagnosis Note [id number] Kieran Mendoza MD [address] [place] [address] 07/06/2024 11:40:18 07/06/2024 12:42:28 Pain of hip region 50272375 M25.551 Degenerati on of lumbar intervertebral disc 76395199 M51.369 Lumbar radiculopathy 128 512017 M54.16 Health Concerns Section Related Observation LastModified by Organization Detai ls LastModified Time None Recorded Concern Status LastModified by Organization Details LastModified Time None Recorded Advance Directives Directive None Recorded Payers Insurance Date Sequence Insurance Name Policy Number Policy Cho Covered Member ID Cho Member ID Guarantor Name 07/26/2020 1 *SELF PAY* Irwin Guzmán 08/09/2024 1 [place] [id number] Justice Guzmán [id number] Anika Guzmán 07/06/2024 [place] [employer] [id number] Anika Guzmán 07/06/2024 2 [place] [employer] INSURANCE - PERSONAL PLAN Justice Guzmán [id number] Anika Guzmán Notes Date Note Type Note Provider Name and Address Organization Details Recorded Time 07/06/2024 text/html Hip(s)Reported bypatient.Locat ion:right Quality:aching; stabbing; sharp Severity:worsen ing; pain level 9/10 Timing:constant Duration:contin uous since onset Aggravating Factors:sitting ; walking Associated Symptoms:numbne ss;tingling Previous Surgery:surgica l procedure: (hip replacement); date: (january 2024) Prior Imaging:x ray Previous Injections:did not help Kieran Mendoza MD [address] [facility] [address], [place], [address], [place] [facility] 07/06/2024 17:30:10 OBGyn Episode No OBEpisode recorded.
--- OUTSIDE RECORDS SUMMARY | 2025-03-14 10:38 | XMS_ITS | Encounter Summary ---
Author Organization [facility] Address [address] [place] [address] Care Team Providers Care Manager Corporate Marketing Name Role Phone Carlos Kelley APRN Primary Care Provider [phone] Reason for Referral * Consultation (Routine) - Closed Specialty Diagnoses / Procedures Referred By Leni santana Referred To Contact Orthopaedic Surgery Diagnoses Osteoarthritis of right hip, unspecified osteoarthritis type Marcus Lovell DO [address] [place] [address] [place] [address] Phone: tel: fax: Jermaine Riddle MD [address] [facility] [address] [place] [address] Phone: tel: fax: Referral ID Status Reason Start Date Expiration Date Visits Re quested Visits Authorized [id number] Closed 11/10/2023 05/11/2025 1 1 Encounter Details Date Type Department Care Team (Latest Contact Info) Description 11/10/2023 Community [facility] [address] [place] [address] Marcus Lovell DO [address] [place] [address] [place] [id number] Osteoarthritis of right hip, unspecified osteoarthritis type (Primary Dx) Social History Tobacco Use Types Packs/Day Years Used Date Smoking Tobacco: Every Day Alcohol Use Standard Drinks/Week Comments No 0 (1 standard drink = 0.6 oz pur e alcohol) Comments Unknown Sex and Gender Information Value Date Recorded Sex Assigned at Not on file Legal Sex Female 7:35 PM EDT Gender Identity Not on file Sexual Orientation Not on file documented as of this encounter Plan of Treatment Scheduled Referrals Name Type Priority Associated Diagnoses Orde r Schedule Ambulatory referral to Orthopaedics Joint Reconstruction Outpatient Referral Routine Osteoarthritis of right hip, unspecified osteoarthritis type Expected: 11/10/2023 (Approximate), Expires: 11/09/2024 documented as of this encounter Visit Diagnoses Diagnosis Osteoarthritis of right hip, unspecified osteoarthritis type- Primary documented in this encounter Care Teams Manager Corporate Marketing Relationship Specialty Start Date End Date Carlos Kelley, TERESA [address] [place] [address] PCP - General 01/03/21 documented as of this encounter
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
[2025-03-14 11:38] VITALS: BP 148/94; BP 161/117; PULSE 101; RESP 14; O2SAT 97
== END 2025-03-14 23:59 | disposition home or self-care (01) ==
PROVIDERS: PCP Nurse Practitioner Family; Visit Provider Nurse Practitioner Family
DX: M50.123 Cervical disc disorder at C6-C7 level with radiculopathy (principal); M48.02 Spinal stenosis, cervical region
CPT/HCPCS: 99212; G0463

== ENCOUNTER 2025-05-01 07:58 | Day surgery (SDC) | payer BC, SELFPAY ==
[2025-05-01 08:28] VITALS: BP 146/96; PULSE 82; RESP 18; O2SAT 97
[2025-05-01] MEDS: DEXAMETHASONE 10MG/ML 1ML VIAL 10 MG (08:36)
[2025-05-01 08:37] VITALS: BP 141/100; PULSE 81; RESP 18; O2SAT 97
[2025-05-01 08:39] VITALS: BP 141/100; PULSE 81; RESP 18; O2SAT 97
[2025-05-01 08:46] VITALS: BP 151/86; PULSE 78; RESP 18; O2SAT 96
[2025-05-01] MEDS: IOPAMIDOL-200 (41%);10ML VIAL 2 ML IV (08:46)
--- NOTE | 2025-05-01 08:47 | P.PCN_ITS ---
Procedure Date: 05/01/25 Time: 08:20 Anesthesiologist:: Kolby Mcconnell CRNA Complications:: None Pre-procedure Diagnosis:: Degenerative disc cervical spine multilevels. Cervical radiculopathy. Cervical postlaminectomy syndrome. Cervical spondylosis. Post-procedure Diagnosis:: Same. Indications for Procedure:: Patient is a very pleasant 54-year-old female who comes our clinic today for cervical epidural steroid injection. Patient describes posterior cervical neck pain is constant, dull, aching. She reports difficulty with cervical flexion, extension, left and right rotation. She rates her cervical pain 7/10. Patient also reports bilateral shoulder and arm radicular symptoms at times. Procedure Details:: Procedure:Cervical epidural steroid injection Informed consent was obtained and the risks and benefits of the procedure were explained to the patient. The patient was taken to the procedure room and noninvasive monitors placed, including noninvasive blood pressure cuff and pulse oximeter. The neck was prepped using Chloraprep as a cleansing solution. The C7- T1 interspace was viewed using fluroscopy. The skin and subcutaneous tissues were anesthetized using lidocaine 1.5% and a 25-gauge needle. After this an 18-g auge Touhy epidural needle was placed into the C7-T1 interspace under fluroscopy guidance and advanced using loss of resistance to air until the epidural space was encountered. After confirmation of needle placement in the epidural space using contrast dye, dexamethasone 10 mg ( 1 ML) was incrementally injected into the cervical epidural space.~ The patient tolerated the procedure well with no complications. The patient was observed in the Pain Clinic and then discharged home neurologically intact. Plan and Disposition:: Patient was discharged without incident.
== END 2025-05-01 08:46 | disposition home or self-care (01) ==
PROVIDERS: PCP Nurse Practitioner Family; Visit Provider Nurse Anesthetist, Certified Registered
DX: M47.22 Other spondylosis with radiculopathy, cervical region (principal); M96.1 Postlaminectomy syndrome, not elsewhere classified; M51.369 Other intervertebral disc degeneration, lumbar region without mention of lumbar back pain or lower extremity pain; J45.909 Unspecified asthma, uncomplicated; M79.7 Fibromyalgia; F17.210 Nicotine dependence, cigarettes, uncomplicated; Z88.8 Allergy status to other drugs, medicaments and biological substances; Z88.5 Allergy status to narcotic agent; Z79.52 Long term (current) use of systemic steroids; Z79.51 Long term (current) use of inhaled steroids
CPT/HCPCS: 62321; J1100; Q9966

== ENCOUNTER 2025-07-25 10:39 | Outpatient (CLI) | payer BC, SELFPAY ==
--- OUTSIDE RECORDS SUMMARY | 2025-07-25 10:42 | XMS_ITS | Data Portability ---
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 We will follow-up with this patient in 2 weeks in Means we will assess efficacy of his injection. If she does not get significant relief we will follow-up on referral to Dr. John for neurosurgical evaluation. She also did get reprogrammed by the [employer] hospital sales representative. We will assess efficacy of [...] Recorded Time Degeneration of lumbar intervertebral disc 08157146 Active 2023 Kieran Mendoza MD [address], [address], [place] [facility] 4 17:29:43 Lumbar radiculopathy [id number] Active 2023 Kieran Mendoza MD [address], [address], [place] [facility] 17:29:44 Pain of hip region 31501323 Active 2023 Kieran Mendoza MD [address] [facility],[address], [address], [place] [facility] 4 17:29:45 Problem Notes None recorded. Procedures Surgical History Date Name Laterality Status Provider Name and Address Organization Details Recorded Time 07/06/20 24 Lumbar Transforaminal Epidural Steroid Injection: 2 Level Unilateral completed Kieran Mendoza MD [address] [facility],[place] [address], [place], [address], [place] [facility] 07/06/2024 [...] Not available Not available Not available 07/06/2024 [id number] [address] Cara Pfeiffer null, [place] [facility] [...] N COPD N Anemia N Heart Attack ([place]) N Ulcers N Diabetes N Anxiety Disorder [...] Diagnosis SNOMED-CT Code Diagnosis ICD10 Code Diagnosis IMO Codes Diagnosis Note [id number] Kieran Mendoza MD [address] [place] [address] 07/06/2024 11:40:18 07/06/2024 12:42:28 Pain of hip region 48687218 M25.551 Degenerati on of lumbar intervertebral disc 07944644 M51.369 Lumbar radiculopathy 128 263028 M54.16 Health Concerns Section Related Observation LastModified by Organization Detai ls LastModified Time None Recorded Concern Status LastModified by Organization Details LastModified Time None Recorded Advance Directives Directive None Recorded Payers Insurance Date Sequence Insurance Name Policy Number Policy Cho Covered Member ID Cho Member ID Guarantor Name 07/26/2020 1 *SELF PAY* Pa renetta Guzmán 05/23/2025 1 [place] [id number] Justice Guzmán [id number] Anika Guzmán 07/06/2024 [employer] [id number] Anika Guzmán 07/06/2024 2 [place] [employer] INSURANCE - PERSONAL PLAN Justice Guzmán [id number] Anika Guzmán Notes Date Note Type Note Provider Name and Address Organization Details Recorded Time 4 text/html Hip(s)Reported by PatientHPIFor associated symptoms, patient reportsnumbnessandtingling. For location, patient reportsright. For quality, patient reportsaching,stabbing, andsharp. For severity, patient reportsworseningandpain level 9/10. For timing, patient reportsconstant. For duration, patient reportscontinuous since onset. For aggravating factors, patient reportssittingandwalking. For previous surgery, patient reportssurgical procedure: (hip replacement)anddate: (january 2024). For prior imaging, patient reportsx ray. For previous injections, patient reportsdid not help. Kieran Mendoza MD [address] [facility] [address], [place], [address], [place] [facility] 07/06/2024 17:30:10 OBGyn Episode No OBEpisode recorded.
--- OUTSIDE RECORDS SUMMARY | 2025-07-25 10:42 | XMS_ITS | Data Portability ---
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 Guzmán is a 54-year-old female who returns to the office after last being seen 08/17/2023 following a revision of her [employer] spinal cord stimulator completed by Dr. Sloan [...] show nerve damage that was completed in [place]. I do not currently have access to [...] are satisfied with this plan of care. Not available 08/03/2024 09:56:49 08/29/2024 08/29/2024 IMAGING: MRI lumbar through [facility] on 08/09/2024 and thoracic x-rays completed through [facility]. X-rays were brought on a disk. I personally reviewed the images with Dr. Sloan and read the radiologist's report. X-rays look good with leads in correct positioning MRI shows right L4-5 disc protrusions, unchanged from prior imaging in 2022 X-ray disc retained and given to [facility] to be uploaded into our PACS system. ASSESSMENT: Ariana Guzmán is a 54-year-old status post C4-C7 ACDF (2008, performed in [place]), [employer] spinal cord stimulator placement (Dr. Mendoza, October 2020), and revision of Williams spinal cord stimulator percutaneous electrodes and placement [...] is well healed. No signs of infection. [place] were removed. Pt is doing well. Tolerated [...] cord compression. She will do these at [facility]. We will have her call the office after the imaging studies are done. If I see anything serious on them I will have her come back. 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 [email or web address] Not available 11/02/2024 15:54:42 04/05/2025 04/05/2025 Chronic neck pain. Limited range of motion. Negative MRI scan. I did not recommend surgery. I do not think surgeries can help. Agree with injection by Dr. Guerrero. I will get her into physical therapy to do cervical passive modality treatment. Hopefully she would be a candidate for ultrasound, e-stim, dry needling, massage. Follow-up as needed. [email or web address] Not available 04/05/2025 14:40:08 Plan of Treatment Reminders Order Date Submit [...] Abnormal Flag Note LastModifiedBy Organization Detail LastModifiedTime 08/02/20 24 11/30/2023 XR, lumbo sacra l [...] 2 view No observ ation record ed. [facility] [address], [place], [address], 08/04/2024 10:14:03 08/10/20 24 08/09/2024 MRI, lumba r spine , w/o contr ast [facility] [address] [place] [address] Patien t Name: JAVIER Murrieta Patianeta t : 1969 Patien t 67 Orderi ng Provid er: PEACE SANDRA T EXAM DATE: 2023 EXAM: MR LUMBAR [...] Ingris sanabria MD on 2023 7:29 AM [email or web address] [facility] [address] [facility], [place], [address], 08/29/2024 14:50:02 11/21/19 25 10/02/2019 XR, sacro iliac joint (s), 3 or more view No observ ation record ed. [email or web address] [facility] [address], [place], [address], 11/28/2024 08:36:08 11/21/19 25 05/14/2021 XR, chest , 2 view No observ ation record ed. [email or web address] [facility] [address], [place], [address], 11/28/2024 08:36:37 12/13/1912/12/2024 XR, cervi rhett spine , 6 or more view No observ ation record ed. [email or web address] [facility] [address], [place], [address], 02/08/2025 09:53:07 12/27/19 25 12/26/2024 MRI, cervi rhett spine , w/o contr ast [facility] [address] [facility] [place] [address] [phone] Zofiaaneta santana Name: JAVIER santana : 1969 Patianeta santana 67 Orderi ng Provid er: ROSE SLOAN EXAM DATE: 2024 EXAM: MR CERVIC AL W/O CONTRA ST HISTOR Y: 54-yea r-old female with chroni c neck pain. COMPAR CLARK: None. FINDIN GS: There is prior discec violetta, interb rick graft and anteri or fusion from C4 throug h C7. There is parama gnetic artifa ct from the interb rick spacer s and anteri or fusion hardwa re. There is no eviden ce of compli cation . The cervic al spine is normal in alignm ent. There is no sublux ation. There is no fractu re or pathol ogic intrao sseous lesion . There is mild anteri or margin al osteop hytic spurri ng. No parasp inous soft tissue abnorm ality is identi fied. The visual ized spinal cord and supervisor audit clerks ior fossa of the brain are normal in appear ance. The cranio cervic al juncti on is normal in appear ance. There are mild degene rative change s at C1-C2. C2-C3: There is a mild disc bulge and left greate r than right uncove rtebra l spurri ng. There is no centra l canal stenos is. There is modera te left and minima l right neural forami nal stenos is. C3-C4: There is promin ent uncove rtebra l spurri ng with a diffus e disc/o steoph yte comple x and mild facet arthro franck. There is severe centra l canal stenos is. There is severe bilate ral neural forami nal narrow ing. C4-C5: There is prior fusion with residu al endpla te spurri ng. There is modera te centra l canal stenos is. There is minima l left neural forami nal narrow ing. C5-C6: There is prior fusion . There is no centra l canal stenos is. There is no neural forami nal stenos is. C6-C7: There is prior fusion with promin ent endpla te spurri ng. There is mild centra l canal stenos is. There is mild bilate ral neural forami nal stenos is. C7-T1: There is mild endpla te spurri ng and a minima l disc bulge. There is no centra l canal stenos is or neural forami nal stenos is. The visual ized thorac ic spine are essent ially normal in appear ance. IMPRES VICKY: 1. There is prior ACDF from C4 throug h C7. 2. There is severe centra l canal stenos is and severe bilate ral neural forami nal stenos is at C3-C4. There is modera te left neural forami nal narrow ing at C2-C3. 3. There is modera te centra l canal narrow ing at C4-C5 and mild centra l canal narrow ing at C6-C7. Interp reted By: Ingris sanabria MD Electr onical ly Signed By: Ingris sanabria MD on 12/27/19 7:56 AM [facility] [address], [address], 01/16/2025 17:16:53 Result Notes Documentation Provider Name and Address Organization Details Recorded Time Mri, Lumbar Spine, W/o Contrast : [address] [address] Patient Name: TRISHA GUZMÁN Patient : 1970 Patient Ordering Provider: PEACE RÍOS EXAM DATE: 08/09/2024 EXAM: MR LUMBAR W/O CONTRAST HISTORY: 54-year-old female with chronic back pain. COMPARISON: MRI dated 08/04/2023 FINDINGS: The lumbar spine is normal in alignment. There is no subluxation. There is no fracture. There is mild to moderate anterior marginal osteophytic spurring. No pathologic lesion is identified in the lumbar spine. There are type II Modic changes at L5-S1. The conus medullaris is normal in appearance at the L1-L2 level. T11-T12 and T12-L1: These intervertebral discs are essentially normal in appearance. L1-L2: There is a minimal disc bulge. There is no central canal stenosis. There is no neural foraminal stenosis. L2-L3: There is a broad-based disc protrusion extending into the neural foramina, minimal endplate spurring and minimal facet arthropathy. There is no central canal stenosis. There is moderate right and mild left neural foraminal stenosis. L3-L4: There is a broad-based disc protrusion, mild endplate spurring and mild facet arthropathy. There is no central canal stenosis. There is moderate left and mild right neural foraminal stenosis. L4-L5: There is a focal disc extrusion in the right lateral recess and right neural foramen, a mild disc bulge and mild facet arthropathy. There is no central canal stenosis. There is mild to moderate narrowing of the right lateral recess and right neural foraminal stenosis. L5-S1: There is mild facet arthropathy and a minimal disc bulge. There is no central canal stenosis. There is no neural foraminal stenosis. The paraspinous musculature is symmetric and normal in signal. IMPRESSION: 1. There are disc protrusions and mild degenerative changes with mild to moderate bilateral neural foraminal narrowing from L2-L3 through L4-L5. Interpreted By: Dain Hanley MD E RÍOS APRN [address] [place] [address], [phone], [facility] 08/29/2024 14:50:02 Mri, Cervical Spine, W/o Contrast : [address] [address] Patient Name: TRISHA GUZMÁN Patient : 1970 Patient Ordering Provider: ROSE SLOAN EXAM DATE: 12/26/2024 EXAM: MR CERVICAL W/O CONTRAST HISTORY: 54-year-old female with chronic neck pain. COMPARISON: None. FINDINGS: There is prior discectomy, interbody graft and anterior fusion from C4 through C7. There is paramagnetic artifact from the interbody spacers and anterior fusion hardware. There is no evidence of complication. The cervical spine is normal in alignment. There is no subluxation. There is no fracture or pathologic intraosseous lesion. There is mild anterior marginal osteophytic spurring. No paraspinous soft tissue abnormality is identified. The visualized spinal cord and posterior fossa of the brain are normal in appearance. The craniocervical junction is normal in appearance. There are mild degenerative changes at C1-C2. C2-C3: There is a mild disc bulge and left greater than right uncovertebral spurring. There is no central canal stenosis. There is moderate left and minimal right neural foraminal stenosis. C3-C4: There is prominent uncovertebral spurring with a diffuse disc/osteophyte complex and mild facet arthropathy. There is severe central canal stenosis. There is severe bilateral neural foraminal narrowing. C4-C5: There is prior fusion with residual endplate spurring. There is moderate central canal stenosis. There is minimal left neural foraminal narrowing. C5-C6: There is prior fusion. There is no central canal stenosis. There is no neural foraminal stenosis. C6-C7: There is prior fusion with prominent endplate spurring. There is mild central canal stenosis. There is mild bilateral neural foraminal stenosis. C7-T1: There is mild endplate spurring and a minimal disc bulge. There is no central canal stenosis or neural foraminal stenosis. The visualized thoracic spine are essentially normal in appearance. IMPRESSION: 1. There is prior ACDF from C4 through C7. 2. There is severe central canal stenosis and severe bilateral neural foraminal stenosis at C3-C4. There is moderate left neural foraminal narrowing at C2-C3. 3. There is moderate central canal narrowing at C4-C5 and mild central canal narrowing at C6-C7. Interpreted By: Dain Hanley MD NI CASTRO PA-C [address] [place] [place] [address], [phone], [facility] 01/16/2025 16:18:46 Procedures Surgical History Date Name Laterality Status Provider Name and Address Organization Details Recorded Time 05/26/20 17 Interpretation completed KORTNEY GRULLON PA-C [address] [place] [address], [address] [place] [address], [facility] 05/26/2017 10:14:58 Other completed DANETTE SCHMIDT MD [address] [place] [address], [address] [place] [address], [facility] 03/04/2017 09:24:54 Orthopedic Surgery completed DANETTE SCHMIDT MD [address] [place] [address], [address] [place] [address], [facility] 03/04/2017 09:25:48 Hysterectomy/que e vagina completed DANETTE SCHMIDT MD [address] [place] [address], [address] [place] [address], [facility] 03/04/2017 09:25:36 Remove tonsils and adenoids completed DANETTE SCHMIDT MD [address] [place] [address], [phone], [facility] 03/04/2017 09:25:41 Imaging Results None recorded. Procedure Notes None recorded. Medical Equipment None Reported. Allergies Allergen ID Allergen Name Allergen Category Reaction Reaction Severity Criticality Documentation Date Start Date Code Code System Note Provider Name and Address Organization Details Recorded Time 328830 Demerol medicatio n Not available Not available Not available 03/04/2017 36648 1 RxNorm DANETTE SCHMIDT MD [address] [place] [address], [phone], [facility] 09:21:54 Medications Name Sig Start Date Stop Date Status Note LastModified by Organization Details LastModified Time Compound Topical Cream Neurocream Reformulated (Ketamine 10% Gabapentin 6% Lidocaine 5% Amitriptyline 2% Bupivacaine 2%) active Not Available Not Available Not Available methocarbamol 500 mg tablet active Not Available Not Availabl e Not Available promethazine- DM 6.25 mg-15 mg/5 mL oral syrup active Not Available Not Available Not Available cetirizine 10 mg tablet TAKE ONE TABLET BY MOUTH ONCE A DAY active Not Available Not Available No t Available azithromycin 250 mg tablet active Not Available Not Availabl e Not Available hydrocodone 5 mg-acetaminop hen 325 mg tablet active Not Available Not Available Not Available meloxicam 15 mg tablet active Not Available Not Available No t Available prednisone 20 mg tablet TAKE 1 TABLET BY MOUTH TWICE DAILY active Not Available Not Available No t Available Advair Diskus 100 mcg-50 mcg/dose powder for inhalation active Not Available Not Available N ot Available sulfamethoxaz ole 800 mg-trimethopr im 160 mg tablet active Not Available Not Available Not Available aspirin 81 mg tablet,delaye d release active Not Available Not Available No t Available tramadol 50 mg tablet active Not Available Not Available No t Available amoxicillin 875 mg tablet active Not Available Not Availabl e Not Available methocarbamol 750 mg tablet active Not Available Not Availabl e Not Available dicyclomine 20 mg tablet active Not Available Not Available Not Available benzonatate 100 mg capsule active Not Available Not Available Not Available cephalexin 500 mg capsule active Not Available Not Available Not Available omeprazole 20 mg capsule,delay ed release active Not Available Not Available N ot Available magnesium citrate oral solution active Not Available Not Available Not Available gabapentin 100 mg capsule TAKE 1 CAPSULE BY MOUTH 5 TIMES a DAY active Not Available Not Available No t Available methylprednis olone 4 mg tablets in a dose pack active Not Available Not Available No t Available albuterol sulfate HFA 90 mcg/actuation aerosol inhaler inhale 2 puffs BY MOUTH EVERY 4 TO 6 HOURS NEEDED FOR SHORTNESS OF BREATH OR wheezing active Not Available Not Available No t Available Percocet 5 mg-325 mg tablet Take 1 tablet every 6 hours by oral route as needed. 2024 active Not Available Not Available Not Avai lable bromphenirami ne-pseudoephe drine-DM 2 mg-30 mg-10 mg/5 mL oral syrup active Not Available Not Available Not Available ondansetron 4 mg disintegratin g tablet active Not Available Not Available Not Available diazepam 5 mg tablet TAKE 1 TABLET BY MOUTH 1 hour prior TO mri. if anixety persists take second tablet active Not Available Not Available No t Available amoxicillin 875 mg-potassium clavulanate 125 mg tablet TAKE 1 TABLET BY MOUTH TWICE DAILY FOR 10 DAYS active Not Available Not Available No t Available oxycodone 5 mg tablet active Not Available Not Available No t Available estradiol active Not Available Not Ashley ilable Not Available cyclobenzapri ne active Not Available Not Available Not Available azelastine 137 mcg-fluticaso ne 50 mcg/spray nasal spray active Not Available Not Available Not Available guaifenesin ER 600 mg tablet, extended release 12 hr active Not Available Not Availabl e Not Available baclofen 5 mg tablet active Not Available Not Available Not Available Breyna 160 mcg-4.5 mcg/actuation HFA aerosol inhaler active Not Available Not Available Not Available Breyna 80 mcg-4.5 mcg/actuation HFA aerosol inhaler inhale 1 PUFF BY MOUTH TWICE DAILY active Not Available Not Available No t Available Vitals Date Recorded Body height Body mass index (BMI) Body weight Systolic And Diastolic Provider Name and Address Organization Details Last Updated DateTime 08/29/2024 165.1 cm 19.6 kg/m2 34780.9 g 124/74 mm[Hg] [facility] 08/29/2024 11:07:14 Date Recorded Body height Body mass index (BMI) Body weight Systolic And Diastolic Provider Name and Address Organization Details Last Updated DateTime 11/02/2024 165.1 cm 19.6 kg/m2 44516.9 g 128/4 mm[Hg] [facility] 11/02/2024 15:32:17 Date Recorded Body height Provider Name an d Address Organization Details Last Updated DateTime 04/05/2025 165.1 cm [facility] 04/05/2025 14:10:16 Date Recorded Body height Body mass index (BMI) Body weight Systolic And Diastolic Provider Name and Address Organization Details Last Updated DateTime 08/03/2024 165.1 cm 19.6 kg/m2 61330.9 g 122/82 mm[Hg] Shanna Millard [facility] 08/03/2024 09:28:22 Social History Question Answer Notes LastModified by Organizat ion Details LastModified Time Tobacco Smoking Status Current Every Day Smoker DANETTE SCHMIDT MD [facility] [place], [address], [facility] 03/04/2017 09:24:33 What Was The Date Of Your Most Recent Tobacco Screening? 05/26/2017 Information n ot available 10/10/2019 Sex: Female Functional Status None recorded. Mental Status None recorded. Family History Relationship Description Onset Age of this Age Resolved Age Notes LastModified by Organization Details LastModified Time Unspecified Relation Family history of malignant neoplasm [email or web address] Not available 2016 09:24:07 Mother Family history of malignant neoplasm 74 74 [email or web address] Not available 10:55:25 Notes:Unknown father's side Medical History Condition Response TENS Unit for current problem N Massage Therapy for current problem N Traction for current problem N Gout N Other N Anxiety/Depression N Thyroid Disease N Kidney Stones N Hyperthyroidism N Emphysema N Hernia N Narcotic Pain Medication for current pro blem N COPD N Glaucoma N Hypothyroidism N Pneumonia N Injections for current problem Y Anesthesia Complications N Deep Vein Thrombosis N Arthritis N Blood Clot N Cancer N Stroke N Blood Thinners N Alcohol Overuse/Alcohol Abuse N High Cholesterol N Liver Disease N Fibromyalgia Y Dialysis N Kidney Disease N Allergies/Hayfever N Neuro-modulating Drugs for current probl em N Heart Conditions N Black Lung N Migraines N Steroid Pack for current problem N NSAID Use N Skin Problems N Osteoporosis/Osteopenia N Immune System Disorder N Heart Attack ([place]) N Mental Illness N Neurological Problems N [...] ICD10 Code Diagnosis IMO Codes Diagnosis Note [id number] DANETTE SCHMIDT MD [facility] [address] [place] [address] 03/04/2017 08:52:31 03/04/2017 09:57:41 Adhesive capsulitis of right shoulder [id number] 64167 M75.01 Trisha manifests with some clinical signs of adhesive capsulitis with regard to female gender, post trauma, greater than 20 capsular stiffness. However, in addition she shows [...] and endurance as her pain can tolerate. [id number] DANETTE SCHMIDT MD [facility] [address] [place] [address] 04/15/2017 08:59:57 04/15/2017 10:08:43 Adhesive capsulitis of right shoulder [id number] 44039 M75.01 SCope in Jul 2016 and GREG in October 2016 Plateau. Diagnostic injection - assess pain source and possible down reagualt inflammato ry Cervical spondylosis 387 718911 M47.812 With new MRI rec neurosurge ry and injection [id number] DANETTE SCHMIDT MD [facility] [address] [place] [address] 05/04/2017 09:08:46 05/04/2017 10:36:35 Pain of shoulder region 37833438 M25.511 Unclear etiology, low probabilit y success with Dx scope/DAWN, COnsider; Spine referral (foraminal injection) , Second opinion Pain management Cont HEP [id number] KORTNEY GRULLON PA-C [facility] [address] [place] [address] 05/26/2017 08:42:33 05/26/2017 14:14:10 Pain of shoulder region 82334232 M25.511 46yo WF with history of C4-7 in 2006 and 2009 by in [place] and right shoulder injury in 2016 and subsequent surgery and manipulati on now [...] the RUE. I met with the case consultant and discussed our findings and plan moving forward. I do believe that she will be unable to tolerate pushing/pu lling/lift ing, so I am requesting that she remain off work for the next 6 weeks. She may need to undergo a FCE in the future. She can follow up with us as needed. [id number] PEACE RÍOS APRN [facility] [address] [place] [address] 07/01/2023 10:13:45 07/02/2023 04:47:52 Lumbar radiculopathy 201014442 M54.16 Migration of spinal cord stimulator [id number] T85.122A [id number] ROSE SLOAN MD [facility] [address] [address] 08/17/2023 09:46:46 08/18/2023 04:24:06 Lumbar radiculopathy 364397816 M54.16 Migration of spinal cord stimulator 760413375 T85.122A [id number] ROSE SLOAN MD SURGERY SCHEDULE [address] [place] [address] 09/24/2023 12:54:13 10/04/2023 08:30:33 [id number] PEACE RÍOS APRN [facility] [address] [place] [address] 08/03/2024 09:19:26 08/04/2024 06:20:59 Lumbar radiculopathy 426057268 M54.16 [id number] MED DICKSON PA-C [facility] [address] [place] [address] 08/29/2024 10:53:50 08/30/2024 04:23:37 Lumbar spondylosis 757292752 M47.896 Chronic pain syndrome 37 1999632 G89.4 [id number] ROSE SLOAN MD [facility] [address] [place] [address] 10/03/2024 10:39:19 10/03/2024 10:49:16 [id number] ROSE SLOAN MD [facility] [address] [place] [address] 11/02/2024 14:48:56 11/03/2024 04:32:05 Chronic pain syndrome 296549991 G89.4 [id number] ROSE SLOAN MD NEUROSURG [facility] [address] [place] [address] 04/05/2025 14:01:33 04/09/2025 11:52:50 Cervical spondylosis 911479239 M47.812 19162 Health Concerns Section Related Observation LastModified by Organization Detai ls LastModified Time None Recorded Concern Status LastModified by Organization Details LastModified Time None Recorded Advance Directives Directive None Recorded Payers Insurance Date Sequence Insurance Name Policy Number Policy Cho Covered Member ID Cho Member ID Guarantor Name 07/01/2023 [facility] Trishafranc Guzmán 04/09/2025 1 OLIVIA-NORBERT[place] (PPO) [id number] 2 Justice Guzmán [id number] Trisha Guzmán Notes Date Note Type Note Provider Name and Address Organization Details Recorded Time 08/03/2024 text/html Ms. Guzmán is a 54-year-old female who returns to the office after last being seen 08/17/2023 following a revision of her [employer] spinal cord stimulator completed by Dr. Sloan on 08/30/2023. Her spinal cord stimulator is for her left lower extremity pain and has been very helpful. She returns today unfortunately reporting significant right lower extremity pain that radiates down to her foot that has been present even before her revision of her spinal cord stimulator but has now gotten worse. PEACE RÍOS, ACID POLYMERIZATION OPERATOR [address] [place], [address], [facility] 08/03/2024 09:57:51 08/29/2024 text/html ROS as noted in the HPI Ariana Guzmán is a 54-year-old status post C4-C7 ACDF (2008, performed in [place]), [employer] spinal cord stimulator placement (Dr. Mendoza, October 2020), and revision of [employer] spinal cord stimulator percutaneous electrodes and placement of paddle electrodes via thoracic laminectomy (Dr. Sloan, 08/30/2023) who presents to the clinic for lumbar follow-up, with MRI lumbar through [facility] on 08/09/2024 and thoracic x-rays completed through [facility]. To recap, her stimulator was recently [...] PA and physician visit. MED DICKSON PA-C [address] [place] [address], [phone], [facility] [facility] 08/30/2024 11:42:33 11/02/2024 text/html Status post right L4-5 microlumbar foraminotomy which I performed on [...] an anterior surgery. These were performed in [place]. ROSE SLOAN MD [address] [place] [address], [phone], [facility] 11/02/2024 15:55:18 04/05/2025 text/html I last saw Mr. Guzmán on November 02, 2024. I had recently performed a right L4-5 microlumbar foraminotomies. Her right leg pain improved. She is status post a C4-7 anterior cervical discectomy fusion sometime around 2005 in [place]. She had what I believed to be a posterior foraminotomies in 2008. Dr. Guerrero has treated back and leg pain. She underwent a couple of percutaneous [employer] spinal cord lead revisions. I did a lead revision in August 2023. She has chronic back and left leg pain. The foraminotomies back in September 18, 2024 on the right at L4-5 that I performed help her right leg pain. She was complaining of chronic neck pain then. She continues to complain of chronic posterior neck pain rating up the head. It is worse in the cervical thoracic area. She has lost range of motion. Dr. Guerrero is scheduling an injection in early April. ROSE SLOAN MD [address] [place] [address], [phone], [facility] 04/05/2025 14:40:46 OBGyn Episode No OBEpisode recorded.
--- OUTSIDE RECORDS SUMMARY | 2025-07-25 10:42 | XMS_ITS | Clinical Summary ---
Author Organization [employer] ([place], [place], [place], [place], [place]) Address [address] [place] [address] Care Team Providers Care Grain Elevator Clerk Name Role Phone Carlos Kelley APRN Primary Care Provider [phone] Allergies Active Allergy Reactions Criticality Noted Date [...] Date Smoking Tobacco: Every Day Cigarettes 1 21.9 Started: 2003 Smokeless Tobacco: Never Tobacco Cessation:Ready to Q uit: Not Asked; Counseling Given: Not Answered Alcohol Use Standard Drinks/Week Comments Not Currently 0 (1 standard drink = 0.6 oz pur e alcohol) none in 8-10 years Family and Community Support Answer Braden e Recorded Help with Day to Day Activities Not on file 08/31/2023 Feeling Lonely or Isolated Not on file 08/31 Educational Attainment Answer Date Fredy rded Speak language other than Croatian at home Not on file 08/31/2023 Want help with school or training Not on file 08/31/2023 Substance Use Answer Date Recorded Used prescription meds for non-medical reasons N ot on file 08/31/2023 Used illegal drugs past 12 months Not on file 08/31/2023 Comments No Sex and Gender Information Value Date Recorded Sex Assigned at Not on file 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 Gender Identity Not on file Sexual Orientation [...] 10/16/2024 2:39 PM EST Plan of Treatment Health Maintenance Due Date Last Done Comments CT Colonography 1969 Colonoscopy 1969 Colorectal Cancer Screening 1969 FOBT/FIT 1969 Fit-DNA (Cologuard) 1969 Sigmoidoscopy 1969 Tobacco Cessation Counseling and Screening (12+) 06/20 HIV Screening 1984 Hepatitis C Screening 1987 DTAP/TDAP/TD VACCINES (1 - Tdap) 1988 Pneumococcal 50+ years (1 of 2 - PCV) 1988 Pap Smear 1990 Breast Cancer Screening 2009 Lipid Panel 2014 Lung Cancer Screening 2019 Shingles Vaccine (Zoster) (1 of 2) 2019 COVID-19 VACCINE (2 - season) 2025 Influenza Vaccine (#1) 2025 Depression Screening (12+) 09/06/2025 09/06/2024 Medical Devices Implanted Type Area Binding Stitcher Device Identifier Shelf Expiration Date Model / Serial / Lot Kt Pulse Gen 32 Wavewriter Alp [id number] - [id number] Implanted:Qty: 1 on 08/30/2023 by Braden Reeves Jr., MD at [facility] IMPLANTS N/A: Spine [employer]: NEUROMODULATION 07/19/2025 [id number] 20 / / [id number] Lead Kt Coveredge [id number] Va-8336-50 - [id number] Implanted:Qty: 1 on 08/30/2023 by Braden Reeves Jr., MD at [facility] IMPLANTS N/A: Spine [employer]:NEUROVASC 05/31/2025 SC-8336-5 0 / [id number] / Clik Jbphh [id number] - [id number] Implanted:Qty: 1 on 08/30/2023 by Braden Reeves Jr., MD at [facility] IMPLANTS N/A: Spine [employer]: NEUROMODULATION 06/13/2025 [id number] / / [id number] Insurance BLUE CROSS/BLUE SHIELD Care Teams Grain Elevator Clerk Relationship Specialty Start Date End Date Carlos Kelley APRN [address] [place] [address] PCP - General Nurse Practitioner 10/16/24
--- OUTSIDE RECORDS SUMMARY | 2025-07-25 10:42 | XMS_ITS | Referral Summary ---
Author Organization [employer] ([place], [place], [place], [place], [place]) Address [address] [place] [address] Care Team Providers Care Discharge Door Operator Name Role Phone Carlos Kelley APRN Primary Care Provider [phone] Allergies Active Allergy Reactions Criticality Noted Date [...] Date Fredy rded Speak language other than Italian at home Not on file 08/31/2023 Want help with school or training Not on file 08/31/2023 Substance Use Answer Date Recorded Used prescription meds for non-medical reasons N ot on file 08/31/2023 Used illegal drugs past 12 months Not on file 08/31/2023 Comments No Sex and Gender Information Value Date Recorded Sex Assigned at Not on file 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 Gender Identity Not on file Sexual Orientation [...] on file Medical Devices Implanted Type Area Natural Science Curator Device Identifier Shelf Expiration Date Model / Serial / Lot Kt Pulse Gen 32 Wavewriter Alp [id number] - [id number] Implanted:Qty: 1 on 08/30/2023 by Braden Reeves Jr., MD at [facility] IMPLANTS N/A: Spine [employer] [employer]: NEUROMODULATION 07/19/2025 [id number] / / [id number] Lead Kt Coveredge [id number] Tx-8336-50 - [id number] Implanted:Qty: 1 on 08/30/2023 by Braden Reeves Jr., MD at [facility] IMPLANTS N/A: Spine [employer] [employer]:NEUROVASC 05/31/2025 SC-8336-5 0 / [id number] / Clik [place] [id number] - [id number] Implanted:Qty: 1 on 08/30/2023 by Braden Reeves Jr., MD at [facility] IMPLANTS N/A: Spine [employer]: NEUROMODULATION 06/13/2025 [id number] / / [id number] Insurance BLUE CROSS/BLUE SHIELD Care Teams Discharge Door Operator Relationship Specialty Start Date End Date Carlos Kelley APRN [address] [place] [address] PCP - General Nurse Practitioner 10/16/24
--- OUTSIDE RECORDS SUMMARY | 2025-07-25 10:42 | XMS_ITS | Encounter Summary ---
Author Organization [facility] Address [address] [place] [address] Care Team Providers Care Distribution Engineering Technologist Name Role Phone Carlos Kelley APRN Primary Care Provider [phone] Reason for Referral * Consultation (Routine) - Closed Specialty Diagnoses / Procedures Referred By Leni santana Referred To Contact Orthopaedic Surgery Diagnoses Osteoarthritis of right hip, unspecified osteoarthritis type Marcus Lovell DO [address] [place] [address] [place] [address] Phone: tel: fax: Jermaine Riddle MD [address] [facility] [address] [place] [address] Phone: tel: fax: Referral ID Status Reason Start Date Expiration Date Visits Re quested Visits Authorized [id number] Closed 11/10/2023 05/11/2025 1 1 Encounter Details Date Type Department Care Team (Latest Contact Info) Description 11/10/2023 [facility] [address] [place] [address] Marcus Lovell DO [address] [place] [address] [place] [id number] Osteoarthritis of right hip, unspecified osteoarthritis type [...] Primary documented in this encounter Care Teams Distribution Engineering Technologist Relationship Specialty Start Date End Date Carlos Kelley, PEDIATRIC DIETICIAN [address] [place] [address] PCP - General 01/03/21 documented as of this encounter
--- OUTSIDE RECORDS SUMMARY | 2025-07-25 10:42 | XMS_ITS | Clinical Summary ---
Author Organization [facility] Address [address] [place] [address] Care Team Providers Care Computer Laboratory Technician Name Role Phone AllieCarlos Jarad MOORE Primary Care Provider [phone] Allergies Active Allergy Reactions Criticality Noted Date [...] Date Smoking Tobacco: Every Day Cigarettes 0.5 26.9 Started: 1998 Smokeless Tobacco: Never Tobacco Cessation:Ready [...] of 3 - 19+ 3-dose series) 1988 CT Colonography 2014 Colonoscopy 2014 FIT-DNA 2014 FIT 2014 FOBT 2014 Sigmoidoscopy 2014 [facility]-Colorectal Cancer Screening 2014 [facility]-Breast Cancer Screening 2019 [facility]-Pneumococcal Vaccine: 50 + Years (1 of 1 - PCV) 2019 [facility]-Zoster Vaccines (1 of 2) 2019 HOP-IIPME-05 Vaccine (2 - 20 25-26 season) 2025 01/09/2021 [facility]-Influenza Vaccine (#1) 2025 HPV Vaccines [...] on patient's age to complete this topic Medical Devices Implanted Type Area Medical Claims Assistant Device Identifier Shelf Expiration Date Model / Serial / Lot Chg Shell R3 3 Hole Acet 50mm - [id number] Implanted:Qty : 1 on 01/31/2024 by Jermaine Riddle MD at [facility] Hip Right: Hip [employer]-[id number] 09/15/2033 [id number] / / [id number] Chg Head Oxinium Fem 08/05 28m - [id number] Implanted:Qty : 1 on 01/31/2024 by Jermaine Riddle MD at [facility] Hip Right: Hip [employer]-[id number] 10/24/2033 [id number] / / [id number] Liner Or3o Dual Mbility 38 50 - [id number] Implanted:Qty : 1 on 01/31/2024 by Jermaine Riddle MD at [facility] Liner Right: Hip [employer]-[id number] 09/25/2033 [id number] / / [id number] Liner Or3o Dual Mbility Xlpe 28/38 - [id number] Implanted:Qty : 1 on 01/31/2024 by Jermaine Riddle MD at [facility] Liner Right: Hip [employer]-[id number] 10/18/2033 [id number] / / [id number] Chg Screw Ref Spher Head 25mm - [id number] Implanted:Qty : 1 on 01/31/2024 by Jermaine Riddle MD at [facility] Screw Right: Hip [employer]-[id number] 09/10/2033 [id number] / / [id number] Chg Screw Ref Spher Head 35mm - [id number] Implanted:Qty : 1 on 01/31/2024 by Jermaine Riddle MD at [facility] Screw Right: Hip [employer]-[id number] 10/04/2033 [id number] / / [id number] Spinal Cord Stimulator Spinal Cord Stimulator Left: Spine Lumbar Polarstem Cementless Tiha 2 - [id number] Implanted:Qty : 1 on 01/31/2024 by Jermaine Riddle MD at [facility] Stem Right: Hip [employer]-[id number] 03/26/2030 [id number] / / [id number] Insurance [place] [id number] [facility] Advance Directives * Full Code (Latest Code Status on File) Date Activated Date Inactivated Comments 01/31/2024 8:38 AM 01/31/2024 5:28 PM Question Answer Comments Patient has decision-making capacity? Yes Care Teams Computer Laboratory Technician Relationship Specialty Start Date End Date Carlos Kelley APRN [address] [place] [address] [place] [id number] PCP - General 01/03/21
--- NOTE | 2025-07-25 10:43 | XR_ITS ---
FINAL REPORT CLINICAL HISTORY: L Shoulder pain FINDINGS: LEFT SHOULDER 3 views of the left shoulder were obtained. There is no acute fracture or dislocation. Visualized joint spaces are normally aligned. 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 Soft tissues are unremarkable. IMPRESSION: No acute bony abnormality. Reviewed, Interpreted and Dictated by Maxine Funes MD Transcribed by Sugey Foster Authenticated and [facility]
== END 2025-07-25 23:59 | disposition home or self-care (01) ==
LOC: RAD 10:40
PROVIDERS: PCP Nurse Practitioner Family; Visit Provider Nurse Practitioner Family
DX: M25.512 Pain in left shoulder (principal)
CPT/HCPCS: 73030